=== PATIENT | female | born 1960 | race Caucasian/White ===

== ENCOUNTER 2016-07-02 13:04 | Emergency (ER) | payer MEDICARE, MEDICAID ==
[2016-07-02 14:16] LABS: Urine Bacteria Absent (Absent); Urine Bilirubin Negative (Negative); Urine Glucose Negative (Negative); Urine Nitrite Negative (Negative)
[2016-07-02 14:43] LABS: Hematocrit 46 % (35-47); Hemoglobin 15.2 g/dl (12.0-16.0); Mean Corpuscular HGB Conc 33 g/dl (31-36); Mean Corpuscular Hemoglobin 31 pg (27-31); Mean Corpuscular Volume 95 fL (80-97); Mean Platelet Volume 9 um3 (7.4-10.4); Red Blood Count 4.89 10^6/ul (4.0-5.4); Red Cell Distribution Width 14 % (10.5-15); White Blood Count 11.5 10^3/ul (3.5-10.8)
[2016-07-02 14:56] LABS: Albumin 3.8 g/dL (3.2-5.2); BUN/Creatinine Ratio 10.1 (8-20); C Reactive Protein 45.41 mg/L (< 5.00); Calcium 9.1 mg/dL (8.6-10.3); EGFR African American 113.2 (>60); Globulin 3.3 g/dL (2-4); Magnesium 1.9 mg/dL (1.9-2.7); Potassium 3.8 mmol/L (3.5-5.0); Total Bilirubin 0.3 mg/dL (0.2-1.0); Total Protein 7.1 g/dL (6.4-8.9)
[2016-07-02 15:30] LABS: TSH (Thyroid Stimulating Horm) 0.33 mcIU/mL (0.34-5.60)
[2016-07-02] MEDS ORDERED: Clarithromycin TAB* 500 MG PO ONE (15:42)
[2016-07-02] MEDS ORDERED: predniSONE TAB* 20 MG PO ONE (15:42)
[2016-07-02 16:10] VITALS: BP 122/98
--- NOTE | 2016-07-02 19:06 | RAD ---
HISTORY: Shortness of breath COMPARISONS: May 30, 2016 VIEWS:1: Single frontal portable view of the chest at 1:45 PM FINDINGS: LINES AND TUBES: None. CARDIOMEDIASTINAL SILHOUETTE: The cardiomediastinal silhouette is normal for portable technique. PLEURA: The costophrenic angles are sharp. No pleural abnormalities are noted. LUNG PARENCHYMA: There is hyperinflation. ABDOMEN: The upper abdomen is clear. There is no subphrenic gas. BONES AND SOFT TISSUES: No bone or soft tissue abnormalities are noted. IMPRESSION: HYPERINFLATION NO ACTIVE CARDIOPULMONARY DISEASE.
--- NOTE | 2016-07-02 22:51 | ED ---
Mary Keith Matthew, scribed for Luke Salomon MD on 07/02/16 at 1542 . Shortness of Breath - HPI Summary HPI Summary: A 55 y/o female presents to the ED by EMS with SOB since this morning. The patient used a nebulizer at home with minimal relief. Associated symptoms include 3 day productive cough - green and chills. The patient denies fever. The patient also has left arm pain only when coughing that is rated 9/10 in severity. The breathing treatment in the EMS helped to alleviate her symptoms. No Hx of diabetes. - History of Current Complaint Chief Complaint: EDShortnessOfBreath Time Seen by Provider: 07/02/16 15:32 Hx Obtained From: Patient Onset/Duration: Sudden Onset, Lasting Hours, Resolved Timing: Constant Current Severity: None Dyspnea At: Rest Associated Signs & Symptoms: Cough (Productive) - green, Chills - Allergy/Home Medications Allergies/Adverse Reactions: Allergies Allergy/AdvReac Type Severity Reaction Status Date / Time Sulfa Drugs Allergy Intermediate Hives Verified 01/19/16 12:00 Latex Allergy SEE NOTE Verified 01/24/16 10:24 BELOW bee Allergy Difficulty Uncoded 01/19/16 12:00 Breathing/Wheezing PMH/Surg Hx/FS Hx/Imm Hx Endocrine/Hematology History: Reports: Other Endocrine/Hematological Disorders - HIV Denies: Hx Anticoagulant Therapy, Hx Diabetes, Hx Systemic Lupus Erythematosus Cardiovascular History: Denies: Hx Congestive Heart Failure, Hx Hypertension Respiratory History: Reports: Hx Asthma, Hx Chronic Obstructive Pulmonary Disease (COPD) Denies: Hx Sleep Apnea History: Denies: Hx Dialysis, Hx Renal Disease Musculoskeletal History: Denies: Hx Arthritis, Hx Rheumatoid Arthritis, Hx Osteoporosis Sensory History: Reports: Hx Contacts or Glasses Denies: Hx Cataracts, Hx Glaucoma, Hx Hearing Aid Opthamlomology History: Reports: Hx Contacts or Glasses Denies: Hx Cataracts, Hx Glaucoma Neurological History: Denies: Hx Headaches, Hx Seizures, Hx Transient Ischemic Attacks (TIA) Psychiatric History: Denies: Hx Anxiety, Hx Depression - Cancer History Hx Chemotherapy: No - Surgical History Surgery Procedure, Year, and Place: TUBIAL LIGATION. UMBILICAL HERNIA REPAIR Hx Anesthesia Reactions: No Infectious Disease History: No Infectious Disease History: Reports: Hx Human Immunodeficiency Virus (HIV) Denies: Traveled Outside the US in Last 30 Days - Family History Family History: No FHx of breast CA. - Social History Alcohol Use: None Substance Use Type: Reports: None Hx Tobacco Use: Yes Smoking Status (MU): Current Every Day Smoker Amount Used/How Often: 4 PPD X 18 YEARS THEN DECREASED TO 1 PPD Have You Smoked in the Last Year: Yes Review of Systems Positive: Chills. Negative: Fever Eyes: Negative ENT: Negative Cardiovascular: Negative Positive: Shortness Of Breath, Cough Gastrointestinal: Negative Genitourinary: Negative Musculoskeletal: Negative Skin: Negative Neurological: Negative Psychological: Normal All Other Systems Reviewed And Are Negative: Yes Physical Exam Triage Information Reviewed: Yes Vital Signs On Initial Exam: Initial Vitals BP 118/78 07/02/16 13:21 Vital Signs Reviewed: Yes Appearance: Positive: Well-Appearing, No Pain Distress Skin: Positive: Warm, Skin Color Reflects Adequate Perfusion, Dry Head/Face: Positive: Normal Head/Face Inspection Eyes: Positive: Normal ENT: Positive: Normal ENT inspection Neck: Positive: Supple, Nontender Respiratory/Lung Sounds: Positive: Clear to Auscultation, Breath Sounds Present Cardiovascular: Positive: RRR Abdomen Description: Positive: Nontender, Soft Bowel Sounds: Positive: Present Musculoskeletal: Positive: Normal Neurological: Positive: Normal Psychiatric: Positive: Normal, Affect/Mood Appropriate - Douglas Coma Scale Coma Scale Total: 15 Diagnostics - Vital Signs Vital Signs Temp Pulse Resp BP Pulse Ox 07/02/16 14:00 92 18 96 07/02/16 13:50 99.1 F 95 24 119/66 96 07/02/16 13:30 96 21 119/66 95 07/02/16 13:22 99.1 F 97 26 118/78 96 07/02/16 13:21 118/78 - Laboratory Lab Results: Lab Results 07/02/16 07/02/16 07/02/16 Range/Units 14:00 14:33 14:33 WBC 11.5 H (3.5-10.8) 10^3/ul RBC 4.89 (4.0-5.4) 10^6/ul Hgb 15.2 (12.0-16.0) g/dl Hct 46 (35-47) % MCV 95 (80-97) fL MCH 31 (27-31) pg MCHC 33 (31-36) g/dl RDW 14 (10.5-15) % Plt Count 305 (150-450) 10^3/ul MPV 9 (7.4-10.4) um3 Neut % (Auto) 69.0 (38-83) % Lymph % (Auto) 20.8 L (25-47) % Gilliam % (Auto) 8.0 (1-9) % Eos % (Auto) 1.1 (0-6) % Baso % (Auto) 1.1 (0-2) % Absolute Neuts (auto) 8.0 H (1.5-7.7) 10^3/ul Absolute Lymphs (auto) 2.4 (1.0-4.8) 10^3/ul Absolute Monos (auto) 0.9 H (0-0.8) 10^3/ul Absolute Eos (auto) 0.1 (0-0.6) 10^3/ul Absolute Basos (auto) 0.1 (0-0.2) 10^3/ul Absolute Nucleated RBC 0.02 10^3/ul Nucleated RBC % 0.2 Sodium 135 (133-145) mmol/L Potassium 3.8 (3.5-5.0) mmol/L Chloride 101 (101-111) mmol/L Carbon Dioxide 28 (22-32) mmol/L Anion Gap 6 (2-11) mmol/L BUN 7 (6-24) mg/dL Creatinine 0.69 (0.51-0.95) mg/dL Est GFR ( Amer) 113.2 (>60) Est GFR (Non-Af Amer) 88.0 (>60) BUN/Creatinine Ratio 10.1 (8-20) Glucose 92 (70-100) mg/dL Lactic Acid (0.5-2.0) mmol/L Calcium 9.1 (8.6-10.3) mg/dL Magnesium 1.9 (1.9-2.7) mg/dL Total Bilirubin 0.30 (0.2-1.0) mg/dL AST 13 (13-39) U/L ALT 9 (7-52) U/L Alkaline Phosphatase 132 H (34-104) U/L Total Creatine Kinase 77 (10-223) U/L CK-MB (CK-2) 3.0 (0.6-6.3) ng/mL Troponin I 0.00 (<0.04) ng/mL C-Reactive Protein 45.41 H (< 5.00) mg/L B-Natriuretic Peptide ( - 100) pg/mL Total Protein 7.1 (6.4-8.9) g/dL Albumin 3.8 (3.2-5.2) g/dL Globulin 3.3 (2-4) g/dL Albumin/Globulin Ratio 1.2 (1-3) Lipase 13 (11.0-82.0) U/L TSH 0.33 L (0.34-5.60) mcIU/mL Urine Color Yellow Urine Appearance Clear Urine pH 7.0 (5-9) Ur Specific [place] 1.006 L (1.010-1.030) Urine Protein Negative (Negative) Urine Ketones Negative (Negative) Urine Blood 2+ H (Negative) Urine Nitrate Negative (Negative) Urine Bilirubin Negative (Negative) Urine Urobilinogen Negative (Negative) Ur Leukocyte Esterase Negative (Negative) Urine WBC (Auto) Absent (Absent) Urine RBC (Auto) Trace(0-2/hpf) (Absent) Ur Squamous Epith Cells Present H (Absent) Urine Bacteria Absent (Absent) Urine Glucose Negative (Negative) 07/02/16 07/02/16 Range/Units 14:33 14:33 WBC (3.5-10.8) 10^3/ul RBC (4.0-5.4) 10^6/ul Hgb (12.0-16.0) g/dl Hct (35-47) % MCV (80-97) fL MCH (27-31) pg MCHC (31-36) g/dl RDW (10.5-15) % Plt Count (150-450) 10^3/ul MPV (7.4-10.4) um3 Neut % (Auto) (38-83) % Lymph % (Auto) (25-47) % Gilliam % (Auto) (1-9) % Eos % (Auto) (0-6) % Baso % (Auto) (0-2) % Absolute Neuts (auto) (1.5-7.7) 10^3/ul Absolute Lymphs (auto) (1.0-4.8) 10^3/ul Absolute Monos (auto) (0-0.8) 10^3/ul Absolute Eos (auto) (0-0.6) 10^3/ul Absolute Basos (auto) (0-0.2) 10^3/ul Absolute Nucleated RBC 10^3/ul Nucleated RBC % Sodium (133-145) mmol/L Potassium (3.5-5.0) mmol/L Chloride (101-111) mmol/L Carbon Dioxide (22-32) mmol/L Anion Gap (2-11) mmol/L BUN (6-24) mg/dL Creatinine (0.51-0.95) mg/dL Est GFR ( Amer) (>60) Est GFR (Non-Af Amer) (>60) BUN/Creatinine Ratio (8-20) Glucose (70-100) mg/dL Lactic Acid 0.7 (0.5-2.0) mmol/L Calcium (8.6-10.3) mg/dL Magnesium (1.9-2.7) mg/dL Total Bilirubin (0.2-1.0) mg/dL AST (13-39) U/L ALT (7-52) U/L Alkaline Phosphatase (34-104) U/L Total Creatine Kinase (10-223) U/L CK-MB (CK-2) (0.6-6.3) ng/mL Troponin I (<0.04) ng/mL C-Reactive Protein (< 5.00) mg/L B-Natriuretic Peptide 41 ( - 100) pg/mL Total Protein (6.4-8.9) g/dL Albumin (3.2-5.2) g/dL Globulin (2-4) g/dL Albumin/Globulin Ratio (1-3) Lipase (11.0-82.0) U/L TSH (0.34-5.60) mcIU/mL Urine Color Urine Appearance Urine pH (5-9) Ur Specific [place] (1.010-1.030) Urine Protein (Negative) Urine Ketones (Negative) Urine Blood (Negative) Urine Nitrate (Negative) Urine Bilirubin (Negative) Urine Urobilinogen (Negative) Ur Leukocyte Esterase (Negative) Urine WBC (Auto) (Absent) Urine RBC (Auto) (Absent) Ur Squamous Epith Cells (Absent) Urine Bacteria (Absent) Urine Glucose (Negative) Result Diagrams: 07/02/16 14:33 07/02/16 14:33 Lab Statement: Any lab studies that have been ordered have been reviewed, and results considered in the medical decision making process. - Radiology CXR Xray Interpretation: No Acute Changes - IMPRESSION: HYPERINFLATION NO ACTIVE CARDIOPULMONARY DISEASE. Radiology Interpretation Completed By: Radiologist - EKG 13:52 Cardiac Rate: NL - 92 bpm EKG Rhythm: Sinus Rhythm Course/Dx - Course Assessment/Plan: A 55 y/o female presents to the ED by EMS with SOB since this morning. Associated symptoms include 3 day productive cough green, and chills. Labs were reviewed. CXR shows no active cardiopulmonary disease. EKG shows NSR at 92 bpm. The patient will be discharged home and follow-up with her PCP. - Diagnoses Provider Diagnoses: Bronchospasm with bronchitis, acute Discharge - Discharge Plan Condition: Stable Disposition: HOME Prescriptions: Clarithromycin TAB* [Biaxin TAB*] 500 mg PO BID #20 tab Methylprednisolone [Medrol Dosepak 4 MG*] 4 mg PO .SEE GARRETT INSTRUCTION #1 tab Patient Education Materials: Clarithromycin (By mouth), Methylprednisolone (By mouth), Acute Bronchitis (ED) Referrals: Philip Diamond MD [Primary Care Provider] - 2 Days Additional Instructions: Please follow-up with your primary care physician. The documentation as recorded by the Mary thibodeaux Matthew accurately reflects the service I personally performed and the decisions made by , Luke Salomon MD.
== END 2016-07-02 16:10 | disposition home or self-care (01) ==
LOC: ED 13:04
DX: J20.9 Acute bronchitis, unspecified (principal); F17.210 Nicotine dependence, cigarettes, uncomplicated; M79.602 Pain in left arm; Z88.2 Allergy status to sulfonamides; B20 Human immunodeficiency virus [HIV] disease
CPT/HCPCS: 36415; 71010; 80053; 81003; 81015; 82550; 82553; 83605; 83690; 83735; 83880; 84443; 84484; 85025; 86140; 93005; 99284; A9270-GY; J7512

== ENCOUNTER 2017-02-26 16:12 | Emergency (ER) | payer MEDICARE, MEDICAID ==
[2017-02-26] MEDS ORDERED: Cyclobenzaprine TAB* 10 MG PO ONE ×2 (18:40→20:30)
[2017-02-26] MEDS ORDERED: HYDROcodone/ACETAMIN 5-325 MG* 1 TAB PO ONE ×2 (19:27→20:30)
[2017-02-26] MEDS ORDERED: LORazepam TAB(*) 1 MG PO ONE (19:27)
[2017-02-26 21:06] VITALS: BP 119/71
--- NOTE | 2017-02-28 18:49 | ED ---
Neck Pain - HPI Summary HPI Summary: Patient presents to the ED with neck pain which radiates to the left shoulder. Pain is 10/10, constant. Patient is very tearful on exam. She states this has never happened to her before. She states she just awoke with this pain and has been unable to move the neck since that time. Denies injury or trauma to the area. Denies posterior cervical spine tenderness. Unable to perform physical exam on patient d/t pain. Denies insect bites, neuro symptoms, rashes, visual changes or joint pains. - History of Current Complaint Chief Complaint: EDNeckComplaint Stated Complaint: HEAD/NECK PAIN/CANT MOVE Time Seen by Provider: 02/26/17 17:57 Hx Obtained From: Patient Onset/Duration Of Injury/Symptoms: Hours Mechanism Of Injury: No Known Trauma Timing: Constant Onset/Duration: Sudden Onset Severity Initially: Moderate Severity Currently: Moderate Pain Intensity: 0 Pain Scale Used: 0-10 Numeric Location: Discrete At: - left side of neck muscles extending to the trap Character: Aching, Stiff Aggravating Factors: Movement, Other: Alleviating Factors: Heat Associated Signs & Symptoms: Positive: Negative - Risk Factors Meningitis Risk Factors: Negative - Allergies/Home Medications Allergies/Adverse Reactions: Allergies Allergy/AdvReac Type Severity Reaction Status Date / Time Sulfa Drugs Allergy Intermediate Hives Verified 02/26/17 16:26 Latex Allergy SEE NOTE Verified 02/26/17 16:26 BELOW bee Allergy Difficulty Uncoded 02/26/17 16:26 Breathing/Wheezing PMH/Surg Hx/FS Hx/Imm Hx Previously Healthy: Yes Endocrine/Hematology History: Reports: Other Endocrine/Hematological Disorders - HIV Denies: Hx Anticoagulant Therapy, Hx Diabetes, Hx Systemic Lupus Erythematosus Cardiovascular History: Denies: Hx Congestive Heart Failure, Hx Hypertension Respiratory History: Reports: Hx Asthma, Hx Chronic Obstructive Pulmonary Disease (COPD) Denies: Hx Sleep Apnea History: Denies: Hx Dialysis, Hx Renal Disease Musculoskeletal History: Denies: Hx Arthritis, Hx Rheumatoid Arthritis, Hx Osteoporosis Sensory History: Reports: Hx Contacts or Glasses Denies: Hx Cataracts, Hx Glaucoma, Hx Hearing Aid Opthamlomology History: Reports: Hx Contacts or Glasses Denies: Hx Cataracts, Hx Glaucoma Neurological History: Denies: Hx Headaches, Hx Seizures, Hx Transient Ischemic Attacks (TIA) Psychiatric History: Denies: Hx Anxiety, Hx Depression - Cancer History Hx Chemotherapy: No - Surgical History Surgery Procedure, Year, and Place: TUBIAL LIGATION. UMBILICAL HERNIA REPAIR Hx Anesthesia Reactions: No - Immunization History Date of Tetanus Vaccine: 2014 Date of Influenza Vaccine: 2016 Hx Pertussis Vaccination: No Immunizations Up to Date: Unable to Obtain/Confirm Infectious Disease History: No Infectious Disease History: Reports: Hx Human Immunodeficiency Virus (HIV) Denies: Traveled Outside the [place] in Last 30 Days - Family History Known Family History: Positive: Other - noncontributory Family History: No FHx of breast CA. - Social History Occupation: Unemployed Lives: With Family Alcohol Use: None Hx Substance Use: No Substance Use Type: Reports: None Hx Tobacco Use: Yes Smoking Status (MU): Current Every Day Smoker Amount Used/How Often: 4 PPD X 18 YEARS THEN DECREASED TO 1 PPD Have You Smoked in the Last Year: Yes Review of Systems Constitutional: Negative Eyes: Negative Cardiovascular: Negative Respiratory: Negative Genitourinary: Negative Positive: no symptoms reported, see HPI Positive: Arthralgia - left sided neck tenderness Skin: Negative Psychological: Normal All Other Systems Reviewed And Are Negative: Yes Physical Exam Triage Information Reviewed: Yes Vital Signs On Initial Exam: Initial Vitals Temp Pulse Resp BP Pulse Ox 97.7 F 95 16 139/78 94 02/26/17 16:24 02/26/17 16:24 02/26/17 16:24 02/26/17 16:24 02/26/17 16:24 Vital Signs Reviewed: Yes Appearance: Positive: Well-Appearing, Well-Nourished, Pain Distress Skin: Positive: Skin Color Reflects Adequate Perfusion Head/Face: Positive: Normal Head/Face Inspection, Cephalohematoma Eyes: Positive: Normal, RELL, Conjunctiva Clear Neck: Positive: Tenderness @ - left sided neck muscles radiating into the left scapula Respiratory/Lung Sounds: Positive: Clear to Auscultation, Breath Sounds Present Cardiovascular: Positive: RRR, Pulses are Symmetrical in both Upper and Lower Extremities Musculoskeletal: Positive: Strength/ROM Intact Neurological: Positive: Alert, Oriented to Person Place, Time, Speech Normal Psychiatric: Positive: Normal, Affect/Mood Appropriate Diagnostics - Vital Signs Vital Signs Temp Pulse Resp BP Pulse Ox 02/26/17 21:01 99.1 F 87 119/71 02/26/17 19:35 20 02/26/17 16:24 97.7 F 95 16 139/78 94 - Laboratory Lab Statement: Any lab studies that have been ordered have been reviewed, and results considered in the medical decision making process. Neck Course/Dx - Course Course Of Treatment: Patient is given flexeril without relief. She is then given ativan and 2 [place]. Upon re-evaluation, patient with improved relief. No tenderness to the posterior cervical spine. She is Ok with discharge with muscle relaxers and pain control. She is encouraged ibuprofen 600mg three times daily and moist heat. - Diagnoses Provider Diagnoses: Cervical radicular pain Discharge - Discharge Plan Condition: Stable Disposition: HOME Prescriptions: Cyclobenzaprine TAB* [Flexeril TAB*] 10 mg PO BID PRN #10 tab MDD 2 PRN Reason: Pain HYDROcodone/ACETAMIN 5-325 MG* [[place] 5-325 TAB*] 1 tab PO Q4H PRN #18 tab MDD 6 PRN Reason: Pain Patient Education Materials: Cervical Radiculopathy (ED), Acute Neck Pain (ED) Referrals: Philip Diamond MD [Primary Care Provider] - Additional Instructions: Take flexeril and hydrocodone as prescribed Moist heat to the area Try to gently move the neck as tolerated If symptoms worsen - return to the ED
== END 2017-02-26 21:06 | disposition home or self-care (01) ==
LOC: ED 16:12
DX: M54.12 Radiculopathy, cervical region (principal); B20 Human immunodeficiency virus [HIV] disease; J44.9 Chronic obstructive pulmonary disease, unspecified; Z88.2 Allergy status to sulfonamides; Z91.040 Latex allergy status; F17.210 Nicotine dependence, cigarettes, uncomplicated
CPT/HCPCS: 99282; A9270-GY

== ENCOUNTER 2017-05-13 19:31 | Inpatient (IN) | payer MEDICARE, MEDICAID ==
[2017-05-13] MEDS ORDERED: Acetaminophen TAB* 325 MG PO ONE (19:45)
[2017-05-13] MEDS ORDERED: NS 0.9% 1000 ML* 2,500 ML IV ONE (20:13)
[2017-05-13] MEDS ORDERED: cefTRIAXone(*) 1 GM in NS 0.9% 50 ML* 50 ML IVPB ONE (20:13)
[2017-05-13] MEDS ORDERED: Azithromycin IV(*) 500 MG in NS 0.9% 250 ML* 250 ML IVPB ONE (20:13)
[2017-05-13 20:14] LABS: ABS Basophils 0.1 10^3/ul (0-0.2); ABS Eosinophils 0 10^3/ul (0-0.6); ABS Lymphocytes 2.2 10^3/ul (1.0-4.8); ABS Monocytes 1.3 10^3/ul (0-0.8); ABS Neutrophils 23.2 10^3/ul (1.5-7.7); ABS Nucleated RBC 0.01 10^3/ul; Eosinophil % 0 % (0-6); Hematocrit 45 % (35-47); Hemoglobin 14.9 g/dl (12.0-16.0); Lymphocyte % 8.2 % (25-47); Mean Corpuscular HGB Conc 33 g/dl (31-36); Mean Corpuscular Hemoglobin 31 pg (27-31); Mean Corpuscular Volume 93 fL (80-97); Mean Platelet Volume 8 um3 (7.4-10.4); Nucleated Red Blood Cells % 0; Platelet Count 304 10^3/ul (150-450); Red Cell Distribution Width 14 % (10.5-15); White Blood Count 26.8 10^3/ul (3.5-10.8)
--- NOTE | 2017-05-13 20:22 | RAD ---
INDICATION: Cough x5 days with shortness of breath and fever COMPARISON: Chest x-ray dated May 30, 2016 TECHNIQUE: PA and lateral views of the chest were obtained. FINDINGS: The heart and mediastinum are normal in size and contour. On the AP view there is a vaguely defined density overlying the upper lateral right lung measuring 2.2 cm, a more inferior density measuring 3.6 cm as well as density along the medial right upper lung obscuring definition of the upper lateral right mediastinum. On the lateral view chest this density is localized to the right upper lobe. Visualized bones are normal for the patient's age. There is no radiographic evidence of free air beneath the diaphragm IMPRESSION: MULTIFOCAL DENSITIES IN THE RIGHT UPPER LOBE INCLUDING ILL-DEFINED DENSITY OBSCURING THE SUPERIOR ASPECT OF THE RIGHT HILUM AND RIGHT LATERAL MEDIASTINUM. ESPECIALLY CONSIDERING THE PATIENT'S REPORTED SMOKING HISTORY, FOLLOW-UP CHEST X-RAY AFTER AN APPROPRIATE COURSE OF THERAPY IS ADVISED.
[2017-05-13] MEDS: Acetaminophen TAB* 325 MG PO PRN (22:03)
[2017-05-13] MEDS: Heparin VIAL(*) 5000 UNITS/ML VIAL (FIVE THOUSAND) SUBCUT SCH (22:03)
[2017-05-13] MEDS: Zolpidem TAB* 5 MG PO PRN (22:03)
[2017-05-13] MEDS: EMTRICITAB PO SCH (22:05)
[2017-05-13] MEDS: EFAVIRENZ PO SCH (22:05)
[2017-05-13] MEDS: [UNRECOGNIZED DRUG - OTHER] PO SCH (22:05)
[2017-05-14] MEDS: NS 0.9% 1000 ML* 1,000 ML IV SCH ×2 (00:46→12:32)
[2017-05-14 01:22] LABS: Urine Appearance Clear; Urine Blood Negative (Negative); Urine Color Straw; Urine Ketones Negative (Negative); Urine Protein Negative (Negative); Urine Specific Gravity 1.003 (1.010-1.030); Urine Urobilinogen Negative (Negative)
[2017-05-14] MEDS ORDERED: NS 0.9% 1000 ML* 1,000 ML IV ONE ×2 (03:57→15:36)
[2017-05-14] MEDS: Acetaminophen TAB* 325 MG PO PRN ×2 (04:08→11:29)
--- NOTE | 2017-05-14 04:41 | HP ---
CC: Dr. Diamond.* HOSPITAL MEDICINE HISTORY AND PHYSICAL: DATE OF ADMISSION: 05/13/17 PRIMARY CARE PHYSICIAN: Dr. Diamond ATTENDING PHYSICIAN: John Bullard MD * (dictation provided by Jaymie Alexis NP) CHIEF COMPLAINT: Cough and shortness of breath. HISTORY OF PRESENT ILLNESS: Ms. Burnett is a 56-year-old female with a past medical history of HIV positivity, COPD who presents today to hospital with concerns of sudden onset of cough, shortness of breath and malaise. Ms. Burnett states she had a little bit more of a cough yesterday, but it did not seem very unusual based on her history of chronic obstructive pulmonary disease. She is a continuing smoker, smoking about 15 cigarettes a day. She however woke up this morning and felt much worse. She had malaise, myalgias, arthralgias, rigors and cough with shortness of breath. She also states it was most painful in her chest when she breaths in. Though she felt rigors she did not take her temperature. She denies any nausea, vomiting, diarrhea, abdominal pain. In the emergency room, Ms. Burnett had a chest x-ray which showed concern for a pneumonia. She had labs which notable for a leukocytosis of 26.8. She is hyponatremic with a sodium of 129. Her CRP is 67.39. Her flu swab is negative. Her vital signs shows she is febrile with the temperature of 100.6 and pulse rate of 102. She is currently on 2L nasal cannula. PAST MEDICAL HISTORY: 1. HIV positive. 2. COPD, the patient wears 2L nasal cannula at night. 3. Asthma. 4. Cervical dysplasia. MEDICATIONS: As an outpatient are, 1. Symbicort 160/4.5 inhaled daily. 2. Atripla (efavirenz/emtricitabine/tenofovir) 1 tab p.o. bedtime. 3. Albuterol inhaler q. 4 hours p.r.n. ALLERGIES: SULFA drugs and LATEX. FAMILY HISTORY: The patient reports the mother has diabetes and hypertension, father related to a heart attack in his 50s. SOCIAL HISTORY: The patient has continued to smoke about a 15 a day. She started smoking at age 12. She quit drinking about 3-1/2 years ago. No reported drugs use. She lives with her grandson. She states her sisters Coby and Ruth would be her health care proxies. REVIEW OF SYSTEMS: A 14-point review of systems was completed with Ms. Burnett and except all those not mentioned above were negative. PHYSICAL EXAMINATION GENERAL: Ms. Burnett is lying in the bed. She appears sick, but she is in no acute distress. VITAL SIGNS: Temperature 100.6, pulse rate 102, respiratory rate 18, O2 saturation 94% on 2L nasal cannula. Blood pressure 103/63. LUNGS: Lungs are surprisingly clear to auscultation. I am not able to appreciate any rhonchi or wheezing today. HEART: S1 and S2. No murmur, rub or gallop and regular. ABDOMEN: Her abdomen is soft, nontender. Bowel sounds positive x4. EXTREMITIES: No cyanosis or edema. NEURO: She is alert. She is oriented x3. She moves all extremities equally. There is no facial asymmetry or focal weakness. Extraocular movements are intact. SKIN: Intact. LABORATORY DATA/DIAGNOSTIC STUDIES: WBC 26.8, hemoglobin 14.9, hematocrit 45, platelet count 304. Sodium 129, potassium 3.8, chloride 96, serum bicarbonate 25. BUN 9, creatinine 0.79, glucose 126, CRP 67.39. Flu swab is negative. Chest x-ray is read as follows, "Multifocal densities in the right upper lobe including ill-defined density obscuring with severe aspects of the right hilum and right lateral mediastinum, especially considering the patient's reports of smoking history, followup chest x-ray if not appropriate course of therapy as advised." EKG shows a sinus rhythm with the heart rate of about 100. No evidence of ischemia. ASSESSMENT AND PLAN: Ms. Burnett is a 56-year-old female with a past medical history of HIV and chronic obstructive pulmonary disease, who is a continuing smoker and presents today after the sudden onset of malaise, myalgias , arthralgias, rigors, cough, and pain with deep inspiration in her chest. In the emergency room, she has been found to have a chest x-ray concerning for an infiltrate with labs and vitals consistent with sepsis. Our plans are for inpatient admission as I except her length of stay to be greater the 2 days for the followin. Sepsis secondary to pneumonia: This is certainly concerning with this patient who is immunocompromised and HIV positive. She states she does not know exact CD4 count, but states that it was greater than 1000 and "I haven't had any trouble with this." She is on 2L nasal cannula in the emergency room. Blood cultures have been drawn. Lactic acid is normal. She has been given 30 mL/kg fluid bolus in the emergency room. We will continue with IV fluids at 100 mL/hour overnight. We will recheck all her labs in the morning. For antibiotic coverage, we plan to use ceftriaxone and azithromycin. Sputum culture will be attempted to be obtained. Strep, legionella and urine antigens are being sent. 2. HIV positive: Again the patient states her CD4 count is greater than 1000. I do not have any available data here. The patient states she follows with a team in [place] who comes here to [place] on . 3. Chronic obstructive pulmonary disease exacerbation. The patient is not wheezing today. I am not planning to use prednisone at this point, but that certainly could be added if the patient does not respond appropriately to antibiotic therapy. 4. Code status is DNR/DNI and a form has been completed with the patient today. TIME SPENT: Approximately 60 minutes was spent in the admission of this patient , more than half the time spent with the patient at the bedside reviewing the events leading up to this hospitalization, performing physical examination and reviewing my plan of care. JAYMIE ALEXIS NP [id number]/[facility] #: [id number] LEVY
[2017-05-14] MEDS: Heparin VIAL(*) 5000 UNITS/ML VIAL (FIVE THOUSAND) SUBCUT SCH ×3 (05:40→21:43)
[2017-05-14 08:53] LABS: ABS Basophils 0.1 10^3/ul (0-0.2); ABS Eosinophils 0 10^3/ul (0-0.6); ABS Lymphocytes 2.1 10^3/ul (1.0-4.8); ABS Nucleated RBC 0.01 10^3/ul; Eosinophil % 0.1 % (0-6); Hematocrit 43 % (35-47); Lymphocyte % 7.2 % (25-47); Mean Corpuscular HGB Conc 32 g/dl (31-36); Mean Corpuscular Hemoglobin 31 pg (27-31); Mean Corpuscular Volume 95 fL (80-97); Mean Platelet Volume 9 um3 (7.4-10.4); Nucleated Red Blood Cells % 0; Platelet Count 255 10^3/ul (150-450); Red Blood Count 4.53 10^6/ul (4.0-5.4); Red Cell Distribution Width 14 % (10.5-15)
[2017-05-14 08:59] LABS: ABS Monocytes 1.2 10^3/ul (0-0.8); ABS Neutrophils 25.6 10^3/ul (1.5-7.7)
[2017-05-14] MEDS ORDERED: Influenza VAC *QUAD* 2017-18* 0.5 ML SYRINGE IM ONE (09:00)
[2017-05-14 09:09] LABS: EGFR Non-African American 79.6 (>60)
[2017-05-14] MEDS ORDERED: Nicotine Inhaler* 10 MG AMP INH PRN (11:06)
[2017-05-14] MEDS ORDERED: Mouth Piece, Nicotine* 1 EACH CARTRIDGE INH PRN (11:06)
--- NOTE | 2017-05-14 11:34 | PN ---
Subjective Date of Service: 05/14/17 Interval History: Patient seen and examined at bedside. Ms. Burnett is a 56 yo female with a PMH of HIV, COPD and tobacco use who presented on 05/13 with SOB, cough, and malaise. She reports feeling better this morning but still endorses persistent cough and generalized fatigue/ malaise. 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 She denies fever/chills but does reports some pain with inspiration. Denies any other complaint. She states she uses 2Lnc at nighttime and sometimes during the day if needed. Family History: Unchanged from Admission Social History: Unchanged from Admission Past Medical History: Unchanged from Admission Objective Active Medications: Acetaminophen (Tylenol Tab*) 650 mg PO Q6H PRN PRN Reason: PAIN Last Admin: 05/14/17 11:29 Dose: 650 mg Albuterol/Ipratropium (Duoneb (Albuterol 2.5 Mg/Ipratropium 0.5 Mg)) 1 neb INH Q4H PRN PRN Reason: SOB/WHEEZING Device (Nicotine Mouth Piece*) 1 each INH .USE WITH NICOTROL PRN PRN Reason: CRAVING Last Admin: 05/14/17 11:27 Dose: 1 each Efavirenz/Emtricitabine/Tenofovir (Atripla(Nf)) 1 tab PO BEDTIME [facility] Last Admin: 05/13/17 22:05 Dose: Not Given Heparin Sodium (Porcine) (Heparin Vial(*)) 5,000 units SUBCUT Q8HR [facility] Last Admin: 05/14/17 05:40 Dose: 5,000 units Ceftriaxone Sodium 1 gm/ (Sodium Chloride) 50 mls @ 200 mls/hr IVPB Q24H [facility] Azithromycin 250 mg/ Sodium (Chloride) 250 mls @ 250 mls/hr IVPB Q24H [facility] Sodium Chloride (Ns 0.9% 1000 Ml*) 1,000 mls @ 100 mls/hr IV PER RATE [facility] Last Admin: 05/14/17 00:46 Dose: 100 mls/hr Nicotine (Nicotine Inhaler*) 10 mg INH Q2H PRN PRN Reason: CRAVING Last Admin: 05/14/17 11:29 Dose: 10 mg Zolpidem Tartrate (Ambien Tab*) 5 mg PO BEDTIME PRN PRN Reason: INSOMNIA Last Admin: 05/13/17 22:03 Dose: 5 mg Vital Signs - 8 hr 05/14/17 05/14/17 05/14/17 03:40 05:36 07:14 Temperature 101.6 F 99.0 F 99.7 F Pulse Rate 99 93 89 Respiratory 18 19 15 Rate Blood Pressure 89/76 98/50 92/57 (mmHg) O2 Sat by Pulse 97 95 98 Oximetry 05/14/17 08:00 Temperature Pulse Rate Respiratory 16 Rate Blood Pressure (mmHg) O2 Sat by Pulse Oximetry Oxygen Devices in Use Now: Nasal Cannula Appearance: Female patient, appears older than stated age, tachypneic Eyes: No Scleral Icterus Ears/Nose/Mouth/Throat: Clear Oropharnyx, Mucous Membranes Moist Neck: NL Appearance and Movements; NL JVP Respiratory: Symmetrical Chest Expansion and Respiratory Effort, - - diminished but fair aeration throughout, no wheezing or rhonchi noted Cardiovascular: NL Sounds; No Murmurs; No JVD, RRR Abdominal: NL Sounds; No Tenderness; No Distention Extremities: No Edema, No Clubbing, Cyanosis Skin: No Rash or Ulcers Neurological: Alert and Oriented x 3, NL Muscle Strength and Tone Lines/Tubes/Other Access: Clean, Dry and Intact Peripheral IV Nutrition: Taking PO's Result Diagrams: 05/14/17 08:31 05/14/17 08:31 Microbiology and Other Data: Microbiology 05/14/17 00:55 Legionella Urinary Antigen - Final Urine Negative Legionella Streptococcus pneumoniae Ag Screen - Final Negative S. pneumo Antigen Assess/Plan/Problems-Billing Assessment: Ms. Burnett is a 56 yo female with a PMH of COPD, tobacco use, and HIV who presented to the ED on 05/13/17 with concern for sudden onset of malaise, SOB, cough, arthralgias, and myalgias and was found to have concern for leukocytosis , sepsis, and pneumonia. - Patient Problems (1) Pneumonia Code(s): J18.9 - PNEUMONIA, UNSPECIFIED ORGANISM Comment: Multifocal densities seen in RUL Plan to check CT chest to better evaluate Continue ceftriaxone, azithromycin Influenza, legionella, s. pneumoniae antigens negative (2) Sepsis Comment: Met on admission with SIRS criteria of tachycardia, leukocytosis, hypotension. Met on admission with SOFA criteria of low MAP, SBP<90. Source appears to be pneumonia Blood cultures pending. Continue antibiotic therapy. (3) Leukocytosis Code(s): D72.829 - ELEVATED WHITE BLOOD CELL COUNT, UNSPECIFIED Comment: Suspect secondary to pneumonia Continue to trend Patient afebrile, not on steroids (4) COPD (chronic obstructive pulmonary disease) Code(s): J44.9 - CHRONIC OBSTRUCTIVE PULMONARY DISEASE, UNSPECIFIED Comment: Continue nebulizers (5) HIV antibody positive Code(s): Z21 - ASYMPTOMATIC HUMAN IMMUNODEFICIENCY VIRUS INFECTION STATUS Comment: On outpatient Atripla (not available here) Continue outpatient regimen upon discharge (6) Tobacco abuse Code(s): Z72.0 - TOBACCO USE Comment: Patient has been advised to quit smoking PRN nicotine inhaler (7) DVT prophylaxis Comment: SQ heparin Status and Disposition: Inpatient admission. D/c to home when medically stable.
[2017-05-14] MEDS: Albuterol/Ipratropium NEB.SOL* Albuterol 2.5 MG/Ipratropium 0.5 MG 3 ML INH PRN ×2 (12:31→19:54)
--- NOTE | 2017-05-14 14:39 | RAD ---
INDICATION: Shortness of breath. Question RIGHT lung mass. COMPARISON: May 13, 2017 radiographs. March 21, 2012 CT chest. TECHNIQUE: Multidetector CT images were obtained from the lung apices to the upper abdomen. Evaluation of the viscera is limited without IV contrast. REPORT: Interval worsening of consolidation involving the RIGHT upper lobe with only limited sparing at the apex. Dense consolidation with air bronchograms. The RIGHT upper lobe segmental airways appear obstructed. Small RIGHT pleural effusion. Negative for pneumothorax. RIGHT paratracheal, precarinal, and subcarinal lymphadenopathy. RIGHT paratracheal node measures 2.8 cm short axis. Subcarinal node measures 2.5 cm short axis. No visualized hilar adenopathy although absence of IV contrast limits assessment. Negative for cardiomegaly or pericardial effusion. Normal diameter thoracic aorta with calcific plaque. Low density 3.2 x 3.0 cm LEFT adrenal mass is consistent with a benign lipid rich adenoma based on low density measurement. Negative for suspicious thoracic osseous lesions. IMPRESSION: 1. Worsening of airspace consolidation at the RIGHT upper lobe compared with the recent chest radiograph. The appearance is concerning for potential central mass with postobstructive pneumonitis/pneumonia. Consider bronchoscopy at the RIGHT upper lobe bronchi for tissue sampling for histopathologic assessment and and microbiology assessment. Additionally a contrast enhanced CT may be of benefit to further assess for a RIGHT hilar mass. 2. Mediastinal lymphadenopathy.
[2017-05-14] MEDS: EFAVIRENZ PO SCH (20:54)
[2017-05-14] MEDS: EMTRICITAB PO SCH (20:54)
[2017-05-14] MEDS: [UNRECOGNIZED DRUG - OTHER] PO SCH (20:54)
[2017-05-14] MEDS: Zolpidem TAB* 5 MG PO PRN (21:00)
[2017-05-14] MEDS: cefTRIAXone(*) 1 GM in NS 0.9% 50 ML* 50 ML IVPB SCH (21:00)
[2017-05-14] MEDS: Azithromycin IV(*) 250 MG in NS 0.9% 250 ML* 250 ML IVPB SCH (21:43)
[2017-05-15] MEDS: NS 0.9% 1000 ML* 1,000 ML IV SCH ×2 (01:53→13:49)
[2017-05-15] MEDS: Acetaminophen TAB* 325 MG PO PRN ×3 (02:02→19:30)
[2017-05-15] MEDS: Albuterol/Ipratropium NEB.SOL* Albuterol 2.5 MG/Ipratropium 0.5 MG 3 ML INH PRN ×3 (02:04→18:21)
[2017-05-15] MEDS: Heparin VIAL(*) 5000 UNITS/ML VIAL (FIVE THOUSAND) SUBCUT SCH ×3 (05:51→20:52)
[2017-05-15 06:57] LABS: ABS Basophils 0.1 10^3/ul (0-0.2); ABS Eosinophils 0 10^3/ul (0-0.6); ABS Monocytes 1.2 10^3/ul (0-0.8); ABS Neutrophils 17.6 10^3/ul (1.5-7.7); ABS Nucleated RBC 0 10^3/ul; Eosinophil % 0.2 % (0-6); Hematocrit 38 % (35-47); Hemoglobin 12.4 g/dl (12.0-16.0); Lymphocyte % 9.5 % (25-47); Mean Corpuscular HGB Conc 33 g/dl (31-36); Mean Corpuscular Hemoglobin 31 pg (27-31); Mean Corpuscular Volume 96 fL (80-97); Mean Platelet Volume 9 um3 (7.4-10.4); Nucleated Red Blood Cells % 0; Platelet Count 224 10^3/ul (150-450); Red Blood Count 3.97 10^6/ul (4.0-5.4); Red Cell Distribution Width 14 % (10.5-15); White Blood Count 20.9 10^3/ul (3.5-10.8)
[2017-05-15 07:49] LABS: EGFR Non-African American 90.7 (>60)
--- NOTE | 2017-05-15 12:13 | PN ---
Subjective Date of Service: 05/15/17 Interval History: Patient seen and examined at bedside. Reports improvement in cough and malaise. Denies fever/chill, CP. Breathing is improved. She is interested in using O2 around the clock but states she previously has not qualified. Eager to go home but willing to stay and meet with pulmonology. No other acute concerns. Family History: Unchanged from Admission Social History: Unchanged from Admission Past Medical History: Unchanged from Admission Objective Active Medications: Acetaminophen (Tylenol Tab*) 650 mg PO Q6H PRN PRN Reason: PAIN Last Admin: 05/15/17 02:02 Dose: 650 mg Albuterol/Ipratropium (Duoneb (Albuterol 2.5 Mg/Ipratropium 0.5 Mg)) 1 neb INH Q4H PRN PRN Reason: SOB/WHEEZING Last Admin: 05/15/17 09:02 Dose: 1 neb Device (Nicotine Mouth Piece*) 1 each INH .USE WITH NICOTROL PRN PRN Reason: CRAVING Last Admin: 05/14/17 11:27 Dose: 1 each Efavirenz/Emtricitabine/Tenofovir (Atripla(Nf)) 1 tab PO BEDTIME [facility] Last Admin: 05/14/17 20:54 Dose: Not Given Heparin Sodium (Porcine) (Heparin Vial(*)) 5,000 units SUBCUT Q8HR [facility] Last Admin: 05/15/17 05:51 Dose: 5,000 units Ceftriaxone Sodium 1 gm/ (Sodium Chloride) 50 mls @ 200 mls/hr IVPB Q24H [facility] Last Admin: 05/14/17 21:00 Dose: 200 mls/hr Azithromycin 250 mg/ Sodium (Chloride) 250 mls @ 250 mls/hr IVPB Q24H [facility] Last Admin: 05/14/17 21:43 Dose: 250 mls/hr Sodium Chloride (Ns 0.9% 1000 Ml*) 1,000 mls @ 100 mls/hr IV PER RATE [facility] Last Admin: 05/15/17 01:53 Dose: 100 mls/hr Nicotine (Nicotine Inhaler*) 10 mg INH Q2H PRN PRN Reason: CRAVING Last Admin: 05/14/17 11:29 Dose: 10 mg Zolpidem Tartrate (Ambien Tab*) 5 mg PO BEDTIME PRN PRN Reason: INSOMNIA Last Admin: 05/14/17 21:00 Dose: 5 mg Vital Signs - 8 hr 05/15/17 05/15/17 05/15/17 08:18 09:29 09:41 Temperature 99.3 F Pulse Rate 101 Respiratory 18 18 18 Rate Blood Pressure 99/81 (mmHg) O2 Sat by Pulse 94 Oximetry 05/15/17 09:45 Temperature Pulse Rate 84 Respiratory Rate Blood Pressure (mmHg) O2 Sat by Pulse Oximetry Oxygen Devices in Use Now: Nasal Cannula Appearance: Older female, appears older than stated age, lying in bed, NAD Eyes: No Scleral Icterus Ears/Nose/Mouth/Throat: Clear Oropharnyx, Mucous Membranes Moist Neck: NL Appearance and Movements; NL JVP Respiratory: Symmetrical Chest Expansion and Respiratory Effort, - - right sided egophony with rhonchi, mild exp wheezing Cardiovascular: NL Sounds; No Murmurs; No JVD, RRR Extremities: No Clubbing, Cyanosis Neurological: Alert and Oriented x 3, NL Muscle Strength and Tone Lines/Tubes/Other Access: Clean, Dry and Intact Peripheral IV Nutrition: Taking PO's Result Diagrams: 05/15/17 06:35 05/15/17 06:35 Microbiology and Other Data: Microbiology 05/14/17 00:55 Legionella Urinary Antigen - Final Urine Negative Legionella Streptococcus pneumoniae Ag Screen - Final Negative S. pneumo Antigen Assess/Plan/Problems-Billing Assessment: Ms. Burnett is a 56 yo female with a PMH of COPD, tobacco use, and HIV who presented to the ED on 05/13/17 with concern for sudden onset of malaise, SOB, cough, arthralgias, and myalgias and was found to have concern for leukocytosis , sepsis, and pneumonia. - Patient Problems (1) Pneumonia Code(s): J18.9 - PNEUMONIA, UNSPECIFIED ORGANISM Comment: Multifocal densities seen in RUL Concern for post obstructive pneumonia with presence of mass Appreciate pulmonology consult; patient will likely need bronchoscopy Continue ceftriaxone, azithromycin Influenza, legionella, s. pneumoniae antigens negative (2) Sepsis Comment: Met on admission with SIRS criteria of tachycardia, leukocytosis, hypotension. Met on admission with SOFA criteria of low MAP, SBP<90. Source appears to be pneumonia Blood cultures no growth x 24 hours Continue antibiotic therapy. (3) Leukocytosis Code(s): D72.829 - ELEVATED WHITE BLOOD CELL COUNT, UNSPECIFIED Comment: Improving Suspect secondary to pneumonia Continue to trend Patient afebrile, not on steroids (4) COPD (chronic obstructive pulmonary disease) Code(s): J44.9 - CHRONIC OBSTRUCTIVE PULMONARY DISEASE, UNSPECIFIED Comment: Continue nebulizers (5) HIV antibody positive Code(s): Z21 - ASYMPTOMATIC HUMAN IMMUNODEFICIENCY VIRUS INFECTION STATUS Comment: On outpatient Atripla (not available here) Continue outpatient regimen upon discharge ID consult (6) Tobacco abuse Code(s): Z72.0 - TOBACCO USE Comment: Patient has been advised to quit smoking PRN nicotine inhaler (7) DVT prophylaxis Comment: SQ heparin Status and Disposition: Inpatient admission. D/c to home when medically stable.
[2017-05-15] MEDS: guaiFENesin ER TAB 600 MG PO SCH ×2 (12:51→20:51)
[2017-05-15] MEDS ORDERED: Morphine INJ* 2 MG/ML 1 ML SYRINGE (TWO MG - NEW SYRINGE VERSION) IV ONE (13:48)
[2017-05-15] MEDS: cefTRIAXone(*) 1 GM in NS 0.9% 50 ML* 50 ML IVPB SCH (19:30)
[2017-05-15] MEDS: Zolpidem TAB* 5 MG PO PRN (19:31)
[2017-05-15] MEDS: Azithromycin IV(*) 250 MG in NS 0.9% 250 ML* 250 ML IVPB SCH (20:51)
[2017-05-15] MEDS: [UNRECOGNIZED DRUG - OTHER] PO SCH (20:52)
[2017-05-15] MEDS: EFAVIRENZ PO SCH (20:52)
[2017-05-15] MEDS: EMTRICITAB PO SCH (20:52)
--- NOTE | 2017-05-15 20:57 | CONS ---
PULMONARY CONSULTATION REPORT: DATE OF CONSULT: 05/15/17 CONSULTATION REQUESTED BY: Belle Johnson NP REASON FOR CONSULTATION: Evaluation of shortness of breath and abnormal CT. HISTORY OF PRESENT ILLNESS: The patient is a 56-year-old female, smoker with history of HIV, COPD on 2 L O2, asthma. The patient presented to the emergency room for evaluation of cough and shortness of breath. The patient has reported sudden onset of cough, shortness of breath and malaise prior to the presentation. Symptoms have worsened and did not seem to be related to underlying COPD. She also reports malaise, myalgias, arthralgias, rigors and cough. The patient also reports discomfort in the chest when she takes a deep breath. The patient reports not having fevers, felt chills, which she attributes likely related to her breathing. She denied nausea, vomiting, diarrhea or abdominal pain. She was noted to have elevated white count at 26.8 , was found to be hyponatremic with sodium of 129, elevated CRP at 67 with low grade temperature of 100.6 and pulse of 102. She also had chest x-ray in the emergency room, which was personally reviewed by me. The patient noted to have multifocal densities in the right upper lobe and ill-defined density in the right hilum. CT scan of the chest was also personally reviewed by me, the patient noted to have consolidation in the right upper lobe with possible endobronchial lesion in the right upper lobe area. The patient also with small right pleural effusion and no evidence of pneumothorax. The patient also with prominent right paratracheal precarinal and subcarinal lymph nodes. The patient also with a low density 3.2 x 3 cm left adrenal mass concerning for lipid-rich adenoma. PAST MEDICAL HISTORY: 1. HIV positive. 2. COPD, on 2 L nasal cannula. 3. Asthma. 4. Cervical dysplasia. MEDICATIONS: 1. Symbicort 160/4.5. 2. Atripla 1 tablet p.o. at bedtime. 3. Albuterol q.4 hours p.r.n. ALLERGIES: SULFA and LATEX. FAMILY HISTORY: Mother has diabetes and hypertension. Father of heart attack. SOCIAL HISTORY: Current smoker, continues to smoke 15 cigarettes per day. The patient has been smoking since age 12, history of alcohol abuse, quit drinking 3 - 1/2 years ago. No drug abuse. Lives at home with grandson. REVIEW OF SYSTEMS: All 14 systems reviewed and as per HPI. PHYSICAL EXAM: The patient in bed, in no apparent distress, eager to go home. Vital Signs: Temperature 99.9, respiratory rate 18 per minute, O2 sat 97% on 3 L, blood pressure 109/58. HEENT: Pupils equal, reactive to light. Mucous membranes moist. Lungs: Poor air entry bilaterally. No rhonchi or wheezing. Cardiovascular: S1, S2 present, regular. Abdomen: Soft, nontender, nondistended. Bowel sounds present. Extremities: No cyanosis. Normal range of motion. Skin: No rash or bruits. Neuro: No focal deficits. DIAGNOSTIC STUDIES/LAB DATA: WBC count 20.9, hemoglobin 12.4, hematocrit 38, platelet count 224,000. Sodium 137, potassium 4.0, chloride 107, bicarb 26, BUN 5, creatinine 0.67, CRP 67, lactic acid 0.9. Influenza A and B negative. CT scan and chest x-ray as described above in HPI. IMPRESSION AND RECOMMENDATIONS: 56-year-old female current smoker with right- sided pneumonia and possible lung mass along with mediastinal adenopathy concerning for malignancy. Suspect postobstructive pneumonia secondary to possible endobronchial lesion. The patient on broad spectrum antibiotics with ceftriaxone and Rocephin. Sepsis signs are improved. Will schedule the patient for bronchoscopy for endobronchial evaluation and biopsy. The patient does not want aggressive measures at this time. Procedure was discussed in detail with the patient, associated risks and benefits both are well explained. Risk of pneumothorax and bleeding was discussed. Further recommendations pending bronchoscopy. Smoking cessation education and counseling was performed during today's visit, the patient not willing to quit at this time. She is on Nicotrol inhaler. Hyponatremia secondary to pneumonia and possible malignancy. Sodium levels have normalized since admission. Elevated white count secondary to postobstructive pneumonia. Thank you for allowing me to participate in the care of your patient. Will follow up with you. [id number]/[facility] #: [id number] LEVY
--- NOTE | 2017-05-15 22:54 | CONS ---
CONSULTATION REPORT: DATE OF CONSULT: 05/15/17 REQUESTING PROVIDER: Belle Johnson NP CONSULTING SERVICE: Infectious Disease. REASON FOR CONSULT: Pneumonia. IMPRESSION: 1. Extensive right upper lobe infiltrate, which is quite dense. It does appear that apex making tuberculosis less likely and she is overall improving on ceftriaxone, azithromycin as well. It could be Pneumococcus, could be Legionella, both antigens were negative. Sputum culture is pending. The Gram- stain showed GPCs and Gram positive bacilli. Possible underlying parenchymal mass. 2. HIV. She reports her CD4 count is over 200 and viral load well controlled on local [employer] antiretroviral. 3. Chronic obstructive pulmonary disease, on supplemental oxygen at night. 4. Asthma. 5. Cervical dysplasia. RECOMMENDATIONS: Continue ceftriaxone, azithromycin. Given how dense the infiltrate is, we will plan on total of 10 days of treatment though. As long as she continues to improve, she could change to Levaquin 750 mg the day before discharge to finish that course. Bronchoscopy planned by Dr. Loza this week. She will need a follow up chest x-ray in a month if that is unrevealing. HISTORY OF PRESENT ILLNESS: This is a 56-year-old woman with HIV, admitted with right chest pain, fever and cough. It came on kind of suddenly, was rapidly progressive as far as her symptoms go. She does use supplemental oxygen at home. She came on the because of worsening symptoms. The chest x -ray showed multifocal density in right upper lobe and then CT chest showed progression of the infiltrate to involve most of the right upper lobe except for the apex. Radiology mentioned there could be an underlying mass and mediastinal lymphadenopathy. She was started on ceftriaxone and azithromycin on the . She was initially febrile at 38.5. Her blood cultures are negative. Urine Legionella and Pneumonococcal antigens are negative. Influenza PCR negative. Sputum culture is pending as noted above. Her white count was 26,000 on admission, it is down to 20,000 today. She has not required more oxygen here. She has not had a recent lung infection. PAST MEDICAL HISTORY: 1. HIV, well controlled and longstanding. 2. COPD, on supplemental oxygen at night. 3. Asthma. 4. Cervical dysplasia. MEDICATIONS: 1. Tylenol. 2. Albuterol. 3. Atripla. 4. Heparin subcutaneous injection. 5. Nicotine inhaler. 6. Ceftriaxone 1 g a day. 7. Azithromycin 250 mg daily. ALLERGIES: SULFA and LATEX. FAMILY HISTORY: No recurrent infections or tuberculosis. Mother had diabetes and hypertension. Father due to heart disease. SOCIAL HISTORY: She lives in [place] with her grandson and a roommate. REVIEW OF SYSTEMS: A 14-point review of systems was negative except as noted above. PHYSICAL EXAM: Vital Signs: Temperature is 37.3, heart rate 90, respiratory rate 10, blood pressure 100/50, O2 saturation 95% on room air. In general, she is awake, not in distress. Neurologic: She is oriented x3, follows all commands. HEENT: There is no conjunctival hemorrhage. Oropharynx: Without lesions. Neck: Supple without nuchal rigidity. Lymph Nodes: There is no inguinal, axillary, or epitrochlear lymphadenopathy. Heart: Regular rate and rhythm without murmurs, rubs, or gallops. Lungs: The right upper lung lucero, there are tubular breath sounds, there is egophony. There is no other wheeze or rale. Abdomen: Soft, nontender, and nondistended. There are bowel sounds present. Skin: There is no rash or splinter hemorrhages. Musculoskeletal: There is no spine tenderness to palpation or joint synovitis. DIAGNOSTIC STUDIES/LAB DATA: White blood cell count 20, hemoglobin 12, platelets 224. Creatinine is 0.6. Urinalysis was negative. Please see impressions and recommendations as outlined above, which I have discussed with Belle Johnson NP. Thank you for asking me to see Ms. Burnett in consultation. [id number]/[facility] #: [id number] MTDD
[2017-05-15] MEDS: traMADol TAB* 50 MG PO PRN (22:55)
[2017-05-16] MEDS: Albuterol/Ipratropium NEB.SOL* Albuterol 2.5 MG/Ipratropium 0.5 MG 3 ML INH PRN ×3 (01:37→22:17)
[2017-05-16] MEDS: NS 0.9% 1000 ML* 1,000 ML IV SCH ×2 (02:09→20:02)
[2017-05-16] MEDS: Acetaminophen TAB* 325 MG PO PRN ×2 (03:41→17:43)
[2017-05-16] MEDS: Heparin VIAL(*) 5000 UNITS/ML VIAL (FIVE THOUSAND) SUBCUT SCH ×3 (06:04→22:40)
[2017-05-16] MEDS: guaiFENesin ER TAB 600 MG PO SCH ×2 (08:36→22:45)
[2017-05-16 08:50] LABS: ABS Basophils 0.1 10^3/ul (0-0.2); ABS Eosinophils 0.1 10^3/ul (0-0.6); ABS Lymphocytes 1.9 10^3/ul (1.0-4.8); ABS Monocytes 1.1 10^3/ul (0-0.8); ABS Neutrophils 10.2 10^3/ul (1.5-7.7); ABS Nucleated RBC 0.01 10^3/ul; Eosinophil % 0.7 % (0-6); Hematocrit 39 % (35-47); Hemoglobin 12.7 g/dl (12.0-16.0); Mean Corpuscular HGB Conc 33 g/dl (31-36); Mean Corpuscular Hemoglobin 31 pg (27-31); Mean Corpuscular Volume 96 fL (80-97); Mean Platelet Volume 9 um3 (7.4-10.4); Nucleated Red Blood Cells % 0.1; Platelet Count 246 10^3/ul (150-450); Red Blood Count 4.06 10^6/ul (4.0-5.4); Red Cell Distribution Width 14 % (10.5-15); White Blood Count 13.3 10^3/ul (3.5-10.8)
[2017-05-16] MEDS: traMADol TAB* 50 MG PO PRN ×2 (09:01→19:51)
[2017-05-16] MEDS ORDERED: Buffered Lidocaine 0.9% SYRIN* 5 ML/SYR SYRINGE ONE (11:43)
--- NOTE | 2017-05-16 12:26 | PN ---
Subjective Date of Service: 05/16/17 Interval History: Patient seen and examined at bedside. Plan for bronchoscopy today. Patient still hopeful for discharge home but understands it will depend on findings and how she tolerates procedure. Reports improvement in cough and breathing. Denies fever/chills, chest/pleuritic pain. No other acute concerns expressed at this time. Family History: Unchanged from Admission Social History: Unchanged from Admission Past Medical History: Unchanged from Admission Objective Active Medications: Acetaminophen (Tylenol Tab*) 650 mg PO Q6H PRN PRN Reason: PAIN Last Admin: 05/16/17 03:41 Dose: 650 mg Albuterol/Ipratropium (Duoneb (Albuterol 2.5 Mg/Ipratropium 0.5 Mg)) 1 neb INH Q4H PRN PRN Reason: SOB/WHEEZING Last Admin: 05/16/17 08:45 Dose: 1 neb Azithromycin (Zithromax Tab*) 250 mg PO DAILY@2100 [facility] Device (Nicotine Mouth Piece*) 1 each INH .USE WITH NICOTROL PRN PRN Reason: CRAVING Last Admin: 05/14/17 11:27 Dose: 1 each Efavirenz/Emtricitabine/Tenofovir (Atripla(Nf)) 1 tab PO BEDTIME [facility] Last Admin: 05/15/17 20:52 Dose: Not Given Guaifenesin (Mucinex*) 1,200 mg PO BID [facility] Last Admin: 05/16/17 08:36 Dose: 1,200 mg Heparin Sodium (Porcine) (Heparin Vial(*)) 5,000 units SUBCUT Q8HR [facility] Last Admin: 05/16/17 06:04 Dose: 5,000 units Ceftriaxone Sodium 1 gm/ (Sodium Chloride) 50 mls @ 200 mls/hr IVPB Q24H [facility] Last Admin: 05/15/17 19:30 Dose: 200 mls/hr Sodium Chloride (Ns 0.9% 1000 Ml*) 1,000 mls @ 100 mls/hr IV PER RATE [facility] Last Admin: 05/16/17 02:09 Dose: 100 mls/hr Nicotine (Nicotine Inhaler*) 10 mg INH Q2H PRN PRN Reason: CRAVING Last Admin: 05/14/17 11:29 Dose: 10 mg Tramadol HCl (Ultram*) 50 mg PO Q6H PRN PRN Reason: PAIN - MODERATE TO SEVERE Last Admin: 05/16/17 09:01 Dose: 50 mg Zolpidem Tartrate (Ambien Tab*) 5 mg PO BEDTIME PRN PRN Reason: INSOMNIA Last Admin: 05/15/17 19:31 Dose: 5 mg Vital Signs - 8 hr 05/16/17 05/16/17 05/16/17 04:34 07:15 07:48 Temperature 100.4 F 99.3 F Pulse Rate 99 96 Respiratory 18 Rate Blood Pressure 93/54 (mmHg) O2 Sat by Pulse 96 94 Oximetry 05/16/17 05/16/17 05/16/17 08:00 08:47 09:01 Temperature Pulse Rate 100 Respiratory 22 18 22 Rate Blood Pressure (mmHg) O2 Sat by Pulse 93 Oximetry 05/16/17 11:28 Temperature Pulse Rate Respiratory 22 Rate Blood Pressure (mmHg) O2 Sat by Pulse Oximetry Oxygen Devices in Use Now: Nasal Cannula Appearance: Older female, lying in bed, NAD Eyes: No Scleral Icterus Ears/Nose/Mouth/Throat: Clear Oropharnyx, Mucous Membranes Moist Neck: NL Appearance and Movements; NL JVP Respiratory: Symmetrical Chest Expansion and Respiratory Effort, - - fair aeration throughout, right sided rhonchi, coarse breath sounds in RUL Cardiovascular: NL Sounds; No Murmurs; No JVD, RRR Abdominal: NL Sounds; No Tenderness; No Distention Neurological: Alert and Oriented x 3 Lines/Tubes/Other Access: Clean, Dry and Intact Peripheral IV Nutrition: Taking PO's Result Diagrams: 05/16/17 08:17 05/16/17 08:17 Microbiology and Other Data: Microbiology 05/14/17 00:55 Legionella Urinary Antigen - Final Urine Negative Legionella Streptococcus pneumoniae Ag Screen - Final Negative S. pneumo Antigen Assess/Plan/Problems-Billing Assessment: Ms. Burnett is a 56 yo female with a PMH of COPD, tobacco use, and HIV who presented to the ED on 05/13/17 with concern for sudden onset of malaise, SOB, cough, arthralgias, and myalgias and was found to have concern for leukocytosis , sepsis, and pneumonia. - Patient Problems (1) Pneumonia Code(s): J18.9 - PNEUMONIA, UNSPECIFIED ORGANISM Comment: Multifocal densities seen in RUL Concern for post obstructive pneumonia with presence of mass Appreciate pulmonology consult; bronchoscopy today Continue ceftriaxone, azithromycin Influenza, legionella, s. pneumoniae antigens negative (2) Sepsis Comment: Met on admission with SIRS criteria of tachycardia, leukocytosis, hypotension. Met on admission with SOFA criteria of low MAP, SBP<90. Source appears to be pneumonia Blood cultures no growth x 3 days Sputum culture with normal arpita Continue antibiotic therapy. (3) Leukocytosis Code(s): D72.829 - ELEVATED WHITE BLOOD CELL COUNT, UNSPECIFIED Comment: Improving Suspect secondary to pneumonia Continue to trend Patient afebrile, not on steroids (4) COPD (chronic obstructive pulmonary disease) Code(s): J44.9 - CHRONIC OBSTRUCTIVE PULMONARY DISEASE, UNSPECIFIED Comment: Continue nebulizers (5) HIV antibody positive Code(s): Z21 - ASYMPTOMATIC HUMAN IMMUNODEFICIENCY VIRUS INFECTION STATUS Comment: On outpatient Atripla (not available here) Continue outpatient regimen upon discharge ID consult (6) Tobacco abuse Code(s): Z72.0 - TOBACCO USE Comment: Patient has been advised to quit smoking PRN nicotine inhaler (7) DVT prophylaxis Comment: SQ heparin Status and Disposition: Inpatient admission. D/c to home when medically stable.
--- NOTE | 2017-05-16 12:39 | PN ---
Progress Note - Progress Note Date of Service: 05/16/17 - Pulm f/u note Note: Pt seen and examined at bedside. Pt reports improvement in breathing and cough eventhough continues to cough during evaluation. Active Medications Generic Name Dose Route Start Last Admin Trade Name Freq PRN Reason Stop Dose Admin Acetaminophen 650 mg 05/13/17 20:53 05/16/17 03:41 Tylenol Tab* PO 650 mg Q6H PRN Administration PAIN Albuterol/Ipratropium 1 neb 05/13/17 20:52 05/16/17 08:45 Duoneb (Albuterol 2.5 Mg/Ipratropium 0.5 Mg) INH 1 neb Q4H PRN Administration SOB/WHEEZING Azithromycin 250 mg 05/16/17 21:00 Zithromax Tab* PO DAILY@2100 [facility] Device 1 each 05/14/17 11:06 05/14/17 11:27 Nicotine Mouth Piece* INH 1 each .USE WITH NICOTROL PRN Administration CRAVING Efavirenz/Emtricitabine/Tenofovir 1 tab 05/13/17 21:00 05/15/17 20:52 Atripla(Nf) PO Not Given BEDTIME [facility] Guaifenesin 1,200 mg 05/15/17 13:00 05/16/17 08:36 Mucinex* PO 1,200 mg BID [facility] Administration Heparin Sodium (Porcine) 5,000 units 05/13/17 22:00 05/16/17 06:04 Heparin Vial(*) SUBCUT 5,000 units Q8HR [facility] Administration Ceftriaxone Sodium 1 gm/ 50 mls @ 200 mls/hr 05/14/17 20:30 05/15/17 19:30 Sodium Chloride IVPB 200 mls/hr Q24H [facility] Administration Sodium Chloride 1,000 mls @ 100 mls/hr 05/13/17 21:00 05/16/17 02:09 Ns 0.9% 1000 Ml* IV 100 mls/hr PER RATE [facility] Administration Nicotine 10 mg 05/14/17 11:06 05/14/17 11:29 Nicotine Inhaler* INH 10 mg Q2H PRN Administration CRAVING Tramadol HCl 50 mg 05/15/17 21:05 05/16/17 09:01 Ultram* PO 50 mg Q6H PRN Administration PAIN - MODERATE TO SEVERE Zolpidem Tartrate 5 mg 05/13/17 20:58 05/15/17 19:31 Ambien Tab* PO 5 mg BEDTIME PRN Administration INSOMNIA Vital Signs Temp Pulse Resp BP Pulse Ox 99.3 F 100 22 93/54 93 05/16/17 07:15 05/16/17 08:47 05/16/17 11:28 05/16/17 07:48 05/16/17 08:47 O/E: Pt in NAD HEENT: PERRLA, No JVD Lungs: Crackles in right apex, no wheeze, scaterred rhonchi on right side CVS: S1, S2+ Abd: Soft, BS+ Ext: Normal ROM Neuro: Alert, awake x3, no focal defecits Abd: Soft, BS+ Laboratory Results - last 24 hr 05/16/17 08:17 WBC 13.3 H RBC 4.06 Hgb 12.7 Hct 39 MCV 96 MCH 31 MCHC 33 RDW 14 Plt Count 246 MPV 9 Neut % (Auto) 76.6 Lymph % (Auto) 14.0 L Hutchinson % (Auto) 8.1 Eos % (Auto) 0.7 Baso % (Auto) 0.6 Absolute Neuts (auto) 10.2 H Absolute Lymphs (auto) 1.9 Absolute Monos (auto) 1.1 H Absolute Eos (auto) 0.1 Absolute Basos (auto) 0.1 Absolute Nucleated RBC 0.01 Nucleated RBC % 0.1 I/R; 56 y o f, current smoker with PMH of COPD, and HIV who presented to the ED on 05/13/17 with malaise, SOB, cough, and myalgias and was found to have pneumonia and right hilar mass. Given current smoking status, hilar mass, enlarged Rt paratracheal and subcarinal lymph nodes, concern for malignancy and subsequent post obstructive PNA Pt scheduled for bronchoscopy/EBUS today for evaluation of lung mass and mediastinal lymph nodes Procedure was discussed in detail Associated risks and benefits of procedure were discussed in detail Pt agreeable to procedure Pt on antibiotics, afebrile c/w bronchodilators Smoking cessation education reenforced Pt on O2 at 3L Further recommendations pending bronchoscopy results
[2017-05-16] MEDS ORDERED: Lidocaine 2% PF * 5 ML VIAL ONE (13:31)
[2017-05-16] MEDS ORDERED: Propofol* 10 MG/ML 20 ML BTL IV PUSH ONE (13:31)
[2017-05-16] MEDS ORDERED: Dexamethasone IV* 4 MG/ML 1 ML (4 MG) ONE (13:31)
[2017-05-16] MEDS ORDERED: Succinylcholine* 20 MG/ML 10 ML VIAL ONE (13:31)
[2017-05-16] MEDS ORDERED: fentaNYL* 50 MCG/ML 2 ML VIAL (100 MCG VIAL) ONE (13:31)
[2017-05-16] MEDS ORDERED: Naloxone* 0.4 MG/ML 1 ML VIAL IV PRN ×2 (14:00→15:07)
[2017-05-16] MEDS ORDERED: Levalbuterol 1.25MG/0.5ML NEB ONE (14:43)
[2017-05-16] MEDS ORDERED: Ondansetron INJ* 2 MG/ML VIAL ONE (15:06)
[2017-05-16] MEDS ORDERED: Ondansetron INJ* 2 MG/ML VIAL IV PRN (15:07)
[2017-05-16] MEDS ORDERED: Albuterol/Ipratropium NEB.SOL* Albuterol 2.5 MG/Ipratropium 0.5 MG 3 ML INH ONE (15:37)
--- NOTE | 2017-05-16 15:56 | PN ---
Progress Note - Progress Note Date of Service: 05/16/17 - Post procedure note Note: Pt had bronchoscopy/EBUS under [place]. Station-R4, station 7, Rt hilar mass were sampled, rapid onsite eval revealed atypical cells, awaiting final results Pt with worsening hypoxia post procedure due to poor reserve to begin with due to underlying COPD Vital Signs Temp Pulse Resp BP Pulse Ox 98.8 F 131 28 148/85 83 05/16/17 14:42 05/16/17 14:42 05/16/17 14:42 05/16/17 14:42 05/16/17 14:42 Pt with wheezing and rhonchi on auscultation b/l Pt needing increase in supplemental O2 received 1 unit albuterol and 1 unit Duoneb Will watch closely in telemetry hailee D/w Belle Johnson NP Pt is DNR, daughter at bedside
[2017-05-16] MEDS: cefTRIAXone(*) 1 GM in NS 0.9% 50 ML* 50 ML IVPB SCH (20:02)
[2017-05-16] MEDS: Azithromycin TAB* 250 MG PO SCH (22:45)
[2017-05-16] MEDS: Zolpidem TAB* 5 MG PO PRN (22:49)
[2017-05-16] MEDS: EMTRICITAB PO SCH (22:52)
[2017-05-16] MEDS: EFAVIRENZ PO SCH (22:52)
[2017-05-16] MEDS: [UNRECOGNIZED DRUG - OTHER] PO SCH (22:52)
[2017-05-17] MEDS: Acetaminophen TAB* 325 MG PO PRN (02:12)
--- NOTE | 2017-05-17 02:45 | PRO ---
BRONCHOSCOPY REPORT: DATE OF PROCEDURE: 05/16/17 PROCEDURE PERFORMED BY: Reina Loza MD ANESTHESIOLOGIST: Dr. Nugent. ANESTHESIA: General anesthesia. PROCEDURE PERFORMED: Bronchoscopy and endobronchial ultrasound-guided fine needle aspiration of R4 lymph node, station 7 lymph node, right hilar mass. DESCRIPTION OF PROCEDURE: Informed consent was obtained from the patient prior to the procedure after all the risks and benefits are thoroughly explained. The patient is current smoker with right hilar mass noted on CT chest along with enlarged mediastinal and hilar nodes. The patient also with postobstructive pneumonia. Bronchoscopy was scheduled for evaluation of the right hilar mass. Appropriate time-out was agreed on by attending staff prior to the procedure. The patient was placed supine on operating room table. Jose Hugger and Venodyne boots were applied. The patient on antibiotics, no beta- romeo needed. The patient was intubated with size 8.0 endotracheal tube. Flexible Olympus bronchoscope was then inserted through ET tube for airway inspection. Endotracheal tube confirmed to be 2 cm above the level of forrest. Left bronchial tree showed thick secretions, which were suctioned out. No endobronchial lesions were noted. The right bronchial tree examination revealed narrowing of right upper lobe bronchus, all 3 segments were occluded. Thick pus was found to be coming out from posterior segment of right upper lobe. Secretions were suctioned out. Bronchoscope could not be further advanced into the subsegments. No obvious endobronchial lesions were noted; however, extrinsic compression of the right upper lobe takeoff was noted. There were some mucosal irregularities and erythema of the mucosa that was noted. Bronchoscope was then advanced into right mainstem bronchus. Right middle lobe and right lower lobe bronchus airways were patent. R4 lymph node was sampled with 4 passes. Rapid on-site evaluation revealed atypical appearing cells and adequate lymphatic tissue. Station 7 lymph node was accessed with one pass. Right hilar mass was then accessed with four passes. Rapid on-site evaluation revealed atypical cells. Specimen was placed in CytoLyt. Specimen was also placed in RPMI, to rule out lymphoma. Minimal bleeding with estimated blood loss of about 15 to 20 mL was noted. EBUS bronchoscope was then withdrawn and flexible bronchoscope was inserted for airway exam and clearing of secretions and blood. The patient was extubated and seen in Recovery in optimal condition. [id number]/[facility] #: [id number] [facility]
[2017-05-17] MEDS: Heparin VIAL(*) 5000 UNITS/ML VIAL (FIVE THOUSAND) SUBCUT SCH ×3 (04:58→20:55)
[2017-05-17] MEDS ORDERED: NS 0.9% 500 ML* 500 ML IV ONE (08:20)
--- NOTE | 2017-05-17 08:41 | PN ---
Subjective Date of Service: 05/17/17 Interval History: Patient seen and examined at bedside. She is arousable; she states that she feels tired and is in agreement with staying in the hospital today. Reports pain with deep inspiration. Fever 102 overnight. Patient has new lesions around mouth and nose that appeared overnight. EKG: Sinus tachycardia Family History: Unchanged from Admission Social History: Unchanged from Admission Past Medical History: Unchanged from Admission Objective Active Medications: Acetaminophen (Tylenol Tab*) 650 mg PO Q6H PRN PRN Reason: PAIN Last Admin: 05/17/17 02:12 Dose: 650 mg Albuterol/Ipratropium (Duoneb (Albuterol 2.5 Mg/Ipratropium 0.5 Mg)) 1 neb INH [id number] AWAKE [facility] Azithromycin (Zithromax Tab*) 250 mg PO DAILY@2100 [facility] Last Admin: 05/16/17 22:45 Dose: 250 mg Device (Nicotine Mouth Piece*) 1 each INH .USE WITH NICOTROL PRN PRN Reason: CRAVING Last Admin: 05/14/17 11:27 Dose: 1 each Efavirenz/Emtricitabine/Tenofovir (Atripla(Nf)) 1 tab PO BEDTIME [facility] Last Admin: 05/16/17 22:52 Dose: 1 tab Guaifenesin (Mucinex*) 1,200 mg PO BID [facility] Last Admin: 05/16/17 22:45 Dose: 1,200 mg Heparin Sodium (Porcine) (Heparin Vial(*)) 5,000 units SUBCUT Q8HR [facility] Last Admin: 05/17/17 04:58 Dose: 5,000 units Ceftriaxone Sodium 1 gm/ (Sodium Chloride) 50 mls @ 200 mls/hr IVPB Q24H [facility] Last Admin: 05/16/17 20:02 Dose: 200 mls/hr Sodium Chloride (Ns 0.9% 1000 Ml*) 1,000 mls @ 100 mls/hr IV PER RATE [facility] Last Admin: 05/16/17 20:02 Dose: 100 mls/hr Sodium Chloride (Ns 0.9% 500 Ml*) 500 mls @ 1,000 mls/hr IV ONCE ONE Stop: 05/17/17 08:49 Mometasone Furoate/Formoterol Fumar (Dulera 200/5 Mdi*) 2 puff INH BID [facility] Nicotine (Nicotine Inhaler*) 10 mg INH Q2H PRN PRN Reason: CRAVING Last Admin: 05/14/17 11:29 Dose: 10 mg Tramadol HCl (Ultram*) 50 mg PO Q6H PRN PRN Reason: PAIN - MODERATE TO SEVERE Last Admin: 05/16/17 19:51 Dose: 50 mg Valacyclovir HCl (Valtrex 1 Gm(*)) 1 gm PO BID [facility] PRN Reason: Protocol Zolpidem Tartrate (Ambien Tab*) 5 mg PO BEDTIME PRN PRN Reason: INSOMNIA Last Admin: 05/16/17 22:49 Dose: 5 mg Vital Signs - 8 hr 05/17/17 05/17/17 05/17/17 02:04 03:25 07:12 Temperature 102.5 F 102.0 F 99.0 F Pulse Rate 116 121 121 Respiratory 22 22 17 Rate Blood Pressure 111/65 111/70 113/61 (mmHg) O2 Sat by Pulse 94 94 91 Oximetry 05/17/17 05/17/17 07:36 08:30 Temperature Pulse Rate 120 Respiratory 22 17 Rate Blood Pressure (mmHg) O2 Sat by Pulse 91 91 Oximetry Oxygen Devices in Use Now: Nasal Cannula Appearance: Female, appears older than stated age, lying in bed, NAD Eyes: No Scleral Icterus Ears/Nose/Mouth/Throat: Mucous Membranes Moist, - - erythema with ulceration to left nasolabial fold, around mouth and red patches noted inside mouth, ulceration noted to lip Neck: NL Appearance and Movements; NL JVP Respiratory: Symmetrical Chest Expansion and Respiratory Effort, - - rhonchi throughout and expiratory wheezing Cardiovascular: NL Sounds; No Murmurs; No JVD, RRR - tachycardic, No Edema Abdominal: NL Sounds; No Tenderness; No Distention Extremities: No Clubbing, Cyanosis Neurological: Alert and Oriented x 3, NL Muscle Strength and Tone Lines/Tubes/Other Access: Clean, Dry and Intact Peripheral IV Nutrition: Taking PO's Result Diagrams: 05/16/17 08:17 05/16/17 08:17 Microbiology and Other Data: Microbiology 05/14/17 00:55 Legionella Urinary Antigen - Final Urine Negative Legionella Streptococcus pneumoniae Ag Screen - Final Negative S. pneumo Antigen Assess/Plan/Problems-Billing Assessment: Ms. Burnett is a 56 yo female with a PMH of COPD, tobacco use, and HIV who presented to the ED on 05/13/17 with concern for sudden onset of malaise, SOB, cough, arthralgias, and myalgias and was found to have concern for leukocytosis , sepsis, and pneumonia. - Patient Problems (1) Acute and chronic respiratory failure with hypoxia Code(s): J96.21 - ACUTE AND CHRONIC RESPIRATORY FAILURE WITH HYPOXIA Comment: On 5Lnc s/p bronchoscopy Solumedrol dose this AM, start prednisone tomorrow Check CXR this AM (2) Tachycardia Code(s): R00.0 - TACHYCARDIA, UNSPECIFIED Comment: Sinus tachycardia Suspect secondary to SIRS/sepsis IVF bolus Awaiting labs (3) Mouth sores Code(s): K13.79 - OTHER LESIONS OF ORAL MUCOSA Comment: Appeared this morning Suspect HSV, swab ordered Start valacyclovir (4) Pneumonia Code(s): J18.9 - PNEUMONIA, UNSPECIFIED ORGANISM Comment: Multifocal densities seen in RUL Concern for post obstructive pneumonia with presence of mass S/p bronchoscopy Appreciate pulmonology consult Continue ceftriaxone, azithromycin Influenza, legionella, s. pneumoniae antigens negative (5) Sepsis Comment: Febrile overnight, now with tachycardia and increased O2 needs Met on admission with SIRS criteria of tachycardia, leukocytosis, hypotension. Met on admission with SOFA criteria of low MAP, SBP<90. Source appears to be pneumonia Blood cultures no growth x 3 days Sputum culture with normal arpita Continue antibiotic therapy. (6) Leukocytosis Code(s): D72.829 - ELEVATED WHITE BLOOD CELL COUNT, UNSPECIFIED Comment: Improving - labs pending this AM Suspect secondary to pneumonia Continue to trend (7) COPD (chronic obstructive pulmonary disease) Code(s): J44.9 - CHRONIC OBSTRUCTIVE PULMONARY DISEASE, UNSPECIFIED Comment: Continue nebulizers (8) HIV antibody positive Code(s): Z21 - ASYMPTOMATIC HUMAN IMMUNODEFICIENCY VIRUS INFECTION STATUS Comment: Will try to reach HIV clinic to determine last CD4 counts On outpatient Atripla (not available here) Continue outpatient regimen upon discharge ID consult (9) Tobacco abuse Code(s): Z72.0 - TOBACCO USE Comment: Patient has been advised to quit smoking PRN nicotine inhaler (10) DVT prophylaxis Comment: SQ heparin Status and Disposition: Inpatient admission. D/c to home when medically stable.
[2017-05-17] MEDS ORDERED: methylPREDNISolone 125 MG* 2 ML VIAL IV ONE (08:43)
[2017-05-17] MEDS: Mometasone/Formoter 200/5 MDI INH SCH ×2 (09:08→20:20)
[2017-05-17] MEDS: NS 0.9% 1000 ML* 1,000 ML IV SCH ×2 (09:10→16:06)
[2017-05-17] MEDS: ValACYclovir (*) 1 GM TAB PO SCH ×2 (09:13→20:49)
[2017-05-17] MEDS: guaiFENesin ER TAB 600 MG PO SCH ×2 (09:13→20:48)
--- NOTE | 2017-05-17 09:26 | RAD ---
HISTORY: Shortness of breath COMPARISONS: May 13, 2017 VIEWS: 1: frontal portable view of the chest at 8:55 AM FINDINGS: LINES AND TUBES: None. CARDIOMEDIASTINAL SILHOUETTE: The cardiomediastinal silhouette is normal for portable technique. PLEURA: There is a moderate right-sided pleural effusion. This may BE partially loculated. LUNG PARENCHYMA: There is confluent alveolar opacification of the right mid and upper lung durbin, progressed from the previous examination. ABDOMEN: The upper abdomen is clear. There is no subphrenic gas. BONES AND SOFT TISSUES: No bone or soft tissue abnormalities are noted. IMPRESSION: 1. THERE IS MODERATE RIGHT-SIDED PLEURAL EFFUSION THAT MAY BE PARTIALLY LOCULATED. 2. THERE IS CONSOLIDATION OF THE RIGHT UPPER AND MIDLUNG DURBIN. THIS HAS PROGRESSED FROM, AND OBSCURES, THE MULTIFOCAL DENSITIES NOTED ON PREVIOUS EXAMINATION. 3. RECOMMEND CONTINUED FOLLOW-UP UNTIL RESOLUTION. IF THE CLINICAL PRESENTATION IS NOT CONSISTENT WITH INFECTION, RECOMMEND CONSIDERATION OF FURTHER EVALUATION WITH CONTRAST-ENHANCED CT OF THE CHEST
[2017-05-17 09:37] LABS: ABS Basophils 0.1 10^3/ul (0-0.2); ABS Eosinophils 0 10^3/ul (0-0.6); ABS Monocytes 0.9 10^3/ul (0-0.8); ABS Nucleated RBC 0 10^3/ul; Eosinophil % 0.1 % (0-6); Hematocrit 38 % (35-47); Hemoglobin 12.7 g/dl (12.0-16.0); Lymphocyte % 8.8 % (25-47); Mean Corpuscular HGB Conc 33 g/dl (31-36); Mean Corpuscular Hemoglobin 32 pg (27-31); Mean Corpuscular Volume 96 fL (80-97); Mean Platelet Volume 9 um3 (7.4-10.4); Nucleated Red Blood Cells % 0; Platelet Count 270 10^3/ul (150-450); Red Blood Count 4.02 10^6/ul (4.0-5.4); Red Cell Distribution Width 14 % (10.5-15); White Blood Count 10.9 10^3/ul (3.5-10.8)
[2017-05-17 09:56] LABS: EGFR Non-African American 95.6 (>60)
[2017-05-17] MEDS ORDERED: Vancomycin(*) 1,500 MG in NS 0.9% 250 ML* 250 ML IVPB ONE (10:09)
[2017-05-17] MEDS ORDERED: Piperacillin/Tazobac ADVAN(*) 3.375 GM in NS 0.9% 100 ML* 100 ML IVPB ONE (10:09)
[2017-05-17] MEDS ORDERED: Zosyn per Pharmacy* NOTE FOLLOW UP SCH (11:00)
--- NOTE | 2017-05-17 11:10 | ED ---
Roxana Keith Gabriel, scribed for Fam Jim MD on 05/13/17 at 1946 . Shortness of Breath - HPI Summary HPI Summary: This patient is a 56 year old F BIBA to [facility] with a chief complaint of SOB since 05/08/17 that has gotten worse today. Patient reports green productive cough, fever (today), chills, myalgia, and left sided CP. Patient denies n/v/d. Patient has a history of COPD and is on NC O2 at home. - History of Current Complaint Chief Complaint: EDShortnessOfBreath Time Seen by Provider: 05/13/17 19:38 Hx Obtained From: Patient Onset/Duration: Lasting Days - 5, Still Present Timing: Constant Current Severity: Moderate Associated Signs & Symptoms: Negative - n/v/d, Cough (Productive), Chest Pain w/ Cough - Allergy/Home Medications Allergies/Adverse Reactions: Allergies Allergy/AdvReac Type Severity Reaction Status Date / Time Sulfa Drugs Allergy Intermediate Hives Verified 02/26/17 16:26 Bee Venom Allergy Difficulty Verified 05/16/17 09:49 Breathing/Wheezing Latex Allergy SEE NOTE Verified 02/26/17 16:26 BELOW bee Allergy Difficulty Uncoded 02/26/17 16:26 Breathing/Wheezing PMH/Surg Hx/FS Hx/Imm Hx Endocrine/Hematology History: Reports: Other Endocrine/Hematological Disorders - HIV Denies: Hx Anticoagulant Therapy, Hx Diabetes, Hx Systemic Lupus Erythematosus Cardiovascular History: Denies: Hx Congestive Heart Failure, Hx Hypertension Respiratory History: Reports: Hx Asthma, Hx Chronic Obstructive Pulmonary Disease (COPD) Denies: Hx Sleep Apnea History: Denies: Hx Dialysis, Hx Renal Disease Musculoskeletal History: Denies: Hx Arthritis, Hx Rheumatoid Arthritis, Hx Osteoporosis Sensory History: Reports: Hx Contacts or Glasses Denies: Hx Cataracts, Hx Glaucoma, Hx Hearing Aid Opthamlomology History: Reports: Hx Contacts or Glasses Denies: Hx Cataracts, Hx Glaucoma Neurological History: Denies: Hx Headaches, Hx Seizures, Hx Transient Ischemic Attacks (TIA) Psychiatric History: Denies: Hx Anxiety, Hx Depression - Cancer History Hx Chemotherapy: No - Surgical History Surgery Procedure, Year, and Place: TUBIAL LIGATION. UMBILICAL HERNIA REPAIR Hx Anesthesia Reactions: No - Immunization History Date of Tetanus Vaccine: 2014 Date of Influenza Vaccine: 2016 Infectious Disease History: No Infectious Disease History: Reports: Hx Human Immunodeficiency Virus (HIV) Denies: Traveled Outside the [place] in Last 30 Days - Family History Known Family History: Positive: Other - noncontributory Family History: No FHx of breast CA. - Social History Lives: With Family Alcohol Use: None Hx Substance Use: No Substance Use Type: Reports: None Hx Tobacco Use: Yes Smoking Status (MU): Current Every Day Smoker Amount Used/How Often: 4 PPD X 18 YEARS THEN DECREASED TO 1 PPD Have You Smoked in the Last Year: Yes Review of Systems Positive: Fever, Chills Negative: Erythema Negative: Sore Throat Positive: Chest Pain Positive: Shortness Of Breath, Cough - productive Negative: Abdominal Pain, Vomiting, Diarrhea, Nausea Negative: dysuria, hematuria Positive: Myalgia. Negative: Edema Negative: Rash Neurological: Negative - dizziness All Other Systems Reviewed And Are Negative: Yes Physical Exam - Summary Physical Exam Summary: Constitutional: Well-developed, Well-nourished, Alert. (-) Distressed Skin: Warm, Dry HENT: Normocephalic; Atraumatic Eyes: Conjunctiva normal Neck: Musculoskeletal ROM normal neck. (-) JVD, (-) Stridor, (-) Tracheal deviation Cardio: Rhythm regular, rate normal, Heart sounds normal; Intact distal pulses; The pedal pulses are 2+ and symmetric. Radial pulses are 2+ and symmetric. (-) Murmur Pulmonary/Chest wall: Rhonchi in right lower lung field Abd: Soft, (-) Tenderness, (-) Distension, (-) Guarding, (-) Rebound Musculoskeletal: (-) Edema Lymph: (-) Cervical adenopathy Neuro: Alert, Oriented x3 Psych: Mood and affect Normal Triage Information Reviewed: Yes Vital Signs On Initial Exam: Initial Vitals Temp Pulse Resp BP Pulse Ox 100.6 F 102 18 103/63 94 05/13/17 19:36 05/13/17 19:36 05/13/17 19:36 05/13/17 19:36 05/13/17 19:36 Vital Signs Reviewed: Yes - Douglas Coma Scale Coma Scale Total: 15 Diagnostics - Vital Signs Vital Signs Temp Pulse Resp BP Pulse Ox 05/13/17 19:36 100.6 F 102 18 103/63 94 - Laboratory Lab Results: Lab Results 05/13/17 05/13/17 05/13/17 Range/Units 20:00 20:00 20:00 WBC 26.8 H (3.5-10.8) 10^3/ul RBC 4.80 (4.0-5.4) 10^6/ul Hgb 14.9 (12.0-16.0) g/dl Hct 45 (35-47) % MCV 93 (80-97) fL MCH 31 (27-31) pg MCHC 33 (31-36) g/dl RDW 14 (10.5-15) % Plt Count 304 (150-450) 10^3/ul MPV 8 (7.4-10.4) um3 Neut % (Auto) 86.5 H (38-83) % Lymph % (Auto) 8.2 L (25-47) % Roberts % (Auto) 4.9 (1-9) % Eos % (Auto) 0 (0-6) % Baso % (Auto) 0.4 (0-2) % Absolute Neuts (auto) 23.2 H (1.5-7.7) 10^3/ul Absolute Lymphs (auto) 2.2 (1.0-4.8) 10^3/ul Absolute Monos (auto) 1.3 H (0-0.8) 10^3/ul Absolute Eos (auto) 0 (0-0.6) 10^3/ul Absolute Basos (auto) 0.1 (0-0.2) 10^3/ul Absolute Nucleated RBC 0.01 10^3/ul Nucleated RBC % 0 Sodium 129 L (133-145) mmol/L Potassium 3.8 (3.5-5.0) mmol/L Chloride 96 L (101-111) mmol/L Carbon Dioxide 25 (22-32) mmol/L Anion Gap 8 (2-11) mmol/L BUN 9 (6-24) mg/dL Creatinine 0.79 (0.51-0.95) mg/dL Est GFR ( Amer) 96.5 (>60) Est GFR (Non-Af Amer) 75.0 (>60) BUN/Creatinine Ratio 11.4 (8-20) Glucose 126 H (70-100) mg/dL Lactic Acid 0.9 (0.5-2.0) mmol/L Calcium 9.3 (8.6-10.3) mg/dL Total Bilirubin 0.70 (0.2-1.0) mg/dL AST 15 (13-39) U/L ALT 12 (7-52) U/L Alkaline Phosphatase 101 (34-104) U/L Troponin I 0.01 (<0.04) ng/mL C-Reactive Protein 67.39 H (< 5.00) mg/L Total Protein 6.9 (6.4-8.9) g/dL Albumin 3.9 (3.2-5.2) g/dL Globulin 3.0 (2-4) g/dL Albumin/Globulin Ratio 1.3 (1-3) Influenza A (Rapid) (Negative) Influenza B (Rapid) (Negative) 05/13/17 Range/Units 20:11 WBC (3.5-10.8) 10^3/ul RBC (4.0-5.4) 10^6/ul Hgb (12.0-16.0) g/dl Hct (35-47) % MCV (80-97) fL MCH (27-31) pg MCHC (31-36) g/dl RDW (10.5-15) % Plt Count (150-450) 10^3/ul MPV (7.4-10.4) um3 Neut % (Auto) (38-83) % Lymph % (Auto) (25-47) % Roberts % (Auto) (1-9) % Eos % (Auto) (0-6) % Baso % (Auto) (0-2) % Absolute Neuts (auto) (1.5-7.7) 10^3/ul Absolute Lymphs (auto) (1.0-4.8) 10^3/ul Absolute Monos (auto) (0-0.8) 10^3/ul Absolute Eos (auto) (0-0.6) 10^3/ul Absolute Basos (auto) (0-0.2) 10^3/ul Absolute Nucleated RBC 10^3/ul Nucleated RBC % Sodium (133-145) mmol/L Potassium (3.5-5.0) mmol/L Chloride (101-111) mmol/L Carbon Dioxide (22-32) mmol/L Anion Gap (2-11) mmol/L BUN (6-24) mg/dL Creatinine (0.51-0.95) mg/dL Est GFR ( Amer) (>60) Est GFR (Non-Af Amer) (>60) BUN/Creatinine Ratio (8-20) Glucose (70-100) mg/dL Lactic Acid (0.5-2.0) mmol/L Calcium (8.6-10.3) mg/dL Total Bilirubin (0.2-1.0) mg/dL AST (13-39) U/L ALT (7-52) U/L Alkaline Phosphatase (34-104) U/L Troponin I (<0.04) ng/mL C-Reactive Protein (< 5.00) mg/L Total Protein (6.4-8.9) g/dL Albumin (3.2-5.2) g/dL Globulin (2-4) g/dL Albumin/Globulin Ratio (1-3) Influenza A (Rapid) Negative (Negative) Influenza B (Rapid) Negative (Negative) Result Diagrams: 05/17/17 08:55 05/17/17 08:55 Lab Statement: Any lab studies that have been ordered have been reviewed, and results considered in the medical decision making process. - Radiology CXR Radiology Interpretation Completed By: Radiologist - MULTIFOCAL DENSITIES IN THE RIGHT UPPER LOBE INCLUDING ILL-DEFINED DENSITY OBSCURING THE SUPERIOR ASPECT OF THE RIGHT HILUM AND RIGHT LATERAL MEDIASTINUM. ESPECIALLY CONSIDERING THE PATIENT'S REPORTED SMOKING HISTORY, FOLLOW-UP CHEST X-RAY AFTER AN APPROPRIATE COURSE OF THERAPY IS ADVISED ED physician has reviewed this radiology report. - EKG 20:03 Cardiac Rate: Tachycardia EKG Rhythm: Sinus Tachycardia - at 107 BPM EKG Interpretation: No STEMI Course/Dx - Course Assessment/Plan: This patient is a 56 year old F BIBA to [facility] with a chief complaint of SOB since 05/08/17 that has gotten worse today. Patient reports green productive cough, fever (today), chills, myalgia, and left sided CP. An EKG reveals sinus tachycardia. No STEMI. CXR reveals, per radiologist, MULTIFOCAL DENSITIES IN THE RIGHT UPPER LOBE INCLUDING ILL-DEFINED DENSITY OBSCURING THE. SUPERIOR ASPECT OF THE RIGHT HILUM AND RIGHT LATERAL MEDIASTINUM. ESPECIALLY CONSIDERING. THE PATIENT'S REPORTED SMOKING HISTORY, FOLLOW-UP CHEST X-RAY AFTER AN APPROPRIATE COURSE. OF THERAPY IS ADVISED. Test results with no significant abnormalities. In the ED course the patient was given Azithromycin, IV fluids, and Duoneb treatment. We discussed patient care with Dr. Bullard and he has agreed to admit the patient. Patient will be admitted with follow up from Dr. Bullard. The patient is agreeable with this plan. - Diagnoses Provider Diagnoses: PNA (pneumonia), Sepsis - Physician Notifications Discussed Care of Patient With: John Bullard Time Discussed With Above Provider: 20:44 Instructed by Provider To: Admit As Inpatient Discharge - Discharge Plan Condition: Fair Disposition: ADMITTED TO [facility] The documentation as recorded by the Roxana thibodeaux Gabriel accurately reflects the service I personally performed and the decisions made by , Fam Jim MD.
[2017-05-17] MEDS: Albuterol/Ipratropium NEB.SOL* Albuterol 2.5 MG/Ipratropium 0.5 MG 3 ML INH SCH ×4 (11:28→23:24)
--- NOTE | 2017-05-17 12:04 | PN ---
Hospitalist Progress Note Date of Service: 05/17/17 Spoke with RAMIRO Norwood at [facility] ([phone]), where the patient is followed. She was last seen in the clinic on 01/25/17; at that time, her CD4 count was 969 and viral load undetectable. She reportedly missed her most recent appointment on 04/26/17. Clinic also notes that the patient was advised to f/u on pulmonary nodule seen on XR in April 2016 (patient previously acknowledged she was aware of a pulmonary nodule when originally told of mass); patient never followed up on CT scan. We also discussed antiretroviral therapy. MedRec is incorrect, as patient has not been on Atripla for a year. She should be on Odefsey, which has been corrected on med rec. Also note: HCP Lora Gamez can be reached at [phone]
[2017-05-17] MEDS ORDERED: Furosemide IV* 10 MG/ML 2 ML VIAL (20 MG) IV SLOW PU ONE (14:13)
--- NOTE | 2017-05-17 14:22 | PN ---
Progress Note - Progress Note Date of Service: 05/17/17 - Pulm f/u note Note: Pt seen and examined at bedside. Interim events noted. Pt was noted to have tachycardia and was noted to have O2 off. She was transferred to ICU for close monitoring and for high flow. Reported slight improvement in breathing, sats around 95% on 5L. Had blood stained sputum yesterday after procedure, no blood noted since this am. Active Medications Generic Name Dose Route Start Last Admin Trade Name Freq PRN Reason Stop Dose Admin Acetaminophen 650 mg 05/13/17 20:53 05/17/17 02:12 Tylenol Tab* PO 650 mg Q6H PRN Administration PAIN Albuterol/Ipratropium 1 neb 05/17/17 11:00 05/17/17 11:28 Duoneb (Albuterol 2.5 Mg/Ipratropium 0.5 Mg) INH 1 neb [id number] AWAKE NATALI Administration Azithromycin 250 mg 05/16/17 21:00 05/16/17 22:45 Zithromax Tab* PO 250 mg DAILY@2100 NATALI Administration Device 1 each 05/14/17 11:06 05/14/17 11:27 Nicotine Mouth Piece* INH 1 each .USE WITH NICOTROL PRN Administration CRAVING Efavirenz/Emtricitabine/Tenofovir 1 tab 05/13/17 21:00 05/16/17 22:52 Atripla(Nf) PO 1 tab BEDTIME NATALI Administration Guaifenesin 1,200 mg 05/15/17 13:00 05/17/17 09:13 Mucinex* PO 1,200 mg BID NATALI Administration Heparin Sodium (Porcine) 5,000 units 05/13/17 22:00 05/17/17 04:58 Heparin Vial(*) SUBCUT 5,000 units Q8HR NATALI Administration Ceftriaxone Sodium 1 gm/ 50 mls @ 200 mls/hr 05/14/17 20:30 05/16/17 20:02 Sodium Chloride IVPB 200 mls/hr Q24H NATALI Administration Sodium Chloride 1,000 mls @ 100 mls/hr 05/13/17 21:00 05/17/17 09:10 Ns 0.9% 1000 Ml* IV 100 mls/hr PER RATE NATALI Administration Piperacillin Sod/Tazobactam 100 mls @ 25 mls/hr 05/17/17 15:00 Sod 3.375 gm/ Sodium Chloride IVPB Q8H [facility] Methylprednisolone Sodium Succinate 40 mg 05/18/17 00:00 Solu-Medrol 40 Mg IV Q8H [facility] Mometasone Furoate/Formoterol Fumar 2 puff 05/17/17 09:00 05/17/17 09:08 Dulera 200/5 Mdi* INH 2 puff BID NATALI Administration Nicotine 10 mg 05/14/17 11:06 05/14/17 11:29 Nicotine Inhaler* INH 10 mg Q2H PRN Administration CRAVING Pharmacy Consult 1 note 05/17/17 11:00 Zosyn Per Pharmacy* FOLLOW UP .ZOSYN PER PHARMACY NATALI Tramadol HCl 50 mg 05/15/17 21:05 05/16/17 19:51 Ultram* PO 50 mg Q6H PRN Administration PAIN - MODERATE TO SEVERE Valacyclovir HCl 1 gm 05/17/17 09:00 05/17/17 09:13 Valtrex 1 Gm(*) PO 1 gm BID NATALI Administration Protocol Zolpidem Tartrate 5 mg 05/13/17 20:58 05/16/17 22:49 Ambien Tab* PO 5 mg BEDTIME PRN Administration INSOMNIA Vital Signs Temp Pulse Resp BP Pulse Ox 100.2 F 105 24 112/82 96 05/17/17 12:17 05/17/17 14:01 05/17/17 14:01 05/17/17 14:00 05/17/17 14:01 O/E: Pt in NAD HEENT: PERRLA, No JVD Lungs: Crackles in right apex, no wheeze, scaterred rhonchi on right side CVS: S1, S2+ Abd: Soft, BS+ Ext: Normal ROM Neuro: Alert, awake x3, no focal defecits Abd: Soft, BS+ Laboratory Results - last 24 hr 05/16/17 05/16/17 05/17/17 08:17 13:30 08:55 WBC 10.9 H RBC 4.02 Hgb 12.7 Hct 38 MCV 96 MCH 32 H MCHC 33 RDW 14 Plt Count 270 MPV 9 Neut % (Auto) 82.6 Lymph % (Auto) 8.8 L [place] % (Auto) 8.0 Eos % (Auto) 0.1 Baso % (Auto) 0.5 Absolute Neuts (auto) 9.0 H Absolute Lymphs (auto) 1.0 Absolute Monos (auto) 0.9 H Absolute Eos (auto) 0 Absolute Basos (auto) 0.1 Absolute Nucleated RBC 0 Nucleated RBC % 0 Patient Temperature ABG pH ABG pH (Temp Correct) ABG pCO2 ABG pCO2 (Temp Corrct ABG pO2 ABG pO2 (Temp Correct ABG HCO3 ABG O2 Saturation ABG Base Excess Respiration Rate O2 Delivery Device Ventilator Type Vent Mode FiO2 Inspiratory Time PEEP Pressure Support Pressure Control EPAP IPAP BiPAP Sodium 135 Potassium 4.2 Chloride 101 Carbon Dioxide 28 Anion Gap 6 BUN 4 L Creatinine 0.60 Est GFR ( Amer) 132.5 Est GFR (Non-Af Amer) 103.0 BUN/Creatinine Ratio 6.7 L Glucose 94 Calcium 8.4 L C-Reactive Protein 289.57 H Flow Intrp 2-8 Markers TNP Flow Intrp 16+ Markers TNP 05/17/17 05/17/17 08:55 11:20 WBC RBC Hgb Hct MCV MCH MCHC RDW Plt Count MPV Neut % (Auto) Lymph % (Auto) [place] % (Auto) Eos % (Auto) Baso % (Auto) Absolute Neuts (auto) Absolute Lymphs (auto) Absolute Monos (auto) Absolute Eos (auto) Absolute Basos (auto) Absolute Nucleated RBC Nucleated RBC % Patient Temperature Not Reportable ABG pH 7.30 L ABG pH (Temp Correct) Not Reportable ABG pCO2 61 H ABG pCO2 (Temp Corrct Not Reportable ABG pO2 83 ABG pO2 (Temp Correct Not Reportable ABG HCO3 26.5 ABG O2 Saturation 97.0 ABG Base Excess 2.1 H Respiration Rate Not Reportable O2 Delivery Device n/c Ventilator Type Not Reportable Vent Mode Not Reportable FiO2 5 Inspiratory Time Not Reportable PEEP Not Reportable Pressure Support Not Reportable Pressure Control Not Reportable EPAP Not Reportable IPAP Not Reportable BiPAP Not Reportable Sodium 132 L Potassium 4.4 Chloride 97 L Carbon Dioxide 27 Anion Gap 8 BUN 8 Creatinine 0.64 Est GFR ( Amer) 123.0 Est GFR (Non-Af Amer) 95.6 BUN/Creatinine Ratio 12.5 Glucose 125 H Calcium 8.5 L C-Reactive Protein 269.17 H Flow Intrp 2-8 Markers Flow Intrp 16+ Markers I/R; 56 y o f, current smoker with PMH of COPD, and HIV who presented to the ED on 05/13/17 with malaise, SOB, cough, and myalgias and was found to have pneumonia and right hilar mass. Given current smoking status, hilar mass, enlarged Rt paratracheal and subcarinal lymph nodes, concern for malignancy and subsequent post obstructive PNA Pt underwent bronchoscopy/EBUS yesterday for evaluation of lung mass and mediastinal lymph nodes, R4, Station 7 and Rt hilar mass were biopsied Pt has low reserve, has needed high FiO2 during and post procedure She had blood stained phleghm last night resulting from biopsy Has been needing higher FiO2 and has remained tachycardic Will titrate FiO2 to maintain O2 sat around 92% Was slightly altered this am, mental status normal at time of exam- likely sec to hypoxia and hypercapnia Pt noted to have occlusion of RUL bronchus likely from extrinsic compression with mass resulting in post obstructive PNA Noted to have increase in size of rt effusion this am on CXR Will order Lasix 20mg 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
[2017-05-17] MEDS: Piperacillin/Tazobac ADVAN(*) 3.375 GM in NS 0.9% 100 ML* 100 ML IVPB SCH ×2 (15:30→22:39)
[2017-05-17] MEDS: Lidocaine 2% VISCOUS* 15 ML UDC PO PRN (17:16)
[2017-05-17] MEDS: Docosanol 10%* CREAM 2 GM TUBE TOPICAL SCH ×2 (17:16→20:51)
[2017-05-17] MEDS: traMADol TAB* 50 MG PO PRN (18:30)
[2017-05-17] MEDS ORDERED: guaiFENesin/CODIEN 100MG-10MG* 5 ML UDC ONE (20:39)
[2017-05-17] MEDS: cefTRIAXone(*) 1 GM in NS 0.9% 50 ML* 50 ML IVPB SCH (20:46)
[2017-05-17] MEDS: Azithromycin TAB* 250 MG PO SCH (20:48)
[2017-05-17] MEDS: Zolpidem TAB* 5 MG PO PRN (20:48)
[2017-05-17] MEDS: EFAVIRENZ PO SCH (20:49)
[2017-05-17] MEDS: EMTRICITAB PO SCH (20:49)
[2017-05-17] MEDS: [UNRECOGNIZED DRUG - OTHER] PO SCH (20:49)
[2017-05-17] MEDS: methylPREDNISolone SOD 40 MG* 1 ML VIAL IV SCH (23:47)
[2017-05-18] MEDS: guaiFENesin/CODIEN 100MG-10MG* 5 ML UDC PO ONE ×2 (00:01→03:40)
[2017-05-18] MEDS: NS 0.9% 1000 ML* 1,000 ML IV SCH (02:11)
[2017-05-18] MEDS: Albuterol/Ipratropium NEB.SOL* Albuterol 2.5 MG/Ipratropium 0.5 MG 3 ML INH SCH ×6 (03:27→23:25)
[2017-05-18] MEDS: Heparin VIAL(*) 5000 UNITS/ML VIAL (FIVE THOUSAND) SUBCUT SCH ×3 (06:32→21:12)
[2017-05-18] MEDS: Docosanol 10%* CREAM 2 GM TUBE TOPICAL SCH ×5 (06:32→21:12)
[2017-05-18] MEDS: Piperacillin/Tazobac ADVAN(*) 3.375 GM in NS 0.9% 100 ML* 100 ML IVPB SCH ×3 (06:33→23:43)
[2017-05-18] MEDS: Mometasone/Formoter 200/5 MDI INH SCH ×2 (07:28→21:01)
[2017-05-18] MEDS: guaiFENesin ER TAB 600 MG PO SCH ×2 (08:01→21:12)
[2017-05-18] MEDS: methylPREDNISolone SOD 40 MG* 1 ML VIAL IV SCH ×2 (08:01→15:18)
[2017-05-18] MEDS: ValACYclovir (*) 1 GM TAB PO SCH ×2 (08:04→21:13)
--- NOTE | 2017-05-18 08:29 | PN ---
Subjective Date of Service: 05/18/17 Interval History: Patient seen and examined at bedside. Reports feeling much better and once again states hope to go home. Mouth sores also improved with topical analgesic. Denies fever/chills overnight. Still endorses pain in rib cage and abdomen with cough. Denies CP, increased SOB. Has not required escalation of O2 overnight Tele: SR 90s Family History: Unchanged from Admission Social History: Unchanged from Admission Past Medical History: Unchanged from Admission Objective Active Medications: Acetaminophen (Tylenol Tab*) 650 mg PO Q6H PRN PRN Reason: PAIN Last Admin: 05/17/17 02:12 Dose: 650 mg Albuterol/Ipratropium (Duoneb (Albuterol 2.5 Mg/Ipratropium 0.5 Mg)) 1 neb INH [id number] AWAKE [facility] Last Admin: 05/18/17 07:28 Dose: 1 neb Device (Nicotine Mouth Piece*) 1 each INH .USE WITH NICOTROL PRN PRN Reason: CRAVING Last Admin: 05/14/17 11:27 Dose: 1 each Docosanol (Abreva 10%*) 1 applic TOPICAL FIVE TIMES DAILY [facility] Last Admin: 05/18/17 06:32 Dose: 1 applic Efavirenz/Emtricitabine/Tenofovir (Atripla(Nf)) 1 tab PO BEDTIME [facility] Last Admin: 05/17/17 20:49 Dose: 1 tab Guaifenesin (Mucinex*) 1,200 mg PO BID [facility] Last Admin: 05/18/17 08:01 Dose: 1,200 mg Heparin Sodium (Porcine) (Heparin Vial(*)) 5,000 units SUBCUT Q8HR [facility] Last Admin: 05/18/17 06:32 Dose: 5,000 units Sodium Chloride (Ns 0.9% 1000 Ml*) 1,000 mls @ 100 mls/hr IV PER RATE [facility] Last Admin: 05/18/17 02:11 Dose: 100 mls/hr Piperacillin Sod/Tazobactam (Sod 3.375 gm/ Sodium Chloride) 100 mls @ 25 mls/ hr IVPB Q8H [facility] Last Admin: 05/18/17 06:33 Dose: 25 mls/hr Lidocaine (Xylocaine 2% Viscous*) 20 ml PO TID PRN PRN Reason: mouth sores Last Admin: 05/17/17 17:16 Dose: 20 ml Methylprednisolone Sodium Succinate (Solu-Medrol 40 Mg) 40 mg IV Q8H [facility] Last Admin: 05/18/17 08:01 Dose: 40 mg Mometasone Furoate/Formoterol Fumar (Dulera 200/5 Mdi*) 2 puff INH BID [facility] Last Admin: 05/18/17 07:28 Dose: 2 puff Nicotine (Nicotine Inhaler*) 10 mg INH Q2H PRN PRN Reason: CRAVING Last Admin: 05/14/17 11:29 Dose: 10 mg Pharmacy Consult (Zosyn Per Pharmacy*) 1 note FOLLOW UP .ZOSYN PER PHARMACY [facility] Tramadol HCl (Ultram*) 50 mg PO Q6H PRN PRN Reason: PAIN - MODERATE TO SEVERE Last Admin: 05/17/17 18:30 Dose: 50 mg Valacyclovir HCl (Valtrex 1 Gm(*)) 1 gm PO BID [facility] PRN Reason: Protocol Last Admin: 05/18/17 08:04 Dose: 1 gm Zolpidem Tartrate (Ambien Tab*) 5 mg PO BEDTIME PRN PRN Reason: INSOMNIA Last Admin: 05/17/17 20:48 Dose: 5 mg Vital Signs - 8 hr 05/18/17 05/18/17 05/18/17 01:00 01:01 02:00 Temperature Pulse Rate 88 87 93 Respiratory 16 16 16 Rate Blood Pressure 94/60 100/55 (mmHg) O2 Sat by Pulse 92 92 93 Oximetry 05/18/17 05/18/17 05/18/17 02:01 03:00 03:01 Temperature Pulse Rate 93 97 98 Respiratory 16 23 25 Rate Blood Pressure 90/80 (mmHg) O2 Sat by Pulse 92 90 89 Oximetry 05/18/17 05/18/17 05/18/17 03:41 04:00 04:01 Temperature 97.0 F Pulse Rate 95 94 Respiratory 22 19 Rate Blood Pressure 104/61 (mmHg) O2 Sat by Pulse 93 93 Oximetry 05/18/17 05/18/17 05/18/17 05:00 05:01 06:00 Temperature Pulse Rate 87 87 89 Respiratory 17 16 15 Rate Blood Pressure 90/60 95/62 (mmHg) O2 Sat by Pulse 95 95 96 Oximetry 05/18/17 05/18/17 05/18/17 06:01 07:00 07:01 Temperature Pulse Rate 89 89 90 Respiratory 16 17 18 Rate Blood Pressure 105/61 (mmHg) O2 Sat by Pulse 96 93 94 Oximetry 05/18/17 05/18/17 05/18/17 07:30 07:49 08:00 Temperature Pulse Rate 88 94 Respiratory 16 21 Rate Blood Pressure (mmHg) O2 Sat by Pulse 94 89 Oximetry 05/18/17 05/18/17 08:07 08:19 Temperature 97.9 F Pulse Rate 89 Respiratory 19 Rate Blood Pressure 102/59 (mmHg) O2 Sat by Pulse 92 Oximetry Oxygen Devices in Use Now: Nasal Cannula Appearance: Older female, lying in bed, NAD Eyes: No Scleral Icterus, PERRLA Ears/Nose/Mouth/Throat: Mucous Membranes Moist, - - Erythema with cold sores around mouth and below nostrils Neck: NL Appearance and Movements; NL JVP Respiratory: Symmetrical Chest Expansion and Respiratory Effort, - - coarse lung sounds, decreased right sided aeration with crackles in right lung, diminished lung sounds throughout Cardiovascular: NL Sounds; No Murmurs; No JVD, RRR Extremities: No Clubbing, Cyanosis Neurological: Alert and Oriented x 3, NL Muscle Strength and Tone Lines/Tubes/Other Access: Clean, Dry and Intact Peripheral IV Nutrition: Taking PO's Result Diagrams: 05/18/17 08:20 05/17/17 08:55 Additional Lab and Data: Lab Results 05/13/17 05/13/17 05/13/17 Range/Units 20:00 20:00 20:00 WBC 26.8 H (3.5-10.8) 10^3/ul RBC 4.80 (4.0-5.4) 10^6/ul Hgb 14.9 (12.0-16.0) g/dl Hct 45 (35-47) % MCV 93 (80-97) fL MCH 31 (27-31) pg MCHC 33 (31-36) g/dl RDW 14 (10.5-15) % Plt Count 304 (150-450) 10^3/ul MPV 8 (7.4-10.4) um3 Neut % (Auto) 86.5 H (38-83) % Lymph % (Auto) 8.2 L (25-47) % Sutton % (Auto) 4.9 (1-9) % Eos % (Auto) 0 (0-6) % Baso % (Auto) 0.4 (0-2) % Absolute Neuts (auto) 23.2 H (1.5-7.7) 10^3/ul Absolute Lymphs (auto) 2.2 (1.0-4.8) 10^3/ul Absolute Monos (auto) 1.3 H (0-0.8) 10^3/ul Absolute Eos (auto) 0 (0-0.6) 10^3/ul Absolute Basos (auto) 0.1 (0-0.2) 10^3/ul Absolute Nucleated RBC 0.01 10^3/ul Nucleated RBC % 0 Sodium 129 L (133-145) mmol/L Potassium 3.8 (3.5-5.0) mmol/L Chloride 96 L (101-111) mmol/L Carbon Dioxide 25 (22-32) mmol/L Anion Gap 8 (2-11) mmol/L BUN 9 (6-24) mg/dL Creatinine 0.79 (0.51-0.95) mg/dL Est GFR ( Amer) 96.5 (>60) Est GFR (Non-Af Amer) 75.0 (>60) BUN/Creatinine Ratio 11.4 (8-20) Glucose 126 H (70-100) mg/dL Lactic Acid 0.9 (0.5-2.0) mmol/L Calcium 9.3 (8.6-10.3) mg/dL Total Bilirubin 0.70 (0.2-1.0) mg/dL AST 15 (13-39) U/L ALT 12 (7-52) U/L Alkaline Phosphatase 101 (34-104) U/L Troponin I 0.01 (<0.04) ng/mL C-Reactive Protein 67.39 H (< 5.00) mg/L Total Protein 6.9 (6.4-8.9) g/dL Albumin 3.9 (3.2-5.2) g/dL Globulin 3.0 (2-4) g/dL Albumin/Globulin Ratio 1.3 (1-3) Influenza A (Rapid) (Negative) Influenza B (Rapid) (Negative) 05/13/17 Range/Units 20:11 WBC (3.5-10.8) 10^3/ul RBC (4.0-5.4) 10^6/ul Hgb (12.0-16.0) g/dl Hct (35-47) % MCV (80-97) fL MCH (27-31) pg MCHC (31-36) g/dl RDW (10.5-15) % Plt Count (150-450) 10^3/ul MPV (7.4-10.4) um3 Neut % (Auto) (38-83) % Lymph % (Auto) (25-47) % Sutton % (Auto) (1-9) % Eos % (Auto) (0-6) % Baso % (Auto) (0-2) % Absolute Neuts (auto) (1.5-7.7) 10^3/ul Absolute Lymphs (auto) (1.0-4.8) 10^3/ul Absolute Monos (auto) (0-0.8) 10^3/ul Absolute Eos (auto) (0-0.6) 10^3/ul Absolute Basos (auto) (0-0.2) 10^3/ul Absolute Nucleated RBC 10^3/ul Nucleated RBC % Sodium (133-145) mmol/L Potassium (3.5-5.0) mmol/L Chloride (101-111) mmol/L Carbon Dioxide (22-32) mmol/L Anion Gap (2-11) mmol/L BUN (6-24) mg/dL Creatinine (0.51-0.95) mg/dL Est GFR ( Amer) (>60) Est GFR (Non-Af Amer) (>60) BUN/Creatinine Ratio (8-20) Glucose (70-100) mg/dL Lactic Acid (0.5-2.0) mmol/L Calcium (8.6-10.3) mg/dL Total Bilirubin (0.2-1.0) mg/dL AST (13-39) U/L ALT (7-52) U/L Alkaline Phosphatase (34-104) U/L Troponin I (<0.04) ng/mL C-Reactive Protein (< 5.00) mg/L Total Protein (6.4-8.9) g/dL Albumin (3.2-5.2) g/dL Globulin (2-4) g/dL Albumin/Globulin Ratio (1-3) Influenza A (Rapid) Negative (Negative) Influenza B (Rapid) Negative (Negative) Microbiology and Other Data: Microbiology 05/14/17 00:55 Legionella Urinary Antigen - Final Urine Negative Legionella Streptococcus pneumoniae Ag Screen - Final Negative S. pneumo Antigen Assess/Plan/Problems-Billing Assessment: Ms. Burnett is a 56 yo female with a PMH of COPD, tobacco use, and HIV who presented to the ED on 05/13/17 with concern for sudden onset of malaise, SOB, cough, arthralgias, and myalgias and was found to have concern for leukocytosis , sepsis, and pneumonia. - Patient Problems (1) Acute and chronic respiratory failure with hypoxia Code(s): J96.21 - ACUTE AND CHRONIC RESPIRATORY FAILURE WITH HYPOXIA Comment: Improving Still on 5Lnc, wean down when able Continue IV solumedrol, switch to prednisone tomorrow Will follow up previous CXR with CT chest with contrast (2) Tachycardia Code(s): R00.0 - TACHYCARDIA, UNSPECIFIED Comment: Resolved Suspect secondary to SIRS/sepsis (3) Mouth sores Code(s): K13.79 - OTHER LESIONS OF ORAL MUCOSA Comment: Suspect HSV, swab ordered Continue valacyclovir, Abreva, prn topical lidocaine (4) Pneumonia Code(s): J18.9 - PNEUMONIA, UNSPECIFIED ORGANISM Comment: Multifocal densities seen in RUL Concern for post obstructive pneumonia with presence of mass S/p bronchoscopy Appreciate pulmonology consult Continue Zosyn Influenza, legionella, s. pneumoniae antigens negative (5) Sepsis Comment: Febrile /, now with tachycardia and increased O2 needs Met on admission with SIRS criteria of tachycardia, leukocytosis, hypotension. Met on admission with SOFA criteria of low MAP, SBP<90. Source appears to be pneumonia Blood cultures no growth x 3 days Sputum culture with normal arpita Continue antibiotic therapy. (6) Leukocytosis Code(s): D72.829 - ELEVATED WHITE BLOOD CELL COUNT, UNSPECIFIED Comment: Improving Suspect secondary to pneumonia Continue to trend (7) COPD (chronic obstructive pulmonary disease) Code(s): J44.9 - CHRONIC OBSTRUCTIVE PULMONARY DISEASE, UNSPECIFIED Comment: Continue nebulizers, steroids (8) HIV antibody positive Code(s): Z21 - ASYMPTOMATIC HUMAN IMMUNODEFICIENCY VIRUS INFECTION STATUS Comment: CD4 counts 969 with undetectable viral load in Jan 2017 On outpatient [place] Continue outpatient regimen upon discharge Appreciate ID consult; patient should follow with ID as outpatient (9) Tobacco abuse Code(s): Z72.0 - TOBACCO USE Comment: Patient has been advised to quit smoking PRN nicotine inhaler (10) DVT prophylaxis Comment: SQ heparin Status and Disposition: Inpatient admission. D/c to home when medically stable.
[2017-05-18 08:30] LABS: Hematocrit 27 % (35-47); Hemoglobin 9.2 g/dl (12.0-16.0); Mean Corpuscular HGB Conc 34 g/dl (31-36); Mean Corpuscular Hemoglobin 32 pg (27-31); Mean Corpuscular Volume 96 fL (80-97); Mean Platelet Volume 9 um3 (7.4-10.4); Platelet Count 256 10^3/ul (150-450); Red Blood Count 2.83 10^6/ul (4.0-5.4); Red Cell Distribution Width 14 % (10.5-15); White Blood Count 10.6 10^3/ul (3.5-10.8)
[2017-05-18 08:45] LABS: EGFR Non-African American 159.9 (>60)
[2017-05-18] MEDS ORDERED: Iohexol 300* (CONTRAST) 10 ML SDV IV ONE (08:48)
[2017-05-18] MEDS ORDERED: predniSONE TAB* 20 MG PO SCH (09:00)
[2017-05-18 09:05] LABS: ABS Basophils 0 10^3/ul (0-0.2); ABS Eosinophils 0 10^3/ul (0-0.6); ABS Lymphocytes 0.7 10^3/ul (1.0-4.8); ABS Monocytes 0.7 10^3/ul (0-0.8); ABS Neutrophils 9.1 10^3/ul (1.5-7.7); ABS Nucleated RBC 0 10^3/ul; Eosinophil % 0 % (0-6); Lymphocyte % 6.9 % (25-47); Nucleated Red Blood Cells % 0.1
[2017-05-18 09:45] LABS: ABS Basophils 0.1 10^3/ul (0-0.2); ABS Eosinophils 0 10^3/ul (0-0.6); ABS Lymphocytes 0.7 10^3/ul (1.0-4.8); ABS Monocytes 0.8 10^3/ul (0-0.8); ABS Neutrophils 10.5 10^3/ul (1.5-7.7); ABS Nucleated RBC 0 10^3/ul; Eosinophil % 0 % (0-6); Hematocrit 34 % (35-47); Hemoglobin 11.2 g/dl (12.0-16.0); Lymphocyte % 6.1 % (25-47); Mean Corpuscular HGB Conc 33 g/dl (31-36); Mean Corpuscular Hemoglobin 31 pg (27-31); Mean Corpuscular Volume 96 fL (80-97); Mean Platelet Volume 8 um3 (7.4-10.4); Nucleated Red Blood Cells % 0; Platelet Count 312 10^3/ul (150-450); Red Blood Count 3.58 10^6/ul (4.0-5.4); Red Cell Distribution Width 14 % (10.5-15); White Blood Count 12.1 10^3/ul (3.5-10.8)
[2017-05-18 09:57] LABS: EGFR Non-African American 89.2 (>60)
[2017-05-18] MEDS: Lidocaine 2% VISCOUS* 15 ML UDC PO PRN (11:32)
[2017-05-18] MEDS ORDERED: Ketorolac INJ* 30 MG/ML 1 ML VIAL IV PUSH ONE (11:56)
--- NOTE | 2017-05-18 12:01 | RAD ---
HISTORY: Hypoxic respiratory failure, mass COMPARISONS: CT dated May 14, 2014 TECHNIQUE: Multiple contiguous axial CT scans of the chest were obtained with intravenous contrast. Coronal and sagittal multiplanar reformations are also submitted for review. FINDINGS: NECK AND THYROID: The lower neck and thyroid are unremarkable. CHEST WALL: There is no lower cervical, axillary, or supraclavicular lymphadenopathy by size criteria. HEART AND PERICARDIUM: The heart is unremarkable. AORTA AND PULMONARY VASCULATURE: There is calcification of the thoracic aorta. The pulmonary vasculature is unremarkable. MEDIASTINUM: There is lobulated mass of the middle mediastinum extending from the right paratracheal space inferiorly to the subcarinal space. This measures approximately 5.5 x 4.6 x 10 cm in size. There is obstruction at the level of the right upper lobe bronchus. LUL: There is mild enhancement of the right hilum suggestive of right hilar lymphadenopathy contiguous with the mediastinal mass. AIRWAY AND ESOPHAGUS: As noted above, there is obstruction of the right upper lobe bronchus LUNG PARENCHYMA: There is dense consolidation of the right upper lobe with a questionable area of focal enhancement in the right upper lobe measuring 2.5 cm best seen on axial image 22 and coronal image 58. There is atelectasis of the right lower lobe. There is patchy ground less opacification of the right middle lobe and lingula. PLEURA: There is large right pleural effusion. There is a trace left pleural effusion. UPPER ABDOMEN: Again noted is a left adrenal mass, stable. BONES AND SOFT TISSUES: No bone or soft tissue abnormalities are noted. OTHER: None. IMPRESSION: 1. THERE IS LOBULATED MASS OF THE MEDIASTINUM EXTENDING TO THE RIGHT HILUM MOST CONSISTENT WITH BULKY MEDIASTINAL LYMPHADENOPATHY. THIS OBSTRUCTS THE BRONCHUS TO THE RIGHT UPPER LOBE. 2. THERE IS DENSE CONSOLIDATION OF THE RIGHT UPPER LOBE WITH A QUESTION VERY FAINT ENHANCEMENT WITHIN THE RIGHT UPPER LOBE PERIPHERY WHICH MAY REFLECT AN UNDERLYING MASS. 3. GIVEN THE PRESENCE OF SUSPECTED RIGHT UPPER LOBE MASS AND MEDIASTINAL AND HILAR LYMPHADENOPATHY, THE APPEARANCE IS MOST CONSISTENT WITH METASTATIC NEOPLASM, WITH POSTOBSTRUCTIVE PNEUMONIA. 4. THERE IS ATELECTASIS OF THE RIGHT LOWER LOBE. 5. THERE IS A LARGE RIGHT PLEURAL EFFUSION WITH A TRACE LEFT PLEURAL EFFUSION.
[2017-05-18] MEDS: oxyCODONE/Acetamin 5/325 MG* TAB PO PRN ×3 (12:24→23:14)
--- NOTE | 2017-05-18 13:50 | PN ---
Progress Note - Progress Note Date of Service: 05/18/17 - Pulm f/u note Note: Pt seen and examined at bedside. Pt reported slight improvement in breathing. Pt also reports cough that is productive of thick phleghm Active Medications Generic Name Dose Route Start Last Admin Trade Name Freq PRN Reason Stop Dose Admin Acetaminophen 650 mg 05/13/17 20:53 05/17/17 02:12 Tylenol Tab* PO 650 mg Q6H PRN Administration PAIN Albuterol/Ipratropium 1 neb 05/17/17 11:00 05/18/17 12:37 Duoneb (Albuterol 2.5 Mg/Ipratropium 0.5 Mg) INH 1 neb [id number] AWAKE NATALI Administration Device 1 each 05/14/17 11:06 05/14/17 11:27 Nicotine Mouth Piece* INH 1 each .USE WITH NICOTROL PRN Administration CRAVING Docosanol 1 applic 05/17/17 18:00 05/18/17 09:31 Abreva 10%* TOPICAL 1 applic FIVE TIMES DAILY [facility] Administration Efavirenz/Emtricitabine/Tenofovir 1 tab 05/13/17 21:00 05/17/17 20:49 Atripla(Nf) PO 1 tab BEDTIME [facility] Administration Guaifenesin 1,200 mg 05/15/17 13:00 05/18/17 08:01 Mucinex* PO 1,200 mg BID [facility]ALI Administration Heparin Sodium (Porcine) 5,000 units 05/13/17 22:00 05/18/17 06:32 Heparin Vial(*) SUBCUT 5,000 units Q8HR [facility] Administration Piperacillin Sod/Tazobactam 100 mls @ 25 mls/hr 05/17/17 15:00 05/18/17 06:33 Sod 3.375 gm/ Sodium Chloride IVPB 25 mls/hr Q8H [facility] Administration Lidocaine 20 ml 05/17/17 16:21 05/18/17 11:32 Xylocaine 2% Viscous* PO 20 ml TID PRN Administration mouth sores Methylprednisolone Sodium Succinate 40 mg 05/18/17 00:00 05/18/17 08:01 Solu-Medrol 40 Mg IV 40 mg Q8H [facility] Administration Mometasone Furoate/Formoterol Fumar 2 puff 05/17/17 09:00 01/05/18 07:28 Dulera 200/5 Mdi* INH 2 puff BID [facility]AL[facility] Administration Nicotine 10 mg 05/14/17 11:06 05/14/17 11:29 Nicotine Inhaler* INH 10 mg Q2H PRN Administration CRAVING Oxycodone/Acetaminophen 1 tab 05/18/17 11:56 05/18/17 12:24 Percocet 5/325 Tab* PO 1 tab Q4H PRN Administration PAIN Pharmacy Consult 1 note 05/17/17 11:00 Zosyn Per Pharmacy* FOLLOW UP .ZOSYN PER PHARMACY [facility] Tramadol HCl 50 mg 05/15/17 21:05 05/17/17 18:30 Ultram* PO 50 mg Q6H PRN Administration PAIN - MODERATE TO SEVERE Valacyclovir HCl 1 gm 05/17/17 09:00 05/18/17 08:04 Valtrex 1 Gm(*) PO 1 gm BID NATALI Administration Protocol Zolpidem Tartrate 5 mg 05/13/17 20:58 05/17/17 20:48 Ambien Tab* PO 5 mg BEDTIME PRN Administration INSOMNIA Vital Signs Temp Pulse Resp BP Pulse Ox 98.4 F 95 20 111/60 97 05/18/17 10:45 05/18/17 12:37 05/18/17 12:37 05/18/17 10:45 05/18/17 12:37 O/E: Pt in NAD HEENT: PERRLA, No JVD Lungs: Crackles in right apex, no wheeze, scaterred rhonchi on right side CVS: S1, S2+ Abd: Soft, BS+ Ext: Normal ROM Neuro: Alert, awake x3, no focal defecits Abd: Soft, BS+ Laboratory Results - last 24 hr 05/16/17 05/18/17 05/18/17 13:30 08:20 08:20 WBC 10.6 RBC 2.83 L Hgb 9.2 L Hct 27 L MCV 96 MCH 32 H MCHC 34 RDW 14 Plt Count 256 MPV 9 Neut % (Auto) 86.0 H Lymph % (Auto) 6.9 L [place] % (Auto) 7.0 Eos % (Auto) 0 Baso % (Auto) 0.1 Absolute Neuts (auto) 9.1 H Absolute Lymphs (auto) 0.7 L Absolute Monos (auto) 0.7 Absolute Eos (auto) 0 Absolute Basos (auto) 0 Absolute Nucleated RBC 0 Nucleated RBC % 0.1 Sodium 142 D Potassium TNP Chloride 112 H Carbon Dioxide 24 Anion Gap 6 BUN 8 Creatinine 0.41 L Est GFR ( Amer) 205.6 Est GFR (Non-Af Amer) 159.9 BUN/Creatinine Ratio 19.5 Glucose 122 H Calcium 5.3 L* Flow Intrp 9-15 Marker Flow Intrp 16+ Markers TNP 05/18/17 05/18/17 09:00 09:00 WBC 12.1 H RBC 3.58 L Hgb 11.2 L Hct 34 L MCV 96 MCH 31 MCHC 33 RDW 14 Plt Count 312 MPV 8 Neut % (Auto) 86.8 H Lymph % (Auto) 6.1 L [place] % (Auto) 6.7 Eos % (Auto) 0 Baso % (Auto) 0.4 Absolute Neuts (auto) 10.5 H Absolute Lymphs (auto) 0.7 L Absolute Monos (auto) 0.8 Absolute Eos (auto) 0 Absolute Basos (auto) 0.1 Absolute Nucleated RBC 0 Nucleated RBC % 0 Sodium 137 Potassium 4.0 Chloride 99 L Carbon Dioxide 35 H Anion Gap 3 BUN 10 Creatinine 0.68 Est GFR ( Amer) 114.7 Est GFR (Non-Af Amer) 89.2 BUN/Creatinine Ratio 14.7 Glucose 169 H Calcium 8.2 L Flow Intrp 9-15 Marker Flow Intrp 16+ Markers CT chest: Results and images were personally reviewed by me- hilar mass, dense adenopathy, RUL collapse due to extrinsic compression, moderate to large rt pleural effusion with Rt lower lobe compression atelectasis. I/R; 56 y o f, current smoker with PMH of COPD, and HIV who presented to the ED on 05/13/17 with malaise, SOB, cough, and myalgias and was found to have pneumonia and right hilar mass. Given current smoking status, hilar mass, enlarged Rt paratracheal and subcarinal lymph nodes, concern for malignancy and subsequent post obstructive PNA Pt underwent bronchoscopy/EBUS R4, Station 7 and Rt hilar mass were biopsied, results pending Lymphoma markers negative CT this morning showed moderate rt effusion with compression atelectasis, likely resulting from Rt lung atelectasis due to extrinsic compression from mass /lymphadenopathy Refer to separately dictated procedre report, 650 ml of dark straw fluid was removed, sent for cytology and biochemical eval Post procedure CXR pending, pt is hemodynamically stable Will titrate FiO2 to maintain O2 sat around 92% Pt on broad spectrum antibiotics c/w bronchodilators Case discussed with Belle Johnson, family and pt updated at bedside
--- NOTE | 2017-05-18 14:20 | RAD ---
HISTORY: Rule out pneumothorax, status post thoracentesis COMPARISONS: May 17, 2017, CT dated May 18, 2017 VIEWS: 1: frontal portable view of the chest at 1:52 PM FINDINGS: LINES AND TUBES: None. CARDIOMEDIASTINAL SILHOUETTE: The cardiomediastinal silhouette is normal for portable technique. PLEURA: There is no appreciable pneumothorax. LUNG PARENCHYMA: Again noted is dense consolidation of the right upper lobe. ABDOMEN: The upper abdomen is clear. There is no subphrenic gas. BONES AND SOFT TISSUES: No bone or soft tissue abnormalities are noted. IMPRESSION: DENSE CONSOLIDATION OF THE RIGHT UPPER LOBE. NO APPRECIABLE PNEUMOTHORAX.
--- NOTE | 2017-05-18 14:33 | RAD ---
Indication: Ultrasound skin marking for thoracentesis. Comparison: May 18, 2017 CT. Technique: Ultrasound of the RIGHT posterior lower thorax performed with the patient sitting. REPORT AND IMPRESSION: Skin over the dominant pocket of pleural fluid at the posterior RIGHT lung base marked by Dr. Loza under direct ultrasound visualization.
[2017-05-18] MEDS: [UNRECOGNIZED DRUG - OTHER] PO SCH (21:12)
[2017-05-18] MEDS: EFAVIRENZ PO SCH (21:12)
[2017-05-18] MEDS: EMTRICITAB PO SCH (21:12)
[2017-05-18] MEDS: Zolpidem TAB* 5 MG PO PRN (21:21)
[2017-05-19] MEDS: methylPREDNISolone SOD 40 MG* 1 ML VIAL IV SCH ×2 (00:26→10:06)
[2017-05-19] MEDS: Albuterol/Ipratropium NEB.SOL* Albuterol 2.5 MG/Ipratropium 0.5 MG 3 ML INH SCH ×5 (03:30→15:54)
[2017-05-19] MEDS: Heparin VIAL(*) 5000 UNITS/ML VIAL (FIVE THOUSAND) SUBCUT SCH (04:54)
[2017-05-19] MEDS: Docosanol 10%* CREAM 2 GM TUBE TOPICAL SCH ×2 (04:55→09:51)
[2017-05-19] MEDS: traMADol TAB* 50 MG PO PRN (06:17)
[2017-05-19] MEDS: Piperacillin/Tazobac ADVAN(*) 3.375 GM in NS 0.9% 100 ML* 100 ML IVPB SCH (06:17)
[2017-05-19] MEDS: Mometasone/Formoter 200/5 MDI INH SCH (08:36)
[2017-05-19] MEDS: guaiFENesin ER TAB 600 MG PO SCH (09:49)
[2017-05-19] MEDS: ValACYclovir (*) 1 GM TAB PO SCH (09:49)
[2017-05-19] MEDS: Lidocaine 2% VISCOUS* 15 ML UDC PO PRN (09:50)
[2017-05-19] MEDS ORDERED: Senna TAB PO ONE (10:13)
[2017-05-19] MEDS ORDERED: Senna TAB PO PRN (10:13)
[2017-05-19] MEDS ORDERED: Docusate CAP* 100 MG PO PRN (10:13)
[2017-05-19] MEDS ORDERED: Magnesium Hydroxide LIQ* 30 ML UDC PO ONE (10:14)
[2017-05-19] MEDS ORDERED: Senna TAB ONE (10:53)
[2017-05-19] MEDS ORDERED: Docusate CAP* 100 MG ONE (10:53)
[2017-05-19] MEDS ORDERED: Magnesium Hydroxide LIQ* 30 ML UDC ONE (10:54)
--- NOTE | 2017-05-19 11:12 | PRO ---
THORACENTESIS REPORT: DATE OF PROCEDURE: 05/18/17 PRE-PROCEDURAL DIAGNOSIS: [id number] size right pleural effusion. ANESTHESIA: Local anesthesia with 1% lidocaine. DESCRIPTION OF PROCEDURE: Informed consent was obtained from the patient prior to the procedure after all the risks and benefits were thoroughly explained. The patient recently was noted to have a right hilar mass with dense lymphadenopathy. The patient had bronchoscopy 2 days ago with lymph node aspiration. The patient had CT scan of the chest this morning, which showed [id number] right pleural effusion and atelectasis of the right lung. The patient currently needing O2 supplementation at 4 to 5 L. Informed consent was obtained from the patient prior to the procedure after all the risks and benefits including the risk for pneumothorax was thoroughly explained. Appropriate time-out was performed at bedside and was placed in the chart. A portable ultrasound was utilized at bedside to jyotsna the spot posteriorly on the right chest to facilitate thoracentesis. The patient was sitting up and leaning forward prior to the procedure. Strict aseptic precautions were followed. Skin was sterilized with chlorhexidine. CareFusion 8- Georgian thoracentesis catheter was utilized for the procedure. Once site was marked with ultrasound ensuring right location, lidocaine was injected subcutaneous intradermally down into the pleural space taking precautions. A stab incision was made by #10 scalpel blade to facilitate passage of the bigger catheter. An 8- Georgian CareFusion thoracentesis catheter was then inserted into the pleural space under manual suction taking precautions. Catheter was left in space and needle was removed. 650 mL of dark straw-colored fluid was aspirated under manual suction. The patient tolerated the procedure well. No air was aspirated. The catheter was removed when no more fluid was coming out. Bandage was applied on the area. Post- procedure chest x-ray was ordered and is pending at the time of dictation. Fluid sample was sent to the lab for biochemical and cytological examination. [id number]/[facility] #: [id number] [facility]ITALKristin
[2017-05-19 11:27] LABS: ABS Basophils 0.2 10^3/ul (0-0.2); ABS Eosinophils 0 10^3/ul (0-0.6); ABS Lymphocytes 1.3 10^3/ul (1.0-4.8); ABS Monocytes 0.6 10^3/ul (0-0.8); ABS Neutrophils 11.6 10^3/ul (1.5-7.7); ABS Nucleated RBC 0 10^3/ul; Eosinophil % 0 % (0-6); Hematocrit 36 % (35-47); Hemoglobin 11.6 g/dl (12.0-16.0); Lymphocyte % 9.4 % (25-47); Mean Corpuscular HGB Conc 32 g/dl (31-36); Mean Corpuscular Hemoglobin 31 pg (27-31); Mean Corpuscular Volume 96 fL (80-97); Mean Platelet Volume 8 um3 (7.4-10.4); Nucleated Red Blood Cells % 0.1; Platelet Count 372 10^3/ul (150-450); Red Blood Count 3.74 10^6/ul (4.0-5.4); Red Cell Distribution Width 14 % (10.5-15); White Blood Count 13.7 10^3/ul (3.5-10.8)
[2017-05-19 11:46] LABS: EGFR Non-African American 90.7 (>60)
[2017-05-19 12:12] VITALS: BP 129/73
--- NOTE | 2017-05-19 12:59 | PN ---
Progress Note - Progress Note Date of Service: 05/19/17 - Pulm f/u note Note: Pt seen and examined at bedside. Pt reports that she is feeling much better today and requesting to be d/shonda home. Cough is improved. Feels thoracentesis helped significantly with breathing Active Medications Generic Name Dose Route Start Last Admin Trade Name Freq PRN Reason Stop Dose Admin Acetaminophen 650 mg 05/13/17 20:53 05/17/17 02:12 Tylenol Tab* PO 650 mg Q6H PRN Administration PAIN Albuterol/Ipratropium 1 neb 05/17/17 11:00 05/19/17 12:25 Duoneb (Albuterol 2.5 Mg/Ipratropium 0.5 Mg) INH 1 neb [id number] AWAKE NATALI Administration Device 1 each 05/14/17 11:06 05/14/17 11:27 Nicotine Mouth Piece* INH 1 each .USE WITH NICOTROL PRN Administration CRAVING Docosanol 1 applic 05/17/17 18:00 05/19/17 09:51 Abreva 10%* TOPICAL 1 applic FIVE TIMES DAILY NATALI Administration Docusate Sodium 100 mg 05/19/17 10:13 05/19/17 10:55 Colace Cap* PO 100 mg BID PRN Administration CONSTIPATION Efavirenz/Emtricitabine/Tenofovir 1 tab 05/13/17 21:00 05/18/17 21:12 Atripla(Nf) PO 1 tab BEDTIME NATALI Administration Guaifenesin 1,200 mg 05/15/17 13:00 05/19/17 09:49 Mucinex* PO 1,200 mg BID NATALI Administration Heparin Sodium (Porcine) 5,000 units 05/13/17 22:00 05/19/17 04:54 Heparin Vial(*) SUBCUT 5,000 units Q8HR NATALI Administration Piperacillin Sod/Tazobactam 100 mls @ 25 mls/hr 05/17/17 15:00 05/19/17 06:17 Sod 3.375 gm/ Sodium Chloride IVPB 25 mls/hr Q8H NTAALI Administration Lidocaine 20 ml 05/17/17 16:21 05/19/17 09:50 Xylocaine 2% Viscous* PO 20 ml TID PRN Administration mouth sores Methylprednisolone Sodium Succinate 40 mg 05/18/17 00:00 05/19/17 10:06 Solu-Medrol 40 Mg IV 40 mg Q8H NATALI Administration Mometasone Furoate/Formoterol Fumar 2 puff 05/17/17 09:00 05/19/17 08:36 Dulera 200/5 Mdi* INH 2 puff BID NATALI Administration Nicotine 10 mg 05/14/17 11:06 05/14/17 11:29 Nicotine Inhaler* INH 10 mg Q2H PRN Administration CRAVING Oxycodone/Acetaminophen 1 tab 05/18/17 11:56 05/18/17 23:14 Percocet 5/325 Tab* PO 1 tab Q4H PRN Administration PAIN Pharmacy Consult 1 note 05/17/17 11:00 Zosyn Per Pharmacy* FOLLOW UP .ZOSYN PER PHARMACY NATALI Senna 1 tab 05/19/17 10:13 Senokot Tab* PO BEDTIME PRN consitpation Tramadol HCl 50 mg 05/15/17 21:05 05/19/17 06:17 Ultram* PO 50 mg Q6H PRN Administration PAIN - MODERATE TO SEVERE Valacyclovir HCl 1 gm 05/17/17 09:00 05/19/17 09:49 Valtrex 1 Gm(*) PO 1 gm BID NATALI Administration Protocol Zolpidem Tartrate 5 mg 05/13/17 20:58 05/18/17 21:21 Ambien Tab* PO 5 mg BEDTIME PRN Administration INSOMNIA Vital Signs Temp Pulse Resp BP Pulse Ox 98.2 F 95 16 129/73 95 05/19/17 11:54 05/19/17 12:27 05/19/17 12:27 05/19/17 11:54 05/19/17 12:27 O/E: Pt in NAD, eating breakfast HEENT: PERRLA, No JVD, mucus membrane moist Lungs: Diminished air entry in right apex, no wheeze, scaterred rhonchi on right side CVS: S1, S2+, regular Abd: Soft, BS+, NT Ext: Normal ROM Neuro: Alert, awake x3, no focal defecits Abd: Soft, BS+ Laboratory Results - last 24 hr 05/17/17 05/18/17 05/18/17 10:15 13:31 13:31 WBC RBC Hgb Hct MCV MCH MCHC RDW Plt Count MPV Neut % (Auto) Lymph % (Auto) [place] % (Auto) Eos % (Auto) Baso % (Auto) Absolute Neuts (auto) Absolute Lymphs (auto) Absolute Monos (auto) Absolute Eos (auto) Absolute Basos (auto) Absolute Nucleated RBC Nucleated RBC % Sodium Potassium Chloride Carbon Dioxide Anion Gap BUN Creatinine Est GFR ( Amer) Est GFR (Non-Af Amer) BUN/Creatinine Ratio Glucose Calcium Fluid Source Pleural fluid Pleural fluid Fluid Volume 8 Fluid Color Yellow Fluid Appearance Cloudy Fluid WBC 1303 Fluid RBC 1602 Fluid Tot Cell Count 100 Fluid Neutrophils 42 Fluid Lymphocytes 52 Fluid Monocytes 6 Fluid Glucose Fluid LDH 126 Fluid Comment HSV I DNA PCR Positive HSV II DNA PCR Negative Dermal HSV & VZV Source Mouth lesion Varicella-Zoster Source Mouth lesion VZV DNA (PCR) Negative 05/18/17 05/19/17 05/19/17 13:31 10:54 10:54 WBC 13.7 H RBC 3.74 L Hgb 11.6 L Hct 36 MCV 96 MCH 31 MCHC 32 RDW 14 Plt Count 372 MPV 8 Neut % (Auto) 85.0 H Lymph % (Auto) 9.4 L [place] % (Auto) 4.5 Eos % (Auto) 0 Baso % (Auto) 1.1 Absolute Neuts (auto) 11.6 H Absolute Lymphs (auto) 1.3 Absolute Monos (auto) 0.6 Absolute Eos (auto) 0 Absolute Basos (auto) 0.2 Absolute Nucleated RBC 0 Nucleated RBC % 0.1 Sodium 136 Potassium 3.7 Chloride 97 L Carbon Dioxide 32 Anion Gap 7 BUN 10 Creatinine 0.67 Est GFR ( Amer) 116.7 Est GFR (Non-Af Amer) 90.7 BUN/Creatinine Ratio 14.9 Glucose 209 H Calcium 8.3 L Fluid Source Pleural fluid Fluid Volume Fluid Color Fluid Appearance Fluid WBC Fluid RBC Fluid Tot Cell Count Fluid Neutrophils Fluid Lymphocytes Fluid Monocytes Fluid Glucose 198 Fluid LDH Fluid Comment HSV I DNA PCR HSV II DNA PCR Dermal HSV & VZV Source Varicella-Zoster Source VZV DNA (PCR) CT chest: Results and images were personally reviewed by me- hilar mass, dense adenopathy, RUL collapse due to extrinsic compression, moderate to large rt pleural effusion with Rt lower lobe compression atelectasis. TBNA of lymph nodes pending I/R; 56 y o f, current smoker with PMH of COPD, and HIV who presented to the ED on 05/13/17 with malaise, SOB, cough, and myalgias and was found to have pneumonia and right hilar mass. Given current smoking status, hilar mass, enlarged Rt paratracheal and subcarinal lymph nodes, concern for malignancy and subsequent post obstructive PNA Pt underwent bronchoscopy/EBUS R4, Station 7 and Rt hilar mass were biopsied, results still pending Lymphoma markers negative CT showed moderate rt effusion with compression atelectasis, likely resulting from Rt lung atelectasis due to extrinsic compression from mass/lymphadenopathy S/p thoracentesis 05/18/16, 650 ml of dark straw fluid was removed, sent for cytology and biochemical eval Will titrate FiO2 to maintain O2 sat around 92%, pt ambulated today without much dyspnea Pt on broad spectrum antibiotics, Cx negative to date, will be d/shonda on oral antibiotics to complete total of 14 days c/w bronchodilators d/c planning as per primary team Will f/u in pulm clinic next week
--- NOTE | 2017-05-20 01:24 | DS ---
CC: Dr. Diamond; Dr. Loza; Dr. Morin * DISCHARGE SUMMARY: DATE OF ADMISSION: 05/13/17 DATE OF DISCHARGE: 05/19/17 PRIMARY CARE PROVIDER: Dr. Diamond. DISCHARGE DIAGNOSES: 1. Acute hypoxemic respiratory failure due to right lung pneumonia, suspect postobstructive pneumonia. 2. Right-sided pleural effusion, status post thoracentesis likely transudate. 3. Acute outbreak of herpes labialis, herpes simplex virus 1 positive. SECONDARY DIAGNOSES: 1. Human immunodeficiency virus positive. 2. History of chronic obstructive pulmonary disease, on oxygen at 2 L at home. 3. Asthma. 4. History of cervical dysplasia. MEDICATIONS AT DISCHARGE: Include: 1. Augmentin 875 mg p.o. b.i.d. for a total of 8 days to complete 14 day treatment. 2. Albuterol inhaler on p.r.n. basis. 3. Symbicort 160/4.5 one puff inhalation daily. 4. Abreva topical one application on a p.r.n. basis to lips. 5. Odefsey 200/25/25 on tablet daily with meal. 6. Prednisone taper 40 mg for 3 days, then 20 mg for 3 days, then 10 mg for 3 days, then stop. FOLLOWUP: The patient is to follow up with Dr. Loza and Dr. Loza's office will call patient with a scheduled appointment. The patient was also asked to follow up with Dr. Diamond in approximately 4 to 7 days. DIAGNOSTIC STUDIES/LAB DATA: Laboratory data during the hospital stay included : On 05/19/17; white blood cell count of 13.7, hemoglobin of 11.6, hematocrit of 36, and platelets of 372. Sodium was 136, potassium 3.7, chloride 97, carbon dioxide 32, BUN 10, creatinine 0.97. Pleural fluid is obtained from thoracentesis of an effusion on 05/18/17 showed yellow cloudy fluid with 1303 white blood cells, 1600 red blood cells, 42 neutrophils, 52 lymphocytes, LDH 126, total protein of 2.0, glucose of 198. Cytology pending. Chest x-ray on 05/18/17, impression: "Dense consolidation in the right upper lobe, no appreciable pneumothorax". Chest CT obtained on the same day prior to the thoracentesis showed lobulated mass of the mediastinum extending to the right hilum most consistent with bulky mediastinal lymphadenopathy. There is obstructed bronchus to the right upper lobe. There is dense consolidation of the right upper lobe with a question of very faint enhancement within the right upper lobe peripherally, which may reflect an underlying mass. Given the presence of consistent right upper lobe mass and a mediastinal hilar lymphadenopathy, the appearance was consistent with metastatic neoplasm with postobstructive pneumonia. There is atelectasis of the right lower lobe. There is large right pleural effusion with a trace left pleural effusion. CONSULTATIONS DURING THE HOSPITAL STAY: Included Dr. Morin from Infectious Diseases and Dr. Loza from Pulmonology. PROCEDURES PERFORMED DURING THE HOSPITAL STAY: Included bronchoscopy on by Dr. Loza. Thoracentesis was obtained on 05/18/17. At this point, 150 mL of dark straw-colored fluid was aspirated. Microbiology studies showed negative legionella and Strep pneumo antigens. Positive sputum for yeast. Negative blood cultures. Negative influenza serologies. Mouth lesion positive for HSV-1. Pathology obtained from bronchoscopy on 05/16/17 is pending at the time of dictation. HOSPITALIZATION COURSE: Mary Burnett is a 56-year-old female who is HIV positive and smoked up to 4 packs a day of cigarettes, presented to the hospital with acute respiratory failure and right upper lobe pneumonia. The right upper lobe pneumonia appeared postobstructive with bulky adenopathy. The patient initially was placed on broad-spectrum antibiotics, but she decompensated and needed to be placed on Vapotherm in the ICU. When in the ICU , Dr. Loza performed bronchoscopy and samples were obtained. The bronchoscopy yielded postobstructive fairly purulent fluid. Throughout the hospital stay, she was also noted to have a right-sided pleural effusion and thoracentesis was performed by Dr. Loza. She gradually improved with current antibiotic treatment, which included Zosyn. On the day of discharge, she was back to 2 L of oxygen via nasal cannula. She stated that the thoracentesis markedly improved the way she felt. She is ready for discharge. Dr. Loza is worried about likely malignancy and she is awaiting the pathology report. Dr. Loza's office will call patient to schedule a followup appointment. The patient was also treated with steroids throughout her hospital stay for COPD exacerbation. The patient also was treated with Valtrex for herpes labialis infection during her hospital stay. PHYSICAL EXAM AT THE TIME OF DISCHARGE: Blood pressure 129/73, heart rate of 93 and regular, respiratory rate 18, oxygen saturation 94% on 2 L of oxygen nasal cannula, temperature 98.2. General: The patient is a very pleasant 56- year-old female, who is in no acute distress. Alert, awake, and oriented x3. HEENT: Head: Atraumatic, normocephalic. Eyes: Pupils are equal, reactive to light and accommodation. Oropharynx clear. Mucosa moist. Neck: Supple. No JVD, no bruit bilaterally. Cardiovascular: Regular rate and rhythm. No murmur. Respiratory: Coarse breath sounds in right upper lobe and crackles at bilateral bases. Abdomen: Soft, nontender. Bowel sounds present in all 4 quadrants. Extremities: There is no edema. Pulses +2 bilaterally. No clubbing or cyanosis. Please note that this is a short summary of the patient's hospital stay. Please refer to further medical records for details. TIME SPENT: Approximately 45 minutes were spent on the patient's discharge. [id number]/[facility] #: [id number] LEVY
== END 2017-05-19 14:45 | disposition home or self-care (01) | DRG 871 ==
LOC: ED 19:31 → MED 20:51 → ICU 05-17 10:41 → MED 05-18 10:39
PROVIDERS: ADMIT Internal Medicine; ATTEND Internal Medicine
PROC: 0BC48ZZ Extirpation of Matter from Right Upper Lobe Bronchus, Via Natural or Artificial Opening Endoscopic (ICD-10-PCS; 2017-05-16)
PROC: 0BDF8ZX Extraction of Right Lower Lung Lobe, Via Natural or Artificial Opening Endoscopic, Diagnostic (ICD-10-PCS; 2017-05-16)
PROC: 0BDD8ZX Extraction of Right Middle Lung Lobe, Via Natural or Artificial Opening Endoscopic, Diagnostic (ICD-10-PCS; 2017-05-16)
PROC: 0W9930Z Drainage of Right Pleural Cavity with Drainage Device, Percutaneous Approach (ICD-10-PCS; principal; 2017-05-18)
DX: A41.9 Sepsis, unspecified organism (principal); J96.21 Acute and chronic respiratory failure with hypoxia; J90 Pleural effusion, not elsewhere classified; T17.890A Other foreign object in other parts of respiratory tract causing asphyxiation, initial encounter; J18.9 Pneumonia, unspecified organism; Z99.81 Dependence on supplemental oxygen; J98.11 Atelectasis; J44.1 Chronic obstructive pulmonary disease with (acute) exacerbation; E87.1 Hypo-osmolality and hyponatremia; B00.1 Herpesviral vesicular dermatitis; F17.210 Nicotine dependence, cigarettes, uncomplicated; Q76.49 Other congenital malformations of spine, not associated with scoliosis; Z79.899 Other long term (current) drug therapy; Z91.040 Latex allergy status; Z88.2 Allergy status to sulfonamides; Z91.09 Other allergy status, other than to drugs and biological substances; Z83.3 Family history of diabetes mellitus; Z82.49 Family history of ischemic heart disease and other diseases of the circulatory system; Z66 Do not resuscitate; K13.79 Other lesions of oral mucosa; R44.1 Visual hallucinations; R00.0 Tachycardia, unspecified; R91.8 Other nonspecific abnormal finding of lung field; R59.0 Localized enlarged lymph nodes; X58.XXXA Exposure to other specified factors, initial encounter; Y92.9 Unspecified place or not applicable; Z21 Asymptomatic human immunodeficiency virus [HIV] infection status
CPT/HCPCS: 36415; 36600; 71020; 71045; 71250; 71260; 76604; 80048; 80053; 81003; 82803; 82945; 83605; 83615; 83986; 84157; 84484; 85025; 86140; 87040; 87070; 87205; 87502; 87529; 87798; 87899; 88112; 88172; 88173; 88184; 88185; 88188; 88189; 88305; 88341; 88342; 88360; 89051; 90686; 93005; 94640; 94760; 99284; 99406; A9270-GY; J0330; J0456; J0696; J1100; J1644; J1885; J1940; J2270; J2405; J2543; J2704; J2920; J2930; J3010; J3370; Q9967

== ENCOUNTER 2017-07-26 06:11 | Day surgery (SDC) | payer MEDICARE, MEDICAID ==
[~2017-07-26 06:11] MED LIST: Buffered Lidocaine 0.9% SYRIN* 5 ML/SYR SYRINGE INTRADERM ONE; Famotidine IV* 10 MG/ML 2 ML (20 mg) ONE; Famotidine TAB* 20 MG PO ONE; Metoclopramide IV* 5 MG/ML 2 ML VIAL IV SLOW PU ONE; Metoclopramide IV* 5 MG/ML 2 ML VIAL ONE; ceFAZolin 2 GM (*##) 2 GM/100 ML BAG USE CEFA2SOL IVPB ONE
[2017-07-26] MEDS ORDERED: Levalbuterol 0.63MG/3ML NEB* UNIT OF USE INH ONE (07:18)
[2017-07-26] MEDS ORDERED: Bupivacaine 0.25% SDV* 30 ML ONE (07:22)
[2017-07-26] MEDS ORDERED: fentaNYL* 50 MCG/ML 2 ML VIAL (100 MCG VIAL) ONE (07:30)
[2017-07-26] MEDS ORDERED: Lidocain 1% EPI 1:100,000 * 30 ML MDV ONE (08:09)
[2017-07-26] MEDS ORDERED: Propofol* 10 MG/ML 20 ML BTL IV PUSH ONE (08:33)
[2017-07-26] MEDS ORDERED: Succinylcholine* 20 MG/ML 10 ML VIAL ONE (08:33)
[2017-07-26] MEDS ORDERED: Ondansetron INJ* 2 MG/ML VIAL ONE (08:33)
[2017-07-26] MEDS ORDERED: Lidocaine 2% PF * 5 ML VIAL ONE ×2 (08:33→08:52)
[2017-07-26] MEDS ORDERED: Naloxone* 0.4 MG/ML 1 ML VIAL IV PRN (09:27)
[2017-07-26] MEDS ORDERED: oxyCODONE/Acetamin 5/325 MG* TAB PO PRN (09:28)
[2017-07-26 10:16] VITALS: BP 146/90
--- NOTE | 2017-07-27 12:40 | OP ---
CC: Dr. Mcgrath; Dr. Diamond; Dr. Loza; [facility] OPERATIVE REPORT: DATE OF OPERATION: 07/26/17 DATE OF : 58 SURGEON: Elias Mcgrath MD INSURANCE ACCOUNT REPRESENTATIVE: None. ANESTHESIOLOGIST: Dr. Lo. ANESTHESIA: General anesthetic, local infiltration. PRE-OP DIAGNOSIS: Mediastinal adenopathy. POST-OP DIAGNOSIS: Mediastinal adenopathy. OPERATIVE PROCEDURE: Mediastinoscopy with biopsies. DESCRIPTION OF PROCEDURE: The patient was supine on the operating table. After adequate general ane sthetic, compression stockings, Jose Hugger warmer and intravenous antibiotics, the patient was place d with a roll under the scapulae and the head inclined backward. The neck and chest region were prep ped with antiseptic and draped in a sterile fashion. Local infiltrative anesthesia was administered and approximately 3 to 4-cm incision was created 2 fingerbreadths above the sternal notch. Dissectio n was carried down through the strap muscles in the midline and down to the trachea. The pretracheal plane was developed and the mediastinoscope was inserted. The area was very fibrotic, it was very d ifficult to obtain much of a plane. Looking to the right, where there was a large [place] region, the fibrous capsule was picked away until some of the underlying tissue could be biopsied and multiple sm all pieces were taken and sent fresh to pathology, which confirmed that they had enough tissue for an alysis, so at that point, little pledgets of Surgicel were placed at the biopsy site. Scope was tara meliton and hemostasis was good. Strap muscles were closed in the midline with 3-0 Vicryl, which was als o used for the platysma. Skin was closed with 5-0 Vicryl followed by Steri-Strips. She tolerated th e procedure well, was awakened, extubated, and brought to Recovery in good condition. There were no complications. No drains. Pathologic specimen as above. Sponge and instrument counts correct. Ly mated blood loss is less than 30 mL. [id number]/[facility] #: [id number]
== END 2017-07-26 10:17 | disposition home or self-care (01) ==
LOC: OR 06:11
PROVIDERS: ATTEND Surgery
DX: C77.1 Secondary and unspecified malignant neoplasm of intrathoracic lymph nodes (principal); F17.210 Nicotine dependence, cigarettes, uncomplicated; J44.9 Chronic obstructive pulmonary disease, unspecified; M19.90 Unspecified osteoarthritis, unspecified site; Z68.30 Body mass index [BMI] 30.0-30.9, adult; Z99.81 Dependence on supplemental oxygen; N87.9 Dysplasia of cervix uteri, unspecified
CPT/HCPCS: 88184; 88188; 88305; 88331; 88341; 88342; J0330; J2405; J2704; J2765; J3010; J7614

== ENCOUNTER → 2017-08-10 10:30 | Day surgery (SDC) | payer MEDICARE, MEDICAID ==
[~2017-08-10 10:30] MED LIST changes: +Bupivacaine 0.5% SDV PF* 10-30ML VIAL ONE; -Famotidine IV* 10 MG/ML 2 ML (20 mg) ONE; -Famotidine TAB* 20 MG PO ONE; +Lidocaine 1% INJ* 10 MG/ML 30 ML SDV ONE; +Lidocaine 2% PF * 5 ML VIAL ONE; -Metoclopramide IV* 5 MG/ML 2 ML VIAL IV SLOW PU ONE; -Metoclopramide IV* 5 MG/ML 2 ML VIAL ONE; +Midazolam* 1 MG/ML 2 ML VIAL (2 MG) ONE; +Naloxone* 0.4 MG/ML 1 ML VIAL IV PRN; +Propofol* 10 MG/ML 20 ML BTL IV PUSH ONE; -ceFAZolin 2 GM (*##) 2 GM/100 ML BAG USE CEFA2SOL IVPB ONE; +fentaNYL* 50 MCG/ML 2 ML VIAL (100 MCG VIAL) ONE
--- NOTE | 2017-08-10 12:17 | RAD ---
HISTORY: Status post line placement COMPARISONS: May 18, 2017, chest CT dated June 22, 2017 VIEWS: 1: frontal portable view of the chest at 11:40 AM FINDINGS: LINES AND TUBES: A right-sided chest port is noted from a subclavian approach with the tip overlying the superior vena cava. CARDIOMEDIASTINAL SILHOUETTE: The cardiomediastinal silhouette is stable, with a stable right upper paramediastinal mass. PLEURA: There is no appreciable pneumothorax. There is been interval resolution of the loculated pleural effusion noted on the previous examination. LUNG PARENCHYMA: There is stable opacification of the right upper lung ABDOMEN: The upper abdomen is clear. There is no subphrenic gas. BONES AND SOFT TISSUES: No bone or soft tissue abnormalities are noted. IMPRESSION: STATUS POST RIGHT SIDED CHEST PORT PLACEMENT. NO APPRECIABLE PNEUMOTHORAX. OTHERWISE, NO SIGNIFICANT CHANGE FROM JUNE 22, 2017
[2017-08-10 12:24] VITALS: BP 107/71
--- NOTE | 2017-08-10 12:24 | RAD ---
INDICATION: chest port placement COMPARISONS: None relevant TECHNIQUE: Fluoroscopy was provided for a vascular access procedure. Total fluoroscopy time is: 33 FINDINGS: A single spot image demonstrates a right-sided chest port from a superior approach with the tip overlying the superior vena cava. IMPRESSION: FLUOROSCOPY WAS PROVIDED FOR A VASCULAR ACCESS PROCEDURE CPT II Codes: 6045F
--- NOTE | 2017-08-11 01:57 | OP ---
CC: [facility]; Dr. Brian Bueno; Dr. Philip Diamond OPERATIVE REPORT: DATE OF OPERATION: 08/10/17 DATE OF : 58 SURGEON: Aline Hightower MD ENTRY LEVEL SOFTWARE DEVELOPER: There was no assistance for this case. PRE-OP DIAGNOSIS: Lung cancer. POST-OP DIAGNOSIS: Lung cancer. OPERATIVE PROCEDURE: PowerPort placement. INDICATIONS: Ms. Burnett is a 56-year-old woman recently diagnosed with lung cancer, who needs to have chemotherapy, this was prompted with a plan for PowerPort placement. DESCRIPTION OF PROCEDURE: She was brought to the operating room, placed on the OR table in a supine position and given IV sedation. The chest was prepped and draped in the usual sterile fashion. Afte r infiltrating with local anesthetic under fluoroscopic visualization using a Seldinger technique, a wire was inserted into the right subclavian vein. This was accomplished after a couple of failed att empt in the right subclavian and the right IJ, but ultimately was successful in the right subclavian position. A port pocket was then created by infiltrating the skin of the anterior chest wall with lo madhuri anesthetic, making an incision and elevating the skin inferiorly with electrocautery to create a pocket. Once the pocket was of a size to accommodate the port, the catheter was tunneled from the po rt pocket sit to the wire exit site. The dilator and introducer were advanced over the wire under fl uoroscopic visualization and then the dilator and wire were removed. The catheter was advanced throu gh the introducer under fluoroscopic visualization, this was done with difficult to the angle of the introducer, but eventually the catheter was advanced to an appropriate depth. The introducer was pee led away and then the catheter position was confirmed with fluoroscopy. The catheter was trimmed to an appropriate length, attached to the port and then the port was inserted into the port pocket and s ecured to the chest wall with 2-0 Prolene stitches. The port pocket site was closed with 3-0 Vicryl in the subcutaneous layer and the skin was closed with 4-0 Surgipro in a subcuticular fashion. Steri -Strips and a dry sterile dressing were applied. All sponge and instrument counts were correct. The patient tolerated the procedure well and was transferred to Recovery in a stable condition. [id number]/[facility] #: [id number]
== END | disposition home or self-care (01) ==
LOC: OR 10:30
PROVIDERS: ATTEND Surgery
DX: C34.90 Malignant neoplasm of unspecified part of unspecified bronchus or lung (principal); F17.210 Nicotine dependence, cigarettes, uncomplicated; J44.9 Chronic obstructive pulmonary disease, unspecified; M19.90 Unspecified osteoarthritis, unspecified site; Z21 Asymptomatic human immunodeficiency virus [HIV] infection status
CPT/HCPCS: C1788; G8427; J1642; J2250; J2704; J3010

== ENCOUNTER 2017-08-23 13:40 | Inpatient (IN) | payer MEDICARE, MEDICAID ==
[2017-08-23] MEDS ORDERED: Docusate CAP* 100 MG PO PRN (13:53)
[2017-08-23] MEDS ORDERED: Prochlorperazine TAB* 10 MG PO PRN (13:53)
[2017-08-23] MEDS ORDERED: Senna TAB PO PRN (13:53)
--- OUTSIDE RECORDS SUMMARY | 2017-08-23 14:13 | XMS REPORT ---
:1960 External Reference #:[id number] Author Organization [facility] Address [address] [address] Phone [phone] Care Team Providers Name Role Phone Philip Diamond MD Primary Care Physician Unavailable Payers Type Date Identification Numbers Payment Provider Subscriber Medicare Primary Policy Number: [id number] Medicare Mary Damian PayID: [id number] [address] [place] [address] [facility] Policy Number: [id number] Medicaid Mary Damian PayID: [id number] [address] [place] [address] Problems Date Description Provider Status Onset: 01/11/2016 Carpal tunnel syndrome Paulo Rhoades MD Active Family History Date Family Member(s) Problem(s) Comments General Heart Disease General Diabetes General Cancer Social History Type Date Description Comments Lives With Alone ETOH Use Denies alcohol use Smoking Light tobacco smoker (10 or fewer cigarettes/day) Exercise Type/Frequency Exercises regularly Allergies, Adverse Reactions, Alerts Date Description Reaction Status Severity Comments 11/04/2013 Sulfa Antibiotics active 11/04/2013 Latex active Medications Medication Date Status Form Strength Qnty SIG Indications Ordering Provider Percocet 08/01/ Active Tablets 5-325mg 14tabs 1 tab by C38.3 Elias Loco 2018 mouth Schwed, every 4 M.D. hours as needed Nicotine 05/28/ Active Patches 21mg/24HR 30unit 1 patch F17.210 Reina 2018 24HR s over skin MD Denia every day Symbicort / Active Aerosol 160-4.5mcg 2 puff Unknown 0000 /Act twice a day Proair HFA / Active Aerosol 108(90Base 2 puffs Unknown 0000 ) mcg/Act by mouth every 4 hours as needed Spiriva // Active twice Unknown Respimat 0000 daily Magnesium / Active Tablets 400mg twice Unknown Oxide 0000 daily Odefsey / Active Tablets 200-25-25m 1 by Unknown 0000 g mouth every day Hydrocodone-Ac 01/10/ Hx Tablets 5-325mg 20tabs 1 tablet G56.02 Jessica etaminjohn 2015 - by mouth RAMIRO Clemons 06/11/ every 4-6 2018 hours as needed for pain. Keflex 01/10/ Hx Capsules 500mg 28caps 1 by [email or web address] Lopez 2015 - mouth RAMIRO Clemons 06/11/ four 2018 times a day for 7 days Naproxen 11/04/ Hx Tablets 500mg 60tabs 1 by Edi 2013 - mouth Gerry Hdez 09/21/ twice a 2015 day as needed Albuterol / Hx Unknown Sulfate - 2015 Proair HFA 00/ Hx Unknown - 2015 Zolpidem / Hx Unknown Tartrate - 2015 Atripla // Hx Unknown - 2015 Hydrocodone / Hx Unknown Bitartrate/Harley 0000 - taminophen 2015 Naproxen / Hx Unknown Sodium - 2015 Atripla / Hx Tablets 600-200-30 1 tab by Unknown 0000 - 0mg mouth 06/11/ every 2018 night at bedtime Prednisone // Hx Tablets 20mg once Unknown 0000 - daily 2017 Medications Administered in Office Medication Date Status Form Strength Qnty SIG Indications Ordering Provider Triamcinolone 11/29/ Administered Injection Zaneb (Kenalog) 2015 MD Jf Celestone 3 mg 10/27/ Administered Injection Zaneb and 3mg 2015 MD Jf Depomedrol 80MG Administered Injection Restorationist 2013 Anastasiya Villa Immunizations CPT Code Status Date Vaccine Lot # [id number] Given 06/12/2017 Influenza Virus Vaccine, Quadrivalent, Split, [id number] Preservative Free Vital Signs Date Vital Result Comment 08/20/2017 Heart Rate 80 /min Respiratory Rate 18 /min Body Temperature 98.7 F 08/01/2017 Heart Rate 72 /min BP Systolic 136 mmHg BP Diastolic 80 mmHg Respiratory Rate 20 /min Body Temperature 97.5 F 07/10/2017 Weight 176.00 lb Heart Rate 76 /min BP Systolic 120 mmHg BP Diastolic 70 mmHg Respiratory Rate 20 /min Body Temperature 98.4 F 07/09/2017 Height 63 inches 5'3" Weight 176.38 lb Heart Rate 89 /min BP Systolic Sitting 110 mmHg BP Diastolic Sitting 76 mmHg Respiratory Rate 16 /min O2 % BldC Oximetry 96 % BMI (Body Mass Index) 31.2 kg/m2 06/12/2017 Height 63 inches 5'3" Weight 174.50 lb Heart Rate 90 /min BP Systolic Sitting 106 mmHg BP Diastolic Sitting 60 mmHg Respiratory Rate 16 /min Body Temperature 97.7 F O2 % BldC Oximetry 96 % BMI (Body Mass Index) 30.9 kg/m2 05/28/2017 Height 63 inches 5'3" Weight 178.00 lb Heart Rate 76 /min BP Systolic Sitting 112 mmHg BP Diastolic Sitting 76 mmHg Respiratory Rate 14 /min O2 % BldC Oximetry 99 % BMI (Body Mass Index) 31.5 kg/m2 02/08/2016 Height 63 inches 5'3" Weight 160.00 lb Heart Rate 60 /min Respiratory Rate 16 /min Body Temperature 96.9 F Pain Level 2 BMI (Body Mass Index) 28.3 kg/m2 01/11/2016 Height 63 inches 5'3" Weight 175.00 lb Pain Level 8 BMI (Body Mass Index) 31.0 kg/m2 11/30/2015 Height 63 inches 5'3" Weight 175.00 lb Heart Rate 76 /min Respiratory Rate 18 /min Pain Level 9 BMI (Body Mass Index) 31.0 kg/m2 10/28/2015 Height 63 inches 5'3" Weight 175.00 lb Pain Level 8 BMI (Body Mass Index) 31.0 kg/m2 09/30/2015 Height 63 inches 5'3" Weight 175.00 lb Pain Level 9 BMI (Body Mass Index) 31.0 kg/m2 12/18/2013 Height 63 inches 5'3" Weight 168.00 lb Heart Rate 50 /min BP Systolic 115 mmHg BP Diastolic 80 mmHg BMI (Body Mass Index) 29.8 kg/m2 11/04/2013 Height 65 inches 5'5" Weight 165.00 lb Heart Rate 96 /min BP Systolic 130 mmHg BP Diastolic 86 mmHg BMI (Body Mass Index) 27.5 kg/m2 Results Test Date Test Result H/L Range Note Leukemia/Lymphoma 07/26/2017 Path Interpretation 2-8 Marker TNP Phenot Path Interpret > 16 Marker TNP Path Interpret 9-15 Marker (SEE NOTE) 1 Leukemia/Lymphoma Flow 07/26/2017 Path Interpretation 2-8 Marker TNP Path Interpret > 16 Marker TNP Path Interpret 9-15 Marker (SEE NOTE) 2 Laboratory test finding 07/26/2017 Surgical Pathology SEE RESULT BELOW 3 1 FINAL DIAGNOSIS: Specimen Source: Paratracheal mass Flow cytometry immunophenotypic analysis: No evidence of hematopoietic immunophenotypic abnormality. Interpretative data: Lymphocytes: 11% of WBCs B-cells: 17% of lymphocytes with no evidence of light chain restriction or immunophenotypic abnormality. T-cells/NK cells: No aberrant population detected. Markers tested: CD3, CD5, CD7, CD10, CD19, CD20, CD23, CD45, kappa surface light chains, lambda surface light chains, 7-AAD. Quality Assessment: Acceptable Viability: Acceptable Viable lymphocytes (7-AAD):NA Specimen received within validated guidelines. A Pal-Giemsa stained slide prepared from the flow cytometry specimen was examined for quality purposes. Electronically signed by: Carson Navarro MD 07/30/17 1549 Technical component performed by: [place] [address] Plating Equipment Tender: Wali James II, MD, PhD. 2 FINAL DIAGNOSIS: Specimen Source: Paratracheal mass Flow cytometry immunophenotypic analysis: No evidence of hematopoietic immunophenotypic abnormality. Interpretative data: Lymphocytes: 11% of WBCs B-cells: 17% of lymphocytes with no evidence of light chain restriction or immunophenotypic abnormality. T-cells/NK cells: No aberrant population detected. Markers tested: CD3, CD5, CD7, CD10, CD19, CD20, CD23, CD45, kappa surface light chains, lambda surface light chains, 7-AAD. Quality Assessment: Acceptable Viability: Acceptable Viable lymphocytes (7-AAD):NA Specimen received within validated guidelines. A Pal-Giemsa stained slide prepared from the flow cytometry specimen was examined for quality purposes. Electronically signed by: Carson Navarro MD 07/30/17 1549 Technical component performed by: [address] [address] Plating Equipment Tender: Wali James II, MD, PhD. 3 SEE RESULT BELOW Name: RICKIEMARY Mando : [address]: Elias Mcgrath MD Acct: [id number] Unit: [id number] AGE: 56 Location: [place] Re07/26/17 SEX: F [place] [facility] [place]: [id number] KIMBERLY: 07/26/1746 [facility] DR: Elias Mcgrath MD REQ: [id number] RECD: 07/26/17 STATUS: SOUT _ ORDERED: FS 1ST PER SPEC, LEVEL 4/2, Leukemia/Lympho, IMMUNO-FIRST, IMMUNO- ADDL/3 Flow cytometry has been performed at [place], [place]. The testing reveals: FINAL DIAGNOSIS: Specimen Source: Paratracheal mass Flow cytometry immunophenotypic analysis: No evidence of hematopoietic immunophenotypic abnormality. Interpretative data: Lymphocytes: 11% of WBCs B-cells: 17% of lymphocytes with no evidence of light chain restriction or immunophenotypic abnormality. T-cells/NK cells: No aberrant population detected. Markers tested: CD3, CD5, CD7, CD10, CD19, CD20, CD23, CD45, kappa surface light chains, lambda surface light chains, 7-AAD. Quality Assessment: Acceptable Viability: Acceptable Viable lymphocytes (7-AAD):NA Specimen received within validated guidelines. A Pal-Giemsa stained slide prepared from the flow cytometry specimen was examined for quality purposes. Electronically signed by: Carson Navarro MD 07/30/17 1549 Technical component performed by: [place] [id number] Plating Equipment Tender: Wali James II, MD, PhD. CONTINUED ON NEXT PAGE DEPARTMENT OF PATHOLOGY, [address] [place] [address] Carson Navarro M.D. Director [facility] # [id number] RUN DATE: 08/01/17 [facility] LAB LIVE PAGE 2 Patient: MARY DAMIAN [id number] (Continued) ADDENDUM (Continued) Addendum Signed (signature on file) Jessica Biswas MD 1121 FINAL DIAGNOSIS 1. 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 2. 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 Addendum: Immunohistochemical stains were performed with appropriate controls on part 2 CD56 strong positive Synaptophysin focally positive Chromogranin focal positive TTF-1 strong positive The morphologic features and immunohistochemical staining pattern support the above rendered diagnosis. Dr. Biswas has reviewed this case and concurs. PATHOLOGY SURGICAL CONSULT Frozen section (FS)/Touch Prep (TP)/Gross Consult (GC) FS1) Peritracheal, biopsy: a. Suspicious for small cell carcinoma. (DS) b. Defer to permanent. (DS). Dr Mcgrath notified at 0914 07/26/17. CONTINUED ON NEXT PAGE DEPARTMENT OF PATHOLOGY, [address] [place] [address] Carson Navarro M.D. Director [facility] # [id number] RUN DATE: 08/01/17 [facility] LAB LIVE PAGE 3 Patient: MARY DAMIAN [id number] (Continued) PRE-OPERATIVE DIAGNOSIS (Continued) PRE-OPERATIVE DIAGNOSIS Localized enlarged lymph nodes. GROSS DESCRIPTION 1. The specimen is received fresh labeled, Peritracheal Biopsy, and consists of a 1.0 x 0.7 x 0.2 cm aggregate of larry-pink irregular soft tissue fragments. A insurance sales representative section is submitted for frozen section microscopy. The frozen section residue and the remaining specimen are submitted in cassettes FS and A. A insurance sales representative section is submitted for flow cytometry. 2. The specimen is received fresh labeled, Additional Peritracheal Biopsy, and consists of a 1.0 x 0.8 by up to 0.3 cm aggregate of larry-pink irregular soft tissue fragments which is submitted entirely in one cassette. Signed (signature on file) Carson Navarro MD 1445 END OF REPORT DEPARTMENT OF PATHOLOGY, [address] [place] [address] Carson Navarro M.D. Director [facility] # [id number] Procedures Date CPT Code Description Status 08/10/2017 09732 Fluoroscopic Guidance For Cent Completed 08/10/2017 13694 Insertion Tunneled Cent Venous Cathr W Subcut Port 5 Completed Yrs Or Oldr 08/08/2017 21603 Mediastinoscopy W/Lymph Node Completed 07/26/2017 06514 Mediastinoscopy W/Lymph Node Completed 06/13/2017 72603 Diffusing Capacity Completed 06/13/2017 51742 Plethysmography Determination Lung Volumes & Per Completed Airway Resist 06/13/2017 06374 Pulmonary Stress Testing, Inc Measurement Heart Rate, Completed Oximetry 06/13/2017 18305 Pulmonary Function><Bronchodil Completed 05/18/2017 68006 Thoracentesis W/ Img Guidance Completed 05/17/2017 17972 EKG, Interpretation Only Completed 05/16/2017 32346 Endobronchial Ultrasound=>3 Completed 01/26/2016 56479 Carpal Tunnel Release Completed 01/26/2016 13233 Carpal Tunnel Release Completed 11/30/2015 76223 Inject Tendon Sheath Or Ligament Aponeurosis Eg Plantar Completed Fascia 10/28/2015 Injection, Carpal Tunnel Completed 11/04/2013 21038 Inject/Drain Joint/Bursa Major Completed Encounters Type Date Location Provider CPT E/M Dx Office Visit 07/10/2017 [facility], 67528 R59.0 10:45a Leonor Gilmore.Frances Office Visit 07/09/2017 [facility] [place] [address] J44.9 10:45a Services Of Plant Operator Control Room Operator R59.0 F17.210 Office Visit 06/12/2017 10:10a [facility] Kieran Tesfaye, 51187 Z21 Infectious Diseases M.Frances Z79.899 Z23 Office Visit 05/28/2017 10:30a [facility] [place] [address] J18.9 Services Of Plant Operator Control Room Operator J44.9 F17.210 R09.02 Office Visit 05/19/2017 10:16a [facility] [place] [address] J18.9 Services Of Plant Operator Control Room Operator J91.8 J98.11 J44.9 B20 F17.210 Office Visit 05/18/2017 10:15a [facility] [place] [address] J18.9 Services Of Plant Operator Control Room Operator J91.8 J98.11 F17.210 Office Visit 05/17/2017 10:02a [facility] [place] [address] J18.9 Services Of Plant Operator Control Room Operator F17.210 Office Visit 05/16/2017 8:12a [facility] [place] [address] F17.210 Services Of Plant Operator Control Room Operator J18.9 Office Visit 05/15/2017 2:01p [facility] [place] [address] J98.4 Services Of Plant Operator Control Room Operator F17.210 Office Visit 05/15/2017 3:12p [facility] Kieran Tesfaye, 00012 J18.9 Infectious Diseases Gerry J44.0 Z21 Office Visit 01/11/2016 10:00a [facility] [place] [address] G56.02 C.M.A. Office Visit 11/30/2015 10:15a [facility] [place] [address] G56.02 C.M.A. M77.12 Office Visit 10/28/2015 10:30a [facility] [place] [address] G56.02 C.M.A. G56.01 Office Visit 09/30/2015 10:30a [facility] [place] [address] G56.02 C.M.A. Office Visit 12/18/2013 10:45a [facility] Yuki Lopez, 28240 715.16 C.M.A. RPA-C Office Visit 11/04/2013 9:30a [facility] Brayan Munson 71892 715.16 C.M.A. Lilibeth Lopez.-C Office Visit 04/20/2013 11:09a [facility] Wilfrid Escoto, 73844 492.8 Assoc, Hospitalists M.D. 042 Office Visit 04/19/2013 11:09a [facility], Wilfrid Escoto, 58737 492.8 Hospitalists M.D. 042 Office Visit 03/21/2012 11:11a [facility], Arturo Love M.D. 53562 485 Hospitalists 492.8 042 786.52 Plan of Care Future Appointment(s):09/06/2017 10:45 am - Reina Loza MD at [facility]09/11/2017 10:10 am - Kieran Tesfaye M.D. at [facility] [place]48/09/2018 - Fco Frost, PAC38.3 Malignant neoplasm of mediastinum, part fgstrokfbxsF25.02 Encounter for removal of suturesFollow up:As needed
[2017-08-23] MEDS: Enoxaparin(*) 40 MG/0.4 ML SYR SUBCUT SCH (15:09)
[2017-08-23] MEDS: Cefepime 2 GM in Dextrose(*) 2 GM/50 ML BAG IV SCH ×2 (15:11→22:57)
[2017-08-23] MEDS: NS 0.9% 1000 ML* 1,000 ML IV SCH (15:11)
[2017-08-23] MEDS: Magic M W2 Ben/Maal/Nyst/Lido* 240 ML MOUTHWASH (alt formulation) SWISH SPIT SCH ×2 (18:38→21:05)
[2017-08-23] MEDS: Mometasone/Formoter 200/5 MDI INH SCH (20:12)
[2017-08-23 21:32] LABS: Urine Appearance Clear; Urine Blood Negative (Negative); Urine Color Straw; Urine Ketones Negative (Negative); Urine Protein Negative (Negative); Urine Specific Gravity 1.006 (1.010-1.030); Urine Urobilinogen Negative (Negative)
[2017-08-23] MEDS ORDERED: NS 0.9% 500 ML* 500 ML IV ONE (22:00)
[2017-08-24] MEDS: oxyCODONE ORAL.SOLN* 5 MG/5 ML UDC PO PRN ×4 (01:26→21:10)
[2017-08-24] MEDS: NS 0.9% 1000 ML* 1,000 ML IV SCH ×2 (01:27→22:41)
[2017-08-24] MEDS: Cefepime 2 GM in Dextrose(*) 2 GM/50 ML BAG IV SCH ×3 (06:25→22:39)
[2017-08-24 06:40] LABS: ABS Basophils 0 10^3/ul (0-0.2); ABS Eosinophils 0 10^3/ul (0-0.6); ABS Lymphocytes 1.4 10^3/ul (1.0-4.8); ABS Monocytes 0.2 10^3/ul (0-0.8); ABS Neutrophils 0.7 10^3/ul (1.5-7.7); ABS Nucleated RBC 0 10^3/ul; Hematocrit 37 % (35-47); Hemoglobin 12.2 g/dl (12.0-16.0); Lymphocyte % 59.4 % (25-47); Mean Corpuscular HGB Conc 33 g/dl (31-36); Mean Corpuscular Hemoglobin 31 pg (27-31); Mean Corpuscular Volume 94 fL (80-97); Mean Platelet Volume 8.1 um3 (7.4-10.4); Nucleated Red Blood Cells % 0.1; Platelet Count 53 10^3/ul (150-450); Red Blood Count 3.91 10^6/ul (4.0-5.4); Red Cell Distribution Width 13 % (10.5-15); White Blood Count 2.4 10^3/ul (3.5-10.8)
[2017-08-24 06:55] LABS: EGFR Non-African American 76.1 (>60)
[2017-08-24] MEDS: Magic M W2 Ben/Maal/Nyst/Lido* 240 ML MOUTHWASH (alt formulation) SWISH SPIT SCH ×4 (07:51→21:10)
[2017-08-24] MEDS: Magnesium Oxide TAB* 400 MG PO SCH (07:51)
[2017-08-24] MEDS: [UNRECOGNIZED DRUG - OTHER] PO SCH (07:53)
[2017-08-24] MEDS: Tiotropium CAP.INH* CAP.INH/18 MCG (USE ORDER SET !) INH SCH (08:14)
[2017-08-24] MEDS: Mometasone/Formoter 200/5 MDI INH SCH ×2 (08:15→19:29)
[2017-08-24] MEDS: Albuterol HFA INHALER* 8 gm MDI INH PRN ×2 (08:16→21:09)
[2017-08-24] MEDS ORDERED: Spiriva Inhaler DEVICE* 1 EACH DEVICE INH ONE (09:00)
[2017-08-24] MEDS: Acetaminophen ADULT LIQ* 650 MG/20.3 ML UDC PO PRN (10:09)
[2017-08-24] MEDS: Enoxaparin(*) 40 MG/0.4 ML SYR SUBCUT SCH (13:59)
[2017-08-24] MEDS: Temazepam CAP* 15 MG PO PRN (21:11)
[2017-08-25] MEDS: Cefepime 2 GM in Dextrose(*) 2 GM/50 ML BAG IV SCH ×3 (06:20→21:59)
[2017-08-25 06:42] LABS: ABS Basophils 0 10^3/ul (0-0.2); ABS Eosinophils 0.1 10^3/ul (0-0.6); ABS Lymphocytes 1.2 10^3/ul (1.0-4.8); ABS Monocytes 0.2 10^3/ul (0-0.8); ABS Neutrophils 0.4 10^3/ul (1.5-7.7); ABS Nucleated RBC 0 10^3/ul; Eosinophil % 3.3 % (0-6); Hematocrit 36 % (35-47); Hemoglobin 11.7 g/dl (12.0-16.0); Lymphocyte % 63.1 % (25-47); Mean Corpuscular HGB Conc 33 g/dl (31-36); Mean Corpuscular Hemoglobin 31 pg (27-31); Mean Corpuscular Volume 94 fL (80-97); Mean Platelet Volume 8.4 um3 (7.4-10.4); Nucleated Red Blood Cells % 0.3; Platelet Count 50 10^3/ul (150-450); Red Blood Count 3.77 10^6/ul (4.0-5.4); Red Cell Distribution Width 13 % (10.5-15); White Blood Count 1.8 10^3/ul (3.5-10.8)
[2017-08-25 06:51] LABS: EGFR Non-African American 89.2 (>60)
[2017-08-25] MEDS: Tiotropium CAP.INH* CAP.INH/18 MCG (USE ORDER SET !) INH SCH (07:14)
[2017-08-25] MEDS: Mometasone/Formoter 200/5 MDI INH SCH ×2 (07:15→19:13)
[2017-08-25] MEDS: [UNRECOGNIZED DRUG - OTHER] PO SCH (08:04)
[2017-08-25] MEDS: Magic M W2 Ben/Maal/Nyst/Lido* 240 ML MOUTHWASH (alt formulation) SWISH SPIT SCH ×4 (08:17→21:57)
[2017-08-25] MEDS: Magnesium Oxide TAB* 400 MG PO SCH (08:17)
[2017-08-25] MEDS ORDERED: Docusate CAP* 100 MG PO STA (09:36)
[2017-08-25] MEDS ORDERED: Senna TAB ONE (09:55)
[2017-08-25] MEDS ORDERED: Docusate CAP* 100 MG ONE (09:55)
[2017-08-25] MEDS: Senna TAB PO SCH ×2 (09:56→21:55)
[2017-08-25] MEDS: Docusate CAP* 100 MG PO SCH ×2 (10:34→21:55)
[2017-08-25] MEDS: Magnesium Hydroxide LIQ* 30 ML UDC PO SCH ×2 (14:17→21:56)
[2017-08-25] MEDS: Docosanol 10%* CREAM 2 GM TUBE TOPICAL SCH ×2 (18:16→21:58)
[2017-08-25] MEDS: Albuterol HFA INHALER* 8 gm MDI INH PRN (19:13)
[2017-08-25] MEDS: Temazepam CAP* 15 MG PO PRN (19:37)
[2017-08-25] MEDS: oxyCODONE ORAL.SOLN* 5 MG/5 ML UDC PO PRN (19:37)
[2017-08-25] MEDS: Ondansetron TAB* 4 MG PO PRN (19:50)
[2017-08-25] MEDS: NS 0.9% 1000 ML* 1,000 ML IV SCH (19:51)
[2017-08-25] MEDS ORDERED: Morphine INJ* 2 MG/ML 1 ML CARPUJECT ONE (19:56)
[2017-08-25] MEDS ORDERED: Morphine INJ* 2 MG/ML 1 ML CARPUJECT IV ONE (20:00)
[2017-08-26] MEDS: Morphine INJ* 2 MG/ML 1 ML CARPUJECT IV PRN ×4 (04:38→20:56)
[2017-08-26] MEDS: Docosanol 10%* CREAM 2 GM TUBE TOPICAL SCH ×5 (06:01→20:46)
[2017-08-26] MEDS: Cefepime 2 GM in Dextrose(*) 2 GM/50 ML BAG IV SCH ×3 (06:07→23:06)
[2017-08-26 06:54] LABS: EGFR Non-African American 99.2 (>60)
[2017-08-26] MEDS: Tiotropium CAP.INH* CAP.INH/18 MCG (USE ORDER SET !) INH SCH (07:08)
[2017-08-26] MEDS: Mometasone/Formoter 200/5 MDI INH SCH ×2 (07:08→19:38)
[2017-08-26 08:15] LABS: Hematocrit 36 % (35-47); Hemoglobin 12.1 g/dl (12.0-16.0); Mean Corpuscular HGB Conc 33 g/dl (31-36); Mean Corpuscular Hemoglobin 32 pg (27-31); Mean Corpuscular Volume 94 fL (80-97); Mean Platelet Volume 8.9 um3 (7.4-10.4); Platelet Count 73 10^3/ul (150-450); Red Blood Count 3.83 10^6/ul (4.0-5.4); Red Cell Distribution Width 13 % (10.5-15); White Blood Count 1.7 10^3/ul (3.5-10.8)
[2017-08-26 08:17] LABS: ABS Basophils 0 10^3/ul (0-0.2); ABS Eosinophils 0.1 10^3/ul (0-0.6); ABS Lymphocytes 1.2 10^3/ul (1.0-4.8); ABS Monocytes 0.3 10^3/ul (0-0.8); ABS Neutrophils 0.2 10^3/ul (1.5-7.7); ABS Nucleated RBC 0 10^3/ul; Eosinophil % 4.2 % (0-6); Nucleated Red Blood Cells % 0.1
[2017-08-26] MEDS: Magnesium Oxide TAB* 400 MG PO SCH (09:21)
[2017-08-26] MEDS: Senna TAB PO SCH ×2 (09:22→20:45)
[2017-08-26] MEDS: Ondansetron TAB* 4 MG PO PRN ×2 (09:22→16:52)
[2017-08-26] MEDS: Magnesium Hydroxide LIQ* 30 ML UDC PO SCH (09:22)
[2017-08-26] MEDS: Docusate CAP* 100 MG PO SCH ×2 (09:22→20:45)
[2017-08-26] MEDS: Magic M W2 Ben/Maal/Nyst/Lido* 240 ML MOUTHWASH (alt formulation) SWISH SPIT SCH ×4 (09:23→20:46)
[2017-08-26] MEDS: [UNRECOGNIZED DRUG - OTHER] PO SCH (09:23)
[2017-08-26] MEDS: Enoxaparin(*) 40 MG/0.4 ML SYR SUBCUT SCH (10:44)
[2017-08-26] MEDS: NS 0.9% 1000 ML* 1,000 ML IV SCH (15:15)
[2017-08-26] MEDS: oxyCODONE ORAL.SOLN* 5 MG/5 ML UDC PO PRN (16:52)
[2017-08-26] MEDS: Albuterol HFA INHALER* 8 gm MDI INH PRN (19:38)
[2017-08-26] MEDS: Temazepam CAP* 15 MG PO PRN (20:56)
[2017-08-27] MEDS: oxyCODONE ORAL.SOLN* 5 MG/5 ML UDC PO PRN (03:49)
[2017-08-27 05:54] LABS: Hematocrit 38 % (35-47); Hemoglobin 12.5 g/dl (12.0-16.0); Mean Corpuscular HGB Conc 33 g/dl (31-36); Mean Corpuscular Hemoglobin 31 pg (27-31); Mean Corpuscular Volume 94 fL (80-97); Mean Platelet Volume 8.7 um3 (7.4-10.4); Platelet Count 118 10^3/ul (150-450); Red Blood Count 4.05 10^6/ul (4.0-5.4); Red Cell Distribution Width 13 % (10.5-15); White Blood Count 1.7 10^3/ul (3.5-10.8)
[2017-08-27 05:58] LABS: ABS Basophils 0 10^3/ul (0-0.2); ABS Eosinophils 0.1 10^3/ul (0-0.6); ABS Lymphocytes 1.1 10^3/ul (1.0-4.8); ABS Monocytes 0.3 10^3/ul (0-0.8); ABS Neutrophils 0.1 10^3/ul (1.5-7.7)
[2017-08-27 06:05] LABS: EGFR Non-African American 92.3 (>60)
[2017-08-27 06:20] LABS: ABS Nucleated RBC 0 10^3/ul; Lymphocyte % 66.7 % (25-47); Nucleated Red Blood Cells % 0.1
[2017-08-27] MEDS: Docosanol 10%* CREAM 2 GM TUBE TOPICAL SCH ×5 (07:17→21:22)
[2017-08-27] MEDS: Cefepime 2 GM in Dextrose(*) 2 GM/50 ML BAG IV SCH ×3 (07:36→23:03)
[2017-08-27] MEDS: Mometasone/Formoter 200/5 MDI INH SCH ×2 (08:08→19:37)
[2017-08-27] MEDS: Tiotropium CAP.INH* CAP.INH/18 MCG (USE ORDER SET !) INH SCH (08:08)
[2017-08-27] MEDS: Senna TAB PO SCH ×2 (09:16→21:18)
[2017-08-27] MEDS: Magic M W2 Ben/Maal/Nyst/Lido* 240 ML MOUTHWASH (alt formulation) SWISH SPIT SCH ×4 (09:16→21:18)
[2017-08-27] MEDS: Magnesium Oxide TAB* 400 MG PO SCH (09:17)
[2017-08-27] MEDS: Docusate CAP* 100 MG PO SCH ×2 (09:17→21:17)
[2017-08-27] MEDS: [UNRECOGNIZED DRUG - OTHER] PO SCH (09:20)
--- NOTE | 2017-08-27 09:59 | PN ---
Progress Note - Progress Note Date of Service: 08/27/17 SOAP: Subjective: [Patient reports symptoms are improving. Minimal cough, no dyspnea. She is frustrated with her hospitalization and is very anxious to get home. She states she is bored. She does not want to risk worsening or new infection, however.] Objective: [ Acetaminophen (Tylenol Adult Liq*) 650 mg PO Q4H PRN PRN Reason: infection or pain Last Admin: 08/24/17 10:09 Dose: 650 mg Albuterol (Ventolin Hfa Inhaler*) 2 puff INH Q6H PRN PRN Reason: SHORTNESS OF BREATH Last Admin: 08/26/17 19:38 Dose: 2 puff Docosanol (Abreva 10%*) 1 applic TOPICAL FIVE TIMES DAILY [facility] Last Admin: 08/27/17 09:20 Dose: 1 applic Docusate Sodium (Colace Cap*) 100 mg PO BID [facility] Last Admin: 08/27/17 09:17 Dose: 100 mg Emtricitabine/Tenofovir (Truvada*) 1 tab PO DAILY [facility] PRN Reason: Protocol Enoxaparin Sodium (Lovenox(*)) 40 mg SUBCUT Q24H [facility] Last Admin: 08/26/17 10:44 Dose: 40 mg Heparin Sodium (Porcine) (Heparin Flush Port (Ivad)) 5 ml FLUSH DAILY [facility] PRN Reason: Protocol Last Admin: 08/27/17 09:10 Dose: Not Given Cefepime HCl (Maxipime 2 Gm In Dextrose Duplex (*)) 2 gm in 50 mls @ 100 mls/ hr IV Q8H [facility] Last Admin: 08/27/17 07:36 Dose: 100 mls/hr Sodium Chloride (Ns 0.9% 1000 Ml*) 1,000 mls @ 50 mls/hr IV .PER RATE [facility] Last Admin: 08/26/17 15:15 Dose: 50 mls/hr Lorazepam (Ativan Tab(*)) 1 mg PO Q4H PRN PRN Reason: ANXIETY Magnesium Oxide (Magox 400 Tab*) 400 mg PO DAILY [facility] Last Admin: 08/27/17 09:17 Dose: 400 mg Mometasone Furoate/Formoterol Fumar (Dulera 200/5 Mdi*) 2 puff INH BID [facility] PRN Reason: Protocol Last Admin: 08/27/17 08:08 Dose: 2 puff Morphine Sulfate (Morphine Inj (Syringe)*) 2 mg IV Q4H PRN PRN Reason: PAIN Last Admin: 08/26/17 20:56 Dose: 2 mg Multi-Ingredient Mouthwash/Gargle (Magic M W2 Benjamin/Maal/Nyst/Lido*) 5 ml SWISH SPIT QID [facility] Last Admin: 08/27/17 09:16 Dose: 5 ml Non-Formulary Medication (Emtricitab/Rilpiviri/Tenof Ala [Odefsey Tablet]) 1 tab PO DAILY [facility] Last Admin: 08/27/17 09:20 Dose: Not Given Ondansetron HCl (Zofran Tab*) 4 mg PO Q4H PRN PRN Reason: NAUSEA Last Admin: 08/26/17 16:52 Dose: 4 mg Oxycodone HCl (Oxycodone Oral.Soln*) 5 mg PO Q4H PRN PRN Reason: PAIN Last Admin: 08/27/17 03:49 Dose: 5 mg Polyethylene Glycol/Electrolytes (Miralax*) 17 gm PO DAILY PRN PRN Reason: CONSTIPATION Prochlorperazine (Compazine Tab*) 10 mg PO Q6H PRN PRN Reason: NAUSEA Raltegravir (Isentress*) 400 mg PO BID [facility] PRN Reason: Protocol Senna (Senokot Tab*) 1 tab PO BID [facility] Last Admin: 08/27/17 09:16 Dose: 1 tab Temazepam (Restoril Cap*) 15 mg PO BEDTIME PRN PRN Reason: INSOMNIA Last Admin: 08/26/17 20:56 Dose: 15 mg Tiotropium Kistler (Spiriva Cap.Inh*) 1 cap INH DAILY [facility] Last Admin: 08/27/17 08:08 Dose: 1 cap Trazodone HCl (Desyrel Tab*) 50 mg PO BEDTIME [facility] Laboratory Results - last 24 hr 08/27/17 08/27/17 05:30 05:30 WBC 1.7 L RBC 4.05 Hgb 12.5 Hct 38 MCV 94 MCH 31 MCHC 33 RDW 13 Plt Count 118 L MPV 8.7 Neut % (Auto) 6.5 L Lymph % (Auto) 66.7 H [place] % (Auto) 20.1 H Eos % (Auto) 6.0 Baso % (Auto) 0.7 Absolute Neuts (auto) 0.1 L Absolute Lymphs (auto) 1.1 Absolute Monos (auto) 0.3 Absolute Eos (auto) 0.1 Absolute Basos (auto) 0 Absolute Nucleated RBC 0 Nucleated RBC % 0.1 Sodium 135 L Potassium 4.3 Chloride 98 L Carbon Dioxide 33 H Anion Gap 4 BUN 10 Creatinine 0.66 Est GFR ( Amer) 118.7 Est GFR (Non-Af Amer) 92.3 BUN/Creatinine Ratio 15.2 Glucose 91 Calcium 8.9 Total Bilirubin 0.20 AST 12 L ALT 14 Alkaline Phosphatase 84 Total Protein 6.3 L Albumin 3.4 Globulin 2.9 Albumin/Globulin Ratio 1.2 Vital Signs: Temp Pulse Resp BP Pulse Ox 99.1 F 80 18 125/59 98 08/27/17 07:14 08/27/17 07:14 08/27/17 07:40 08/27/17 07:14 08/27/17 07:14 Exam: Gen: 56 yo female in NAD HEENT: MMM CV: RRR, no m/r/g Lungs: reduced breath sounds, no w/c/r Abd: soft, non TTP Ext: no edema Skin: No rash] Assessment: [56 yo female with small cell lung cancer status post C1 carboplatin/etoposide admitted with febrile neutropenia] Plan: [1. Febrile neutropenia with associated PNA - cont Cefepime - symptomatic improvement - ANC still 100, but monocytes starting to climb, expect recovery of neutrophils in 1-2 days - Augmentin x7-10d at discharge 2. SCLC - s/p C1 carboplatin/etoposide 3. COPD - mild exacerbation 4. HIV - appreciate ID consult - will send refill for antiretroviral 5. DVT prophylaxis - SQ lovenox 6. DNR status Dispo: Patient agreeable to stay for an additional night, dc when ANC 1000]
--- NOTE | 2017-08-27 10:10 | CONS ---
CONSULTATION REPORT: DATE OF CONSULT: 08/27/17 REQUESTING PHYSICIAN: Dr. Bueno. CONSULTING SERVICE: Infectious Disease. REASON FOR CONSULTATION: Pneumonia. IMPRESSION: 1. Right upper lobe pneumonia in the setting of chemotherapy associated neutropenia. She had a lowe r aspect of right upper lobe infiltrate, which is likely new in the setting of a right upper lobe mal ignancy, question postobstructive versus routine community-acquired bacteria that would include Strep , Haemophilus and viral etiologies. 2. Recent diagnosis of small cell lung cancer from a mediastinoscopy, lymph node biopsy, treated wit h chemotherapy, now with neutropenia. She has not been febrile here. 3. Human immunodeficiency virus, has been well controlled as an outpatient, on Odefsey. RECOMMENDATIONS: 1. Once she is ready for discharge, we will plan on another 10 days of Augmentin 500 mg by mouth twi ce a day. 2. If she is going to be here much longer, we will plan on Truvada and raltegravir while she is here until she can get home and resume Odefsey. HISTORY OF PRESENT ILLNESS: This is a 56-year-old woman with longstanding well- controlled HIV, rece nt diagnosis of small cell cancer, admitted with fever and chest pain. She was in the hospital in [facility] with a right upper lobe infiltrate, resolved with antibiotics. There was underlying mediastina l mass and lymphadenopathy. She had workup that progressed to mediastinoscopy to finally get the francisco gnosis of small cell cancer. She has been on chemotherapy via right chest port, which went in July. At the time of her admission, she had had fevers, chills, malaise, some right chest pain, productiv e cough without hemoptysis. Since she has been here, she has been afebrile. Her chills and sweats h ave resolved. Her appetite is improved. Her chest pain has gone. Her cough has nearly gone. She has had ongoing issues with neutropenia. Her white count was 1.7 on admission, it is 1.7 today. Her AN C is 100 today, it was 800 when she got here. She is anxious to go home. PAST MEDICAL HISTORY: 1. HIV, on Odefsey. 2. Obesity. 3. Tobacco abuse. 4. Small cell lung cancer. 5. Right chest port. 6. Pneumonia in May 2017. MEDICATIONS: 1. Tylenol. 2. Albuterol. 3. Docusate. 4. Enoxaparin. 5. Heparin flush port. 6. Magic mouthwash. 7. Cefepime 2 g IV every 8 hours. 8. Oxycodone. 9. Senna. 10. Temazepam at bedtime. 11. Spiriva. ALLERGIES: SULFA caused hives, LATEX causes hives. FAMILY HISTORY: Maternal grandfather had lung cancer in his 60s. Maternal grandmother had stomach c ancer in her 70s. SOCIAL HISTORY: Drinks alcohol. REVIEW OF SYSTEMS: A 14-point review of systems was negative except as noted above. PHYSICAL EXAM: Vital Signs: Temperature is 37, heart rate 80, respiratory rate 16, blood pressure 1 25/59, oxygen saturation 98% on room air. In general, she is awake, not in distress. Neurologic: S he is awake and oriented x3. Follows all commands. HEENT: There is no conjunctival hemorrhage. Or opharynx is without lesions. Neck is supple without mass. Lymph Nodes: There is no inguinal, axill millie, or epitrochlear lymphadenopathy. Heart is regular rate and rhythm without murmurs, rubs, or gal lops. Lungs are clear to auscultation bilaterally. Abdomen: Soft, nontender, nondistended. There a re bowel sounds present. Skin: There is no rash or splinter hemorrhages. Musculoskeletal: There is no spine tenderness to palpation or joint synovitis. LABORATORY DATA: White blood cell count 1.7, hemoglobin 12, platelets 118, ANC 100. Creatinine 0.6. Urinalysis, no blood, no leukocytes. Blood cultures from the 12th are negative, from the 8th they are negative. The Legionella and pneumo coccal antigens in the urine are negative. Please see impressions and recommendations as outlined above. Thanks for asking me to see Ms. Burnett in consultation. [id number]/[facility] #: [id number]
[2017-08-27] MEDS: Tenofovir/Emtricitabine(*) TAB PO SCH (12:28)
[2017-08-27] MEDS: LORazepam TAB(*) 1 MG PO PRN ×2 (12:29→21:18)
[2017-08-27] MEDS: Enoxaparin(*) 40 MG/0.4 ML SYR SUBCUT SCH (12:29)
[2017-08-27] MEDS: Ondansetron TAB* 4 MG PO PRN (13:01)
--- NOTE | 2017-08-27 15:07 | RAD ---
HISTORY: CT planning for radiation therapy mapping COMPARISONS: PET CT dated August 08, 2016 TECHNIQUE: Limited axial CT images were obtained of the chest for the purposes of radiation treatment planning. FINDINGS: There is been interval decrease in the size of the mediastinal lymphadenopathy. There is consolidation of the right upper lobe, which may reflect residual of the previously identified right upper lobe mass. There is atherosclerosis of the aorta. IMPRESSION: LIMITED CT FOR THE PURPOSES OF RADIATION TREATMENT PLANNING
[2017-08-27] MEDS: NS 0.9% 1000 ML* 1,000 ML IV SCH (15:26)
[2017-08-27] MEDS: Raltegravir* 400 MG TAB PO SCH (21:17)
[2017-08-27] MEDS: traZODone TAB* 50 MG TAB PO SCH (21:18)
[2017-08-27] MEDS: Temazepam CAP* 15 MG PO PRN (21:18)
[2017-08-28] MEDS: Cefepime 2 GM in Dextrose(*) 2 GM/50 ML BAG IV SCH ×3 (06:01→22:52)
[2017-08-28] MEDS: Docosanol 10%* CREAM 2 GM TUBE TOPICAL SCH ×5 (06:01→20:04)
[2017-08-28 06:39] LABS: Hematocrit 38 % (35-47); Hemoglobin 12.8 g/dl (12.0-16.0); Mean Corpuscular HGB Conc 34 g/dl (31-36); Mean Corpuscular Hemoglobin 32 pg (27-31); Mean Corpuscular Volume 94 fL (80-97); Mean Platelet Volume 8.8 um3 (7.4-10.4); Platelet Count 181 10^3/ul (150-450); Red Blood Count 4.04 10^6/ul (4.0-5.4); Red Cell Distribution Width 13 % (10.5-15); White Blood Count 2.2 10^3/ul (3.5-10.8)
[2017-08-28 06:55] LABS: EGFR Non-African American 90.7 (>60)
[2017-08-28 07:13] LABS: ABS Basophils 0 10^3/ul (0-0.2); ABS Eosinophils 0.1 10^3/ul (0-0.6); ABS Lymphocytes 1.4 10^3/ul (1.0-4.8); ABS Monocytes 0.5 10^3/ul (0-0.8); ABS Neutrophils 0.2 10^3/ul (1.5-7.7); ABS Nucleated RBC 0 10^3/ul; Nucleated Red Blood Cells % 0.5
[2017-08-28 07:19] LABS: Monocytes % 19 % (0-7)
[2017-08-28] MEDS: Polyethylene Glycol 3350* 17 GM PACKET PO PRN (07:33)
[2017-08-28] MEDS: Senna TAB PO SCH ×2 (07:34→20:04)
[2017-08-28] MEDS: Raltegravir* 400 MG TAB PO SCH ×2 (07:34→20:04)
[2017-08-28] MEDS: Tenofovir/Emtricitabine(*) TAB PO SCH (07:34)
[2017-08-28] MEDS: Docusate CAP* 100 MG PO SCH ×2 (07:34→20:04)
[2017-08-28] MEDS: Magnesium Oxide TAB* 400 MG PO SCH (07:34)
[2017-08-28] MEDS: Magic M W2 Ben/Maal/Nyst/Lido* 240 ML MOUTHWASH (alt formulation) SWISH SPIT SCH ×4 (07:37→20:09)
[2017-08-28] MEDS: [UNRECOGNIZED DRUG - OTHER] PO SCH (07:39)
[2017-08-28] MEDS: Mometasone/Formoter 200/5 MDI INH SCH ×2 (07:55→20:50)
[2017-08-28] MEDS: Tiotropium CAP.INH* CAP.INH/18 MCG (USE ORDER SET !) INH SCH (07:55)
[2017-08-28] MEDS ORDERED: FILGRASTIM-SNDZ* 480 MCG/0.8 ML SYRINGE SUBCUT ONE (11:39)
[2017-08-28] MEDS: Enoxaparin(*) 40 MG/0.4 ML SYR SUBCUT SCH (12:37)
[2017-08-28] MEDS: oxyCODONE ORAL.SOLN* 5 MG/5 ML UDC PO PRN ×3 (13:30→22:47)
[2017-08-28] MEDS: NS 0.9% 1000 ML* 1,000 ML IV SCH (13:32)
[2017-08-28] MEDS: Acetaminophen ADULT LIQ* 650 MG/20.3 ML UDC PO PRN (15:53)
[2017-08-28] MEDS: LORazepam TAB(*) 1 MG PO PRN (15:54)
[2017-08-28] MEDS ORDERED: Alteplase (CATHFLO)* 2 MG VIAL IV ONE (16:00)
[2017-08-28] MEDS: Morphine INJ* 2 MG/ML 1 ML CARPUJECT IV PRN (20:01)
[2017-08-28] MEDS: traZODone TAB* 50 MG TAB PO SCH (20:04)
[2017-08-28] MEDS: Temazepam CAP* 15 MG PO PRN (21:26)
[2017-08-28] MEDS ORDERED: Morphine VIAL* 4 MG/ML VIAL (1 ml vial) IV STA (23:29)
[2017-08-28] MEDS ORDERED: Morphine VIAL* 4 MG/ML VIAL (1 ml vial) IV PRN (23:45)
[2017-08-29] MEDS: Acetaminophen ADULT LIQ* 650 MG/20.3 ML UDC PO PRN (01:12)
[2017-08-29] MEDS: LORazepam TAB(*) 1 MG PO PRN (01:14)
[2017-08-29] MEDS: Docosanol 10%* CREAM 2 GM TUBE TOPICAL SCH ×2 (05:46→10:20)
[2017-08-29] MEDS: oxyCODONE ORAL.SOLN* 5 MG/5 ML UDC PO PRN ×2 (06:15→10:45)
[2017-08-29] MEDS: NS 0.9% 1000 ML* 1,000 ML IV SCH (06:15)
[2017-08-29 06:17] LABS: Hematocrit 36 % (35-47); Hemoglobin 11.8 g/dl (12.0-16.0); Mean Corpuscular HGB Conc 33 g/dl (31-36); Mean Corpuscular Hemoglobin 31 pg (27-31); Mean Corpuscular Volume 94 fL (80-97); Mean Platelet Volume 8.7 um3 (7.4-10.4); Platelet Count 232 10^3/ul (150-450); Red Blood Count 3.76 10^6/ul (4.0-5.4); Red Cell Distribution Width 13 % (10.5-15); White Blood Count 5.8 10^3/ul (3.5-10.8)
[2017-08-29 06:18] LABS: ABS Basophils 0 10^3/ul (0-0.2); ABS Eosinophils 0.1 10^3/ul (0-0.6); ABS Neutrophils 2.6 10^3/ul (1.5-7.7); ABS Nucleated RBC 0.1 10^3/ul; Eosinophil % 2.4 % (0-6); Lymphocyte % 34.3 % (25-47); Nucleated Red Blood Cells % 1.4
[2017-08-29] MEDS: Cefepime 2 GM in Dextrose(*) 2 GM/50 ML BAG IV SCH (06:19)
[2017-08-29] MEDS: [UNRECOGNIZED DRUG - OTHER] PO SCH (07:24)
[2017-08-29] MEDS: Tiotropium CAP.INH* CAP.INH/18 MCG (USE ORDER SET !) INH SCH (07:32)
[2017-08-29] MEDS: Mometasone/Formoter 200/5 MDI INH SCH (07:32)
[2017-08-29] MEDS: Senna TAB PO SCH (07:36)
[2017-08-29] MEDS: Magnesium Oxide TAB* 400 MG PO SCH (07:36)
[2017-08-29] MEDS: Magic M W2 Ben/Maal/Nyst/Lido* 240 ML MOUTHWASH (alt formulation) SWISH SPIT SCH (07:36)
[2017-08-29] MEDS: Tenofovir/Emtricitabine(*) TAB PO SCH (07:36)
[2017-08-29] MEDS: Docusate CAP* 100 MG PO SCH (07:36)
[2017-08-29] MEDS: Raltegravir* 400 MG TAB PO SCH (07:36)
[2017-08-29] MEDS: Polyethylene Glycol 3350* 17 GM PACKET PO PRN (07:44)
--- NOTE | 2017-08-29 09:56 | DS ---
- Discharge Summary Admission Date: 08/23/2017 Discharge Dte: 08/29/2017 Discharge Diagnosis: 1. Neutropenic Fever: no source, resolved however with underlying dx. will plan PO abx. as per ID 2. SCLC: on therapy with plan to start concurrent RT 09/03 with C2, plan 20% dose reduction 3. HIV: cont. current therapy Discharge Medications: Medication Instructions Recorded Confirmed Type Albuterol HFA INHALER* [Ventolin 2 puff INH Q6H PRN 08/23/17 08/23/17 History HFA Inhaler*] Budesonide/Formote 160/4.5(NF) 2 puff INH BID 08/23/17 08/23/17 History [Symbicort 160/4.5 (NF)] Docusate CAP* [Colace Cap*] 100 mg PO BID PRN 08/23/17 08/23/17 History Magnesium Oxide TAB* [MagOx 400 400 mg PO DAILY 08/23/17 08/23/17 History TAB*] Nicotine PATCH 21 MG/24 HR* 21 mg TRANSDERM DAILY 08/23/17 08/23/17 History Ondansetron TAB* [Zofran 4 MG Tab*] 4 mg PO Q4H PRN 08/23/17 08/23/17 History Polyethylene Glycol 3350* 17 gm PO DAILY PRN 08/23/17 08/23/17 History [Miralax*] Prochlorperazine TAB* [Compazine 10 mg PO Q6H PRN 08/23/17 08/23/17 History Tab*] Tiotropium CAP.INH* [Spiriva 1 cap.inh INH DAILY 08/23/17 08/23/17 History CAP.INH*] Amoxicillin/Clavulanate SUSP* 875 mg PO BID #20 dose 08/29/17 Rx [Augmentin SUSP*] Docosanol 10%* [Abreva 10%*] 1 applic TOPICAL FIVE TIMES DAILY 08/29/17 Rx tube Emtricitab/Rilpiviri/Tenof Ala 1 tab PO DAILY #30 tablet 08/29/17 Rx [Odefsey Tablet] LORazepam TAB(*) [Ativan 1 MG TAB 1 mg PO Q4H PRN #30 tab MDD 6 tabs 08/29/17 Rx (*)] Magic M W2 Benjamin/Maal/Nyst/Lido* 5 ml SWISH SPIT QID #240 ml 08/29/17 Rx Senna TAB* [Senokot TAB*] 1 tab PO BID tab 08/29/17 Rx oxyCODONE ORAL.SOLN* [Oxycodone 5 mg PO Q4H PRN #300 ml MDD 30 mL 08/29/17 Rx ORAL.SOLN 5 mg/5 ml *] Hospital Course: Please see admission note for full H&P, however briefly, Mrs. Draper is well known to our service due to her recent diagnosis of locally advanced SCLC now s/p C1 Carbo/Etoposide. She presented to the office on 08/23/17 following consultation with radiation oncology with cc: severe fatigue. She was febrile on arrival with an ANC of 800. Clinically she appeared to have a pneumonia. She was admitted for broad spectrum abx. and observation, however over the next 24 hours she did not improve and was made full admit the following day. All cultures were negative. Unfortunately she had prolonged neutropenia ultimately requiring a dose of 480 mcg Filgrastin subq yesterday with marked improvement in counts today. She is very ready to go home and states excellent understanding of the plan of care. She has an underlying diagnosis of HIV ( currently undetectable) and therefore Infectious Disease was consulted for collaborative care. Recommendation for Augmentin x10 days following discharge and resumption of home Odefsey was made. She will be discharged home today with plan for f/u with ID in approximately 2 weeks. She will resume chemotherapy on Sunday, 09/03 at which time she will also receive combined RT and therefore we will dose reduce her by 20%. She will not need to be seen prior to tx. and will f/u after C2. She received extensive education regarding neutropenic precautions and is aware of how and when to call the office. >40 min spent with >50% face to face counseling
[2017-08-29] MEDS ORDERED: Ibuprofen ADULT LIQ* 600 MG/30 ML UDC PO ONE (10:02)
[2017-08-29 10:33] VITALS: BP 103/54
[2017-08-29] MEDS: Enoxaparin(*) 40 MG/0.4 ML SYR SUBCUT SCH (10:48)
== END 2017-08-29 12:00 | disposition home or self-care (01) | DRG 808 ==
LOC: OBSVTOIN 14:07 → MED 14:07
PROVIDERS: ADMIT Internal Medicine Hematology & Oncology; ATTEND Internal Medicine Hematology & Oncology
DX: D70.9 Neutropenia, unspecified (principal); J18.9 Pneumonia, unspecified organism; C34.90 Malignant neoplasm of unspecified part of unspecified bronchus or lung; J44.1 Chronic obstructive pulmonary disease with (acute) exacerbation; B37.0 Candidal stomatitis; R50.81 Fever presenting with conditions classified elsewhere; Z21 Asymptomatic human immunodeficiency virus [HIV] infection status; I95.9 Hypotension, unspecified; F17.210 Nicotine dependence, cigarettes, uncomplicated; Z66 Do not resuscitate; Z88.2 Allergy status to sulfonamides; Z91.040 Latex allergy status; Z79.899 Other long term (current) drug therapy; Z80.1 Family history of malignant neoplasm of trachea, bronchus and lung; Z80.0 Family history of malignant neoplasm of digestive organs; K59.00 Constipation, unspecified
CPT/HCPCS: 36415; 36591; 36593; 71046; 77014; 80053; 81003; 83605; 83735; 84145; 85025; 85060; 86140; 87040; 87899; 94640; 94760; 96365; 96366; 99215; 99220; 99232; 99239; 99406; A9270-GY; G0463; J0692; J1642; J1650; J2270; J2997; J3475; J3480; Q5101

== ENCOUNTER 2018-03-02 10:18 | Inpatient (IN) | payer MEDICARE, MEDICAID ==
[2018-03-02] MEDS ORDERED: NS 0.9% 1000 ML* 1,000 ML IV ONE (10:51)
--- NOTE | 2018-03-02 10:59 | ED ---
Complex/Multi-Sys Presentation - HPI Summary HPI Summary: Pt is a 57 y/o F presents to ED c/o generalized fatigue for 3 days. Notes productive cough, SOB, CP, fever and headache. Rates her pain 9/10 in severity. Denies nausea or chills. PMHx of lung cancer, but she is in remission now and is not on any new medications. Last time she had chemotherapy was 4-5 months ago , but she did have radiation yesterday. Uses 2 L oxygen at home. - History Of Current Complaint Chief Complaint: EDShortnessOfBreath Time Seen by Provider: 03/02/18 10:49 Hx Obtained From: Patient Onset/Duration: Lasting Days, Still Present Severity Currently: Severe - 10 Aggravating Factor(s): Nothing Alleviating Factor(s): Nothing Associated Signs And Symptoms: Positive: Headache, SOB, Cough, Chest Pain, Fever. Negative: Nausea - Allergies/Home Medications Allergies/Adverse Reactions: Allergies Allergy/AdvReac Type Severity Reaction Status Date / Time bee venom protein (honey bee) Allergy Severe Difficulty Verified 02/21/18 10:17 Breathing Sulfa (Sulfonamide Allergy Intermediate Hives Verified 02/21/18 10:17 Antibiotics) latex Allergy Mild Hives Verified 02/21/18 10:17 Home Medications: Home Medications Guaifenesin/Pseudoephedrne HCl [Mucinex D ER Tablet] 1 tab PO BID PRN 03/02/18 [ History Confirmed 03/02/18] Umeclidin/Vilant 62.5 MDI(NF) [ANORO 62.5/25 Ellipta DEVICE (NF)] 1 puff INH BID 03/02/18 [History Confirmed 03/02/18] PMH/Surg Hx/FS Hx/Imm Hx Endocrine/Hematology History: Reports: Other Endocrine/Hematological Disorders - HIV Denies: Hx Anticoagulant Therapy, Hx Diabetes, Hx Systemic Lupus Erythematosus Cardiovascular History: Denies: Hx Congestive Heart Failure, Hx Hypertension, Hx Pacemaker/ICD Respiratory History: Reports: Hx Asthma, Hx Chronic Obstructive Pulmonary Disease (COPD), Hx Lung Cancer - normal Denies: Hx Sleep Apnea History: Denies: Hx Dialysis, Hx Renal Disease Musculoskeletal History: Reports: Hx Arthritis Denies: Hx Rheumatoid Arthritis, Hx Osteoporosis Sensory History: Reports: Hx Contacts or Glasses - reading Denies: Hx Cataracts, Hx Glaucoma, Hx Hearing Aid Opthamlomology History: Reports: Hx Contacts or Glasses - reading Denies: Hx Cataracts, Hx Glaucoma Neurological History: Denies: Hx Headaches, Hx Seizures, Hx Transient Ischemic Attacks (TIA) Psychiatric History: Denies: Hx Anxiety, Hx Depression, Hx Panic Disorder - Cancer History Cancer Type, Location and Year: LUNG CANCER Hx Chemotherapy: Yes - Surgical History Surgery Procedure, Year, and Place: TUBAL LIGATION. UMBILICAL HERNIA REPAIR. mediastinoscopy 07/26/17 [facility]. [facility] [place]. bilat cataract with IOL. LOWER BACK SURGERY - [place]. RIGHT WRIST SURGERY (WITH PIN) Hx Anesthesia Reactions: No - Immunization History Date of Tetanus Vaccine: 2014 Date of Influenza Vaccine: 2015 Infectious Disease History: No Infectious Disease History: Reports: Hx Human Immunodeficiency Virus (HIV), Hx of Known/Suspected MRSA - 6 years ago Denies: Traveled Outside the [place] in Last 30 Days - Family History Known Family History: Positive: Diabetes, Other - denies FHx of breast CA, but does have other cancers in the family Family History: No FHx of breast CA. - Social History Alcohol Use: None Hx Substance Use: No Substance Use Type: Reports: None Hx Tobacco Use: Yes Smoking Status (MU): Current Every Day Smoker Type: Cigarettes Amount Used/How Often: 4 PPD X 44 YEARS THEN DECREASED TO 1 PPD Have You Smoked in the Last Year: Yes Review of Systems Positive: Fever, Fatigue. Negative: Chills Positive: Chest Pain Positive: Shortness Of Breath, Cough Negative: Nausea Positive: Headache All Other Systems Reviewed And Are Negative: Yes Physical Exam - Summary Physical Exam Summary: Appearance: Well appearing, mild distress Skin: warm, dry, reflects adequate perfusion Head/face: normal Eyes: EOMI, RELL ENT: mucous membranes moist Neck: supple, non-tender Respiratory: coarse right base, diffuse wheezes, tachypneic, breath sounds present Cardiovascular: port on right chest,RRR, pulses symmetrical Abdomen: non-tender, soft Bowel Sounds: present Musculoskeletal: normal, strength/ROM intact Neuro: normal, sensory motor intact, A&Ox3 Triage Information Reviewed: Yes Vital Signs On Initial Exam: Initial Vitals Temp Pulse Resp BP Pulse Ox 100.2 F 102 20 103/62 92 03/02/18 10:34 03/02/18 10:34 03/02/18 10:34 10/20/18 10:34 03/02/18 10:34 Vital Signs Reviewed: Yes Diagnostics - Vital Signs Vital Signs Temp Pulse Resp BP Pulse Ox 03/02/18 10:34 100.2 F 102 20 103/62 92 - Laboratory Result Diagrams: 03/02/18 11:46 03/02/18 11:46 Lab Statement: Any lab studies that have been ordered have been reviewed, and results considered in the medical decision making process. - Radiology CXR Radiology Interpretation Completed By: Radiologist - IMPRESSION: No active cardiopulmonary disease. ED Physician reviewed this report. - EKG 11:13 Cardiac Rate: NL - 93 bpm EKG Rhythm: Sinus Rhythm EKG Interpretation: Normal axis, normal interval, normal ST Complex Multi-Symp Course/Dx Course Of Treatment: Patient with HIV, cancer history with chemotherapy several months ago. Discussed with oncology who state that they have no ongoing plans for chemotherapy or radiation. No acute infiltrate but high fever. IV cefepime given on arrival. Breathing treatments, steroids given for COPD. Patient continues to smoke. Admit for further. Hospitalist to evaluate in at the bedside. - Diagnoses Differential Diagnoses/HQI/PQRI: Metabolic Abnormality, Sepsis, Other - Pneumonia Provider Diagnoses: COPD exacerbation, URI (upper respiratory infection), History of lung cancer - Physician Notifications Discussed Care Of Patient With: Wali Calix Time Discussed With Above Provider: 11:15 Instructed by Provider To: Other - The pt is no longer an oncology pt so she can be admitted to hospitalist. Spoke with hospitalist Dr. Escoto who agreed to admit pt. Discharge - Sign-Out/Discharge Documenting (check all that apply): Patient Departure - Admit - Discharge Plan Condition: Fair Disposition: ADMITTED TO [facility] - Billing Disposition and Condition Condition: FAIR Disposition: Admitted to [facility] - Attestation Statements Document Initiated by Scribe: Yes Documenting Scribe: Rani Melchor Provider For Whom Dulce Maria is Documenting (Include Credential): Dr. Gil Davila MD Scribe Attestation: Rani Keith scribed for Dr. Gil Davila MD on 03/02/18 at 1736. Scribe Documentation Reviewed: Yes Provider Attestation: The documentation as recorded by the Rani thibodeaux accurately reflects the service I personally performed and the decisions made by me, Dr. Gil Davila MD
[2018-03-02] MEDS ORDERED: Acetaminophen TAB* 325 MG PO ONE (11:13)
[2018-03-02] MEDS ORDERED: Albuterol/Ipratropium NEB.SOL* Albuterol 2.5 MG/Ipratropium 0.5 MG 3 ML INH ONE (11:13)
[2018-03-02] MEDS ORDERED: methylPREDNISolone 125 MG* 2 ML VIAL IV ONE (11:14)
--- NOTE | 2018-03-02 11:55 | RAD ---
HISTORY: SOB COMPARISONS: November 01, 2017 VIEWS: 1: frontal AP view of the chest at 11:12 AM FINDINGS: LINES AND TUBES: A right-sided chest port is noted with the tip overlying the superior vena cava. CARDIOMEDIASTINAL SILHOUETTE: The cardiomediastinal silhouette is normal for portable technique. PLEURA: The costophrenic angles are sharp. No pleural abnormalities are noted. LUNG PARENCHYMA: There is hyperinflation. There is persistent linear pleural parenchymal scarring of the right upper lung. There has been interval resolution of airspace disease of the right upper lung. ABDOMEN: The upper abdomen is clear. There is no subphrenic gas. BONES AND SOFT TISSUES: No bone or soft tissue abnormalities are noted. IMPRESSION: LINES AND TUBES ABOVE. NO ACTIVE CARDIOPULMONARY DISEASE.
[2018-03-02] MEDS ORDERED: Cefepime 2 GM in Dextrose(*) 2 GM/50 ML BAG IV SCH (12:00)
[2018-03-02 12:03] LABS: ABS Basophils 0 10^3/ul (0-0.2); ABS Eosinophils 0 10^3/ul (0-0.6); ABS Monocytes 1.1 10^3/ul (0-0.8); ABS Neutrophils 6.1 10^3/ul (1.5-7.7); ABS Nucleated RBC 0 10^3/ul; Eosinophil % 0.6 % (0-6); Hematocrit 39 % (35-47); Hemoglobin 12.9 g/dl (12.0-16.0); Lymphocyte % 11.9 % (25-47); Mean Corpuscular HGB Conc 33 g/dl (31-36); Mean Corpuscular Hemoglobin 32 pg (27-31); Mean Corpuscular Volume 97 fL (80-97); Mean Platelet Volume 8.3 um3 (7.4-10.4); Nucleated Red Blood Cells % 0.2; Platelet Count 230 10^3/ul (150-450); Red Blood Count 3.99 10^6/ul (4.00-5.40); Red Cell Distribution Width 15 % (10.5-15); White Blood Count 8.2 10^3/ul (3.5-10.8)
[2018-03-02 12:13] LABS: INR 0.97 (0.77-1.02)
[2018-03-02 12:15] LABS: EGFR Non-African American 69.6 (>60)
[2018-03-02] MEDS ORDERED: Cefepime 2 GM in Dextrose(*) 2 GM/50 ML BAG IV ONE (13:17)
[2018-03-02 13:29] LABS: Urine Appearance Cloudy; Urine Blood Negative (Negative); Urine Color Yellow; Urine Ketones Negative (Negative); Urine Protein Negative (Negative); Urine Specific Gravity 1.016 (1.010-1.030); Urine Urobilinogen Negative (Negative)
[2018-03-02] MEDS ORDERED: Azithromycin IV(*) 500 MG in NS 0.9% 250 ML* 250 ML IVPB ONE (13:37)
[2018-03-02] MEDS ORDERED: Albuterol/Ipratropium NEB.SOL* Albuterol 2.5 MG/Ipratropium 0.5 MG 3 ML INH PRN (13:38)
[2018-03-02] MEDS ORDERED: cefTRIAXone VIAL(*) 1,000 MG VIAL IVPB SCH (15:00)
[2018-03-02] MEDS ORDERED: cefTRIAXone* 1 GM in NS 0.9% 50 ML BAG IVPB SCH (15:00)
[2018-03-02] MEDS ORDERED: Lidocaine 2.5%/Prilocain 2.5%* 5 GM TUBE TOPICAL ONE (15:15)
[2018-03-02] MEDS: Heparin VIAL(*) 5000 UNITS/ML VIAL (FIVE THOUSAND) SUBCUT SCH ×2 (15:45→20:25)
--- NOTE | 2018-03-02 19:21 | HP ---
CC: Dr. Bueno; Dr. Loza * HOSPITAL MEDICINE HISTORY AND PHYSICAL: DATE OF ADMISSION: 03/02/18 ATTENDING PHYSICIAN: Dinesh Escoto MD *(dictation provided by Cheryl Alexis NP ) CHIEF COMPLAINT: Shortness of breath, cough, and fever. HISTORY OF PRESENT ILLNESS: Ms. Burnett is a 57-year-old female with past medical history of HIV currently on treatment with Dr. Morin; severe COPD, on 2 L nasal cannula; small cell lung cancer with last chemotherapy 2 weeks ago with report of "completing treatment" who presents today to the hospital with concern for shortness of breath, cough, and fever. Ms. Burnett states that she began to feel unwell 3 days ago, she describes being tired, having headache. She had a fever to 102. She reports worsening cough, worsening shortness of breath, and worsening wheezing. She denies chest pain. She denies nausea, vomiting, diarrhea, abdominal pain. In the emergency room, Ms. Burnett had labs, which showed no leukocytosis and white blood cell count of 8.2. She had temperature of 100.2 on arrival, heart rate is running almost 100, she is on 2 L nasal cannula, blood pressure is 103/65. CRP is 93.62. She had a chest x-ray, which showed no active cardiopulmonary disease. The patient was given Solu-Medrol and antibiotics were ordered. PAST MEDICAL HISTORY: 1. HIV, follows with Dr. Morin. 2. Severe COPD, on 2 L nasal cannula at home, follows with Dr. Loza. 3. Small cell lung cancer, follows with Dr. Bueno, last chemotherapy 2 weeks ago. ALLERGIES: To BEE VENOM, SULFA and LATEX. FAMILY HISTORY: The patient reports mother has diabetes and hypertension. Father related to heart attack in his 50s. SOCIAL HISTORY: The patient is a long-term smoker. She denies alcohol or drug use. She states her sisters will be her healthcare proxy. REVIEW OF SYSTEMS: A 14-point review of systems was completed with Ms. Burnett and all those not mentioned above were negative. PHYSICAL EXAMINATION GENERAL: Ms. Burnett is sitting in the bed. She appears unwell, but she is in no acute distress. VITAL SIGNS: Temperature 99.3, pulse rate 98, O2 saturation 93% on 2 L, respiratory rate 20, blood pressure 103/65. LUNGS: Coarse rhonchi throughout with some wheezing noted at times. No accessory muscle use. HEART: S1, S2. No murmur, rub, or gallop, and regular. ABDOMEN: Soft, nontender with bowel sounds positive x4. NEURO: She is alert, she is oriented x3. She moves all extremities equally. There is no facial asymmetry. There is no focal weakness. Extraocular movements are intact. EXTREMITIES: No cyanosis or edema. SKIN: Intact. LABORATORY DATA/DIAGNOSTIC STUDIES: Sodium 133, potassium 4.1, chloride 99, serum bicarbonate 26, BUN 11, creatinine 0.84, glucose 101. Lactic acid 0.9. CRP 93.62. Troponin 0.00. WBC 8.2, hemoglobin 12.9, hematocrit 39, platelet count 230. Flu swab is negative. Urine shows no evidence of infection. Chest x-ray shows no evidence of active cardiopulmonary disease. EKG shows sinus rhythm, heart rate in 90s and no evidence of ischemia. ASSESSMENT: Ms. Burnett is a 57-year-old female with past medical history of human immunodeficiency virus, managed by Dr. Morin; severe chronic obstructive pulmonary disease, on 2 L nasal cannula with chronic hypoxic respiratory failure; and small cell lung cancer, under treatment with Dr. Bueno with completion of chemotherapy 2 weeks ago, who presents today to the hospital with acute onset of fever, shortness of breath, cough, malaise and headache. In the emergency room, she is found to meet sepsis criteria with tachycardia and tachypnea that are mild. Our plans are for inpatient admission with expected length of stay to be greater than 2 days for the followin. Sepsis: At this point, it appears that she is having a straight chronic obstructive pulmonary disease exacerbation. The chest x-ray is negative. She has no leukocytosis and mild fever. I suspect that this may be driven mostly by a viral infection. Given her human immunodeficiency virus history, her recent chemotherapy, we will treat for now with azithromycin and ceftriaxone. These antibiotics can be deescalated in the next 24 to 48 hours if patient remains stable. 2. For chronic obstructive pulmonary disease, she will have duo nebulizers and Solu-Medrol 60 mg IV q.8 hours. She does have a component of acute on chronic hypoxic respiratory failure. At the time of my examination, she was on 2 L nasal cannula with O2 saturation of 89%. This has now been turned up to 3 L nasal cannula at the moment. Her lactic acid is normal. Blood cultures have been sent. 3. Human immunodeficiency virus. Continue home medications. Her last CD3 count was 350, CD4 count 164. Continue her medications per Dr. Morin. 4. Small cell lung cancer. The patient states she had chemotherapy 2 weeks ago. Her blood counts are normal. Plan to follow up with Dr. Bueno outpatient. 5. Code status: Full code. 6. DVT prophylaxis: With heparin subcu. 7. Disposition: To medical floor. TIME SPENT: Approximately 60 minutes were spent on the admission of this patient, and more than half of the time was spent with her at the bedside reviewing the events leading up to this hospitalization, performing the physical examination and reviewing the plan of care. CHERYL ALEXIS NP [id number]/[facility] #: [id number] LEVY
[2018-03-02] MEDS ORDERED: Mouth Piece, Nicotine* 1 EACH CARTRIDGE INH PRN (19:55)
[2018-03-02] MEDS ORDERED: Nicotine Inhaler* 10 MG AMP INH PRN (19:55)
[2018-03-02] MEDS ORDERED: Nicotine GUM* 2 MG PO PRN (19:55)
[2018-03-02] MEDS: methylPREDNISolone SOD 40 MG* 1 ML VIAL IV SCH (20:25)
[2018-03-02] MEDS: Melatonin 3 MG TAB PO PRN (20:26)
[2018-03-02] MEDS: Albuterol HFA INHALER* 8 gm MDI INH PRN (20:44)
[2018-03-03] MEDS: methylPREDNISolone SOD 40 MG* 1 ML VIAL IV SCH ×3 (05:15→20:39)
[2018-03-03] MEDS: Heparin VIAL(*) 5000 UNITS/ML VIAL (FIVE THOUSAND) SUBCUT SCH ×3 (05:15→20:40)
[2018-03-03 05:43] LABS: EGFR Non-African American 75.9 (>60)
[2018-03-03] MEDS: Albuterol HFA INHALER* 8 gm MDI INH PRN ×2 (06:12→06:20)
[2018-03-03] MEDS: Magnesium Oxide TAB* 400 MG PO SCH ×2 (08:06→08:13)
[2018-03-03] MEDS: EMTRICITABINE PO SCH (08:12)
[2018-03-03] MEDS: [UNRECOGNIZED DRUG - OTHER] PO SCH (08:12)
[2018-03-03] MEDS: RILPIVIRINE PO SCH (08:12)
[2018-03-03] MEDS ORDERED: Acetylcysteine CAP (RENAL)* 600 MG PO STA (09:07)
[2018-03-03] MEDS ORDERED: Iohexol 350* (CONTRAST) 500 ML MDV IV ONE (09:22)
--- NOTE | 2018-03-03 12:50 | RAD ---
HISTORY: Fever and SOB COMPARISONS: February 21, 2018 TECHNIQUE: Multiple contiguous axial CT scans of the chest were obtained after the administration of nonionic intravenous contrast, timed to the pulmonary arterial phase of contrast enhancement.. Coronal and sagittal multiplanar reformations are also submitted for review. FINDINGS: NECK AND THYROID: The lower neck and thyroid are unremarkable. CHEST WALL: There is no lower cervical, axillary, or supraclavicular lymphadenopathy by size criteria. A right-sided chest port is noted. HEART AND PERICARDIUM: The heart is unremarkable. AORTA AND PULMONARY VASCULATURE: There is no pulmonary arterial filling defect to suggest pulmonary embolism. There is no linear filling defect within the aorta to suggest aortic dissection. There is atherosclerosis of the thoracic aorta MEDIASTINUM: There is stable soft tissue thickening along the mediastinum. LUL: There is no hilar lymphadenopathy by size criteria. AIRWAY AND ESOPHAGUS: The airway is unremarkable, without endobronchial filling defect. The esophagus is grossly normal. LUNG PARENCHYMA: There is persistent nodularity of the right upper lobe along the tracheoesophageal recess. There is persistent treatment related change to the right upper lobe. PLEURA: No pleural abnormalities are noted. UPPER ABDOMEN: There is stable adrenal nodularity. BONES AND SOFT TISSUES: No bone or soft tissue abnormalities are noted. OTHER: None. IMPRESSION: NO PULMONARY ARTERIAL FILLING DEFECT TO SUGGEST PULMONARY EMBOLISM. NO SIGNIFICANT CHANGE FROM FEBRUARY 21, 2018
[2018-03-03] MEDS ORDERED: Albuterol HFA INHALER* 8 gm MDI INH PRN (13:14)
--- NOTE | 2018-03-03 13:25 | PN ---
Subjective Date of Service: 03/03/18 Interval History: Pt seen and examined. Meds and labs reviewed. CC: Rhinorrhea and nasal congestion ROS: Denied WRIGHT/dizziness, F/C, N/V, CP, SOB, increased cough, sputum production , abd pain, diarrhea, constipation, dysuria, myalgias, arthralgias, throat pain , and new skin lesions. The rest of the 14 point ROS are unremarkable. PHYSICAL EXAM: GEN APPEARANCE: Awake, not in acute distress HEENT: NC/AT, PERRLA, moist oral mucosa, (-) throat erythema NECK: Soft, supple, (-) cervical LAD, (-)JVD HEART: S1S2 WNL, RRR, No MRG CHEST: CTA, BL, GAE, No R/R, (+)Wheezing throughout all lung lucero ABD: Soft, ND/NT, NABS 4x Q EXT: No C/C/E SKIN: Warm to touch PSYCH: No active psychosis, hallucinations, depression, SI/HI Objective Active Medications: Albuterol (Ventolin Hfa Inhaler*) 2 puff INH Q2H PRN PRN Reason: SOB/WHEEZING Albuterol/Ipratropium (Duoneb (Albuterol 2.5 Mg/Ipratropium 0.5 Mg)) 1 neb INH [id number] AWAKE [facility] Device (Nicotine Mouth Piece*) 1 each INH .USE WITH NICOTROL PRN PRN Reason: CRAVING Heparin Sodium (Porcine) (Heparin Vial(*)) 5,000 units SUBCUT Q8HR [facility] Last Admin: 03/03/18 05:15 Dose: 5,000 units Magnesium Oxide (Magox 400 Tab*) 400 mg PO DAILY [facility] Last Admin: 03/03/18 08:13 Dose: Not Given Melatonin (Melatonin) 3 mg PO BEDTIME PRN; Protocol PRN Reason: INSOMNIA Last Admin: 03/02/18 20:26 Dose: 3 mg Methylprednisolone Sodium Succinate (Solu-Medrol 40 Mg) 60 mg IV Q8H [facility] Last Admin: 03/03/18 11:30 Dose: 60 mg Nicotine (Nicotine Inhaler*) 10 mg INH Q2H PRN PRN Reason: CRAVING Nicotine Polacrilex (Nicotine Gum*) 2 mg PO Q2H PRN PRN Reason: CRAVING Emticitabine/Rilpivirine/Tenofovir 200/25/25mg Tab 1 dose PO DAILY [facility] Last Admin: 03/03/18 08:12 Dose: 1 dose Oxymetazoline HCl (Afrin 0.05% Nasal [place]*) 2 spray BOTH NARES BID [facility] Stop: 03/06/18 20:59 Fluticasone/Salmeterol (Advair Diskus 500-50*) 1 puff INH BID [facility] Vital Signs - 8 hr 03/03/18 03/03/18 03/03/18 06:22 07:21 08:00 Temperature 97.3 F Pulse Rate 88 97 Respiratory 18 18 20 Rate Blood Pressure 94/70 (mmHg) O2 Sat by Pulse 99 96 97 Oximetry 03/03/18 03/03/18 11:30 11:36 Temperature 98.0 F Pulse Rate 92 92 Respiratory 16 20 Rate Blood Pressure 105/62 (mmHg) O2 Sat by Pulse 97 97 Oximetry Oxygen Devices in Use Now: Nasal Cannula Result Diagrams: 03/02/18 11:46 03/03/18 05:05 Microbiology and Other Data: Microbiology 03/02/18 11:46 Aerobic Blood Culture - Preliminary Blood Venous No Growth Day 1 Anaerobic Blood Culture - Preliminary No Growth Day 1 03/02/18 11:46 Aerobic Blood Culture - Preliminary Blood Venous No Growth Day 1 Anaerobic Blood Culture - Preliminary No Growth Day 1 03/02/18 13:26 Influenza Types A,B Antigen - Final Nasal Specimen received for Influenza A/B Molecular testing Assess/Plan/Problems-Billing Assessment: - Patient Problems (1) SIRS (systemic inflammatory response syndrome) Current Visit: Yes Status: Acute Code(s): R65.10 - SIRS OF NON-INFECTIOUS ORIGIN W/O ACUTE ORGAN DYSFUNCTION SNOMED Code(s): 760867296 Comment: -No evidence of sepsis, given no focus of infection -SIRS has now resolved -Agree that given symptoms and lack of focus that likely precipitating cause is a viral URTI -D/C Rocephin and Azithromycin and will place on limited Oxymetazoline -CTA of Chest Rd/O PE (2) COPD exacerbation Current Visit: Yes Status: Acute Code(s): J44.1 - CHRONIC OBSTRUCTIVE PULMONARY DISEASE W (ACUTE) EXACERBATION SNOMED Code(s): 104811155 Comment: -Will adjust nebulizations as ordered -Continue Solumedrol -Will place on Advair 500/50 mcg 1 puff, INH BID (3) HIV antibody positive Current Visit: No Status: Acute Code(s): Z21 - ASYMPTOMATIC HUMAN IMMUNODEFICIENCY VIRUS INFECTION STATUS SNOMED Code(s): 190545952 Comment: -Continue HAART (4) SCLC (small cell lung carcinoma) Current Visit: Yes Status: Acute Code(s): C34.90 - MALIGNANT NEOPLASM OF UNSP PART OF UNSP BRONCHUS OR LUNG SNOMED Code(s): 865264801 Comment: -Mentioned finished all cycles of planned chemotherapy 2 weeks ago -Will defer with Heme/Onc on F/U for further surveillance (5) DVT prophylaxis Current Visit: No Status: Acute Code(s): QHJ1597 - SNOMED Code(s): 882032617 Comment: -Continue Heparin SQq8h Status and Disposition: -For ambulatory sats in AM -Possible D/C in 1-2 days
[2018-03-03] MEDS ORDERED: Albuterol/Ipratropium NEB.SOL* Albuterol 2.5 MG/Ipratropium 0.5 MG 3 ML INH SCH ×2 (13:30→15:00)
[2018-03-03] MEDS ORDERED: Azithromycin IV(*) 250 MG in NS 0.9% 250 ML* 250 ML IVPB SCH (14:00)
[2018-03-03] MEDS: Mometasone/Formoter 200/5 MDI INH SCH (19:16)
[2018-03-03] MEDS: Albuterol/Ipratropium NEB.SOL* Albuterol 2.5 MG/Ipratropium 0.5 MG 3 ML INH SCH (19:18)
[2018-03-03] MEDS: Melatonin 3 MG TAB PO PRN (20:40)
[2018-03-03] MEDS: Oxymetazoline 0.05% NASAL SPR* 15 ML BTL BOTH NARES SCH (20:43)
[2018-03-04] MEDS: methylPREDNISolone SOD 40 MG* 1 ML VIAL IV SCH ×2 (04:21→12:47)
[2018-03-04] MEDS: Heparin VIAL(*) 5000 UNITS/ML VIAL (FIVE THOUSAND) SUBCUT SCH ×2 (05:44→14:46)
[2018-03-04 06:29] LABS: ABS Basophils 0.1 10^3/ul (0-0.2); ABS Eosinophils 0 10^3/ul (0-0.6); ABS Lymphocytes 0.7 10^3/ul (1.0-4.8); ABS Monocytes 0.8 10^3/ul (0-0.8); ABS Neutrophils 15.5 10^3/ul (1.5-7.7); ABS Nucleated RBC 0 10^3/ul; Eosinophil % 0 % (0-6); Hematocrit 37 % (35-47); Hemoglobin 12.3 g/dl (12.0-16.0); Lymphocyte % 4.1 % (25-47); Mean Corpuscular HGB Conc 33 g/dl (31-36); Mean Corpuscular Hemoglobin 32 pg (27-31); Mean Corpuscular Volume 98 fL (80-97); Mean Platelet Volume 8.2 um3 (7.4-10.4); Nucleated Red Blood Cells % 0; Platelet Count 273 10^3/ul (150-450); Red Blood Count 3.81 10^6/ul (4.00-5.40); Red Cell Distribution Width 15 % (10.5-15)
[2018-03-04 06:48] LABS: EGFR Non-African American 85.9 (>60)
[2018-03-04] MEDS: Albuterol/Ipratropium NEB.SOL* Albuterol 2.5 MG/Ipratropium 0.5 MG 3 ML INH SCH ×2 (07:02→07:39)
[2018-03-04] MEDS: Mometasone/Formoter 200/5 MDI INH SCH (07:39)
[2018-03-04] MEDS: EMTRICITABINE PO SCH (08:20)
[2018-03-04] MEDS: [UNRECOGNIZED DRUG - OTHER] PO SCH (08:20)
[2018-03-04] MEDS: RILPIVIRINE PO SCH (08:20)
[2018-03-04] MEDS: Oxymetazoline 0.05% NASAL SPR* 15 ML BTL BOTH NARES SCH (08:21)
[2018-03-04] MEDS: Magnesium Oxide TAB* 400 MG PO SCH (08:22)
[2018-03-04 12:11] VITALS: BP 119/67
[2018-03-04] MEDS ORDERED: Albuterol/Ipratropium NEB.SOL* Albuterol 2.5 MG/Ipratropium 0.5 MG 3 ML INH SCH (13:00)
[2018-03-04] MEDS ORDERED: traZODone TAB* 50 MG TAB PO SCH (21:00)
--- NOTE | 2018-03-05 06:29 | DS ---
CC: Dr. Davila; Sapna Vickers NP; Dr. Cierra Bertrand; Dr. Amy Atwood. * DISCHARGE SUMMARY: DATE OF ADMISSION: DATE OF DISCHARGE: 03/04/18. DISCHARGE DIAGNOSES: Are as follows: 1. Systemic inflammatory response syndrome likely secondary to chronic obstructive pulmonary disease exacerbation. 2. Chronic obstructive pulmonary disease exacerbation likely secondary to upper respiratory tract infection. 3. History of human immunodeficiency virus positivity, on HAART therapy. 4. History of small cell lung cancer. DISCHARGE MEDICATIONS: 1. Albuterol HFA inhaler two puffs inhalation q.6 p.r.n. 2. Emtricitabine/rilpivirine/tenofovir one tab p.o. q. daily which is Odefsey tablet one tab p.o. q. daily. 3. Magnesium oxide 400 mg p.o. q. daily. 4. Melatonin 3 mg p.o. q.h.s. p.r.n. 5. Dulera two puffs inhalation b.i.d. 6. Nicotine gum 2 mg p.o. q.2 p.r.n. 7. Nicotine inhaler 10 mg inhalation q.2 hours p.r.n. 8. Oxymetazoline 2 sprays to both nares b.i.d. for two more days. 9. Trazodone 25 mg p.o. q.h.s. for insomnia 10. Guaifenesin-pseudoephedrine one tab p.o. b.i.d. p.r.n. 11. Melatonin 3 mg p.o. q.h.s. 12. Prednisone slow taper as prescribed. HISTORY OF PRESENT ILLNESS/HOSPITAL COURSE: The patient is a 57-year-old lady with a history of HIV on HAART therapy and being followed by Dr. Morin, history of severe COPD on 2L nasal cannula as well as small cell lung carcinoma who has just finished her cycles of chemotherapy 2 weeks prior to this admission who was admitted secondary to shortness of breath, cough and fever, which was subsequently found to be due to COPD exacerbation. During her stay, she had been ruled out for PE and pneumonia and hence her antibiotics were subsequently discontinued especially when she mentions that she felt little nervous with Rocephin and felt as if she had reacted to it and also absence of increased sputum production, although mentions that she has a lot of rhinorrhea and nasal congestion. This was then subsequently addressed by placing her on Afrin and her steroid needs were increased as well as her nebulization titrated during her hospital stay and was placed on Dulera and she has done well with these medication changes and feels well today. She had been advised to follow up/or call her PCP within three days post discharge. She had been advised to follow up with her lung doctor within 3 to 4 weeks post discharge. She was advised to stop smoking and to continue her nicotine replacement therapy as needed. She had been advised that if her symptoms resume or develop new ones or feel unwell for any reason to call her PCP and if her PCP cannot entertain her due to scheduling issues alone to call [facility]. If her issues are nonemergent, she was advised to call my office regarding any questions, concerns, or further clarifications regarding her discharge plans and her prescriptions and to take her medications as prescribed. REVIEW OF SYSTEMS: The patient denied any current headaches, dizziness, fevers , chills, nausea, vomiting, chest pain, shortness of breath, increased cough and sputum production, abdominal pain, diarrhea, constipation, pain, and/or increased frequency on urination, myalgias, arthralgias, throat pain, or new skin lesions. The rest of the 14-point review of systems is otherwise unremarkable. PHYSICAL EXAMINATION: Reveals the most recent vital signs of record with blood pressure of 119/67, 98.2 degrees Fahrenheit, 91 beats per minute heart rate, 18 per minute respiratory rate, saturating at 96% room air. General Appearance: The patient is awake, alert, and oriented x3, not in acute distress. HEENT: Normocephalic, atraumatic. PERRLA. Extraocular muscles intact. Negative for icterus. Moist oral mucosa. Negative throat erythema. Neck is soft, supple with no cervical lymphadenopathy. No JVD. Heart: S1, S2 within normal limits. Regular rate and rhythm. No murmurs, rubs, or gallops. Chest: Mild and certainly improved wheezing in her mid to lower lung lucero with good air entry. No rales or rhonchi appreciated. Abdomen is soft, nondistended, nontender. Normoactive bowel sounds x4 quadrants. Extremities: No cyanosis, clubbing or edema. Psychiatric: No active psychosis, depression, suicidal or homicidal ideation. Skin is warm to touch. TIME SPENT: The total time spent evaluating the patient, reviewing pertinent data, and appropriate documentation is 60 minutes. [id number]/[facility] #: [id number] MTDD
[2018-03-05] MEDS ORDERED: [UNRECOGNIZED DRUG - OTHER] PO SCH (09:00)
[2018-03-05] MEDS ORDERED: RILPIVIRINE PO SCH (09:00)
[2018-03-05] MEDS ORDERED: EMTRICITABINE PO SCH (09:00)
== END 2018-03-04 15:38 | disposition home or self-care (01) | DRG 190 ==
LOC: ED 10:18 → MED 13:10
PROVIDERS: ADMIT Internal Medicine; ATTEND Student in an Organized Health Care Education/Training Program
DX: J44.1 Chronic obstructive pulmonary disease with (acute) exacerbation (principal); J96.21 Acute and chronic respiratory failure with hypoxia; R65.10 Systemic inflammatory response syndrome (SIRS) of non-infectious origin without acute organ dysfunction; C34.90 Malignant neoplasm of unspecified part of unspecified bronchus or lung; Z99.81 Dependence on supplemental oxygen; J06.9 Acute upper respiratory infection, unspecified; F17.210 Nicotine dependence, cigarettes, uncomplicated; Z88.2 Allergy status to sulfonamides; Z91.030 Bee allergy status; Z91.040 Latex allergy status; Z83.3 Family history of diabetes mellitus; Z82.49 Family history of ischemic heart disease and other diseases of the circulatory system; Z21 Asymptomatic human immunodeficiency virus [HIV] infection status
CPT/HCPCS: 0521F; 1125F; 36415; 71045; 71275; 80048; 80053; 81003; 83605; 83735; 83880; 84100; 84484; 85025; 85610; 85730; 86140; 86850; 86900; 86901; 87040; 90686; 93005; 94640; 99213; 99214; 99284; 99406; A9270-GY; G0463; G8427; J0456; J0692; J0696; J1642; J1644; J2920; J2930; Q9967

== ENCOUNTER 2018-07-18 14:33 | Inpatient (IN) | payer MEDICARE, MEDICAID ==
--- NOTE | 2018-07-18 15:21 | ED ---
Complex/Multi-Sys Presentation - HPI Summary HPI Summary: A 57 y/o F presents to ED with intermittent chest tightness onset yesterday. Associated sx: dysphagia for the past few days, chest congestion, fatigue, SOB and cough worse than her baseline. She has home O2. Pt denies any fever, chills , erythema of eyes, sore throat, abdominal pain, N/V, dysuria, hematuria, myalgia, edema, rash, or dizziness. She states her counts are OK. She sees Dr. Morin, infectious disease and Family Medicine. PMHx: AIDS - History Of Current Complaint Chief Complaint: EDShortnessOfBreath Time Seen by Provider: 07/18/18 14:59 Hx Obtained From: Patient Onset/Duration: Lasting Days - yesterday, Still Present Timing: Intermittent, Lasting: Severity Currently: Moderate Severity Initially: Moderate Associated Signs And Symptoms: Positive: SOB, Cough, Chest Pain, Immunocompromised, Other - pos: dysphagia, chest congestion, fatigue. Negative : Dizziness, Edema, Nausea, Vomiting, Abdominal Pain, Dysuria, Fever - Allergies/Home Medications Allergies/Adverse Reactions: Allergies Allergy/AdvReac Type Severity Reaction Status Date / Time bee venom protein (honey bee) Allergy Severe Difficulty Verified 02/21/18 10:17 Breathing Sulfa (Sulfonamide Allergy Intermediate Hives Verified 02/21/18 10:17 Antibiotics) latex Allergy Mild Hives Verified 02/21/18 10:17 Home Medications: Home Medications Albuterol inh POWDER (NF) [Proair Respiclick] 2 puff INH Q6HR PRN 07/18/18 [ History Confirmed 07/18/18] Emtricitabine/Rilpivirine/Teno [Odefsey 200-25-25 mg] 1 tab PO DAILY 07/18/18 [ History Confirmed 07/18/18] Umeclidin/Vilant 62.5 MDI(NF) [ANORO 62.5/25 Ellipta DEVICE (NF)] 1 puff INH BID 07/18/18 [History Confirmed 07/18/18] Varenicline 0.5 mg Tab(Nf) [Chantix 0.5 MG TAB(NF)] 0.5 mg PO BID 07/18/18 [ History Confirmed 07/18/18] traZODone TAB* [Desyrel TAB*] 50 mg PO BEDTIME 07/18/18 [History Confirmed 07/18] PMH/Surg Hx/FS Hx/Imm Hx Previously Healthy: No Endocrine/Hematology History: Reports: Other Endocrine/Hematological Disorders - HIV Denies: Hx Anticoagulant Therapy, Hx Diabetes, Hx Systemic Lupus Erythematosus Cardiovascular History: Denies: Hx Congestive Heart Failure, Hx Hypertension, Hx Pacemaker/ICD Respiratory History: Reports: Hx Asthma, Hx Chronic Obstructive Pulmonary Disease (COPD), Hx Lung Cancer - normal Denies: Hx Sleep Apnea History: Denies: Hx Dialysis, Hx Renal Disease Musculoskeletal History: Reports: Hx Arthritis Denies: Hx Rheumatoid Arthritis, Hx Osteoporosis Sensory History: Reports: Hx Contacts or Glasses - reading Denies: Hx Cataracts, Hx Glaucoma, Hx Hearing Aid Opthamlomology History: Reports: Hx Contacts or Glasses - reading Denies: Hx Cataracts, Hx Glaucoma Neurological History: Denies: Hx Headaches, Hx Seizures, Hx Transient Ischemic Attacks (TIA) Psychiatric History: Denies: Hx Anxiety, Hx Depression, Hx Panic Disorder - Cancer History Cancer Type, Location and Year: LUNG CANCER Hx Chemotherapy: Yes - Surgical History Surgery Procedure, Year, and Place: TUBAL LIGATION. UMBILICAL HERNIA REPAIR. mediastinoscopy 07/26/17 [facility]. EBUS [facility]. bilat cataract with IOL. LOWER BACK SURGERY - [place]. RIGHT WRIST SURGERY (WITH PIN) Hx Anesthesia Reactions: No - Immunization History Date of Tetanus Vaccine: 2014 Date of Influenza Vaccine: 2015 Infectious Disease History: Yes Infectious Disease History: Reports: Hx Human Immunodeficiency Virus (HIV), Hx of Known/Suspected MRSA - 6 years ago Denies: Traveled Outside the [place] in Last 30 Days - Family History Known Family History: Positive: Diabetes, Other - denies FHx of breast CA, but does have other cancers in the family Family History: No FHx of breast CA. - Social History Occupation: Disabled Lives: Alone Alcohol Use: None Hx Substance Use: No Substance Use Type: Reports: None Hx Tobacco Use: Yes Smoking Status (MU): Current Every Day Smoker Type: Cigarettes Amount Used/How Often: 4 PPD X 44 YEARS THEN DECREASED TO 1 PPD Have You Smoked in the Last Year: Yes Review of Systems Positive: Fatigue. Negative: Fever, Chills Negative: Erythema Positive: Other - pos: dysphagia. Negative: Sore Throat Positive: Chest Pain Positive: Shortness Of Breath, Cough, Other - pos: chest congestion Negative: Abdominal Pain, Vomiting, Nausea Negative: dysuria, hematuria Negative: Myalgia, Edema Negative: Rash Neurological: Other - neg: dizziness All Other Systems Reviewed And Are Negative: Yes Physical Exam - Summary Physical Exam Summary: Constitutional: Well-developed, Well-nourished, Alert. (-) Distressed Skin: Warm, Dry HENT: Normocephalic; Atraumatic Eyes: Conjunctiva normal Neck: Musculoskeletal ROM normal neck. (-) JVD, (-) Stridor, (-) Tracheal deviation Cardio: Rhythm regular, rate normal, Heart sounds normal; Intact distal pulses; The pedal pulses are 2+ and symmetric. Radial pulses are 2+ and symmetric. (-) Murmur Pulmonary/Chest wall: Effort normal. (-) Respiratory distress, (-) Rales. Wet cough. Rhonchi is L lower lung field. Abd: Soft, (-) epigastric tenderness, (-) Distension, (-) Guarding, (-) Rebound Musculoskeletal: (-) Edema Lymph: (-) Cervical adenopathy Neuro: Alert, Oriented x3 Psych: Mood and affect Normal Triage Information Reviewed: Yes Vital Signs On Initial Exam: Initial Vitals Temp Pulse Resp BP Pulse Ox 98 F 85 18 100/73 98 07/18/18 14:40 07/18/18 14:40 07/18/18 14:40 07/18/18 14:40 07/18/18 14:40 Vital Signs Reviewed: Yes Diagnostics - Vital Signs Vital Signs Temp Pulse Resp BP Pulse Ox 07/18/18 14:40 98 F 85 18 100/73 98 - Laboratory Result Diagrams: 07/18/18 15:22 07/18/18 15:22 Lab Statement: Any lab studies that have been ordered have been reviewed, and results considered in the medical decision making process. - Radiology CXR Radiology Interpretation Completed By: Radiologist Summary of Radiographic Findings: IMPRESSION: LIKELY SCARRING IN THE RIGHT UPPER LOBE. LEFT LUNG APPEARS CLEAR. ED provider has reviewed this report. - CT Chest/thorax CTA CT Interpretation Completed By: Radiologist Summary of CT Findings: IMPRESSION: 1. No pulmonary emboli. 2. Emphysema with intervally progressed right upper lobe primary lung. carcinoma. 3. Stable left adrenal adenoma. ED provider has reviewed this report. - EKG 1514 Cardiac Rate: NL - 79 bpm EKG Rhythm: Sinus Rhythm Summary of EKG Findings: no STEMI Re-Evaluation - Re-Evaluation 1 Re-Evaluation Time: 20:32 Change: Improved Comment: Chest tightness significantly improved after nebulizer. Discussing plans to admit pt. Complex Multi-Symp Course/Dx Course Of Treatment: A 57 y/o F presents to ED with intermittent chest tightness onset yesterday. Associated sx: dysphagia for the past few days, chest congestion, fatigue, SOB and cough worse than her baseline. She has home O2. Pt denies any fever, chills, erythema of eyes, sore throat, abdominal pain, N/V, dysuria, hematuria, myalgia, edema, rash, or dizziness. She states her counts are OK. She sees Dr. Morin, infectious disease and Family Medicine. PMHx: AIDS. EKG shows NSR and no STEMI. CXR shows "LIKELY SCARRING IN THE RIGHT UPPER LOBE. LEFT LUNG APPEARS CLEAR." Chest/Thorax CTA shows "1. No pulmonary emboli. 2. Emphysema with intervally progressed right upper lobe primary lung carcinoma. 3. Stable left adrenal adenoma.". Rapid flu A and B are negative. Consulted with Dr. Bertrand, hospitalist, who will admit patient. - Physician Notifications Discussed Care Of Patient With: Cierra Bertrand - hospitalist Time Discussed With Above Provider: 20:20 Instructed by Provider To: Admit As Inpatient Discharge - Sign-Out/Discharge Documenting (check all that apply): Patient Departure - ADMIT Patient Received Moderate/Deep Sedation with Procedure: No - Discharge Plan Disposition: ADMITTED TO [facility] Referrals: Philip Diamond MD [Primary Care Provider] - - Attestation Statements Document Initiated by Scribe: Yes Documenting Scribe: Janell Rollins Provider For Whom Scribe is Documenting (Include Credential): Dr. Fam Jim MD Scribe Attestation: Sagar, Janell Rollins, scribed for Dr. Fam Jim MD on 07/18/18 at 2033.
[2018-07-18] MEDS ORDERED: Albuterol/Ipratropium NEB.SOL* Albuterol 2.5 MG/Ipratropium 0.5 MG 3 ML INH ONE (15:36)
[2018-07-18] MEDS ORDERED: Albuterol/Ipratropium NEB.SOL* Albuterol 2.5 MG/Ipratropium 0.5 MG 3 ML ONE (15:38)
[2018-07-18 15:39] LABS: ABS Basophils 0 10^3/ul (0-0.2); ABS Eosinophils 0.1 10^3/ul (0-0.6); ABS Lymphocytes 0.9 10^3/ul (1.0-4.8); ABS Monocytes 0.6 10^3/ul (0-0.8); ABS Neutrophils 5.1 10^3/ul (1.5-7.7); ABS Nucleated RBC 0 10^3/ul; Eosinophil % 0.8 %; Hematocrit 38 % (35-47); Hemoglobin 12.7 g/dl (12.0-16.0); Lymphocyte % 13.3 %; Mean Corpuscular HGB Conc 33 g/dl (31-36); Mean Corpuscular Hemoglobin 33 pg (27-31); Mean Corpuscular Volume 99 fL (80-97); Mean Platelet Volume 8.1 fL (7.4-10.4); Nucleated Red Blood Cells % 0; Platelet Count 262 10^3/ul (150-450); Red Blood Count 3.83 10^6/ul (4.00-5.40); Red Cell Distribution Width 14 % (10.5-15); White Blood Count 6.6 10^3/ul (3.5-10.8)
[2018-07-18 16:03] LABS: Albumin 3.8 g/dL (3.2-5.2); Albumin/Globulin Ratio 1.5 (1-3); EGFR African American 93.2 (>60); Globulin 2.6 g/dL (2-4); Total Bilirubin 0.3 mg/dL (0.2-1.0); Total Protein 6.4 g/dL (6.4-8.9)
[2018-07-18 16:10] LABS: Influenza A Molecular NEGATIVE (Negative); Influenza B Molecular NEGATIVE (Negative)
[2018-07-18] MEDS ORDERED: Iohexol 350* (CONTRAST) 500 ML MDV IV ONE (16:16)
[2018-07-18] MEDS ORDERED: Aspirin 81 mg CHEW TAB* 81 MG TAB.CHEW PO ONE (20:28)
[2018-07-18] MEDS ORDERED: Nitroglycerin TAB 0.4 MG* 0.4 MG TAB SL ONE (20:28)
[2018-07-18] MEDS ORDERED: methylPREDNISolone 125 MG* 2 ML VIAL IV ONE (20:33)
[2018-07-18] MEDS ORDERED: Acetaminophen TAB* 325 MG PO PRN (20:56)
[2018-07-18] MEDS ORDERED: Nicotine Inhaler* 10 MG AMP INH PRN (20:56)
[2018-07-18] MEDS ORDERED: Ondansetron INJ* 2 MG/ML VIAL IV PRN (20:56)
[2018-07-18] MEDS ORDERED: Albuterol 2.5 MG/3 ML NEB.SOL* (0.083%) INH PRN (20:56)
[2018-07-18] MEDS ORDERED: Benzonatate CAP* 100 MG PO PRN (20:56)
[2018-07-18] MEDS ORDERED: oxyCODONE/Acetamin 5/325 MG* TAB PO PRN (20:59)
[2018-07-18] MEDS ORDERED: VARENICLINE 0.5 MG TAB(NF) PO SCH (21:00)
[2018-07-18] MEDS ORDERED: NS 0.9% 250 ML* 250 ML ONE (21:42)
[2018-07-18] MEDS: Enoxaparin(*) 40 MG/0.4 ML SYR SUBCUT SCH (21:45)
[2018-07-18] MEDS: guaiFENesin ER TAB 600 MG PO SCH (21:46)
[2018-07-18] MEDS: DOXYcycline IV* 100 MG in NS 0.9% 250 ML* 250 ML IVPB SCH (22:04)
--- NOTE | 2018-07-18 22:51 | HP ---
CC: Dr. Philip Diamond; Dr. Brian Bueno; Dr. Kieran Morin; Dr. Cierra Bertrand * ADMISSION HISTORY AND PHYSICAL: DATE OF ADMISSION: 07/18/18 PRIMARY CARE PROVIDER: Dr. Philip Diamond. OUTPATIENT ONCOLOGIST: Dr. Brian Bueno. OUTPATIENT INFECTIOUS DISEASE SPECIALIST: Dr. Kieran Morin. MY ATTENDING WHILE IN THE HOSPITAL: Dr. Cierra Bertrand* (dictated by GRISEL Shaw). CHIEF COMPLAINT: Shortness of breath, chest tightness. HISTORY OF PRESENT ILLNESS: Ms. Burnett is a 57-year-old female with a past medical history significant for small-cell lung cancer, having completed treatment, as well as HIV; on HAART and COPD; on 2 to 3 L of nasal cannula at all times who presents to the emergency department with several days of chest tightness and feeling of inability of not being able to swallow. Patient states that she does not have regurgitation of food, has not had any nausea and vomiting. Patient states that the chest tightness is worse with deep breathing and coughing and got better after a breathing treatment in the emergency department. Patient has no overt pain, no diaphoresis, no nausea or vomiting associated with this. Patient is more short of breath than normal. Patient has been wheezing at home and has increased dyspnea on exertion. Patient has no orthopnea, no swelling in her legs, no history of CHF. Patient's sister was recently discharged from the hospital with a respiratory infection. Patient has occasional dyspnea on standing. Patient has no palpitations or other symptoms. Patient denies abdominal pain, diarrhea, dysuria, or frequency. Patient in the emergency department had a negative troponin, normal temperature , oxygen saturation in the high 90s on 2 L nasal cannula. A chest, thorax CTA negative for pulmonary embolism. Interval progressed right upper lobe primary lung carcinoma and a nonischemic EKG. Patient was given a nebulizer, aspirin, and we were asked to evaluate the patient for concern for chest tightness and shortness of breath with possible COPD exacerbation. PAST MEDICAL HISTORY: Small-cell lung cancer, HIV, COPD with hypoxic respiratory failure; on 2 L nasal cannula at all times. PAST SURGICAL HISTORY: Tubal ligation, port placement and removal, mediastinoscopy. MEDICATIONS: 1. Anoro 62.5/25 one inhalation p.o. daily. 2. Mucinex 1200 mg p.o. b.i.d. 3. Percocet 5/325 one tab p.o. q.4 hours as needed. 4. Magnesium oxide 400 mg p.o. daily. 5. Odefsey 200/25/25 one tab p.o. daily. 6. Chantix 500 mcg p.o. b.i.d. ALLERGIES: Bee venom, SULFA, LATEX. FAMILY HISTORY: Patient's mother at 83 of complications of diabetes and hypertension. Patient's father of an [place] in his 50s. Patient has a sister with COPD and another sister whom she does not know the past medical history for. SOCIAL HISTORY: Patient smokes approximately 2 cigarettes a day; patient has been quitting for a long time and has smoked most of her life. Patient denies alcohol or drug abuse. 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 Patient is and has 4 children. Patient's surrogate decision maker will be her sister, Michelle Gamez. REVIEW OF SYSTEMS: A 14-point review of systems was reviewed and is negative, except as above in the HPI. PHYSICAL EXAMINATION GENERAL: Patient is a 57-year-old female who appears much older than stated age , sitting comfortably in the bed, in no acute distress. VITAL SIGNS: Temperature 98.0, pulse 74, respiratory rate 20, oxygen saturation 95% on 2 L, blood pressure 116/72. HEENT: Normocephalic, atraumatic. Sclerae anicteric. No conjunctival injection. Nasal mucosa moist. Oral mucosa moist. No pharyngeal erythema, discharge, or exudate. NECK: Supple, nontender. No lymphadenopathy. No carotid bruits auscultated. No JVD. RESPIRATORY: Clear to auscultation bilaterally. No wheezes or rhonchi. Severely diminished throughout. CARDIAC: Regular rate and rhythm. No clicks, murmurs, gallops, or rubs. Pulses are 2+ in the bilateral dorsalis pedis, posterior tibialis and radial areas. ABDOMEN: Soft, nontender, nondistended. Bowel sounds present in all 4 quadrants. No hepatosplenomegaly. No abdominal bruits auscultated. No hepatojugular reflux. GENITOURINARY: No suprapubic or CVA tenderness. SKIN: Clean, dry, intact. No rash. NEUROLOGIC: Cranial nerves II through XII intact. No focal deficits. Alert and oriented x3. PSYCHIATRIC: Pleasant and cooperative. DIAGNOSTIC STUDIES/LAB DATA: Laboratory Data: White blood cell count 6.6, hemoglobin 12.7, platelet count 262. Sodium 134, potassium 4.0, chloride 99, carbon dioxide 29, anion gap 6, BUN 10, creatinine 0.77, lactic acid 0.7, calcium 9.0. Bilirubin 0.3, AST 12, ALT 7, alkaline phosphatase 73. Troponin I of 0.00. Protein 6.4, albumin 3.8, globulin 2.6. Influenza A and B negative. EKG shows normal sinus rhythm. No ST-segment changes. Normal axis. No hypertrophy or enlargement. No blocks. Compared to previous exam, there is no change. Chest x-ray read as likely scarring in the right upper lobe. Left lung appears clear. Chest/thorax CTA read as no pulmonary emboli, emphysema with interval progressed right upper lobe primary lung carcinoma, stable left adrenal adenoma. ASSESSMENT AND PLAN: Impression: Ms. Burnett is a 57-year-old female with past medical history significant for small-lung cancer; having finished treatment, HIV; on HAART, and chronic obstructive pulmonary disease; on 2 L oxygen chronically who presents to the emergency department with increased shortness of breath, chest tightness, and productive cough for several days. Patient improved with respiratory treatments in the emergency department, but will be admitted to the hospital for moderate chronic obstructive pulmonary disease exacerbation. 1. Chronic obstructive pulmonary disease exacerbation. Patient will be started on prednisone. Patient will have scheduled DuoNeb inhalers q.4 hours. Patient will have Anoro Ellipta at home. Patient will have Mucinex and aggressive pulmonary toileting. Patient's CD4 count does not necessitate any additional coverage for opportunistic infection. 2. Human immunodeficiency virus. Patient's latest CD4 count was above 250. Continue patient's HAART. 3. Small-cell lung cancer. Patient has slight progression of her lung carcinoma on her CT scan. Patient should follow up and discuss this finding with her outpatient oncologist for consideration of continuation of treatment. 4. Chest tightness. Patient has chest tightness which is pleuritic, worse with coughing, appears noncardiac in nature. Patient has a nonischemic EKG. We will trend patient's troponins, repeat an EKG in the morning, risk stratify with hemoglobin A1c and lipid profile; however, the patient will not be scheduled for a stress test at this time. 4. DVT prophylaxis. Patient will have Lovenox. Patient is a high risk. 5. FEN. Patient does not require fluids. Patient will have a heart-healthy diet without caffeine. DISPOSITION: Patient will remain on observation. TIME SPENT: Approximately 60 minutes were spent on the admission of this patient, 30 of which was spent [id number] with the patient obtaining history and physical and discussing the treatment plan. This plan was discussed with my attending, Dr. Cierra Bertrand, and she is in agreement. GRISEL SHAW [id number]/[facility] #: [id number] LEVY
[2018-07-18] MEDS: Umeclidin/Vilant 62.5 MDI 62.5/25 mcg 14 INH ELLIPTA DEVICE INH SCH (23:15)
[2018-07-18] MEDS: traZODone TAB* 50 MG TAB PO SCH (23:18)
[2018-07-18] MEDS: Albuterol/Ipratropium NEB.SOL* Albuterol 2.5 MG/Ipratropium 0.5 MG 3 ML INH SCH (23:40)
[2018-07-19] MEDS: Albuterol/Ipratropium NEB.SOL* Albuterol 2.5 MG/Ipratropium 0.5 MG 3 ML INH SCH ×4 (06:46→19:16)
[2018-07-19 07:04] LABS: ABS Basophils 0 10^3/ul (0-0.2); ABS Eosinophils 0 10^3/ul (0-0.6); ABS Lymphocytes 0.5 10^3/ul (1.0-4.8); ABS Monocytes 0.1 10^3/ul (0-0.8); ABS Neutrophils 5.8 10^3/ul (1.5-7.7); ABS Nucleated RBC 0 10^3/ul; Eosinophil % 0 %; Hematocrit 40 % (35-47); Hemoglobin 13.2 g/dl (12.0-16.0); Lymphocyte % 7.8 %; Mean Corpuscular HGB Conc 33 g/dl (31-36); Mean Corpuscular Hemoglobin 33 pg (27-31); Mean Corpuscular Volume 99 fL (80-97); Mean Platelet Volume 7.9 fL (7.4-10.4); Nucleated Red Blood Cells % 0; Platelet Count 267 10^3/ul (150-450); Red Cell Distribution Width 13 % (10.5-15); White Blood Count 6.5 10^3/ul (3.5-10.8)
[2018-07-19] MEDS: Umeclidin/Vilant 62.5 MDI 62.5/25 mcg 14 INH ELLIPTA DEVICE INH SCH ×2 (07:06→19:26)
[2018-07-19 08:13] LABS: Calcium 9.2 mg/dL (8.6-10.3); Magnesium 1.8 mg/dL (1.9-2.7); Potassium 4.2 mmol/L (3.5-5.0)
[2018-07-19 08:19] LABS: BUN/Creatinine Ratio 17.1 (8-20); EGFR African American 86.6 (>60); EGFR Non-African American 71.6 (>60); HDL Cholesterol 43.3 mg/dL
[2018-07-19] MEDS ORDERED: Magnesium Sulfate 1 GM IV* 1 GM/100 ML BAG IV ONE (08:34)
[2018-07-19] MEDS ORDERED: Magnesium Oxide TAB* 400 MG PO SCH (09:00)
[2018-07-19] MEDS: CMCS:Varenicline (NF) 1 MG TAB PO SCH ×2 (09:50→22:00)
[2018-07-19] MEDS: predniSONE TAB* 20 MG PO SCH (09:50)
[2018-07-19] MEDS: guaiFENesin ER TAB 600 MG PO SCH ×2 (09:51→22:00)
[2018-07-19] MEDS: PTO:Emtricitabine/Rilpivirine/Teno (Odefsey) 200/25/25 TABLET PO SCH (09:51)
[2018-07-19] MEDS: DOXYcycline IV* 100 MG in NS 0.9% 250 ML* 250 ML IVPB SCH ×2 (11:02→22:01)
--- NOTE | 2018-07-19 19:44 | PN ---
Subjective Date of Service: 07/19/18 Interval History: continues to c/o wheezing, and mils shortness of breath. denies chest pain. denies abd pain n/v/d. denies fever or chills Family History: Unchanged from Admission Social History: Unchanged from Admission Past Medical History: Unchanged from Admission Objective Active Medications: Acetaminophen (Tylenol Tab*) 650 mg PO Q6H PRN PRN Reason: FEVER/PAIN Albuterol (Ventolin 2.5 Mg/3 Ml Neb.Mini*) 2.5 mg INH Q2H PRN PRN Reason: SOB/WHEEZING Albuterol/Ipratropium (Duoneb (Albuterol 2.5 Mg/Ipratropium 0.5 Mg)) 1 neb INH [id number] AWAKE [facility] Last Admin: 07/19/18 19:16 Dose: 1 neb Benzonatate (Tessalon Cap*) 100 mg PO BID PRN PRN Reason: COUGH Last Admin: 07/18/18 21:46 Dose: 100 mg Emtricitabine/Rilpivirine/Tenofovir (Odefsey Tablet) 1 each PO DAILY [facility] Last Admin: 07/19/18 09:51 Dose: 1 each Enoxaparin Sodium (Lovenox(*)) 40 mg SUBCUT Q24H [facility] Last Admin: 07/18/18 21:45 Dose: 40 mg Guaifenesin (Mucinex*) 1,200 mg PO BID [facility] Last Admin: 07/19/18 09:51 Dose: 1,200 mg Doxycycline Hyclate 100 mg/ (Sodium Chloride) 250 mls @ 250 mls/hr IVPB Q12H [facility] Last Admin: 07/19/18 11:02 Dose: 250 mls/hr Magnesium Oxide (Magox 400 Tab*) 400 mg PO DAILY [facility] Last Admin: 07/19/18 09:51 Dose: 400 mg Nicotine (Nicotine Inhaler*) 10 mg INH Q2H PRN PRN Reason: CRAVING Ondansetron HCl (Zofran Inj*) 4 mg IV Q6H PRN PRN Reason: NAUSEA Oxycodone/Acetaminophen (Percocet 5/325 Tab*) 1 tab PO Q4H PRN PRN Reason: PAIN Prednisone (Deltasone Tab*) 60 mg PO DAILY [facility] Last Admin: 07/19/18 09:50 Dose: 60 mg Trazodone HCl (Desyrel Tab*) 50 mg PO BEDTIME [facility] Last Admin: 07/18/18 23:18 Dose: 50 mg Umeclidinium/Vilanterol (Anoro 62.5/25 Ellipta Device (Nf)) 1 inh INH BID [facility] Last Admin: 07/19/18 19:26 Dose: Not Given Varenicline (Chantix (Nf)) 0.5 mg PO BID [facility] Last Admin: 07/19/18 09:50 Dose: 0.5 mg Vital Signs - 8 hr 07/19/18 07/19/18 07/19/18 12:54 12:56 15:23 Temperature 97.6 F Pulse Rate 96 94 107 Respiratory 14 98 26 Rate Blood Pressure 107/56 (mmHg) O2 Sat by Pulse 94 14 92 Oximetry 07/19/18 19:17 Temperature Pulse Rate 105 Respiratory 16 Rate Blood Pressure (mmHg) O2 Sat by Pulse 99 Oximetry Oxygen Devices in Use Now: Nasal Cannula Appearance: alert , sitting in the bed, no acute distress Eyes: No Scleral Icterus Ears/Nose/Mouth/Throat: Clear Oropharnyx, Mucous Membranes Moist Neck: NL Appearance and Movements; NL JVP Respiratory: Symmetrical Chest Expansion and Respiratory Effort, - - exp wheezing bilat Cardiovascular: NL Sounds; No Murmurs; No JVD Abdominal: NL Sounds; No Tenderness; No Distention Extremities: No Edema, No Clubbing, Cyanosis Skin: No Rash or Ulcers Neurological: Alert and Oriented x 3 Nutrition: Taking PO's Result Diagrams: 07/19/18 06:57 07/19/18 06:57 Microbiology and Other Data: Microbiology 07/18/18 15:50 Influenza Types A,B Antigen - Final Nasal Specimen received for Influenza A/B Molecular testing Assess/Plan/Problems-Billing Assessment: Ms. Burnett is a 57 y.o female with with pmhx of lung cancer, copd, and HIV who presented to the ER with shortness of breath - Patient Problems (1) COPD exacerbation Status: Acute Code(s): J44.1 - CHRONIC OBSTRUCTIVE PULMONARY DISEASE W (ACUTE ) EXACERBATION SNOMED Code(s): 168898347 Comment: Acute on chronic respiratory failure - requiring continuous o2 at 2 - 3 liters -Will continue nebulizations as ordered -Continue prednisone and doxycycline -Will continue anoro (2) HIV antibody positive Status: Acute Code(s): Z21 - ASYMPTOMATIC HUMAN IMMUNODEFICIENCY VIRUS INFECTION STATUS SNOMED Code(s): 353702852 Comment: -Continue HAART (3) SCLC (small cell lung carcinoma) Status: Acute Code(s): C34.90 - MALIGNANT NEOPLASM OF UNSP PART OF UNSP BRONCHUS OR LUNG SNOMED Code(s): 004462407 Comment: CTA of the chest show progression of RUL lung cancer, and noted tohave new nodules - will have Dr. Bueno see patient tomorrow - as she has completed treatment for Lung CA (4) DVT prophylaxis Status: Acute Code(s): JHE2674 - SNOMED Code(s): 155924083 Comment: -Continue lovenox
[2018-07-19] MEDS: Enoxaparin(*) 40 MG/0.4 ML SYR SUBCUT SCH (22:00)
[2018-07-19] MEDS: traZODone TAB* 50 MG TAB PO SCH (22:01)
[2018-07-20] MEDS: Albuterol/Ipratropium NEB.SOL* Albuterol 2.5 MG/Ipratropium 0.5 MG 3 ML INH SCH ×3 (01:33→13:24)
[2018-07-20] MEDS: Umeclidin/Vilant 62.5 MDI 62.5/25 mcg 14 INH ELLIPTA DEVICE INH SCH (07:48)
[2018-07-20] MEDS: CMCS:Varenicline (NF) 1 MG TAB PO SCH (08:44)
[2018-07-20] MEDS: PTO:Emtricitabine/Rilpivirine/Teno (Odefsey) 200/25/25 TABLET PO SCH (08:44)
[2018-07-20] MEDS: guaiFENesin ER TAB 600 MG PO SCH (08:45)
[2018-07-20] MEDS: predniSONE TAB* 20 MG PO SCH (08:45)
[2018-07-20] MEDS ORDERED: DOXYcycline CAP(*) 100 MG PO SCH (09:00)
[2018-07-20] MEDS ORDERED: Magnesium Oxide TAB* 400 MG PO SCH (12:00)
[2018-07-20 12:13] VITALS: BP 104/64
--- NOTE | 2018-07-21 05:07 | DS ---
CC: Dr. Brian Bueno; Dr. Diamond * DISCHARGE SUMMARY: DATE OF ADMISSION: 07/18/18 DATE OF DISCHARGE: 07/20/18 PROVIDER: Jessica Farfan NP ATTENDING PHYSICIAN: Dr. Emilie Zelaya * (dictated by Jessica Farfan NP) PRIMARY CARE PROVIDER: Dr. Philip Diamond. PRIMARY DIAGNOSES: 1. Chronic obstructive pulmonary disease exacerbation. 2. Recurrent small cell carcinoma. SECONDARY DIAGNOSES: 1. Human immunodeficiency virus. 2. Chronic obstructive pulmonary disease with hypoxic respiratory failure, on chronic O2. STUDIES COMPLETED WHILE IN THE HOSPITAL: The patient had a chest x-ray on 07/18. Radiologist's impression: Likely scar in the right upper lobe, left lung appears clear. She had a CTA of the chest. No pulmonary embolism, emphysema with interval progression in the right upper lobe, primary lung carcinoma, emphysema with interval progressed right upper lobe primary lung carcinoma, stable left adrenal adenoma, previously seen mass in apical posterior segment right upper lobe measures 2.6 x 1.9, previously was 0.9 x 0.5. Additional new lobulated mass peripheral from the primary mass along the pleural surface which measures 2.3 cm. Several new pulmonary nodules are now seen in the anterior segment of the right upper lobe including anterior nodule measuring 0.9 cm and a more inferior nodule measuring 0.4. Several nodules, peribronchial vascular thickening, apical posterior segment of the right upper lobe which is also new when compared to prior study. Linear nodule extends into the superior segment of the right lower lobe as seen previously measuring 2.9 which was previously 2.3 cm. She had an electrocardiogram which showed sinus rhythm at a rate of 98. DISCHARGE MEDICATIONS: New home medications: 1. Tessalon Perles 100 mg p.o. b.i.d. as needed for cough. 2. Doxycycline 100 mg p.o. b.i.d. x6 more days. 3. Guaifenesin 1200 mg p.o. b.i.d. 4. Prednisone 50 mg p.o. daily x3 days, then 40 mg p.o. daily x3 days, then 30 mg p.o. daily x3 days, then 20 mg p.o. daily x3 days, then 10 mg p.o. daily x3 days. Continued home medications: 1. Anoro 1 puff b.i.d. 2. Chantix 0.5 mg p.o. b.i.d. 3. ProAir 2 puffs q.6 hours as needed for shortness of breath. 4. Trazodone 50 mg p.o. at bedtime. 5. Odefsey 1 tablet p.o. daily. 6. Acetaminophen 650 mg p.o. q.6 hours as needed for pain. HISTORY OF PRESENT ILLNESS/HOSPITAL COURSE: Ms. Burnett is a 57-year-old female with a past medical history significant for small cell lung cancer, has completed treatment, as well as HIV, on HAART and COPD, on chronic 2 to 3 L of nasal cannula at all times, who presented to the emergency room with several days of chest tightness and feeling of inability to be able to swallow. She is not having any nausea or vomiting. The patient reports the chest tightness is worse with deep breath, cough and got better after the breathing treatments in the emergency room. She has no overt pain, no diaphoresis, no nausea or vomiting associated with this. The patient does report she is more short of breath than normal. The patient has been wheezing at home and has increased dyspnea on exertion. She has no orthopnea, no swelling in her legs, no history of CHF. The patient's sister was recently discharged from the hospital with respiratory infection. The patient reports occasional dyspnea with standing. The patient was seen and treated in the emergency room. She had a CTA of the chest, it was negative for pulmonary embolism, but showed interval progression of right upper lobe primary lung carcinoma. Due to her shortness of breath, we were asked to see and evaluate her for admission. While in the hospital, she was monitored on telemetry. She received nebulizer treatments. We placed her on prednisone and IV doxycycline antibiotics. She does report that her shortness of breath has improved throughout her hospitalization and she feels close to baseline at this time. At this time, she is stable for discharge to home. REVIEW OF SYSTEMS: The patient does report mild shortness of breath which has improved. Denies any chest pain. Denies any abdominal pain, nausea, vomiting, or diarrhea. Denies any fever or chills. Denies any headache or dizziness. PHYSICAL EXAMINATION: General: Ms. Burnett is sitting in her bed. She is alert and oriented x3. She is in no acute distress. Vital signs: As follows, blood pressure 104/64, temperature was 98.2, heart rate 92, respirations are 20 , O2 saturation 98% on 2 L nasal cannula. HEENT: Head is atraumatic, normocephalic. Eyes: EOMs are intact. Sclerae anicteric and not pale. Oral mucosa appeared to be moist. Neck is supple. Lungs are diminished throughout bilaterally with a few scattered expiratory wheezes. Abdomen is soft. Cardiac : S1 and S2, regular rate and rhythm. No murmurs, rubs, or gallops. Abdomen is soft and nontender. Bowel sounds are present x4. Extremities: She is able to move all 4 extremities with 5/5 strength. Neurologic: She is awake, alert, oriented x3. Speech is clear. Thought process is intact. There are no gross focal deficits. Skin is intact. DISCHARGE PLAN: Ms. Burnett will be discharged back home. Activity: As tolerated. She should continue on a regular diet. 1. COPD exacerbation. The patient will be placed on doxycycline 100 mg p.o. b.i.d. for 6 more days. She should continue on prednisone taper at prednisone 50 mg p.o. for 3 days and then decrease by 10 mg every 3 days until medication is completed. She should continue her oxygen at 2 L nasal cannula as needed at home. She should continue her nebulizer inhalers as previously prescribed. She should follow with her primary care doctor in 4 to 7 days. 2. Small cell lung carcinoma. CT of the chest does show progression of her lung carcinoma on the right upper lobe. She was seen in consultation by Dr. Bueno during this hospitalization who will follow up with her as an outpatient. He has recommended the patient restart chemotherapy. 3. HIV. The patient should continue on her HAART therapy as previously prescribed. FOLLOWUP: She should follow up with her primary care provider in 4 to 7 days. She should follow up with Dr. Bueno, call the office on Sunday for an appointment. The patient was instructed to return to the emergency room for any chest pain, shortness of breath, worsening in her symptoms or any other concerns. CONDITION ON DISCHARGE: Stable. DISPOSITION: Home. TIME SPENT: Time spent on this discharge is 60 minutes, greater than half the time was spent at the bedside discussing discharge plans and instructions. I have discussed this with my attending, Dr. Emilie Zelaya; she is in agreement with my plan. JESSICA FARFAN, SALES LEDGER ADMINISTRATOR [id number]/[facility] #: [id number] [facility] JOSEPH'S MEDICAL CENTERKristin
--- NOTE | 2018-07-21 15:20 | CONS ---
CC: Dr. Kieran Morin; Dr. Philip Diamond; Dr. Kendell Salas; Dr. Brian Bueno * MEDICAL ONCOLOGY CONSULTATION NOTE: DATE OF CONSULT: 07/20/18 REASON FOR CONSULT: Recurrence of small cell lung cancer. HISTORY OF PRESENT ILLNESS: Ms. Burnett is a 57-year-old female with underlying COPD from previous smoking history and also history of HIV well controlled for many years on HAART. She is admitted this time with shortness of breath and chest tightness, what seems to be the exacerbation of her COPD. She developed a dry cough and tightness in her chest, bringing up light green sputum without any fevers. She had no associated nausea or vomiting. Appetite was good. She had recently seen Dr. Loza. She has recently been decreasing her cigarette usage down to 3 cigarettes a day with the use of Chantix. In April 2017, she had presented to the emergency room with a cough, fever, and rigors. CT scan revealed a lobulated mass at the mediastinum extending into the right hilum consistent with bulky mediastinal adenopathy obstructing the right upper lobe bronchus. Additionally, there was dense consolidation in the right upper lobe and a very large right pleural effusion. Bronchoscopy was performed, but was negative on EBUS. Cytology was also negative on the thoracentesis. The patient was seen in consultation by Dr. Elias Mcgrath of Surgery and underwent a mediastinoscopy on 07/26/17. At that time, chest x-ray had revealed that the dense consolidation in the right upper lobe and the pleural effusion had improved, but the bulky lymphadenopathy in the mediastinum , in the hilum had progressed. 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 Synaptophysin and chromogranin positive. The patient was treated with the course of cisplatinum and etoposide. During cycle 2 and 3, she received concurrent radiation therapy. Chemotherapy was finished in November 2017. She subsequently received prophylactic cranial irradiation in February 2018. Chemotherapy was complicated by 1 episode of febrile neutropenia during cycle 1, but otherwise was quite well tolerated. Until this current admission, she has actually been feeling quite well and there has been no suggestion of recurrence until now. Most recent imaging prior to this admission was CT scan of the chest, abdomen, and pelvis on . This had revealed stable nodularity in the right upper lobe, stable left adrenal nodule, no significant change since December. There was no significant adenopathy noted. The patient initially had had a limited-stage small cell lung cancer. Unfortunately, on the CTA obtained on the day of admission, , there now was present an enlargement of the mass in the right upper lobe now measuring 2.6 x 1.9 cm, previously 0.9 x 0.5. A new lobulated mass is seen along the pleural surface measuring 2.3 cm and several small new pulmonary nodules are seen measuring under 1 cm each. The adrenal mass has not changed and is partially calcified. Since admission, the patient has improved significantly and is likely to be discharged to home on the day of this consultation. PAST MEDICAL HISTORY: HIV for many years with negative viral loads and adequate CD4 counts, remaining on Odefsavannah and recently having switched from the group in [place] to Dr. Morin. HIV was originally diagnosed about 20 years ago. No hypertension, diabetes, PA, or CVA. PAST SURGICAL HISTORY: Status post tubal ligation. Status post [id number] placement and removal. Status post mediastinoscopy. MEDICATIONS ON ADMISSION: 1. Anoro 62.5/25 one inhalation daily. 2. Mucinex 1200 mg b.i.d. 3. Percocet 5/325 one q.4 hours p.r.n. pain. 4. Magnesium oxide 400 mg daily. 5. Odefsey 200/25/25 one pill daily. 6. Chantix 1 pill b.i.d. ALLERGIES: SULFA and LATEX. FAMILY HISTORY: Maternal grandfather with lung cancer in his 60s. Maternal grandmother with stomach cancer in her 70s. Maternal uncle with cancer of unknown type. Knows nothing on the father's side of the family. Sister with COPD. Mother at 83 with complications of diabetes and hypertension. Father of an PA in his 50s. SOCIAL HISTORY: Smoking 2 to 3 cigarettes per day, markedly decreased from previously, has been a smoker for many years at 2 packs to 4 packs per day for a total of 44 years. REVIEW OF SYSTEMS: No significant neurologic symptoms. No significant fever, sweats, or chills. No significant arthritic or bony complaints. Review of systems otherwise negative except as discussed above and as outlined in the accompanying history and physical by GRISEL Sanchez, of the hospitalist service. PHYSICAL EXAM: A 57-year-old female in no acute distress. Vital Signs: Stable , afebrile. HEENT: PERRL, EOMI. No erythema or exudates. No thrush. No palpable cervical, supraclavicular, or axillary adenopathy. Lungs: Clear. Decreased breath sounds, especially at the bases. No wheezes, rhonchi, or rales. Heart: Regular rate and rhythm without murmurs, rubs, or gallops. Abdomen: Soft, nontender without masses or organomegaly. Extremities: No clubbing, cyanosis, or edema. Back: No CVA or spinal tenderness. DIAGNOSTIC STUDIES/LAB DATA: Laboratory studies: White count 6600 with a hemoglobin of 12.7, platelet count 262,000. LFTs are normal. Flu swab was negative. IMPRESSION: 1. A 57-year-old female with limited stage small cell lung cancer, which was diagnosed 1 year ago, having completed chemotherapy in November 2017. She now unfortunately shows signs of recurrence of her small cell lung cancer, which is not terribly surprising. Given the change from February to now, it would be reasonable when she recovers from recurrent chronic obstructive pulmonary disease exacerbation for her to resume chemotherapy. Given the fact that she has now been off chemotherapy for 8 months, use of a duckwater and etoposide would be reasonable. She would likely much better tolerate carboplatinum and etoposide than cisplatinum and this is the plan. She will have 2 to 3 cycles of chemotherapy, then followup scans to make sure there is a response. 2. Chronic obstructive pulmonary disease exacerbation. Medications have been switched. She is much improved, will be discharged to home later today by the hospitalist service. 3. Human immunodeficiency virus, well controlled on Odefsey and no signs of any opportunistic infections. [id number]/[facility] #: [id number] [facility]
== END 2018-07-20 15:25 | disposition home or self-care (01) | DRG 190 ==
LOC: ED 14:33 → MED 20:56 → OBSVTOIN 07-19 15:09
PROVIDERS: ADMIT Pediatrics; ATTEND Internal Medicine
DX: J43.9 Emphysema, unspecified (principal); J96.21 Acute and chronic respiratory failure with hypoxia; B20 Human immunodeficiency virus [HIV] disease; C34.11 Malignant neoplasm of upper lobe, right bronchus or lung; M19.90 Unspecified osteoarthritis, unspecified site; F17.210 Nicotine dependence, cigarettes, uncomplicated; R59.0 Localized enlarged lymph nodes; D35.02 Benign neoplasm of left adrenal gland; Z98.51 Tubal ligation status; Z83.3 Family history of diabetes mellitus; Z82.49 Family history of ischemic heart disease and other diseases of the circulatory system; Z82.5 Family history of asthma and other chronic lower respiratory diseases; Z88.2 Allergy status to sulfonamides; Z91.030 Bee allergy status; Z91.040 Latex allergy status; Z86.14 Personal history of Methicillin resistant Staphylococcus aureus infection
CPT/HCPCS: 36415; 71045; 71275; 80048; 80053; 80061; 83036; 83605; 83735; 84484; 85025; 93005; 94640; 96374; 96375; 99283; A9270-GY; G0378; J1650; J2930; J3475; J7512; Q9967

== ENCOUNTER → 2018-08-20 13:25 | Day surgery (SDC) | payer MEDICARE, MEDICAID ==
[~2018-08-20 13:25] MED LIST changes: -Buffered Lidocaine 0.9% SYRIN* 5 ML/SYR SYRINGE INTRADERM ONE; +Buffered Lidocaine 1% SYRIN* 1 ML/SYRINGE INTRADERM ONE; -Bupivacaine 0.5% SDV PF* 10-30ML VIAL ONE; +Famotidine IV* 10 MG/ML 2 ML (20 mg) IV ONE; +Famotidine IV* 10 MG/ML 2 ML (20 mg) ONE; +Ketorolac INJ* 30 MG/ML 1 ML VIAL ONE; +Lactated Ringers 1000 ML Bag* 1,000 ML IV SCH; -Lidocaine 2% PF * 5 ML VIAL ONE; -Midazolam* 1 MG/ML 2 ML VIAL (2 MG) ONE; +Midazolam* 1 MG/ML 5 ML VIAL (5 MG) ONE; -Naloxone* 0.4 MG/ML 1 ML VIAL IV PRN; +Ondansetron INJ* 2 MG/ML VIAL ONE; -Propofol* 10 MG/ML 20 ML BTL IV PUSH ONE; +Propofol* 10 MG/ML 20 ML BTL ONE; +ceFAZolin 2 GM in NS PREMIX(*) 2 GM/100 ML BAG IVPB ONE
[2018-08-20 17:05] VITALS: BP 106/78
--- NOTE | 2018-08-20 23:54 | OP ---
CC: Dr. Bueno; Dr. Diamond * DATE OF OPERATION: 08/20/18 - [facility] DATE OF : 58 SURGEON: Elias Mcgrath MD CERAMIC DESIGN ENGINEER: None. ANESTHESIOLOGIST: Dr. Chu. ANESTHESIA: LMAC anesthesia. PRE-OP DIAGNOSIS: Carcinoma of the lung. POST-OP DIAGNOSIS: Carcinoma of the lung. OPERATIVE PROCEDURE: Placement of left subclavian 8-Kinyarwanda PowerPort. DESCRIPTION OF PROCEDURE: The patient was supine on the operating table. After adequate intravenous sedation, compression stockings, Jose Hugger warmer and intravenous antibiotics, the left chest and neck region were prepped with antiseptic and draped in a sterile fashion. Local infiltrative anesthesia was administered. Subclavian venipuncture carried out and inferior pocket was created to about a 3-cm incision and then the port was measured and cut at 26 cm , attached to the port, which was sutured in the pocket with 2-0 Prolene. The pocket was closed with 3-0 and 5-0 Vicryl, followed by Steri-Strips. The port was accessed. There was good blood return. It was flushed with saline solution and heparinized solution and then covered with a Tegaderm dressing. She tolerated this well and was brought to recovery in good condition. No complications. No drains. No pathologic specimens. Sponge and instrument counts correct. Estimated blood loss less than 10 mL. [id number]/[facility] #: [id number] MTDD
== END | disposition home or self-care (01) ==
LOC: OR 13:25
PROVIDERS: ATTEND Surgery
DX: C34.90 Malignant neoplasm of unspecified part of unspecified bronchus or lung (principal); Z72.0 Tobacco use; M19.90 Unspecified osteoarthritis, unspecified site
CPT/HCPCS: 71045; C1788; J0690; J1642; J1885; J2250; J2405; J2704; J3010

== ENCOUNTER 2018-09-13 15:24 | Emergency (ER) | payer MEDICARE, MEDICAID ==
--- NOTE | 2018-09-13 16:31 | ED ---
Influenza-Like Illness - HPI Summary HPI Summary: A 57 y/o female brought in by [facility] ambulance presents to [facility] with a chief complaint of flu like symptoms for the past three days. She reports dry cough, SOB, fever, body aches, swelling in her ankle and runny nose. She denies chills , erythema of eyes, sore throat, CP, abdominal pain, N/V, dysuria, hematuria, myalgia, rash, or dizziness. She has a Hx of lung cancer and her last chemotherapy was two weeks ago. She is Dr. Bueno's patient. She denies a Hx of blood clots. - History of Current Complaint Chief Complaint: EDFluSymptoms Time Seen by Provider: 09/13/18 16:21 Hx Obtained From: Patient Onset/Duration: Sudden Onset, Lasting Days, Still Present Severity: Severe Associated Signs & Symptoms: Fever, Cough - Allergy/Home Medications Allergies/Adverse Reactions: Allergies Allergy/AdvReac Type Severity Reaction Status Date / Time bee venom protein (honey bee) Allergy Severe Difficulty Verified 09/10/18 15:26 Breathing Sulfa (Sulfonamide Allergy Intermediate Hives Verified 09/10/18 15:26 Antibiotics) latex Allergy Mild Hives Verified 09/10/18 15:26 PMH/Surg Hx/FS Hx/Imm Hx Endocrine/Hematology History: Reports: Other Endocrine/Hematological Disorders - HIV Denies: Hx Anticoagulant Therapy, Hx Diabetes, Hx Systemic Lupus Erythematosus, Hx Anemia, Hx Unexplained Bleeding Cardiovascular History: Denies: Hx Aneurysm, Hx Angina, Hx Angioplasty, Hx Auto Implanted Cardiovert Defib, Hx Cardiac Arrest, Hx Cardiomegaly, Hx Congenital Heart Disease, Hx Congestive Heart Failure, Hx Coronary Artery Disease, Hx Deep Vein Thrombosis, Hx Embolism, Hx Hypercholesterolemia, Hx Hypotension, Hx Hypertension, Hx Pacemaker/ICD, Hx Peripheral Vascular Disease, Hx Rheumatic Fever, Hx Syncope, Hx Valvular Heart Disease, Other Cardiovascular Problems/Disorders Respiratory History: Reports: Hx Asthma - INHALERS, USED DAILY, Hx Chronic Bronchitis, Hx Chronic Obstructive Pulmonary Disease (COPD), Hx Lung Cancer - normal, Hx Pneumonia, Other Respiratory Problems/Disorders - COPD Denies: Hx Bronchopulmonary Dysplasia, Hx Cystic Fibrosis, Hx Pleural Effusion, Hx Pulmonary Edema, Hx Pulmonary Embolism, Hx Seasonal Allergies, Hx Sleep Apnea GI History: Denies: Hx Cirrhosis, Hx Crohn's Disease, Hx Diverticulosis, Hx Gall Bladder Disease, Hx Gastroesophageal Reflux Disease, Hx Gastrointestinal Bleed, Hx Hiatal Hernia, Hx Irritable Bowel, Hx Jaundice, Hx Obstructive Bowel, Hx Ileostomy, Hx Pyloric Stenosis, Hx Ulcer, Other GI Disorders History: Denies: Hx Acute Renal Failure, Hx Benign Prostatic Hyperplasia, Hx Chronic Renal Failure, Hx Dialysis, Hx Kidney Infection, Hx Kidney Stones, Hx Renal Disease, Other Problems/Disorders Musculoskeletal History: Reports: Hx Arthritis - KNEES, HANDS Denies: Hx Rheumatoid Arthritis, Hx Back Problems, Hx Bursitis, Hx Congenital Bone Abnormalities, Hx Fibromyalgia, Hx Gout, Hx Orthopedic Injury, Hx Osteoporosis, Hx Scoliosis, Hx Tendonitis, Other Musculoskeletal History Sensory History: Reports: Hx Cataracts - surgery in the past, Hx Contacts or Glasses - jacket pocket, WEARS TO READ Denies: Hx Eye Injury, Hx Eye Prosthesis, Hx Glaucoma, Hx Legally Blind, Hx Macular Degeneration, Hx Vision Problem, Hx Deafness, Hx Hearing Aid, Hx Hearing Problem, Other Sensory Impairments Opthamlomology History: Reports: Hx Cataracts - surgery in the past, Hx Contacts or Glasses - jacket pocket, WEARS TO READ Denies: Hx Eye Injury, Hx Eye Prosthesis, Hx Glaucoma, Hx Legally Blind, Hx Macular Degeneration, Hx Vision Problem, Other Sensory Impairments Neurological History: Reports: Hx Headaches - once in a while Denies: Hx Dementia, Hx Developmental Delay, Hx Migraine, Hx Nerve Disease, Hx Seizures, Hx Spinal Cord Injury, Hx Transient Ischemic Attacks (TIA), Other Neuro Impairments/Disorders Psychiatric History: Denies: Hx Anxiety, Hx Depression, Hx Panic Disorder - Cancer History Cancer Type, Location and Year: LUNG CANCER Hx Chemotherapy: Yes - Surgical History Surgery Procedure, Year, and Place: 1989 BILATERAL TUBAL LIGATION. UMBILICAL HERNIA REPAIR. mediastinoscopy 07/26/17 [facility]. [facility] [place] bil[place] with IOL. LOWER BACK SURGERY - [facility]. RIGHT WRIST SURGERY (WITH PIN) Hx Anesthesia Reactions: No - Immunization History Date of Tetanus Vaccine: 2014 Date of Influenza Vaccine: 2015 Infectious Disease History: No Infectious Disease History: Reports: Hx Human Immunodeficiency Virus (HIV), Hx of Known/Suspected MRSA - 6 years ago Denies: Hx Clostridium Difficile, Hx Hepatitis, Hx Shingles, Hx Tuberculosis , History Other Infectious Disease, Traveled Outside the [place] in Last 30 Days - Family History Known Family History: Positive: Diabetes, Other - denies FHx of breast CA, but does have other cancers in the family Family History: No FHx of breast CA. 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 Negative: Chills Negative: Erythema Positive: Nasal Discharge. Negative: Sore Throat Negative: Chest Pain Positive: Shortness Of Breath, Cough Negative: Abdominal Pain, Vomiting, Nausea Negative: dysuria, hematuria Positive: Edema, Other - positive: body aches. Negative: Myalgia Negative: Rash Neurological: Negative - dizziness All Other Systems Reviewed And Are Negative: Yes Physical Exam - Summary Physical Exam Summary: Constitutional: Well-developed, Well-nourished, Alert. (-) Distressed Skin: Warm, Dry HENT: Normocephalic; Atraumatic Eyes: Conjunctiva normal Neck: Musculoskeletal ROM normal neck. (-) JVD, (-) Stridor, (-) Tracheal deviation Cardio: Rhythm regular, rate normal, Heart sounds normal; Intact distal pulses; The pedal pulses are 2+ and symmetric. Radial pulses are 2+ and symmetric. (-) Murmur Pulmonary/Chest wall: Effort normal. (-) Respiratory distress, (-) Wheezes, (-) Rales Abd: Soft, (-) tenderness, (-) Distension, (-) Guarding, (-) Rebound Musculoskeletal: (-) Edema Lymph: (-) Cervical adenopathy Neuro: Alert, Oriented x3 Psych: Mood and affect Normal Triage Information Reviewed: Yes Vital Signs On Initial Exam: Initial Vitals Temp Pulse Resp BP Pulse Ox 99.1 F 102 20 97/60 89 09/13/18 15:29 09/13/18 15:29 09/13/18 15:29 09/13/18 15:29 09/13/18 15:29 Vital Signs Reviewed: Yes Diagnostics - Vital Signs Vital Signs Temp Pulse Resp BP Pulse Ox 09/13/18 15:47 97 09/13/18 15:29 99.1 F 102 20 97/60 89 - Laboratory Result Diagrams: 09/13/18 16:19 09/13/18 16:19 Lab Statement: Any lab studies that have been ordered have been reviewed, and results considered in the medical decision making process. - Radiology CXR Radiology Interpretation Completed By: Radiologist Summary of Radiographic Findings: No etiology for sepsis evident. Stigmata of probable chronic obstructive pulmonary disease. ED physician has reviewed this imaging report. - EKG 17:10 Cardiac Rate: Tachycardia - 103 bpm EKG Rhythm: Sinus Tachycardia Summary of EKG Findings: Sinus tachycardia at 103 bpm, no STEMI. Re-Evaluation - Re-Evaluation First Eval Re-Evaluation Time: 17:27 Change: Unchanged Comment: Discussed admission, she said she would like to recover at home. She will be covered with atypical coverage to treat with any coinfection. She has access to O2 at home. Will discuss her case with oncology. Flu Symptom Course/Dx - Course Course Of Treatment: A 57 y/o female brought in by [facility] ambulance presents to [facility] with a chief complaint of flu like symptoms for the past three days. She reports dry cough, SOB, fever, body aches, swelling in her ankle and runny nose. She denies chills, erythema of eyes, sore throat, CP, abdominal pain, N/V , dysuria, hematuria, myalgia, rash, or dizziness. She has a Hx of lung cancer and her last chemotherapy was two weeks ago. CXR impression: No etiology for sepsis evident. Stigmata of probable chronic obstructive pulmonary disease. Bloodwork and chemistries obtained. The patient tested positive for influenza A. EKG showed Sinus tachycardia at 103 bpm, no STEMI. In the ED course the patient was given Duoneb INH, Zithromax PO, Sodium Chloride IV, Toradol IV, Solu -Medrol IV and Tamiflu PO. Discussed admission, she said she would like to recover at home. She will be covered with atypical coverage to treat with any coinfection. She has access to O2 at home. Will discuss her case with oncology. The patient will be discharged home with prescriptions for Zithromax, Deltasone and Tamiflu and follow up at 13:00 Sunday the with Wali Calix The patient is agreeable with this plan. - Diagnoses Provider Diagnoses: Influenza Discharge - Sign-Out/Discharge Documenting (check all that apply): Patient Departure - DC Patient Received Moderate/Deep Sedation with Procedure: No - Discharge Plan Condition: Stable Disposition: HOME Prescriptions: Azithromycin TAB* [Zithromax TAB (Z-GARRETT) 250 mg #6 tabs] 2 tab PO .TODAY, THEN 1 DAILY #1 garrett Oseltamivir CAP* [Tamiflu CAP*] 75 mg PO BID #20 cap predniSONE TAB* [Deltasone TAB*] 50 mg PO DAILY #4 tab Patient Education Materials: Influenza (DC) Referrals: Philip Diamond MD [Primary Care Provider] - (2-3 days) Additional Instructions: Follow up at 1:00pm Sunday09/17/18 with Wali Calix. RETURN TO THE EMERGENCY DEPARTMENT FOR CHANGING OR WORSENING SYMPTOMS - Attestation Statements Document Initiated by Scribe: Yes Documenting Scribe: Malick Batista Provider For Whom Scribe is Documenting (Include Credential): Fam Jim MD Scribe Attestation: Malick Keith, scribed for Fam Jim MD on 09/13/18 at 1739.
[2018-09-13] MEDS ORDERED: methylPREDNISolone 125 MG* 2 ML VIAL IV ONE (16:32)
[2018-09-13] MEDS ORDERED: Ketorolac INJ* 30 MG/ML 1 ML VIAL IV PUSH ONE (16:33)
[2018-09-13 16:34] LABS: Hematocrit 29 % (35-47); Hemoglobin 9.8 g/dL (12.0-16.0); Mean Corpuscular HGB Conc 34 g/dL (31-36); Mean Corpuscular Hemoglobin 33 pg (27-31); Mean Corpuscular Volume 97 fL (80-97); Mean Platelet Volume 7.8 fL (7.4-10.4); Platelet Count 123 10^3/uL (150-450); Red Blood Count 2.97 10^6 /uL (3.70-4.87); Red Cell Distribution Width 16 % (10.5-15); White Blood Count 3.3 10^3/uL (3.5-10.8)
[2018-09-13 16:38] LABS: Influenza A Molecular POSITIVE (Negative)
[2018-09-13] MEDS ORDERED: Albuterol/Ipratropium NEB.SOL* Albuterol 2.5 MG/Ipratropium 0.5 MG 3 ML INH ONE (16:39)
[2018-09-13 16:45] LABS: Activated Partial Thrombo Time 36.7 seconds (26.0-36.3); INR 1.12 (0.82-1.09)
[2018-09-13 16:51] LABS: Albumin 3.7 g/dL (3.2-5.2); Albumin/Globulin Ratio 1.5 (1-3); BUN/Creatinine Ratio 13.1 (8-20); Calcium 8.7 mg/dL (8.6-10.3); EGFR African American 84.3 (>60); EGFR Non-African American 69.6 (>60); Globulin 2.5 g/dL (2-4); Potassium 3.8 mmol/L (3.5-5.0); Total Bilirubin 0.3 mg/dL (0.2-1.0); Total Protein 6.2 g/dL (6.4-8.9)
[2018-09-13 16:53] LABS: Troponin I 0.01 ng/mL (<0.04)
[2018-09-13 17:11] LABS: ABS Neutrophils 2.2 10^3/ul (1.5-7.7)
[2018-09-13 17:13] LABS: Microcytosis 1+; Polychromasia 1+
[2018-09-13] MEDS ORDERED: Oseltamivir CAP* 75 MG CAP PO ONE (17:26)
[2018-09-13] MEDS ORDERED: NS 0.9% 1000 ML** 1,000 ML IV ONE (17:26)
[2018-09-13] MEDS ORDERED: Azithromycin TAB* 250 MG PO ONE (17:30)
[2018-09-13 17:36] LABS: Urine Appearance Cloudy; Urine Bilirubin Negative (Negative); Urine Blood Negative (Negative); Urine Color Yellow; Urine Glucose Negative (Negative); Urine Ketones 1+ (Negative); Urine Nitrite Negative (Negative); Urine Protein Negative (Negative); Urine Specific Gravity 1.024 (1.010-1.030); Urine Urobilinogen Negative (Negative)
[2018-09-13 18:59] VITALS: BP 103/59
== END 2018-09-13 18:59 | disposition home or self-care (01) ==
LOC: ED 15:24
DX: J11.1 Influenza due to unidentified influenza virus with other respiratory manifestations (principal); B20 Human immunodeficiency virus [HIV] disease; J44.9 Chronic obstructive pulmonary disease, unspecified; F17.210 Nicotine dependence, cigarettes, uncomplicated; Z79.51 Long term (current) use of inhaled steroids; Z88.2 Allergy status to sulfonamides; Z91.040 Latex allergy status; Z85.118 Personal history of other malignant neoplasm of bronchus and lung
CPT/HCPCS: 36415; 71045; 80053; 81003; 83605; 84484; 85025; 85060; 85610; 85730; 87040; 93005; 96361; 96374; 96375; 99284; A9270-GY; J1642; J1885; J2930

== ENCOUNTER → 2018-10-28 14:47 | Emergency (ER) | payer MEDICARE, MEDICAID ==
--- OUTSIDE RECORDS SUMMARY | 2018-10-28 15:02 | XMS REPORT | Continuity of Care Document ---
:1960 External Reference #:[id number] Author Name Jennifer Liang Care Team Providers Name Role Phone Philip Diamond MD Primary Care Physician Unavailable Payers Date Identification Numbers Payment Provider Subscriber Policy Number: [id number] Medicare Mary Damian PayID: [id number] [address] [place] [address] Policy Number: [id number] Medicaid Mary Damian PayID: [id number] [address] [place] [address] Problems Active Problems Provider Date Carpal tunnel syndrome Paulo Rhoades MD Onset: 01/11/2016 Family History Date Family Member(s) Observation Comments General Heart Disease General Diabetes General Cancer Social History Type Date Description Comments Sex Unknown Lives With Alone ETOH Use Denies alcohol use Tobacco Use Start: Unknown Light tobacco smoker (10 or fewer cigarettes/day) Recreational Drug Use Denies Drug Use Smoking Status Reviewed: 09/30/18 Light tobacco smoker (10 or fewer cigarettes/day) Exercise Type/Frequency Exercises regularly Allergies, Adverse Reactions, Alerts Active Allergies Reaction Severity Comments Date Sulfa Antibiotics 11/04/2013 Latex 11/04/2013 Medications Active Medications SIG Qnty Indications Ordering Provider Date Hypersal use as directed 720ml J44.9 Reina Denia, 09/30/2018 3.5% for secretions MD Nebulizer twice daily after nebulizer Anoro Ellipta 1 inhalation daily 1units Pauline Guo, 01/08/2018 DNP, RN, [employer] 62.5-25mcg/Inh Aerosol Mucinex 1200mg tablets 60tabs Pauline Guo, 09/11/2017 600mg twice daily as FELIBERTO PAREKH, SUPERVIS[employer]-SHADIA Tablets ER 12HR needed Percocet 1 tab by mouth 14tabs C38.3 Elias BurkettNatty Yolandadrew, 08/01/2017 5-325mg every 4 hours as M.D. Tablets needed Proair HFA 2 puffs by mouth 8.500gm Pauline Guo, every 4 hours as FELIBERTO PAREKH, SUPERVIS[employer] 108(90Base) mcg/Act needed Aerosol Magnesium Oxide twice daily Unknown 400mg Tablets History Medications Nicotine 1 patch over 30units F17.210 Reina Loza, 05/28/2017 - 21mg/24HR skin every day Unknown Patches 24HR Hydrocodone-Acetami 1 tablet by 20tabs G56.02 Jessica 01/11/2016 - nophen mouth every 4-6 RAMIRO Clemons 06/11/2017 5-325mg hours as needed Tablets for pain. Keflex 1 by mouth four 28caps G56.02 [place] 01/11/2016 - 500mg times a day for RAMIRO Clemons 06/11/2017 Capsules 7 days Naproxen 1 by mouth 60tabs Edi Hdez M.D. 11/04/2013 - 500mg twice a day as 09/22/2015 Tablets needed Odefsey 1 by mouth 30tabs Kieran Daniels - 200-25-25mg every day Gerry Tesfaye Unknown Tablets Prednisone once daily Unknown - 20mg 07/08/2017 Tablets Spiriva Respimat twice daily Unknown - 09/30/2018 Symbicort 2 puff twice a Unknown - day 09/30/2018 160-4.5mcg/Act Aerosol Atripla 1 tab by mouth Unknown - every night at 06/11/2017 [phone] bedtime Tablets Naproxen Sodium Unknown - 09/22/2015 Hydrocodone Unknown - Bitartrate/Acetamin 09/22/2015 ophen Atripla Unknown - 09/22/2015 Zolpidem Tartrate Unknown - 09/22/2015 Proair HFA Unknown - 09/22/2015 Albuterol Sulfate Unknown - 09/22/2015 Medications Administered in Office Medication SIG Qnty Indications Ordering Provider Date Triamcinolone (Kenalog) Paulo Rhoades MD 11/30/2015 Injection Celestone 3 mg and 3mg Paulo Rhoades MD 10/28/2015 Injection Depomedrol 80MG Brayan Lopez, 11/04/2013 Injection RPA-C Immunizations CPT Code Status Date Vaccine Lot # [id number] Given 06/12/2017 Influenza Virus Vaccine, Quadrivalent, Split, [id number] Preservative Free Vital Signs Date Vital Result Comment 09/30/2018 9:04am Height 63 inches 5'3" Weight 160.00 lb Heart Rate 92 /min BP Systolic Sitting 100 mmHg Lue regular cuff BP Diastolic Sitting 60 mmHg Lue regular cuff Respiratory Rate 12 /min O2 % BldC Oximetry 97 % BMI (Body Mass Index) 28.3 kg/m2 08/02/2018 10:43am Height 63 inches 5'3" Weight 168.00 lb Heart Rate 74 /min BP Systolic 118 mmHg BP Diastolic 74 mmHg Respiratory Rate 20 /min Body Temperature 97.8 F BMI (Body Mass Index) 29.8 kg/m2 04/18/2018 1:57pm Height 63 inches 5'3" Weight 160.25 lb Heart Rate 88 /min BP Systolic Sitting 120 mmHg BP Diastolic Sitting 60 mmHg Respiratory Rate 14 /min Body Temperature 97.1 F BMI (Body Mass Index) 28.4 kg/m2 03/08/2018 11:07am Weight 160.00 lb Heart Rate 90 /min BP Systolic Sitting 132 mmHg BP Diastolic Sitting 90 mmHg Respiratory Rate 18 /min Body Temperature 98.5 F 12/29/2017 8:29am Height 63 inches 5'3" Weight 157.00 lb Heart Rate 90 /min BP Systolic Sitting 130 mmHg BP Diastolic Sitting 80 mmHg Respiratory Rate 14 /min O2 % BldC Oximetry 96 % on Ra BMI (Body Mass Index) 27.8 kg/m2 12/13/2017 2:11pm Height 63 inches 5'3" Weight 158.50 lb Heart Rate 98 /min BP Systolic Sitting 142 mmHg BP Diastolic Sitting 72 mmHg Respiratory Rate 16 /min Body Temperature 98.6 F O2 % BldC Oximetry 96 % BMI (Body Mass Index) 28.1 kg/m2 09/11/2017 10:26am Height 63 inches 5'3" Weight 161.00 lb Heart Rate 61 /min BP Systolic Sitting 118 mmHg BP Diastolic Sitting 72 mmHg Respiratory Rate 14 /min Body Temperature 98.2 F O2 % BldC Oximetry 92 % BMI (Body Mass Index) 28.5 kg/m2 09/06/2017 10:04am Height 63 inches 5'3" Weight 166.00 lb Heart Rate 84 /min BP Systolic Sitting 120 mmHg BP Diastolic Sitting 88 mmHg Respiratory Rate 14 /min O2 % BldC Oximetry 96 % BMI (Body Mass Index) 29.4 kg/m2 08/20/2017 10:15am Heart Rate 80 /min Respiratory Rate 18 /min Body Temperature 98.7 F 08/01/2017 9:21am Heart Rate 72 /min BP Systolic 136 mmHg BP Diastolic 80 mmHg Respiratory Rate 20 /min Body Temperature 97.5 F 07/10/2017 10:55am Weight 176.00 lb Heart Rate 76 /min BP Systolic 120 mmHg BP Diastolic 70 mmHg Respiratory Rate 20 /min Body Temperature 98.4 F 07/09/2017 11:15am Height 63 inches 5'3" Weight 176.38 lb Heart Rate 89 /min BP Systolic Sitting 110 mmHg BP Diastolic Sitting 76 mmHg Respiratory Rate 16 /min O2 % BldC Oximetry 96 % BMI (Body Mass Index) 31.2 kg/m2 06/12/2017 10:11am Height 63 inches 5'3" Weight 174.50 lb Heart Rate 90 /min BP Systolic Sitting 106 mmHg BP Diastolic Sitting 60 mmHg Respiratory Rate 16 /min Body Temperature 97.7 F O2 % BldC Oximetry 96 % BMI (Body Mass Index) 30.9 kg/m2 05/28/2017 10:21am Height 63 inches 5'3" Weight 178.00 lb Heart Rate 76 /min BP Systolic Sitting 112 mmHg BP Diastolic Sitting 76 mmHg Respiratory Rate 14 /min O2 % BldC Oximetry 99 % BMI (Body Mass Index) 31.5 kg/m2 02/08/2016 10:34am Height 63 inches 5'3" Weight 160.00 lb Heart Rate 60 /min Respiratory Rate 16 /min Body Temperature 96.9 F Pain Level 2 BMI (Body Mass Index) 28.3 kg/m2 01/11/2016 9:54am Height 63 inches 5'3" Weight 175.00 lb Pain Level 8 BMI (Body Mass Index) 31.0 kg/m2 11/30/2015 10:16am Height 63 inches 5'3" Weight 175.00 lb Heart Rate 76 /min Respiratory Rate 18 /min Pain Level 9 BMI (Body Mass Index) 31.0 kg/m2 10/28/2015 10:17am Height 63 inches 5'3" Weight 175.00 lb Pain Level 8 BMI (Body Mass Index) 31.0 kg/m2 09/30/2015 10:24am Height 63 inches 5'3" Weight 175.00 lb Pain Level 9 BMI (Body Mass Index) 31.0 kg/m2 12/18/2013 10:06am Height 63 inches 5'3" Weight 168.00 lb Heart Rate 50 /min BP Systolic 115 mmHg BP Diastolic 80 mmHg BMI (Body Mass Index) 29.8 kg/m2 11/04/2013 10:02am Height 65 inches 5'5" Weight 165.00 lb Heart Rate 96 /min BP Systolic 130 mmHg BP Diastolic 86 mmHg BMI (Body Mass Index) 27.5 kg/m2 Results Test Date Facility Test Result H/L Range Note CBC Auto Diff 03/25/2018 [facility] White Blood 6.2 10^3/uL N 3.5-10.[address] [place] [address] [phone] Red Blood Count 3.83 10^6/uL Low 4.00-5.40 Hemoglobin 12.5 g/dL N 12.0-16.0 Hematocrit 37 % N 35-47 Mean Corpuscular Volume 98 fL High 80-97 Mean Corpuscular Hemoglobin 33 pg High 27-31 Mean Corpuscular HGB Conc 33 g/dL N 31-36 Red Cell Distribution Width 15 % N 10.5-15 Platelet Count 239 10^3/uL N 150-450 Mean Platelet Volume 8.0 fL N 7.4-10.4 Abs Neutrophils 4.3 10^3/uL N 1.5-7.7 Abs Lymphocytes 1.0 10^3/uL N 1.0-4.8 Abs Monocytes 0.8 10^3/uL N 0-0.8 Abs Eosinophils 0.1 10^3/uL N 0-0.6 Abs Basophils 0 10^3/uL N 0-0.2 Abs Nucleated RBC 0 10^3/uL Granulocyte % 68.7 % N 38-83 Lymphocyte % 16.6 % Low 25-47 Monocyte % 12.4 % High 0-7 Eosinophil % 2.2 % N 0-6 Basophil % 0.1 % N 0-2 Nucleated Red Blood Cells % 0 Comp Metabolic Panel 03/25/2018 [facility] Sodium 138 mmol/L N 135-[address] [place] [address] [phone] Potassium 4.3 mmol/L N 3.5-5.0 Chloride 102 mmol/L N 101-111 Co2 Carbon Dioxide 30 mmol/L N 22-32 Anion Gap 6 mmol/L N 2-11 Glucose 94 mg/dL N 70-100 Blood Urea Nitrogen 9 mg/dL N 6-24 Creatinine 0.85 mg/dL N 0.51-0.95 BUN/Creatinine Ratio 10.6 N 8-20 Calcium 8.9 mg/dL N 8.6-10.3 Total Protein 5.9 g/dL Low 6.4-8.9 Albumin 3.7 g/dL N 3.2-5.2 Globulin 2.2 g/dL N 2-4 Albumin/Globulin Ratio 1.7 N 1-3 Total Bilirubin 0.30 mg/dL N 0.2-1.0 Alkaline Phosphatase 79 U/L N 34-104 Alt 10 U/L N 7-52 Ast 13 U/L N 13-39 Egfr Non- 68.7 >60 Egfr 83.1 >60 1 HIV-1 Rna 03/25/2018 [facility] HIV-1 Rna Undetected Undetected 2 QNT By [address] (PCR) copies/[place] [address] [phone] CD4/CD8 03/25/2018 [facility] Absolute 0.78 thou/mcL Abnormal 0.82-2.84 T-Cell [address] CD45 [place] [address] [phone] CD3 81 % 58-86 % CD4 34 % 32-64 % CD8 48 % Abnormal 11-40 CD3 628 cells/L 550-2202 CD4 266 cells/L Abnormal 365-1437 CD8 372 cells/L 117-846 H/S Ratio 0.7 Abnormal >=0.9 CD4 Reviewed By See Comment 3 CD4/CD8 11/29/2017 [facility] Absolute 0.48 Abnormal 0.82- 2.84 T-Cell [address] CD45 Count thou/[place] [address] [phone] % CD3 73 % 58-86 % CD4 34 % 32-64 % CD8 41 % Abnormal 11-40 CD3 350 cells/L Abnormal 550-2202 CD4 164 cells/L Abnormal 365-1437 CD8 195 cells/L 117-846 H/S Ratio 0.8 Abnormal >=0.9 CD4 Reviewed By See Comment 4 HIV-1 Rna QNT 11/29/2017 [facility] HIV-1 Rna (PCR) Undetected Undetected 5 By PCR Sli [address] copies/mL [place], [place] [id number] [phone] Order 09/06/2017 [employer] In-House 6 Minute Walk <pending> Laboratory 07/26/2017 [facility] Surgical SEE RESULT 6 test finding [address] [place] [address] [phone] Leukemia/Lymp 07/26/2017 [facility] Path TNP alma Flow [address] [place] [address] 2-8 Marker [phone] Path Interpret > 16 Marker TNP Path Interpret 9-15 Marker (SEE NOTE) 7 Leukemia/Lymphoma 07/26/2017 [facility] Path Interpretation TNP Phenot [address] 2-8 [place] [address] [phone] Path Interpret > 16 Marker TNP Path Interpret 9-15 Marker (SEE NOTE) 8 1 Because ethnic data is not always readily available, this report includes an eGFR for both -Americans and non- Americans. The National Kidney Disease Education Program (NKDEP) does not endorse the use of the MDRD equation for patients that are not between the ages of 18 and 70, are , have extremes of body size, muscle mass, or nutritional status, or are non- or non-. According to the National Kidney Foundation, irrespective of diagnosis, the stage of the disease is based on the level of kidney function: Stage Description GFR(mL/min/1.73 m(2)) 1 Kidney damage with normal or decreased GFR 90 2 Kidney damage with mild decrease in GFR 60-89 3 Moderate decrease in GFR 30-59 4 Severe decrease in GFR 15-29 5 Kidney failure <15 (or dialysis) 2 Result in log copies/mL is Undetected. ADDITIONAL INFORMATION The quantification range of this assay is 20 to 10,000,000 copies/mL (1.30 log to 7.00 log copies/mL). Testing was performed using the daniel HIV-1 test ([employer] with the daniel [employer] System. This test has been modified from the miner placer's instructions. Its performance characteristics were determined by [facility] in a manner consistent with CLIA requirements. This test has not been cleared or approved by the U.S. Food and Drug Administration. Test Performed by: [facility] [place] [address] 3 RESULT: Reviewed by: Refugio Yan M.D. ADDITIONAL INFORMATION Reference values implemented September 03, 2012. This test was developed using an analyte specific reagent. Its performance characteristics were determined by [facility] in a manner consistent with CLIA requirements. This test has not been cleared or approved by the U.S. Food and Drug Administration. Test Performed by: [facility] - [address] [address] 4 RESULT: Reviewed by: Clovis Montoya M.D. ADDITIONAL INFORMATION Reference values implemented September 03, 2012. This test was developed using an analyte specific reagent. Its performance characteristics were determined by [facility] in a manner consistent with CLIA requirements. This test has not been cleared or approved by the U.S. Food and Drug Administration. Test Performed by: [facility] - [address] [address] 5 Result in log copies/mL is Undetected. ADDITIONAL INFORMATION The quantification range of this assay is 20 to 10,000,000 copies/mL (1.30 log to 7.00 log copies/mL). Testing was performed using the daniel HIV-1 test ([employer] with the daniel 6800 System. This test has been modified from the miner placer's instructions. Its performance characteristics were determined by [facility] in a manner consistent with CLIA requirements. This test has not been cleared or approved by the U.S. Food and Drug Administration. Test Performed by: [facility] - [facility] [address] [place] [address] 6 SEE RESULT BELOW Name: MARY DAMIAN : [address]: Elias Mcgrath MD Acct: [id number] Unit: [id number] AGE: 56 Location: OR Re07/26/17 SEX: F Status: [place] [facility] [place] SPEC: [id number] KIMBERLY: 07/26/[address]: Elias Mcgrath MD REQ: [id number] RECD: 07/26/17 STATUS: SOUT _ ORDERED: FS 1ST PER SPEC, LEVEL 4/2, Leukemia/Lympho, IMMUNO-FIRST, IMMUNO- ADDL/3 Flow cytometry has been performed at [place], [place]. The testing reveals: FINAL DIAGNOSIS: Specimen [...] MD 07/30/17 1549 Technical component performed by: [place] [address] Behavior Interventionist: Wali James II, MD, PhD. CONTINUED ON NEXT PAGE DEPARTMENT OF PATHOLOGY, [address] [place] [address] Carson Navarro M.D. Director [facility] # [id number] RUN DATE: 08/01/17 [facility] LAB LIVE PAGE 2 Patient: RCIKIELYDIAMARY M [id number] (Continued) ADDENDUM (Continued) Addendum Signed (signature on [...] CONTINUED ON NEXT PAGE DEPARTMENT OF PATHOLOGY, [address] [place] [address] Carson Navarro M.D. Director [facility] # [id number] RUN DATE: 08/01/17 [facility] LAB LIVE PAGE 3 Patient: MARY DAMIAN [id number] (Continued) PRE-OPERATIVE DIAGNOSIS (Continued) PRE-OPERATIVE DIAGNOSIS Localized enlarged lymph nodes. GROSS DESCRIPTION 1. The specimen is received fresh labeled, Peritracheal Biopsy, and consists of a 1.0 x 0.7 x 0.2 cm aggregate of larry-pink irregular soft tissue fragments. A loss control representative section is submitted for frozen section microscopy. The frozen section residue and the remaining specimen are submitted in cassettes FS and A. A loss control representative section is submitted for flow cytometry. 2. The specimen is received fresh labeled, Additional Peritracheal Biopsy, and consists of a 1.0 x 0.8 by up to 0.3 cm aggregate of larry-pink irregular soft tissue fragments which is submitted entirely in one cassette. Signed (signature on file) Carson Navarro MD 1445 END OF REPORT DEPARTMENT OF PATHOLOGY, [address] [place] [address] Carson Navarro M.D. Director [facility] # [id number] 7 FINAL DIAGNOSIS: Specimen Source: Paratracheal mass Flow [...] MD 07/30/17 1549 Technical component performed by: [place] [address] Behavior Interventionist: Wali James II, MD, PhD. 8 FINAL DIAGNOSIS: Specimen Source: Paratracheal mass Flow [...] MD 07/30/17 1549 Technical component performed by: [place] [address] Behavior Interventionist: Wali James II, MD, PhD. Procedures Date Code Description Status 08/20/2018 76557 Fluoroscopic Guidance For Cent Completed 08/20/2018 58259 Insertion Tunneled Cent Venous Cathr W Subcut Port 5 Yrs Completed Or Oldr 07/19/2018 85110 EKG, Interpretation Only Completed 03/08/2018 85266 Removal Tunneled Central Venous Access Dev W/Sub Port/Pump Completed 11/26/2017 28729 Diffusing Capacity Completed 11/26/2017 90425 Plethysmography Determination Lung Volumes & Per Airway Completed Resist 11/26/2017 33018 Pulmonary Function><Bronchodil Completed 09/06/2017 29322 Pulmonary Stress Test Simple Completed 09/06/2017 79610 Pulmonary Stress Testing[employer] Measurement Heart Rate, Completed Oximetry 08/10/2017 60442 Fluoroscopic Guidance For Cent Completed 08/10/2017 80839 Insertion Tunneled Cent Venous Cathr W Subcut Port 5 Yrs Completed Or Oldr 08/08/2017 55032 Mediastinoscopy W/Lymph Node Completed 07/26/2017 98689 Mediastinoscopy W/Lymph Node Completed 06/13/2017 54952 Diffusing Capacity Completed 06/13/2017 55300 Plethysmography Determination Lung Volumes & Per Airway Completed Resist 06/13/2017 43174 [facility] [employer] Measurement Heart Rate, Completed Oximetry 06/13/2017 81340 Pulmonary Function><Bronchodil Completed 05/18/2017 05606 Thoracentesis W/ Img Guidance Completed 05/17/2017 56973 EKG, Interpretation Only Completed 05/16/2017 56965 Endobronchial Ultrasound=>3 Completed 01/26/2016 84609 Carpal Tunnel Release Completed 01/26/2016 44069 Carpal Tunnel Release Completed 11/30/2015 78644 Inject Tendon Sheath Or Ligament Aponeurosis Eg Plantar Completed Fascia 10/28/2015 Injection, Carpal Tunnel Completed 11/04/2013 Inject/Drain Joint/Bursa Major W/O US Completed Encounters Type Date Location Provider Dx Diagnosis Office Visit 08/[facility] Elias Loco C34.90 Malignant neoplasm 10:45a Of Leonor Mcgraht M.D. of unsp part of unsp bronchus or lung [facility] obstructive 12:00p Associveth NP pulmonary disease w Hospitalists (acute) exacerbation C34.90 Malignant neoplasm of unsp part of unsp bronchus or lung [facility] Chronic 11:58a Assoc,iveth Farfan NP obstructive Hospitalists pulmonary disease w (acute) exacerbation Z21 Asymptomatic human immunodeficiency virus infection status C34.90 Malignant neoplasm of unsp part of unsp bronchus or lung Office Visit 07/18/2018 11:55a [facility] Wali J44.1 Chronic Assoc,GRISEL Edwards obstructive Hospitalists pulmonary disease w (acute) exacerbation Z21 Asymptomatic human immunodeficiency virus infection status C34.90 Malignant neoplasm of unsp part of unsp bronchus or lung R07.9 Chest pain, unspecified Office Visit 04/18/2018 [facility] Kieran Daniels Z21 Asymptomatic human 2:00p For Dolly Tesfaye M.D. 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 David Helton J44.1 Chronic 9:38a Assoc,iveth Donnelly MD obstructive Hospitalists pulmonary disease w (acute) exacerbation C34.90 Malignant neoplasm of unsp part of unsp bronchus or lung Office Visit 03/03/2018 [facility] David Helton J44.1 Chronic 9:37a Assoc,iveth Donnelly MD obstructive Hospitalists pulmonary disease w (acute) exacerbation C34.90 Malignant neoplasm of unsp part of unsp bronchus or lung Office Visit 03/02/2018 9:37a [facility] Jaymie Alexis J96.21 Acute and chronic Assoc,iveth NNattyPNatty respiratory Hospitalists failure with hypoxia J44.1 Chronic obstructive pulmonary disease w (acute) exacerbation C34.90 Malignant neoplasm of unsp part of unsp bronchus or lung Office Visit 12/29/2017 9:00a Pulmonology And Reina J44.9 Chronic Sleep Services Of [facility] Denia obstructive [employer] pulmonary disease, unspecified C34.90 Malignant neoplasm of unsp part of unsp bronchus or lung F17.210 Nicotine dependence, cigarettes, uncomplicated Office Visit 12/13/2017 [facility] Kieran Daniels Z21 Asymptomatic human 2:00p For Dolly Tesfaye M.D. immunodeficiency virus Diseases infection status Z79.899 Other intermediate (current) drug therapy D72.810 Lymphocytopenia Office 11/02/2017 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 enlarged lymph nodes Office Visit 07/09/2017 10:45a Pulmonology And Reina J44.9 Chronic [facility] [place] obstructive [employer] pulmonary disease, unspecified R59.0 Localized enlarged lymph nodes F17.210 Nicotine dependence, cigarettes, uncomplicated Office Visit 06/12/2017 [facility] Kieran Daniels Z21 Asymptomatic human 10:10a For Dolly Tesfaye M.D. immunodeficiency virus Diseases infection status Z79.899 Other intermediate (current) drug therapy Z23 Encounter for immunization Office Visit 05/28/2017 10:30a Pulmonology And Reina J18.9 Pneumonia, Sleep Services Of MD Denia unspecified [employer] organism J44.9 Chronic obstructive pulmonary disease, unspecified F17.210 Nicotine dependence, cigarettes, uncomplicated R09.02 Hypoxemia Office Visit 05/19/2017 10:16a [facility]ology And Reina J18.9 Pneumonia, [facility] MD [place] unspecified [employer] organism J91.8 Pleural effusion in other conditions classified elsewhere J98.11 Atelectasis J44.9 Chronic obstructive pulmonary disease, unspecified B20 Human immunodeficiency virus [HIV] disease F17.210 Nicotine dependence, cigarettes, uncomplicated Office Visit 05/18/2017 10:15a Pulmonology And Reina J18.9 Pneumonia, [facility] MD [place] unspecified [employer] organism J91.8 Pleural effusion in other conditions classified elsewhere J98.11 Atelectasis F17.210 Nicotine dependence, cigarettes, uncomplicated Office Visit 05/17/2017 10:02a Pulmonology And Reina J18.9 Pneumonia, [facility] MD [place] unspecified [employer] organism F17.210 Nicotine dependence, cigarettes, uncomplicated Office Visit 05/16/2017 [facility] F17.210 Nicotine 8:12a [facility] [place] dependence, [employer] cigarettes, uncomplicated J18.9 Pneumonia, unspecified organism Office Visit 05/15/2017 3:12p [facility] For Kieran Daniels J18.9 Pneumonia, Infectious Gerry Tesfaye unspecified Diseases organism J44.0 Chronic obstructive pulmon disease w acute lower resp infct Z21 Asymptomatic human immunodeficiency virus infection status Office Visit 05/15/2017 2:01p Pulmonology And Reina J98.4 Other disorders [facility] [place] of lung [employer] F17.210 Nicotine dependence, cigarettes, uncomplicated Office Visit 01/11/2016 10:00a Orthopedic Paulo Rhoades G56.02 Carpal tunnel Services Of MD syndrome, left C.M.A. upper limb Office Visit 11/30/2015 10:15a Orthopedic Paulo Rhoades G56.02 Carpal tunnel Services Of MD syndrome, left C.M.A. upper limb M77.12 Lateral epicondylitis, left elbow Office Visit 10/28/2015 10:30a Orthopedic Paulo Rhoades G56.02 Carpal tunnel Services Of MD syndrome, left C.M.A. upper limb G56.01 Carpal tunnel syndrome, right upper limb Office Visit 09/30/2015 Orthopedic Paulo Rhoades G56.02 Carpal tunnel 10:30a Services Of MD syndrome, left C.M.A. upper limb Office Visit 12/18/2013 Orthopedic Yuki 715.16 Osteoarthrosis 10:45a Services Of RADHAMES Lopez Localized Prim C.M.A. Lower Leg Office Visit 11/04/2013 Orthopedic Brayan Munson 715.16 Osteoarthrosis 9:30a Services Of Jessica Localized Prim C.M.A. RPA-C Lower Leg Office Visit 04/20/2013 [facility] 492.8 Emphysema Other 11:09a Assoc,iveth Escoto M.D. Hospitalists 042 HIV Disease Office Visit 04/19/2013 11:09[facility]8 [facility] Other Assoc,iveth Escoto M.D. Hospitalists 042 HIV Disease Office Visit 03/21/2012 [facility] Arturo Johnsko, 485 Bronchopneumonia 11:11a iveth Cancino M.D. Organism Unspec Hospitalists 492.8 Emphysema Other 042 HIV Disease 786.52 Painful Respiration Plan of Treatment Future Appointment(s):04/02/2019 9:15 am - Reina Loza MD at [facility]10/22/2018 9:30 am - Kieran Tesfaye M.D. at [facility]67/20/2019 - Reina Loza MDJ44.9 Chronic obstructive pulmonary disease, unspecifiedNew Medication:Hypersal 3.5 % - use as directed for secretions twice daily after nebulizerFollow up:6 months , PFTs webpuE96.90 Malignant neoplasm of unspecified part of unspecified bronch
[2018-10-28 16:19] VITALS: BP 104/65
== END | disposition left against medical advice (07) ==
LOC: ED 14:47
DX: R05 Cough (principal); R07.9 Chest pain, unspecified; Z53.21 Procedure and treatment not carried out due to patient leaving prior to being seen by health care provider
CPT/HCPCS: 71046; 99282

== ENCOUNTER 2018-10-30 18:12 | Inpatient (IN) | payer MEDICARE, MEDICAID ==
[2018-10-30] MEDS ORDERED: Albuterol 2.5 MG/3 ML NEB.SOL* (0.083%) INH PRN (18:17)
[2018-10-30] MEDS ORDERED: traMADol TAB* 50 MG PO PRN (19:25)
[2018-10-30] MEDS ORDERED: Prochlorperazine TAB* 10 MG PO PRN (19:28)
[2018-10-30] MEDS ORDERED: Ondansetron TAB* 4 MG PO PRN (19:29)
[2018-10-30] MEDS ORDERED: Acetaminophen TAB* 325 MG PO PRN (19:30)
[2018-10-30] MEDS: guaiFENesin ER TAB 600 MG PO SCH (20:24)
[2018-10-30] MEDS: Cefepime 2 GM in Dextrose(*) 2 GM/50 ML BAG IV SCH (20:24)
[2018-10-30] MEDS: Benzonatate CAP* 100 MG PO PRN (20:45)
[2018-10-30] MEDS ORDERED: Melatonin 3 MG TAB PO PRN (20:55)
[2018-10-31] MEDS ORDERED: Ibuprofen TAB* 600 MG ONE (02:07)
[2018-10-31] MEDS ORDERED: Ibuprofen TAB* 600 MG PO ONE (02:30)
[2018-10-31] MEDS ORDERED: NS 0.9% 500 ML* 500 ML IV ONE (02:30)
[2018-10-31 03:37] LABS: Mean Platelet Volume 9.8 fL (7.4-10.4); Platelet Count 6 10^3/uL (150-450)
[2018-10-31] MEDS: NFT: Umeclidin/Vilant 62.5 MDI 62.5/25 mcg 14 INH ELLIPTA DEVICE INH SCH (07:08)
[2018-10-31 07:51] LABS: ABS Neutrophils 0.7 10^3/ul (1.5-7.7); Hematocrit 22 % (35-47); Hemoglobin 7.6 g/dL (12.0-16.0); Mean Corpuscular HGB Conc 34 g/dL (31-36); Mean Corpuscular Hemoglobin 34 pg (27-31); Mean Corpuscular Volume 101 fL (80-97); Mean Platelet Volume 9.2 fL (7.4-10.4); Platelet Count 6 10^3/uL (150-450); Red Blood Count 2.21 10^6 /uL (3.70-4.87); Red Cell Distribution Width 20 % (10-15)
[2018-10-31 07:59] LABS: BUN/Creatinine Ratio 15.7 (8-20); Calcium 8.7 mg/dL (8.6-10.3); EGFR Non-African American 85.9 (>60); Potassium 3.6 mmol/L (3.5-5.0); Total Bilirubin 0.9 mg/dL (0.2-1.0)
[2018-10-31 08:36] LABS: ABS Lymphocytes 0.2 10^3/ul (1.0-4.8); ABS Monocytes 0.1 10^3/ul (0-0.8); Eosinophil % 0.7 %; Lymphocyte % 21.4 %; Nucleated Red Blood Cells % 2.9
[2018-10-31] MEDS ORDERED: Nicotine PATCH 14 MG/24 HR* PATCH TRANSDERM SCH (09:00)
[2018-10-31] MEDS: RILPIVIRINE PO SCH (09:07)
[2018-10-31] MEDS: [UNRECOGNIZED DRUG - OTHER] PO SCH (09:07)
[2018-10-31] MEDS: EMTRICITABINE PO SCH (09:07)
[2018-10-31] MEDS: TENOFOVIR ALAFENAMIDE PO SCH (09:07)
[2018-10-31] MEDS: guaiFENesin ER TAB 600 MG PO SCH ×2 (09:41→20:39)
[2018-10-31] MEDS: Magnesium Oxide TAB* 400 MG PO SCH (09:41)
[2018-10-31] MEDS: Nicotine PATCH 14 MG/24 HR* PATCH TRANSDERM SCH (09:44)
--- NOTE | 2018-10-31 09:45 | PN ---
Progress Note - Progress Note Date of Service: 10/31/18 SOAP: Subjective: [Patient reports feeling much better this am. No longer SOB at rest. Able to get to the bathroom this am with little dyspnea. Cough is a little productive. No CP. No GI complaints. One fever overnight 100.9.] Objective: [ Laboratory Results - last 24 hr 10/30/18 10/31/18 10/31/18 16:13 02:15 02:50 WBC RBC Hgb Hct MCV MCH MCHC RDW Plt Count 6 L* MPV 9.8 Neut % (Auto) Lymph % (Auto) [place] % (Auto) Eos % (Auto) Baso % (Auto) Absolute Neuts (auto) Absolute Lymphs (auto) Absolute Monos (auto) Absolute Eos (auto) Absolute Basos (auto) Absolute Nucleated RBC Nucleated RBC % Sodium Potassium Chloride Carbon Dioxide Anion Gap BUN Creatinine Est GFR ( Amer) Est GFR (Non-Af Amer) BUN/Creatinine Ratio Glucose Calcium Magnesium Total Bilirubin AST ALT Alkaline Phosphatase Total Protein Albumin Globulin Albumin/Globulin Ratio Blood Type A Positive Antibody Screen Negative Crossmatch See Detail Transfusion React Rpt Donor Unit # [id number] 10/31/18 10/31/18 06:53 06:53 WBC 1.0 L RBC 2.21 L Hgb 7.6 L Hct 22 L MCV 101 H MCH 34 H MCHC 34 RDW 20 H Plt Count 6 L* MPV 9.2 Neut % (Auto) 64.9 Lymph % (Auto) 21.4 [place] % (Auto) 12.6 Eos % (Auto) 0.7 Baso % (Auto) 0.4 Absolute Neuts (auto) 0.7 L Absolute Lymphs (auto) 0.2 L Absolute Monos (auto) 0.1 Absolute Eos (auto) 0.0 Absolute Basos (auto) 0.0 Absolute Nucleated RBC 0.0 Nucleated RBC % 2.9 Sodium 136 Potassium 3.6 Chloride 101 Carbon Dioxide 30 Anion Gap 5 BUN 11 Creatinine 0.70 Est GFR ( Amer) 104.0 Est GFR (Non-Af Amer) 85.9 BUN/Creatinine Ratio 15.7 Glucose 105 H Calcium 8.7 Magnesium 2.0 Total Bilirubin 0.90 AST 38 ALT 21 Alkaline Phosphatase 76 Total Protein 6.0 L Albumin 3.0 L Globulin 3.0 Albumin/Globulin Ratio 1.0 Blood Type Antibody Screen Crossmatch Transfusion React Rpt Donor Unit # Acetaminophen (Tylenol Tab*) 650 mg PO Q6H PRN PRN Reason: FEVER Albuterol (Ventolin 2.5 Mg/3 Ml Neb.Mini*) 2.5 mg INH Q4H PRN PRN Reason: SOB/WHEEZING Benzonatate (Tessalon Cap*) 100 mg PO BID PRN PRN Reason: COUGH Last Admin: 10/30/18 20:45 Dose: 100 mg Emtricitabine/Rilpivirine/Tenofovir (Odefsey Tablet) 1 each PO DAILY [facility] Last Admin: 10/31/18 09:07 Dose: Not Given Guaifenesin (Mucinex*) 1,200 mg PO BID [facility] Last Admin: 10/31/18 09:41 Dose: 1,200 mg Cefepime HCl (Maxipime 2 Gm In Dextrose Duplex (*)) 2 gm in 50 mls @ 100 mls/ hr IV Q24H [facility] Last Admin: 10/30/18 20:24 Dose: 100 mls/hr Azithromycin (Zithromax 500 Mg/250 Ml) 500 mg in 250 mls @ 250 mls/hr IVPB Q24H [facility] Lorazepam (Ativan Tab(*)) 1 mg PO BEDTIME [facility] Magnesium Oxide (Magox 400 Tab*) 400 mg PO DAILY [facility] Last Admin: 10/31/18 09:41 Dose: 400 mg Melatonin (Melatonin) 3 mg PO BEDTIME PRN PRN Reason: SLEEP Nicotine (Nicotine Patch 14 Mg/24 Hr*) 1 patch TRANSDERM DAILY [facility] Ondansetron HCl (Zofran Tab*) 4 mg PO Q8H PRN PRN Reason: NAUSEA Pharmacy Profile Note (Nicotine Patch Removal Note*) 1 note PATCH OFF 2100 [facility] Prednisone (Deltasone Tab*) 40 mg PO DAILY [facility] Prochlorperazine (Compazine Tab*) 10 mg PO Q6HR PRN PRN Reason: NAUSEA Tramadol HCl (Ultram*) 50 mg PO Q6H PRN PRN Reason: PAIN Umeclidinium/Vilanterol (Anoro 62.5/25 Ellipta Device (Nf)) 1 inh INH DAILY [facility] Last Admin: 10/31/18 07:08 Dose: Not Given Vital Signs: Temp Pulse Resp BP Pulse Ox 98.2 F 85 24 96/54 99 10/31/18 06:25 06/20/19 06:25 10/31/18 06:25 10/31/18 06:25 10/31/18 06:25 Exam: Gen: chronically ill appearing 57 yo female in NAD CV: RRR, no m/r/g Resp: diffuse rhonchi, occasional wheeze in anterior R lung field] Abd: soft, nonTTP Ext: no edema Skin: no rashes Assessment: [57 yo female with recurrent small cell lung cancer now C4D16 of carboplatin/ etoposide admitted with a RUL PNA.] Plan: [1. Neutropenic fever secondary to PNA with COPD exacerbation - repeat CXR shows dense RUL consolidation - cont Cefepime, but add azithromycin for atypical coverage - obtain blood cultures for repeat fevers - start prednisone - cont usual home inhaled medications and prn albuterol nebulizer - obtain sputum culture 2. Recurrent small cell lung CA - C4D16 carbo/etoposide with good initial response - pancytopenic - transfusing 2U PRBCs and 1U plts, no signs of bleeding - neutropenic precautions 3. HIV positive - cont antiretrovirals 4. DVT prophylaxis - no chemical prophylaxis given profound thrombocytopenia Dispo: required continued inpatient care, anticipate dc when ANC >1000]
[2018-10-31] MEDS ORDERED: Azithromycin 500 mg/250 ml NS 500 MG/250 ML BAG IVPB SCH (10:00)
[2018-10-31] MEDS: Azithromycin 500 mg/250 ml NS 500 MG/250 ML BAG IVPB SCH (12:04)
[2018-10-31] MEDS: predniSONE TAB* 20 MG PO SCH (12:04)
[2018-10-31] MEDS ORDERED: Cyclobenzaprine TAB* 10 MG PO ONE (16:57)
[2018-10-31 19:41] LABS: Mean Platelet Volume 9.3 fL (7.4-10.4); Platelet Count 7 10^3/uL (150-450)
[2018-10-31] MEDS: Benzonatate CAP* 100 MG PO PRN (20:39)
[2018-10-31] MEDS: LORazepam TAB(*) 1 MG PO SCH (20:39)
[2018-10-31] MEDS: Cefepime 2 GM in Dextrose(*) 2 GM/50 ML BAG IV SCH (20:40)
[2018-10-31] MEDS: Nicotine Patch Removal NOTE PATCH OFF SCH (20:40)
[2018-11-01] MEDS: NFT: Umeclidin/Vilant 62.5 MDI 62.5/25 mcg 14 INH ELLIPTA DEVICE INH SCH (07:07)
[2018-11-01] MEDS: Nicotine PATCH 14 MG/24 HR* PATCH TRANSDERM SCH (09:02)
[2018-11-01] MEDS: predniSONE TAB* 20 MG PO SCH (09:02)
[2018-11-01] MEDS: Magnesium Oxide TAB* 400 MG PO SCH (09:03)
[2018-11-01] MEDS: EMTRICITABINE PO SCH (09:03)
[2018-11-01] MEDS: guaiFENesin ER TAB 600 MG PO SCH ×2 (09:03→21:50)
[2018-11-01] MEDS: TENOFOVIR ALAFENAMIDE PO SCH (09:03)
[2018-11-01] MEDS: [UNRECOGNIZED DRUG - OTHER] PO SCH (09:03)
[2018-11-01] MEDS: RILPIVIRINE PO SCH (09:03)
[2018-11-01 11:12] LABS: Hematocrit 25 % (35-47); Hemoglobin 8.7 g/dL (12.0-16.0); Mean Corpuscular HGB Conc 34 g/dL (31-36); Mean Corpuscular Hemoglobin 33 pg (27-31); Mean Corpuscular Volume 96 fL (80-97); Platelet Count 6 10^3/uL (150-450); Red Blood Count 2.63 10^6 /uL (3.70-4.87); Red Cell Distribution Width 22 % (10-15); White Blood Count 2.1 10^3/uL (3.5-10.8)
[2018-11-01 11:24] LABS: Albumin 2.9 g/dL (3.2-5.2); Albumin/Globulin Ratio 1.1 (1-3); BUN/Creatinine Ratio 15.8 (8-20); Calcium 8.6 mg/dL (8.6-10.3); EGFR African American 131.8 (>60); EGFR Non-African American 108.9 (>60); Globulin 2.7 g/dL (2-4); Potassium 3.7 mmol/L (3.5-5.0); Total Bilirubin 0.4 mg/dL (0.2-1.0); Total Protein 5.6 g/dL (6.4-8.9)
[2018-11-01 11:52] LABS: ABS Lymphocytes 0.4 10^3/ul (1.0-4.8); ABS Monocytes 0.3 10^3/ul (0-0.8); ABS Neutrophils 1.3 10^3/ul (1.5-7.7); Eosinophil % 0.2 %; Lymphocyte % 20.4 %; Nucleated Red Blood Cells % 1.9
[2018-11-01] MEDS ORDERED: Dexamethasone IV* 4 MG/ML 5 ML VIAL (20 MG) ONE (12:09)
[2018-11-01] MEDS: Azithromycin 500 mg/250 ml NS 500 MG/250 ML BAG IVPB SCH (12:41)
[2018-11-01] MEDS: Dexamethasone IV* 40 MG in NS 0.9% 50 ML* 50 ML IVPB SCH (12:48)
[2018-11-01] MEDS ORDERED: LORazepam TAB(*) 0.5 MG PO PRN (18:01)
[2018-11-01] MEDS: Cefepime 2 GM in Dextrose(*) 2 GM/50 ML BAG IV SCH (21:50)
[2018-11-01] MEDS: LORazepam TAB(*) 1 MG PO SCH (21:50)
[2018-11-01] MEDS: Nicotine Patch Removal NOTE PATCH OFF SCH (23:24)
[2018-11-02 05:01] LABS: ABS Lymphocytes 0.4 10^3/ul (1.0-4.8); ABS Monocytes 0.3 10^3/ul (0-0.8); ABS Neutrophils 1.6 10^3/ul (1.5-7.7); Hematocrit 28 % (35-47); Hemoglobin 9.5 g/dL (12.0-16.0); Lymphocyte % 17.1 %; Mean Corpuscular HGB Conc 34 g/dL (31-36); Mean Corpuscular Hemoglobin 33 pg (27-31); Mean Corpuscular Volume 95 fL (80-97); Mean Platelet Volume 9.5 fL (7.4-10.4); Nucleated Red Blood Cells % 1.5; Platelet Count 9 10^3/uL (150-450); Red Cell Distribution Width 22 % (10-15); White Blood Count 2.4 10^3/uL (3.5-10.8)
[2018-11-02 05:09] LABS: BUN/Creatinine Ratio 17.2 (8-20); Calcium 8.8 mg/dL (8.6-10.3); EGFR African American 129.2 (>60); EGFR Non-African American 106.8 (>60); Potassium 3.6 mmol/L (3.5-5.0)
[2018-11-02] MEDS: NFT: Umeclidin/Vilant 62.5 MDI 62.5/25 mcg 14 INH ELLIPTA DEVICE INH SCH (07:02)
[2018-11-02] MEDS: guaiFENesin ER TAB 600 MG PO SCH ×2 (08:39→21:05)
[2018-11-02] MEDS: Nicotine PATCH 14 MG/24 HR* PATCH TRANSDERM SCH (08:39)
[2018-11-02] MEDS: predniSONE TAB* 20 MG PO SCH (08:39)
[2018-11-02] MEDS: Magnesium Oxide TAB* 400 MG PO SCH (08:40)
[2018-11-02] MEDS: TENOFOVIR ALAFENAMIDE PO SCH (08:46)
[2018-11-02] MEDS: [UNRECOGNIZED DRUG - OTHER] PO SCH (08:46)
[2018-11-02] MEDS: EMTRICITABINE PO SCH (08:46)
[2018-11-02] MEDS: RILPIVIRINE PO SCH (08:46)
[2018-11-02] MEDS: Dexamethasone IV* 40 MG in NS 0.9% 50 ML* 50 ML IVPB SCH (09:30)
[2018-11-02] MEDS: Azithromycin 500 mg/250 ml NS 500 MG/250 ML BAG IVPB SCH (12:07)
[2018-11-02] MEDS: Cefepime 2 GM in Dextrose(*) 2 GM/50 ML BAG IV SCH (20:16)
[2018-11-02] MEDS: LORazepam TAB(*) 1 MG PO SCH (21:05)
[2018-11-02] MEDS: Nicotine Patch Removal NOTE PATCH OFF SCH (21:12)
[2018-11-03 05:32] LABS: Hematocrit 29 % (35-47); Hemoglobin 9.6 g/dL (12.0-16.0); Mean Corpuscular HGB Conc 34 g/dL (31-36); Mean Corpuscular Hemoglobin 32 pg (27-31); Mean Corpuscular Volume 96 fL (80-97); Mean Platelet Volume 9.8 fL (7.4-10.4); Platelet Count 11 10^3/uL (150-450); Red Blood Count 2.98 10^6 /uL (3.70-4.87); Red Cell Distribution Width 21 % (10-15); White Blood Count 3.7 10^3/uL (3.5-10.8)
[2018-11-03] MEDS: NFT: Umeclidin/Vilant 62.5 MDI 62.5/25 mcg 14 INH ELLIPTA DEVICE INH SCH (07:03)
[2018-11-03 07:21] LABS: ABS Lymphocytes 0.8 10^3/ul (1.0-4.8); ABS Monocytes 0.5 10^3/ul (0-0.8); ABS Neutrophils 2.4 10^3/ul (1.5-7.7); ABS Nucleated RBC 0.1 10^3/ul; Lymphocyte % 21.3 %; Nucleated Red Blood Cells % 3.2
[2018-11-03] MEDS: Dexamethasone IV* 40 MG in NS 0.9% 50 ML* 50 ML IVPB SCH (08:02)
[2018-11-03] MEDS: guaiFENesin ER TAB 600 MG PO SCH (08:03)
[2018-11-03] MEDS: predniSONE TAB* 20 MG PO SCH (08:03)
[2018-11-03] MEDS: Magnesium Oxide TAB* 400 MG PO SCH (08:03)
[2018-11-03 08:11] VITALS: BP 118/75
[2018-11-03] MEDS: RILPIVIRINE PO SCH (08:11)
[2018-11-03] MEDS: [UNRECOGNIZED DRUG - OTHER] PO SCH (08:11)
[2018-11-03] MEDS: Nicotine PATCH 14 MG/24 HR* PATCH TRANSDERM SCH (08:11)
[2018-11-03] MEDS: EMTRICITABINE PO SCH (08:11)
[2018-11-03] MEDS: TENOFOVIR ALAFENAMIDE PO SCH (08:11)
== END 2018-11-03 10:40 | disposition home or self-care (01) | DRG 194 ==
LOC: MED 18:50
PROVIDERS: ADMIT Internal Medicine Hematology & Oncology; ATTEND Internal Medicine Hematology & Oncology
PROC: 30233R1 Transfusion of Nonautologous Platelets into Peripheral Vein, Percutaneous Approach (ICD-10-PCS; principal; 2018-10-30)
PROC: 30233N1 Transfusion of Nonautologous Red Blood Cells into Peripheral Vein, Percutaneous Approach (ICD-10-PCS; 2018-10-30)
DX: J18.9 Pneumonia, unspecified organism (principal); D61.818 Other pancytopenia; C34.90 Malignant neoplasm of unspecified part of unspecified bronchus or lung; J44.1 Chronic obstructive pulmonary disease with (acute) exacerbation; Z21 Asymptomatic human immunodeficiency virus [HIV] infection status; E86.0 Dehydration; F17.210 Nicotine dependence, cigarettes, uncomplicated; R50.81 Fever presenting with conditions classified elsewhere; Z66 Do not resuscitate; T80.89XA Other complications following infusion, transfusion and therapeutic injection, initial encounter; X58.XXXA Exposure to other specified factors, initial encounter; Y92.230 Patient room in hospital as the place of occurrence of the external cause; R50.9 Fever, unspecified; Z88.2 Allergy status to sulfonamides; Z91.040 Latex allergy status; Z79.899 Other long term (current) drug therapy; Z80.1 Family history of malignant neoplasm of trachea, bronchus and lung; Z80.0 Family history of malignant neoplasm of digestive organs
CPT/HCPCS: 36415; 71046; 80048; 80053; 83735; 85025; 85049; 86078; 86850; 86900; 86901; 86922; 87070; 87205; 94640; 99233; 99406; A9270-GY; J0456; J0692; J1100; J1642; J7512; P9035; P9040

== ENCOUNTER → 2019-03-21 10:00 | Day surgery (SDC) | payer MEDICARE, MEDICAID ==
--- NOTE | 2019-03-21 12:59 | BRIEFOPN ---
Brief Operative/Procedure Note - Operation Details Pre-Op Diagnosis: Moderate rt effusion Post-Op Diagnosis: Moderate rt effusion Procedures: Thoracentesis on right Surgeon(s)/Proceduralists: yamil Loza Anesthesia: Local with 1% lidocaine 5 cc Estimated Blood Loss: None Findings: Moderate rt effusion with associated atelectasis, light yellow fluid Specimen(s)/Culture(s) Description: Fluid for cytology, micro, biochem, hematology Complications: None
--- NOTE | 2019-03-21 13:57 | PRO ---
THORACENTESIS REPORT: DATE OF PROCEDURE: 03/21/19 PROCEDURE PERFORMED: Ultrasound-guided thoracentesis on the right side. PRE-PROCEDURAL DIAGNOSIS: Moderate right pleural effusion. ANESTHESIA: Local anesthesia with 1% lidocaine 5 cc. DESCRIPTION OF PROCEDURE: Informed consent was obtained from the patient prior to the procedure after all the risks and benefits of the procedure were thoroughly explained. The patient recently had a CT scan, which showed moderate right effusion which associated lung atelectasis. 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 The patient was scheduled for the procedure for symptomatic benefit. Appropriate time- out was performed and agreed on by attending staff prior to the procedure. The patient was sitting up and leaning forward during the procedure. Portable ultrasound was utilized at bedside to localize moderate amounts of right effusion. After ultrasound localization, the area was sterilized and then subsequently anesthetized with 1% lidocaine. CareFusion 8- English thoracentesis catheter was utilized for the procedure. Strict aseptic precautions and barrier techniques were utilized. Area was disinfected with chlorhexidine. Sterile drape was placed. Lidocaine was inserted intradermally subcutaneously down into the pleural space taking precautions. A #11 scalpel blade was utilized to make stab incision. A CareFusion 8-English thoracentesis catheter was subsequently inserted under manual suction taking precautions. Catheter was left in place and needle was removed. 850 mL of light yellow fluid was removed under manual suction. The patient had discomfort towards the end of the procedure and the catheter was subsequently removed. Sterile Band-Aid was applied into the area. The patient's oxygen saturation improved from 92% prior to the procedure to 96% after the procedure. The patient was discharged with appropriate instructions. Fluid was sent into the lab for cytological and biochemical examination. [id number] #: [id number] MTDD
[2019-03-21 15:06] LABS: Body Fluid Source Pleural Fluid
[2019-03-21 15:55] LABS: Body Fluid Mono 58 %; Body Fluid Other Cells 6
[2019-03-25 16:06] LABS: Lactate Dehydrogenase, BF 176 U/L
[2019-03-25 16:07] LABS: Fluid Type, Protein, Total PLEURAL
== END | disposition home or self-care (01) ==
LOC: OR 10:00
PROVIDERS: ATTEND Internal Medicine
DX: J90 Pleural effusion, not elsewhere classified (principal); C34.11 Malignant neoplasm of upper lobe, right bronchus or lung; Z21 Asymptomatic human immunodeficiency virus [HIV] infection status; R13.10 Dysphagia, unspecified
CPT/HCPCS: 32554; 36415; 76604; 83615; 83986; 84157; 87070; 87205; 88112; 89051

== ENCOUNTER 2019-06-06 14:57 | Observation (INO) | payer MEDICARE, MEDICAID ==
[2019-06-06] MEDS ORDERED: NS 0.9% 1000 ML** 1,000 ML IV ONE (15:17)
--- NOTE | 2019-06-06 15:23 | ED ---
Psychiatric Complaint - HPI Summary HPI Summary: 58 year [facility] F [facility] complains of altered speech this morning 06/06/2019 since trying a new chemo drug for lung CA yesterday. Pt's sister thought she had AMS this morning but she has since returned to baseline. Pt reports WRIGHT that started this morning similar to when she had a sinus infection, lightheadedness, numbness in cheeks, and a tremor in her hands. Patient denies n/v and abd pain. PMHx of lung CA that has spread to the kidney and uses O2 at home at night. FMHx of strokes. The patient rates the pain 8/10 in severity. Symptoms aggravated by nothing. Symptoms alleviated by nothing. - History Of Current Complaint Chief Complaint: EDWeakness Time Seen by Provider: 06/06/19 15:07 Hx Obtained From: Patient Onset/Duration: Lasting Hours - This morning 06/06/2019, Still Present Timing: Constant Severity Currently: Moderate Aggravating Factor(s): Nothing Alleviating Factor(s): Nothing Associated Signs And Symptoms: Positive: Negative - no n/v or abd pain - Allergies/Home Medications Allergies/Adverse Reactions: Allergies Allergy/AdvReac Type Severity Reaction Status Date / Time bee venom protein (honey bee) Allergy Severe Difficulty Verified 09/10/18 15:26 Breathing Sulfa (Sulfonamide Allergy Intermediate Hives Verified 09/10/18 15:26 Antibiotics) latex Allergy Mild Hives Verified 09/10/18 15:26 Home Medications: Home Medications Fluticasone NASAL SPRAY 50MCG* [Flonase NASAL SPRAY 50MCG*] 2 spray BOTH NARES DAILY 06/06/19 [History Confirmed 06/06/19] Loratadine [Allergy Relief] 10 mg PO DAILY 06/06/19 [History Confirmed 06/06/19] Omeprazole (Nf) [Prilosec (NF)] 40 mg PO DAILY 06/06/19 [History Confirmed 06/06] traZODone TAB* [Desyrel TAB*] 25 - 50 mg PO BEDTIME PRN 06/06/19 [History Confirmed 06/06/19] PMH/Surg Hx/FS Hx/Imm Hx Endocrine/Hematology History: Reports: Other Endocrine/Hematological Disorders - HIV Denies: Hx Anticoagulant Therapy, Hx Diabetes, Hx Systemic Lupus Erythematosus, Hx Anemia, Hx Unexplained Bleeding Cardiovascular History: Denies: Hx Aneurysm, Hx Angina, Hx Angioplasty, Hx Auto Implanted Cardiovert Defib, Hx Cardiac Arrest, Hx Cardiomegaly, Hx Congenital Heart Disease, Hx Congestive Heart Failure, Hx Coronary Artery Disease, Hx Deep Vein Thrombosis, Hx Embolism, Hx Hypercholesterolemia, Hx Hypotension, Hx Hypertension, Hx Pacemaker/ICD, Hx Peripheral Vascular Disease, Hx Rheumatic Fever, Hx Syncope, Hx Valvular Heart Disease, Other Cardiovascular Problems/Disorders Respiratory History: Reports: Hx Asthma - INHALERS, USED DAILY, Hx Chronic Bronchitis, Hx Chronic Obstructive Pulmonary Disease (COPD), Hx Lung Cancer - normal, Hx Pneumonia, Other Respiratory Problems/Disorders - COPD Denies: Hx Bronchopulmonary Dysplasia, Hx Cystic Fibrosis, Hx Pleural Effusion, Hx Pulmonary Edema, Hx Pulmonary Embolism, Hx Seasonal Allergies, Hx Sleep Apnea GI History: Denies: Hx Cirrhosis, Hx Crohn's Disease, Hx Diverticulosis, Hx Gall Bladder Disease, Hx Gastroesophageal Reflux Disease, Hx Gastrointestinal Bleed, Hx Hiatal Hernia, Hx Irritable Bowel, Hx Jaundice, Hx Obstructive Bowel, Hx Ileostomy, Hx Pyloric Stenosis, Hx Ulcer, Other GI Disorders History: Denies: Hx Acute Renal Failure, Hx Benign Prostatic Hyperplasia, Hx Chronic Renal Failure, Hx Dialysis, Hx Kidney Infection, Hx Kidney Stones, Hx Renal Disease, Other Problems/Disorders Musculoskeletal History: Reports: Hx Arthritis - KNEES, HANDS Denies: Hx Rheumatoid Arthritis, Hx Back Problems, Hx Bursitis, Hx Congenital Bone Abnormalities, Hx Fibromyalgia, Hx Gout, Hx Orthopedic Injury, Hx Osteoporosis, Hx Scoliosis, Hx Tendonitis, Other Musculoskeletal History Sensory History: Reports: Hx Cataracts - surgery in the past, Hx Contacts or Glasses Denies: Hx Eye Injury, Hx Eye Prosthesis, Hx Glaucoma, Hx Legally Blind, Hx Macular Degeneration, Hx Vision Problem, Hx Deafness, Hx Hearing Aid, Hx Hearing Problem, Other Sensory Impairments Opthamlomology History: Reports: Hx Cataracts - surgery in the past, Hx Contacts or Glasses Denies: Hx Eye Injury, Hx Eye Prosthesis, Hx Glaucoma, Hx Legally Blind, Hx Macular Degeneration, Hx Vision Problem, Other Sensory Impairments Neurological History: Reports: Hx Headaches - once in a while Denies: Hx Dementia, Hx Developmental Delay, Hx Migraine, Hx Nerve Disease, Hx Seizures, Hx Spinal Cord Injury, Hx Transient Ischemic Attacks (TIA), Other Neuro Impairments/Disorders Psychiatric History: Denies: Hx Anxiety, Hx Depression, Hx Panic Disorder - Cancer History Cancer Type, Location and Year: LUNG CANCER Hx Chemotherapy: Yes - Surgical History Surgery Procedure, Year, and Place: 1989 BILATERAL TUBAL LIGATION. UMBILICAL HERNIA REPAIR. mediastinoscopy 07/26/17 [facility]. EBUS [facility]. bilat cataract with IOL. LOWER BACK SURGERY - [place]. RIGHT WRIST SURGERY (WITH PIN) Hx Anesthesia Reactions: No - Immunization History Date of Tetanus Vaccine: 2014 Date of Influenza Vaccine: 2015 Infectious Disease History: No Infectious Disease History: Reports: Hx Human Immunodeficiency Virus (HIV), Hx of Known/Suspected MRSA - 6 years ago Denies: Hx Clostridium Difficile, Hx Hepatitis, Hx Shingles, Hx Tuberculosis , History Other Infectious Disease, Traveled Outside the [place] in Last 30 Days - Family History Known Family History: Positive: Diabetes, Other - denies FHx of breast CA, but does have other cancers in the family Family History: No FHx of breast CA. - Social History Alcohol Use: None Hx Substance Use: No Substance Use Type: Reports: None Hx Tobacco Use: Yes Smoking Status (MU): Light Every Day Tobacco Smoker Type: Cigarettes Amount Used/How Often: 4 PPD X 44 YEARS THEN DECREASED TO 1 PPD, NOW 1 CIG/DAY Have You Smoked in the Last Year: Yes Review of Systems Negative: Abdominal Pain, Vomiting, Nausea Positive: Other - numbness in cheeks Neurological: Other - Lightheadedness and tremor in hands, disturbed speech that has since been resolved Positive: Headache All Other Systems Reviewed And Are Negative: Yes Physical Exam - Summary Physical Exam Summary: Constitutional: Appears weak/fatigued. Skin: pale HENT: Normocephalic; Atraumatic Eyes: Conjunctiva normal Neck: Musculoskeletal ROM normal neck. (-) JVD, (-) Stridor, (-) Tracheal deviation Cardio: Rhythm regular, rate normal, Heart sounds normal; Intact distal pulses; The pedal pulses are 2+ and symmetric. Radial pulses are 2+ and symmetric. (-) Murmur Pulmonary/Chest wall: Effort normal. (-) Respiratory distress, (-) Wheezes, (-) Rales Abd: Soft, (-) tenderness, (-) Distension, (-) Guarding, (-) Rebound Musculoskeletal: (-) Edema Lymph: (-) Cervical adenopathy Neuro: no focal deficit Psych: Mood and affect Normal Triage Information Reviewed: Yes Vital Signs On Initial Exam: Initial Vitals Temp Pulse Resp BP Pulse Ox 97.6 F 95 18 101/70 96 06/06/19 15:01 06/06/19 15:01 06/06/19 15:01 06/06/19 15:01 06/06/19 15:01 Vital Signs Reviewed: Yes - Douglas Coma Scale Best Eye Response: 4 - Spontaneous Best Motor Response: 6 - Obeys Commands Best Verbal Response: 5 - Oriented Coma Scale Total: 15 Procedures - Sedation Patient Received Moderate/Deep Sedation with Procedure: No Diagnostics - Vital Signs Vital Signs Temp Pulse Resp BP Pulse Ox 06/06/19 15:01 97.6 F 95 18 101/70 96 - Laboratory Result Diagrams: 06/06/19 15:16 06/06/19 15:16 Lab Statement: Any lab studies that have been ordered have been reviewed, and results considered in the medical decision making process. - CT CT Brain CT Interpretation Completed By: Radiologist Summary of CT Findings: IMPRESSION: THERE ARE MULTIPLE HIGH ATTENUATION FOCI WITHIN THE CEREBRAL HEMISPHERES BILATERALLY IN. LEFT CEREBELLUM, NEW COMPARED TO THE MRI OF OCTOBER 24, 2018, WITH ASSOCIATED VASOGENIC. EDEMA. THE APPEARANCE IS MOST CONSISTENT WITH MULTIPLE HEMORRHAGIC METASTASES GIVEN THE. CLINICAL HISTORY. THERE IS NO SHIFT. Dr. Pedro has reviewed this report. Course/Dx - Course Course Of Treatment: 58 year old F presenting to [facility] complains of disturbed speech this morning 06/06/2019 since trying a new chemo drug for lung CA yesterday. Physical exam findings: Gen:appears weak/fatigued. Skin:pale. Neuro : no focal deficit. Bloodwork results with no significant abnormalities except for L WBC, L RBC, L Hgb, L Hct, H RDW, L Absolute Lymphs (auto), L Chloride, L Magnesium, L Total Protein. CT Brain shows THERE ARE MULTIPLE HIGH ATTENUATION FOCI WITHIN THE CEREBRAL HEMISPHERES BILATERALLY IN LEFT CEREBELLUM, NEW COMPARED TO THE MRI OF OCTOBER 24, 2018, WITH ASSOCIATED VASOGENIC EDEMA. THE APPEARANCE IS MOST CONSISTENT WITH MULTIPLE HEMORRHAGIC METASTASES GIVEN THE. CLINICAL HISTORY. THERE IS NO SHIFT, per radiologist. GCS 15. In the ED course , the patient was given Ns. We discussed patient care with at 1703 who accepted the patient for admission. The patient is agreeable with this plan. - Differential Dx/Clinical Impression Provider Diagnosis: Metastatic lung cancer (metastasis from lung to other site), Brain metastasis - Physician Notifications Discussed Care Of Patient With: Brian Bueno Time Discussed With Above Provider: 17:03 Instructed by Provider To: Admit As Inpatient Discharge ED - Sign-Out/Discharge Documenting (check all that apply): Patient Departure - admit - Discharge Plan Condition: Fair Disposition: ADMITTED TO [facility] - Billing Disposition and Condition Condition: FAIR Disposition: Admitted to [facility] - Attestation Statements Document Initiated by Scribe: Yes Documenting Scribe: Levar Hernandez Provider For Whom Scribe is Documenting (Include Credential): Fco Pedro DO Scribe Attestation: ILevar and Haider Hernanedz, scribed for Fco Pedro DO on at 0725. Scribe Documentation Reviewed: Yes Provider Attestation: The documentation as recorded by the scribe, Levar Hernandez accurately reflects the service I personally performed and the decisions made by , Fco Pedro DO Status of Scribe Document: Viewed
[2019-06-06 16:17] LABS: ABS Lymphocytes 0.5 10^3/ul (1.0-4.8); ABS Monocytes 0.4 10^3/ul (0-0.8); ABS Neutrophils 2.3 10^3/ul (1.5-7.7); Eosinophil % 0.6 %; Hematocrit 30 % (35-47); Hemoglobin 9.9 g/dL (12.0-16.0); Lymphocyte % 16.8 %; Mean Corpuscular HGB Conc 33 g/dL (31-36); Mean Corpuscular Hemoglobin 31 pg (27-31); Mean Corpuscular Volume 93 fL (80-97); Nucleated Red Blood Cells % 0.4; Platelet Count 192 10^3/uL (150-450); Red Cell Distribution Width 22 % (10-15); White Blood Count 3.3 10^3/uL (3.5-10.8)
[2019-06-06 16:27] LABS: Albumin 3.5 g/dL (3.2-5.2); Albumin/Globulin Ratio 1.6 (1-3); BUN/Creatinine Ratio 14.8 (8-20); Calcium 8.6 mg/dL (8.6-10.3); EGFR African American 121.5 (>60); EGFR Non-African American 100.4 (>60); Globulin 2.2 g/dL (2-4); Magnesium 1.5 mg/dL (1.9-2.7); Total Bilirubin 0.6 mg/dL (0.2-1.0); Total Protein 5.7 g/dL (6.4-8.9)
[2019-06-06] MEDS ORDERED: traZODone TAB* 50 MG TAB PO PRN (16:56)
[2019-06-06] MEDS ORDERED: Albuterol HFA INHALER* 8 gm MDI INH PRN (16:56)
[2019-06-06] MEDS ORDERED: oxyCODONE TAB* 5 MG TAB PO PRN (17:00)
[2019-06-06] MEDS ORDERED: NS 0.9% 1000 ML** 1,000 ML IV SCH (17:15)
[2019-06-06] MEDS ORDERED: Dexamethasone IV* 10 MG in NS 0.9% 50 ML* 50 ML IVPB SCH (18:00)
[2019-06-06] MEDS: Fluticasone NASAL SPRAY 50MCG* 16 gm SPRAY BTL BOTH NARES SCH (19:44)
[2019-06-06] MEDS: Pantoprazole TAB * 40 MG TAB PO SCH (19:44)
[2019-06-06] MEDS: Magnesium Oxide TAB* 400 MG PO SCH ×2 (19:54→23:26)
[2019-06-06] MEDS: Dexamethasone IV* 4 MG/ML 1 ML (4 MG) IV SLOW PU SCH (19:55)
[2019-06-06] MEDS ORDERED: Lidocaine 2.5%/Prilocain 2.5%* 5 GM TUBE TOPICAL ONE (20:54)
--- NOTE | 2019-06-06 21:10 | HP ---
CC: Dr. Reina Loza; Dr. Kendell Salas; Dr. Philip Diamond; Dr. Brian Bueno * ADMISSION HISTORY AND PHYSICAL: DATE OF ADMISSION: 06/06/19 REASON FOR ADMISSION: New onset of brain metastasis in the setting of progressive small-cell lung cancer. HISTORY OF PRESENT ILLNESS: Mary Burnett is a 58-year-old female who has been a longstanding patient of our office since early 2017, at which point she was diagnosed with small-cell lung cancer with details as below. She was recently seen in the office several days ago and at that time reported no significant change in symptoms or any significant neurologic complaints. She had showed progression on her systemic imaging on the CT scan of the chest, abdomen, and pelvis done on 06/02/19 and decision was made to switch to another line of chemotherapy. She was doing well until today when she developed numbness on the left side of her face, arm, and leg, and also noted some slurring of her speech. Associated with this, she had headaches. She reports her balance has been somewhat off but has not fallen and this is not worse, though has been for sometime, and she had no visual complaints. She continues to have good appetite and no change in weight. No major systemic pains. She is chronically on 2 L of oxygen at night and as needed during the day. An ambulance was called and brought her to the emergency room where CT scan of the brain was performed and revealed multiple areas of high-attenuation foci in the cerebral hemispheres bilaterally and also in the left cerebellum. These were new compared to an MRI of the brain performed 18 months ago. There was associated vasogenic edema. This is most consistent with multiple small hemorrhagic metastases. There was no evidence for any midline or tentorial shift. The patient reports since arrival to the emergency room even before starting her steroids, her symptoms significantly somewhat improved. The patient was originally hospitalized in April 2017 with fever, cough, and postobstructive pneumonia with large pleural effusion on the right and trace on the left. She was treated with a course of antibiotics. She had a negative bronchoscopy and EBUS despite the CT scan showed a lobulated mass extending into mediastinum and bulky mediastinal lymph nodes. She subsequently had a pleural effusion drained and cytology was negative. The effusion resolved on its own, but on CT scan on 06/22/17, there was progression of the adenopathy. Repeat mediastinoscopy on 07/26/17 showed diagnosis of small-cell lung cancer and was started on chemotherapy for a limited stage of small cell on 08/13/17. She received a concurrent radiation therapy with cycle 2 and completed a total of 4 cycles of chemotherapy. She did have several episodes of febrile neutropenia and required hospitalizations and dose reductions for this. She subsequently was treated with prophylactic cranial irradiation therapy in February of 2018 and tolerated this well. She developed evidence for recurrent small-cell lung cancer in July of 2018 and due to timeframe for initial therapy of approximately 1 year, she was resumed on etoposide and carboplatin chemotherapy. She received a total of 4 cycles and then developed pancytopenia with platelet count of 110, question of ITP. There was no response to single donor platelet pack and then she improved significantly after high dose steroids. She then completed 5th and 6th cycles of this chemotherapy with a dose reduction in the etoposide. She subsequently developed progression of disease and was started on nivolumab every 4 weeks. She received 2 cycles in the January and February of 2019, but then had dramatic progression. She received radiation therapy to markedly enlarge and painful left supraclavicular lymph nodes and then was switched to Taxol chemotherapy, received a total of 12 weeks of this therapy. On recent CT scan of 06/02/19, there was again progression of disease, now showing progressive right axillary adenopathy of approximately 2 to 3 cm. The new left upper lobe lung nodule measuring 1.5 cm, increased intense in the T5 vertebral body, suspicion for metastatic disease, progression of liver metastasis, which have been small and still remain somewhat small, but now more numerous, approximately 6 to my count. There has been interval improvement in the supraclavicular and cervical adenopathy after radiation therapy. There was a large right pleural effusion, although this has dramatically improved from the previous CT scan. PAST MEDICAL HISTORY: Otherwise significant for longstanding HIV, has been positive since about 1999, viral load has been undetectable on multiple occasions, on [facility]. This has been a treatment for the entire 20 years. She was followed by the [facility] in [place] until recently and then since February 2017, she has been followed here in [facility] by Dr. Morin. History of COPD. History of tubal ligation. Status post longtime smoker. MEDICATIONS: 1. Magnesium 6 pills per day. 2. Omeprazole 40 mg daily. 3. Loratadine 10 mg daily. 4. Trazodone 50 mg at at bedtime. 5. Odefsey 200/25/25 daily. 6. Oxycodone 5 mg q.4 hours p.r.n. pain. 7. ProAir. 8. Does have p.r.n. Zofran and Compazine available. 9. PRN bowel medications available. ALLERGIES: To SULFA and LATEX. FAMILY HISTORY: Mother at 83 of complications of hypertension and diabetes. Father of an CA in his 50s. Sister with COPD and another sister , who , but she was unsure as to the cause. SOCIAL HISTORY: Her healthcare proxy is her sister. She smoked for the past 35 years and is still a current smoker. No significant alcohol or drug use. CODE STATUS: DNR/DNI and has a healthcare proxy in place as well as a MOLST form. REVIEW OF SYSTEMS: Appetite good. Weight stable. No significant aches or pains. Remains reasonably active. Neurologic symptoms as discussed above. Ongoing shortness of breath, oxygen at night and occasionally during the day. No significant change in bowel or bladder habits. No significant arthritic or bony complaints. Emotionally doing well. PHYSICAL EXAMINATION GENERAL: A 58-year-old female, in no acute distress. VITAL SIGNS: Blood pressure 113/96, pulse 101, afebrile, O2 saturation 96% on 2 L. HEENT: PERRL, EOMI. No erythema or exudates. NECK: No palpable cervical or supraclavicular adenopathy, 2 to 3 cm right axillary and no left axillary adenopathy. LUNGS: Decreased breath sounds in the right base, but otherwise clear. HEART: Regular rate and rhythm, slightly tachycardic without murmurs, rubs or gallops. ABDOMEN: Soft, nontender without masses or organomegaly. EXTREMITIES: No edema. BACK: No CVA or spinal tenderness. NEUROLOGIC: The patient is alert and oriented x3. Motor is 5/5 throughout. Cranial nerves II through XII are intact. Speech is intact. Romberg is positive when she tries to stand. DIAGNOSTIC STUDIES/LAB DATA: CBC with a white count of 3300, H and H of 30/9.9 , which is similar to her baseline. Platelet count 192,000. Chemistry Studies : Sodium 135, potassium 4.0, chloride 99, bicarb 29, BUN 9, creatinine 0.6, glucose 87, magnesium 1.5. IMPRESSION AND PLAN: A 58-year-old female with initially limited stage and eventually distant metastatic disease from small-cell lung cancer. She has previously had a prophylactic cranial irradiation therapy approximately 15 months ago, but has never been noted to have a brain metastasis. The last time that she had any imaging of the brain before today was an MRI of the brain in October of 2018 without any metastatic disease. She now has shown multiple small brain lesions, which are slightly hemorrhagic with some modest amounts of a vasogenic edema. Symptoms are fairly mild and already improved even before starting Decadron. She will be started on IV Decadron at [address] Salas has been consulted. He is willing to offer her radiation therapy if she wishes in spite of previous radiation therapy 15 months ago. This will likely start on 06/09/19. 1. Extensive stage small cell, status post multiple previous lines of chemotherapy including cisplatin and etoposide followed by carboplatin and etoposide, followed by nivolumab, followed by Taxol and has plans for Gemzar. She understands that the likelihood of response is not great, but feels that her performance status is good and still wishes to try ongoing therapy. She also recognizes that if does not respond to Gemzar, there is a little else to offer her and at that point we probably would stop therapy. Initial plan was to start the Gemzar next week, but given the brain metastasis, it is likely that we will do radiation therapy first and then Gemzar to follow. She has a healthcare proxy in place, which is her sister. She also has had a DNR in place for over a year and then indicates a desire to have this continued. Healthcare proxy is Mary Gamez and the second is her niece, Twila Delgado. 2. Chronic obstructive pulmonary disease. She will be maintained on her usual inhalers. 3. Hypomagnesemia. To be maintained on oral medications as before. 4. Human immunodeficiency virus. To be maintained on Odefsey. 5. DVT prophylaxis: She will not be given any medications for this given the fact that some of her brain metastases appear to be slightly hemorrhagic. If the patient's neurologic status significantly improves or does not worsen overnight, we would likely be opted to send her home on steroids and do the radiation therapy as an outpatient. If she has any progressive neurologic difficulties, then maintaining in the hospital to start radiation therapy would be more reasonable. [id number]/[facility] #: [id number] [facility] FACILITYKristin
[2019-06-07] MEDS: Magnesium Oxide TAB* 400 MG PO SCH (08:23)
[2019-06-07] MEDS: Pantoprazole TAB * 40 MG TAB PO SCH (08:23)
[2019-06-07] MEDS: Dexamethasone IV* 4 MG/ML 1 ML (4 MG) IV SLOW PU SCH (08:23)
[2019-06-07] MEDS: Fluticasone NASAL SPRAY 50MCG* 16 gm SPRAY BTL BOTH NARES SCH (08:24)
[2019-06-07] MEDS ORDERED: Emtricitabine/Rilpivirine/Teno (Odefsey) 200/25/25 TABLET PO SCH (09:00)
[2019-06-07] MEDS ORDERED: Cetirizine* 10 MG TAB PO SCH (09:00)
[2019-06-07 09:53] VITALS: BP 98/62
--- NOTE | 2019-06-07 09:55 | DS ---
- Discharge Summary BRIEF OBV DISCHARGE SUMMARY ADMIT DATE:06/06/2019 DISCHARGE DATE: 06/07/2019 DISCHARGE DIAGNOSIS: 1. new brain mets 2. metastatic small cell lung cancer DISCHARGE MEDICATIONS: Home Medications Medication Instructions Recorded Confirmed Type Albuterol inh POWDER (NF) [Proair 2 puff INH Q6HR PRN 07/18/18 06/06/19 History Respiclick] Magnesium Oxide TAB* [MagOx 400 800 mg PO BID 09/10/18 06/06/19 History TAB*] Emtricitabine/Rilpivirine/Teno 1 tab PO DAILY 10/30/18 06/06/19 History [Odefsey Tablet] Fluticasone NASAL SPRAY 50MCG* 2 spray BOTH NARES DAILY 06/06/19 06/06/19 History [Flonase NASAL SPRAY 50MCG*] Loratadine [Allergy Relief] 10 mg PO DAILY 06/06/19 06/06/19 History Omeprazole (Nf) [Prilosec (NF)] 40 mg PO DAILY 06/06/19 06/06/19 History traZODone TAB* [Desyrel TAB*] 25 - 50 mg PO BEDTIME PRN 06/06/19 06/06/19 History Dexamethasone TAB* [Decadron TAB*] 8 mg PO BID #120 tab 06/07/19 Rx DISCHARGE FOLLOW UP: Dr. Salas's office to call Sunday am to get in for emergent RT HOSPITAL COURSE: see full admission note from yesterday for details. Briefly, 58 yo F with metastatic small cell lung cancer admitted with left facial, arm and leg tingling and headaches and found to have new hemorrhagic brain mets. She was started on IV dexamethasone and clinically is markedly improved this am. She will be discharged on oral dexamethasone with plan for emergent RT on Sunday with Dr. Salas. She will hold off on starting systemic therapy for her recently progressed disease pending this.
[2019-06-07] MEDS ORDERED: Dexamethasone TAB* 4 MG PO SCH (10:00)
== END 2019-06-07 11:00 | disposition home or self-care (01) ==
LOC: ED 14:57 → MED 16:00
PROVIDERS: ADMIT Internal Medicine Hematology & Oncology; ATTEND Internal Medicine Hematology & Oncology
DX: C71.9 Malignant neoplasm of brain, unspecified (principal); C34.90 Malignant neoplasm of unspecified part of unspecified bronchus or lung; R51 Headache; R20.0 Anesthesia of skin; F17.210 Nicotine dependence, cigarettes, uncomplicated; Z79.899 Other long term (current) drug therapy; Z92.21 Personal history of antineoplastic chemotherapy
CPT/HCPCS: 36415; 70450; 80053; 83735; 85025; 87641; 96374; 96376; 99283; A9270-GY; G0378; J1100; J8540

== ENCOUNTER 2019-06-14 10:46 | Inpatient (IN) | payer MEDICARE, MEDICAID ==
--- OUTSIDE RECORDS SUMMARY | 2019-06-14 11:06 | XMS REPORT | Continuity of Care Document ---
:1960 External Reference #:[id number] Author Name Reina Loza MD (transmitted by agent of provider Jennifer Liang) Address [address], [address] [place] [address] Care Team Providers Name Role Phone Philip Diamond MD - Family Medicine Care Team Information Tie Knitter Helper [phone] Problems Active Problems Provider Date Carpal tunnel syndrome Paulo Rhoades MD Onset: 01/11/2016 Social History Type Date Description Comments Sex Unknown ETOH Use Denies alcohol use Tobacco Use Start: Unknown Light tobacco smoker (10 or fewer cigarettes/day) Recreational Drug Use Denies Drug Use Smoking Status Reviewed: 06/10/19 Light tobacco smoker (10 or fewer cigarettes/day) Exercise Type/Frequency Exercises regularly Allergies, Adverse Reactions, Alerts Active Allergies Reaction Severity Comments Date Sulfa Antibiotics 11/04/2013 Latex 11/04/2013 Medications Active Medications SIG Qnty Indications Ordering Date Provider Anoro Ellipta 1 inhalation daily 2units J44.Trini Loza, 06/10/2019 62.5-25mcg/Inh Aerosol Acetylcysteine 5cc through 180ml Geo.Trini Loza, 10/08/2018 20% nebulizer 2 times MD Solution a day C34.90 Hypersal use as directed for 720ml Cristina Loza MD 09/30/2018 3.5% secretions twice Nebulizer daily after nebulizer Mucinex 1200mg tablets twice 60tabs Pauline Guo, 09/11/2017 600mg Tablets daily as needed DNP, RN, GLOBAL TRANSPORTATION MANAGER-BC ER 12HR Percocet 1 tab by mouth every 14tabs C38.3 Elias Mcgrath, 08/01/2017 5-325mg 4 hours as needed M.DNatty Tablets Proair HFA 2 puffs by mouth 8.500gm Pauline Guo, every 4 hours as IZABELLA, RN, GLOBAL TRANSPORTATION MANAGER-BC 108(90Base) mcg/Act needed Aerosol Magnesium Oxide twice daily Unknown 400mg Tablets Odefsey Take One Tablet By 30tabs Kieran D. 200-25-25mg Mouth Once Daily Gerry Tesfaye Tablets Medications Administered in Office Medication SIG Qnty Indications Ordering Provider Date Triamcinolone (Kenalog) Paulo Rhoades MD 11/30/2015 Injection Celestone 3 mg and 3mg Paulo Rhoades MD 10/28/2015 Injection Depomedrol 80MG Brayan Lopez, 11/04/2013 Injection RPA-C Immunizations CPT Code Status Date Vaccine Lot # [id number] Given 06/12/2017 Influenza Virus Vaccine, Quadrivalent, Split, [id number] Preservative Free Vital Signs Date Vital Result Comment 06/10/2019 9:13am Height 63 inches 5'3" Weight 134.00 lb Heart Rate 95 /min BP Systolic Sitting 118 mmHg BP Diastolic Sitting 70 mmHg O2 % BldC Oximetry 96 % BMI (Body Mass Index) 23.7 kg/m2 12/03/2018 9:26am Height 63 inches 5'3" Weight 156.25 lb Heart Rate 84 /min BP Systolic Sitting 102 mmHg BP Diastolic Sitting 62 mmHg Respiratory Rate 14 /min Body Temperature 96.7 F BMI (Body Mass Index) 27.7 kg/m2 Results Test Acquired Date Facility Test Result H/L Range Note Body Fluid C&S 03/21/2019 [facility] Body Fluid SEE RESULT [address] [place] [address] Stain [phone] Cytology 03/21/2019 [facility] Cytology SEE RESULT 2 Non-Laser/Electro Optics Technician [address] [address] [phone] PDFReport SEE IMAGE Body Fluid Cell 03/21/2019 [facility] Body Fluid Pleural Fluid Count [address] [place] [address] [phone] Body Fluid Appearance Clear Body Fluid Color Yellow Body Fluid Volume 9 mL Body Fluid WBC 169 /mcL Normal 3 Body Fluid RBC 333 /mcL Body Fluid Neutrophils 4 % Body Fluid Lymph 38 % Body Fluid [place] 58 % Body Fluid Other Cells 6 Body Fluid Total Cells Counted 100 Fluid Reviewed By MD (SEE NOTE) 4 Body Fluid Total 03/21/2019 [facility] Total Protein, BF 3.7 g/ dL [address] [place], [place] [id number] [phone] Fluid Source PLEURAL 6 Lactate 03/21/2019 [facility] Lactate 176 U/L 7 Dehydrogenase,BF [address] Dehydrogenase, [place] [address] [phone] Fluid Source PLEURAL 8 Laboratory test 03/21/2019 [facility] Miscellaneous Test 7.9 [address] [place] [address] [phone] 1 SEE RESULT BELOW Name: MARY DAMIAN : [address]: Reina Loza MD Acct: [id number] Unit: [id number] AGE: 58 Location: OR Re03/21/19 SEX: F Status: REG SDC SPEC: [id number] KIMBERLY: 03/21/19-[address] [facility] [address]: Reina Loza MD REQ: [id number] RECD: 03/21/19-150 STATUS:SEA WEBB DR: Philip Diamond MD _ SOURCE: PLEURAL FL SPDESC: ORDERED: BF Cult/GS Procedure Result Reported Site Body Fluid Gram Stain Final 03/21/19- 185 ML 1+ Neutrophils 3+ Nucleated Cells No Organisms Seen Preparation By Cytospin Smear Body Fluid Culture Final 03/25/19- 906 ML No Growth Day 4 * ML - Main Lab . END OF REPORT DEPARTMENT OF PATHOLOGY, [address] [place] [address] Carson Navarro M.D. Director [facility] # [id number] 2 SEE RESULT BELOW Name: MARY DAMIAN : [address]: Reina Loza MD Acct: [id number] Unit: [id number] AGE: 58 Location: OR Re03/21/19 SEX: F Status: TRUMAN SRC SPEC: [id number] KIMBERLY: 03/21/19-[address] [facility] [address]: Reina Loza MD REQ: [id number] RECD: 03/21/19 STATUS: SAMIR WEBB DR: Brian Bueno MD _ ORDERED: NG THIN LAYER FINAL DIAGNOSIS Pleural effusion, thoracentesis: --Negative for malignant cells. --Inflammation. SPECIMEN(S) RECEIVED 1. PLEURAL - PLEURAL FLUID GROSS DESCRIPTION 800 ml of clear yellow fluid. Signed by and Reported on: Jessica Biswas MD 03/25/19 1149 END OF REPORT DEPARTMENT OF PATHOLOGY, [address] [place] [address] Carson Navarro M.D. Director [facility] # [id number] 3 -- REFERENCE VALUE -- Synovial: <150/mcL Peritoneal: <500/mcL Pleural: <500/mcL Pericardial: <500/mcL 4 No evidence of an acute inflammatory response. No evidence of malignancy. Reviewed by Jessica Biswas MD 5 REFERENCE VALUE Not Applicable ADDITIONAL INFORMATION This test has been modified from the retail customer service specialist's instructions. Its performance characteristics were determined by [facility] in a manner consistent with CLIA requirements. This test has not been cleared or approved by the U.S. Food and Drug Administration. 6 Test Performed by: [facility] - [address] [address] Percussion Welding Machine Operator: Wali James M.D. Ph.D.; CLIA# [id number] 7 REFERENCE VALUE Not Applicable 8 Test Performed by: [facility] - [address] [address] Percussion Welding Machine Operator: Wali James M.D. Ph.D.; CLIA# [id number] Test Name Result pH, Body Fluid Ref Range Not Established This reference interval(s) and other method performance specifications have not been established for this body fluid. The test must be integrated into the clinical context for interpretation. Comments; This test was developed and its performance characteristics determined by [facility]. It has not been cleared or approved by the Food and Drug Administration. Test Reported Date/Time: Test Performed: [facility] [address] [id number] Dir: Shyla Marshall MD Procedures Date Code Description Status 03/21/2019 68768 Thoracentesis W/ Img Guidance Completed Medical Devices Description No Information Available Encounters Type Date Location Provider Dx Diagnosis Office Visit 06/10/2019 Pulmonology And Reina Loza, J44.9 Chronic obstructive 9:15a [facility] Services Of pulmonary disease, Dry Clipper Tender unspecified C34.90 Malignant neoplasm of unsp part of unsp bronchus or lung Assessments Date Code Description Provider 06/10/2019 J44.9 Chronic obstructive pulmonary disease, Reina Loza MD unspecified 06/10/2019 C34.90 Malignant neoplasm of unspecified part of Reina Loza MD unspecified bronch 03/21/2019 J90 Pleural effusion, not elsewhere classified Reina Loza MD Plan of Treatment Future Appointment(s):12/09/2019 9:30 am - Maria Esther Sutton FACE AND FILL PACKER at [facility]06/10/2019 - Reina Loza MDJ44.9 Chronic obstructive pulmonary disease, unspecifiedNew Medication:Anoro Ellipta 62.5-25 mcg/Inh - 1 inhalation dailyFollow up:6 eelnqhN21.90 Malignant neoplasm of unspecified part of unspecified bronch Functional Status Description No Information Available Mental Status Description No Information Available Referrals Description No Information Available
[2019-06-14] MEDS ORDERED: NS 0.9% 1000 ML** 1,000 ML IV.FLUID IV ONE (11:08)
[2019-06-14] MEDS ORDERED: Cefepime(*) 2 GM in NS 0.9% 50 ML* 50 ML IVPB ONE (11:08)
[2019-06-14] MEDS ORDERED: Levofloxacin 750 MG IVPREMIX(* 750 MG/150 ML BAG IVPB ONE (11:08)
[2019-06-14] MEDS ORDERED: Levalbuterol 1.25MG/0.5ML NEB INH ONE (11:10)
[2019-06-14] MEDS ORDERED: methylPREDNISolone 125 MG* 2 ML VIAL IV ONE (11:10)
[2019-06-14] MEDS ORDERED: Lidocaine 2.5%/Prilocain 2.5%* 5 GM TUBE TOPICAL ONE (11:14)
--- NOTE | 2019-06-14 11:18 | ED ---
Shortness of Breath - HPI Summary HPI Summary: Patient is a 58 y/o F w/ Hx of stage 4 lung cancer and COPD who presents to [facility] via EMS with chief complaint of SOB. SOB onset this morning, patient used inhalers and nebulizer treatment at home with no relief in Sx. She notes productive cough and chills but denies fevers. Patient is normally on 2 L o2 but in ED she is on 6 L o2 NC and is saturating at 88%. Home medications and allergies are reviewed. - History of Current Complaint Chief Complaint: EDRespiratoryDistress Time Seen by Provider: 06/14/19 10:56 Hx Obtained From: Patient Onset/Duration: Still Present Timing: Constant Current Severity: Severe Dyspnea At: Rest Associated Signs & Symptoms: Cough (Productive), Chills - Allergy/Home Medications Allergies/Adverse Reactions: Allergies Allergy/AdvReac Type Severity Reaction Status Date / Time bee venom protein (honey bee) Allergy Severe Difficulty Verified 06/14/19 10:59 Breathing Sulfa (Sulfonamide Allergy Intermediate Hives Verified 06/14/19 10:59 Antibiotics) latex Allergy Mild Hives Verified 06/14/19 10:59 Home Medications: Home Medications Docusate CAP* [Colace Cap*] 100 mg PO BID 06/14/19 [History Confirmed 06/14/19] Potassium Chlor TAB* [Klor Con ER TAB*] 20 meq PO DAILY 06/14/19 [History Confirmed 06/14/19] Prochlorperazine 10 mg TAB [Compazine 10 mg TAB] 10 mg PO Q6H PRN 06/14/19 [ History Confirmed 06/14/19] Umeclidin/Vilant 62.5 MDI(NF) [ANORO 62.5/25 Ellipta DEVICE (NF)] 1 puff INH BID 06/14/19 [History Confirmed 06/14/19] traMADol TAB* [Ultram*] 50 mg PO Q6HR PRN MDD 4 06/14/19 [History Confirmed 06/02] PMH/Surg Hx/FS Hx/Imm Hx Endocrine/Hematology History: Reports: Other Endocrine/Hematological Disorders - HIV Denies: Hx Anticoagulant Therapy, Hx Diabetes, Hx Systemic Lupus Erythematosus, Hx Anemia, Hx Unexplained Bleeding Cardiovascular History: Denies: Hx Aneurysm, Hx Angina, Hx Angioplasty, Hx Auto Implanted Cardiovert Defib, Hx Cardiac Arrest, Hx Cardiomegaly, Hx Congenital Heart Disease, Hx Congestive Heart Failure, Hx Coronary Artery Disease, Hx Deep Vein Thrombosis, Hx Embolism, Hx Hypercholesterolemia, Hx Hypotension, Hx Hypertension, Hx Pacemaker/ICD, Hx Peripheral Vascular Disease, Hx Rheumatic Fever, Hx Syncope, Hx Valvular Heart Disease, Other Cardiovascular Problems/Disorders Respiratory History: Reports: Hx Asthma - INHALERS, USED DAILY, Hx Chronic Bronchitis, Hx Chronic Obstructive Pulmonary Disease (COPD), Hx Lung Cancer - normal, Hx Pneumonia, Other Respiratory Problems/Disorders - COPD Denies: Hx Bronchopulmonary Dysplasia, Hx Cystic Fibrosis, Hx Pleural Effusion, Hx Pulmonary Edema, Hx Pulmonary Embolism, Hx Seasonal Allergies, Hx Sleep Apnea GI History: Denies: Hx Cirrhosis, Hx Crohn's Disease, Hx Diverticulosis, Hx Gall Bladder Disease, Hx Gastroesophageal Reflux Disease, Hx Gastrointestinal Bleed, Hx Hiatal Hernia, Hx Irritable Bowel, Hx Jaundice, Hx Obstructive Bowel, Hx Ileostomy, Hx Pyloric Stenosis, Hx Ulcer, Other GI Disorders History: Denies: Hx Acute Renal Failure, Hx Benign Prostatic Hyperplasia, Hx Chronic Renal Failure, Hx Dialysis, Hx Kidney Infection, Hx Kidney Stones, Hx Renal Disease, Other Problems/Disorders Musculoskeletal History: Reports: Hx Arthritis - KNEES, HANDS Denies: Hx Rheumatoid Arthritis, Hx Back Problems, Hx Bursitis, Hx Congenital Bone Abnormalities, Hx Fibromyalgia, Hx Gout, Hx Orthopedic Injury, Hx Osteoporosis, Hx Scoliosis, Hx Tendonitis, Other Musculoskeletal History Sensory History: Reports: Hx Cataracts - surgery in the past, Hx Contacts or Glasses Denies: Hx Eye Injury, Hx Eye Prosthesis, Hx Glaucoma, Hx Legally Blind, Hx Macular Degeneration, Hx Vision Problem, Hx Deafness, Hx Hearing Aid, Hx Hearing Problem, Other Sensory Impairments Opthamlomology History: Reports: Hx Cataracts - surgery in the past, Hx Contacts or Glasses Denies: Hx Eye Injury, Hx Eye Prosthesis, Hx Glaucoma, Hx Legally Blind, Hx Macular Degeneration, Hx Vision Problem, Other Sensory Impairments Neurological History: Reports: Hx Headaches - once in a while Denies: Hx Dementia, Hx Developmental Delay, Hx Migraine, Hx Nerve Disease, Hx Seizures, Hx Spinal Cord Injury, Hx Transient Ischemic Attacks (TIA), Other Neuro Impairments/Disorders Psychiatric History: Denies: Hx Anxiety, Hx Depression, Hx Panic Disorder - Cancer History Cancer Type, Location and Year: LUNG CANCER Hx Hematologic Symptoms: Yes Hx Chemotherapy: Yes Hx Radiation Therapy: Yes - Cranial - Surgical History Surgery Procedure, Year, and Place: 1989 BILATERAL TUBAL LIGATION. UMBILICAL HERNIA REPAIR. mediastinoscopy 07/26/17 [facility]. [facility] [place]. bilat cataract with IOL. LOWER BACK SURGERY - [place]. RIGHT WRIST SURGERY (WITH PIN) Hx Anesthesia Reactions: No - Immunization History Date of Tetanus Vaccine: 2014 Date of Influenza Vaccine: 2015 Infectious Disease History: No Infectious Disease History: Reports: Hx Human Immunodeficiency Virus (HIV), Hx of Known/Suspected MRSA - 6 years ago Denies: Hx Clostridium Difficile, Hx Hepatitis, Hx Shingles, Hx Tuberculosis , History Other Infectious Disease, Traveled Outside the [place] in Last 30 Days - Family History Known Family History: Positive: Diabetes, Other - denies FHx of breast CA, but does have other cancers in the family Family History: No FHx of breast CA. - Social History Alcohol Use: None Hx Substance Use: No Substance Use Type: Reports: None Hx Tobacco Use: Yes Smoking Status (MU): Light Every Day Tobacco Smoker Type: Cigarettes Amount Used/How Often: 4 PPD X 44 YEARS THEN DECREASED TO 1 PPD, NOW 1 CIG/DAY Have You Smoked in the Last Year: Yes Review of Systems Positive: Chills. Negative: Fever Positive: Shortness Of Breath, Cough All Other Systems Reviewed And Are Negative: Yes Physical Exam - Summary Physical Exam Summary: VITAL SIGNS: Reviewed. GENERAL: Patient is a well-developed and nourished female who is lying in the stretcher. HEAD AND FACE: No signs of trauma. No ecchymosis, hematomas or skull depressions. No sinus tenderness. EYES: PERRLA, EOMI x 2, No injected conjunctiva, no nystagmus. EARS: Hearing grossly intact. Ear canals and tympanic membranes are within normal limits. MOUTH: Oropharynx within normal limits. NECK: Supple, trachea is midline, no adenopathy, no JVD, no carotid bruit, no c- spine tenderness, neck with full ROM. CHEST: Symmetric, no tenderness at palpation. LUNGS: Patient is in respiratory distress but able to speak in complete sentences. Crackles in the bases of the lungs and wheezing noted. She is hypoxic. CVS: Tachycardic, S1 and S2 present, no murmurs or gallops appreciated. ABDOMEN: Soft, non-tender. No signs of distention. No rebound, no guarding, and no masses palpated. Bowel sounds are normal. EXTREMITIES: FROM in all major joints, no edema, no cyanosis or clubbing. NEURO: Alert and oriented x 3. No acute neurological deficits. Speech is normal and follows commands. SKIN: Dry and febrile. Triage Information Reviewed: Yes Vital Signs On Initial Exam: Initial Vitals Temp Pulse Resp BP Pulse Ox 99.9 F 147 32 136/89 86 06/14/19 10:55 06/14/19 10:55 06/14/19 10:55 06/14/19 10:55 06/14/19 10:55 Vital Signs Reviewed: Yes Procedures - Sedation Patient Received Moderate/Deep Sedation with Procedure: No Diagnostics - Vital Signs Vital Signs Temp Pulse Resp BP Pulse Ox 06/14/19 11:00 144 33 88 06/14/19 10:56 147 32 136/89 84 06/14/19 10:55 99.9 F 151 24 136/89 88 - Laboratory Result Diagrams: 06/14/19 11:28 06/14/19 11:28 Lab Statement: Any lab studies that have been ordered have been reviewed, and results considered in the medical decision making process. Course/Dx - Course Assessment/Plan: Patient is a 58 y/o F w/ Hx of stage 4 lung cancer and COPD who presents to [facility] via EMS with chief complaint of SOB. SOB onset this morning, patient used inhalers and nebulizer treatment at home with no relief in Sx. She notes productive cough and chills but denies fevers. Patient is normally on 2 L o2 but in ED she is on 6 L o2 NC and is saturating at 88%. In the ED course the patient was placed in a telemetry monitor, IV access was obtained, IV fluids started at 30 cc/kg and given Cefepime and Levaquin. Patient given Xopenex and Solumedrol for Wheezing. Blood test w/o a significant abnormality except for. Absolute neutrophils 9.5, fibrinogen 476, sodium 132, glucose 128, CRP 150, urinalysis negative for UTI, and influenza A and B are negative. ABG shows a pH of 7.47, PCO2 is 53, PCO2 36, O2 sat 88. Chest x-ray impression: similar linear space opacifications to the right midlung zone. No definite any of focal airspace opacification. Discussed the case with Dr. Bueno from oncology and he recommends admission to the hospital services. I discuss my physical exam and test results with Dr. Aden from the hospitalist services and she agrees to admit the patient to her services. The patient is hemodynamically stable alert and oriented x 3. - Diagnoses Differential Diagnosis/HQI/PQRI: Positive: Asthma, Bronchitis, CHF, COPD Exacerbation, Pneumonia Provider Diagnoses: Pneumonia, COPD exacerbation - Physician Notifications Discussed Care of Patient With: Brian Bueno Time Discussed With Above Provider: 13:15 Instructed by Provider To: Other - Patient's case was discussed with Dr. Bueno, Dr. Bueno recommends admission to hospitalist. 1320 - Patient's case was discussed with Dr. Aden, Dr. Aden accepts for admission. Discharge ED - Sign-Out/Discharge Documenting (check all that apply): Patient Departure - admit All imaging exams completed and their final reports reviewed: Yes - Discharge Plan Condition: Stable Disposition: ADMITTED TO [facility] - Billing Disposition and Condition Condition: STABLE Disposition: Admitted to [facility] - Attestation Statements Document Initiated by Scribe: Yes Documenting Scribe: JOSEF MATIAS Provider For Whom Lisye is Documenting (Include Credential): YULIYA RIVERA MD Scribe Attestation: I, JOSEF MATIAS, scribed for YULIYA RIVERA MD on 06/14/19 at 1853. Scribe Documentation Reviewed: Yes Provider Attestation: The documentation as recorded by the scribeJOSEF accurately reflects the service I personally performed and the decisions made by me, YULIYA RIVERA MD Status of Scribe Document: Viewed
[2019-06-14 11:47] LABS: ABS Lymphocytes 0.3 10^3/ul (1.0-4.8); ABS Monocytes 0.5 10^3/ul (0-0.8); ABS Neutrophils 9.5 10^3/ul (1.5-7.7); ABS Nucleated RBC 0.1 10^3/ul; Hematocrit 39 % (35-47); Hemoglobin 13.2 g/dL (12.0-16.0); Lymphocyte % 2.5 %; Mean Corpuscular HGB Conc 34 g/dL (31-36); Mean Corpuscular Hemoglobin 32 pg (27-31); Mean Corpuscular Volume 95 fL (80-97); Mean Platelet Volume 7.5 fL (7.4-10.4); Nucleated Red Blood Cells % 0.9; Platelet Count 107 10^3/uL (150-450); Red Blood Count 4.16 10^6 /uL (3.70-4.87); Red Cell Distribution Width 23 % (10-15); White Blood Count 10.2 10^3/uL (3.5-10.8)
[2019-06-14] MEDS ORDERED: NS 0.9% 50 ML* 50 ML ONE (11:51)
[2019-06-14 11:54] LABS: Activated Partial Thrombo Time 26.2 seconds (26.0-38.0); INR 0.98 (0.82-1.09)
[2019-06-14 12:05] LABS: Troponin I 0.01 ng/mL (<0.03)
[2019-06-14 12:06] LABS: Albumin 3.9 g/dL (3.2-5.2); Albumin/Globulin Ratio 1.3 (1-3); BUN/Creatinine Ratio 24.3 (8-20); C Reactive Protein 150.26 mg/L (<8.01); Calcium 8.9 mg/dL (8.6-10.3); EGFR African American 103.6 (>60); EGFR Non-African American 85.6 (>60); Globulin 2.9 g/dL (2-4); Total Bilirubin 0.6 mg/dL (0.2-1.0); Total Protein 6.8 g/dL (6.4-8.9)
[2019-06-14] MEDS ORDERED: Cefepime* 2 GM in Dextrose 50mL Q24H (Duplex) IV ONE (12:30)
[2019-06-14 12:38] LABS: Influenza A Molecular Negative (Negative); Influenza B Molecular Negative (Negative)
[2019-06-14 12:49] LABS: Polychromasia 1+
[2019-06-14 13:05] LABS: Urine Appearance Cloudy; Urine Bilirubin Negative (Negative); Urine Blood Negative (Negative); Urine Color Yellow; Urine Glucose Negative (Negative); Urine Ketones Negative (Negative); Urine Nitrite Negative (Negative); Urine Protein Negative (Negative); Urine Specific Gravity 1.025 (1.010-1.030); Urine Urobilinogen Negative (Negative)
[2019-06-14 13:08] LABS: Erythrocyte Sed Rate 25 mm/Hr (0-29)
[2019-06-14] MEDS ORDERED: Azithromycin 500 mg/250 ml NS 500 MG/250 ML BAG IVPB ONE (14:25)
[2019-06-14] MEDS ORDERED: Iodixanol* (CONTRAST) 320 MG/ML 100 ML SDV IV ONE (14:29)
[2019-06-14] MEDS ORDERED: traZODone TAB* 50 MG TAB PO PRN (14:39)
[2019-06-14] MEDS: Albuterol/Ipratropium NEB.SOL* Albuterol 2.5 MG/Ipratropium 0.5 MG 3 ML INH SCH ×3 (15:45→23:12)
--- NOTE | 2019-06-14 16:07 | HP ---
CC: Dr. Diamond; Dr. Bueno * [facility] MEDICINE HISTORY AND PHYSICAL: DATE OF ADMISSION: 06/14/19 PRIMARY CARE PHYSICIAN: Dr. Diamond. ONCOLOGIST: Dr. Bueno ATTENDING PHYSICIAN: Romy Thakur MD * (dictation provided by Jaymie Alexis NP ) CHIEF COMPLAINT: Shortness of breath. HISTORY OF PRESENT ILLNESS: Ms. 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 Ms. Burnett was just admitted to the hospital from 06/06/19 to 06/07 with finding of hemorrhagic brain metastasis. At that time, she was started on dexamethasone and discharged feeling reasonably well. The plan was for her to start emergent radiation therapy with Dr. Salas this coming Sunday. The patient states that yesterday, she began to feel short of breath that was fairly mild. She had a cough and some postnasal drip. She suspected that perhaps her allergies were acting up, but it was again only mild. Today, the patient became much more short of breath and was therefore brought to the emergency room for evaluation. In the emergency room, Ms. Burnett was found to be afebrile, but tachycardic with a heart rate running about to 120. She is now currently on 30% Vapotherm to maintain an O2 saturation greater than 90%. Her blood pressure is running in the 90s to the one-teens. Her labs show no leukocytosis, but she does have a bandemia of 16%. Her CRP is 150.26. Lactic acid is 2.8. She is mildly hyponatremic with a sodium of 132. Her blood gas shows a respiratory alkalosis with a pH 7.47, pCO2 36, pO2 53. Urine negative for infection. Flu swab is negative. Chest x-ray is seemingly unchanged. PAST MEDICAL HISTORY: 1. Metastatic small cell lung CA with hemorrhagic brain mets. 2. History of HIV 20 years, viral load has been undetectable. 3. History of tubal ligation. 4. Long-term smoker. 5. COPD. 6. Chronic respiratory failure. MEDICATIONS: 1. Trazodone 25 to 50 mg p.o. at bedtime p.r.n. 2. Tramadol 50 mg p.o. q.6 hours p.r.n. 3. Diazepam 5 mg p.o. daily p.r.n. 4. Anoro Ellipta device 1 puff inhaled b.i.d. 5. Potassium chloride 20 mEq p.o. daily. 6. Omeprazole 40 mg p.o. daily. 7. Magnesium oxide 800 mg p.o. b.i.d. 8. Loratadine 10 mg p.o. daily. 9. Odefsey tablet, 1 tab p.o. daily. 10. Docusate 100 mg p.o. b.i.d. 11. Dexamethasone 8 mg p.o. b.i.d. 12. Albuterol inhaler 2 puffs inhaled q.6 hours p.r.n. 13. Compazine 10 mg p.o. q.6 hours p.r.n. ALLERGIES: To BEE VENOM, SULFA, and LATEX. FAMILY HISTORY: Mother had hypertension and diabetes, at age 83. Father in his 50s with an [place]. Has sister with COPD. SOCIAL HISTORY: The patient is a smoker, smoked for over 35 years and reportedly still smoking at times. No report of significant alcohol or drug use. Her healthcare proxy is her sister. REVIEW OF SYSTEMS: A 14-point review of systems was completed with Ms. Burnett and all those not mentioned above were negative. PHYSICAL EXAMINATION GENERAL: Ms. Burnett is sitting in the bed, she is in no acute distress. VITAL SIGNS: Temperature 98.9, pulse rate 117, respiratory rate 26, O2 saturation 94% on 30% Vapotherm, and blood pressure 90/66. LUNGS: Have some crackles, wheezes bilaterally. Diminished breath sounds on the left base. There is no accessory muscle use. HEART: S1, S2. No murmur, rub, or gallop, and regular. ABDOMEN: Soft, nontender with bowel sounds positive x4. EXTREMITIES: No cyanosis or edema. NEURO: She is alert. She is oriented x3. She moves all extremities equally. There is no facial asymmetry or focal weakness. Extraocular movements are intact. SKIN: Intact. DIAGNOSTIC STUDIES/LAB DATA: WBC 10.2, hemoglobin 13.2, hematocrit 39, platelet count 107, bands are 16%. INR 0.98. PTT 26.2. Fibrinogen 476. PH 7.47, pCO2 of 36, pO2 of 53. Bicarb 26.7. Sodium 132, potassium 4, chloride 92 , serum bicarbonate 28, BUN 17, creatinine 0.70, glucose 128. Lactic acid 2.8. Troponin 0.01. CRP 150.26. Urine shows no evidence of infection. Flu swab is negative. Chest x-ray shows no significant change. ASSESSMENT: Ms. Burnett is a 58-year-old female who presents today to the hospital with concern for shortness of breath, found to have acute on chronic hypoxic respiratory failure, likely secondary to multiple factors including potential chronic obstructive pulmonary disease exacerbation, potential early pneumonia, longstanding lung cancer, pleural effusion. PLAN: Our plan is as follows: 1. Shortness of breath: Plan to treat COPD exacerbation with continuation of her dexamethasone as she is already on high-dose steroids. She will have Duo nebulizers q.4 hours. She will have oxygen via Vapotherm. For potential pneumonia, she will have ceftriaxone and azithromycin. To rule out pulmonary embolism, plan to check CTA chest. Flu swab is negative. The patient will be admitted to the intensive care unit. She is at this time accepting intubation. This appears to be a change for her, but she states "I am not ready to yet." I think we need to continue to have further conversations with her regarding the potential use of mechanical ventilation. 2. HIV. Continue home medications. 3. DVT prophylaxis with SCDs in the setting of finding of recent hemorrhagic brain metastasis. 4. Code status is DNR with accepting intubation. 5. Disposition to ICU. TIME SPENT: Approximately 60 minutes were spent on the admission of this patient; more than half of the time was spent with her at the bedside reviewing the events leading up to this hospitalization, performing the physical examination, and reviewing my plan of care. JAYMIE ALEXIS NP [id number]/[facility] #: [id number] LEVY
[2019-06-14] MEDS: traMADol TAB* 50 MG PO PRN (16:52)
[2019-06-14] MEDS: Lactated Ringers 1000 ML Bag* 1,000 ML IV SCH (16:54)
--- NOTE | 2019-06-14 18:41 | CONSULT ---
Consult Consult: DATE OF CONSULT: 06/14/19 REASON FOR CONSULT: SOB HPI: Mary Burnett is a 58 year-old woman with a h/o of stage 4 small cell lung cancer and COPD who presented to the ED with worsening dyspnea. She reports shortness of breath yesterday which was mild. The shortness of breath started worsening last night and she came to the ED this morning after there was no improvement. She has a chronic cough which she thinks is the same. She uses 2-3L of O2 at home at baseline. She denies chest pain. She had been in her usual state of health up until yesterday. She recently was hospitalized in May for hemorrhagic brain metastases. She has been on dexamethasone for the metastases. She is scheduled for radiation therapy this coming week. In the ED, she was started on Vapotherm 30 LPM, FiO2 100%. She wishes to be DNR but is open to a trial of intubation. PMH: Metastatic small cell lung cancer with brain metastases COPD H/o HIV Chronic respiratory failure PSH: Umbilical hernia repair Tubal ligation Home Medications Medication Instructions Recorded Confirmed Type Albuterol inh POWDER (NF) [Proair 2 puff INH Q6HR PRN 07/18/18 06/14/19 History Respiclick] Magnesium Oxide TAB* [MagOx 400 800 mg PO BID 09/10/18 06/14/19 History TAB*] Emtricitabine/Rilpivirine/Teno 1 tab PO DAILY 10/30/18 06/14/19 History [Odefsey Tablet] Loratadine [Allergy Relief] 10 mg PO DAILY 06/06/19 06/14/19 History Omeprazole (Nf) [Prilosec (NF)] 40 mg PO DAILY 06/06/19 06/14/19 History traZODone TAB* [Desyrel TAB*] 25 - 50 mg PO BEDTIME PRN 06/06/19 06/14/19 History Dexamethasone TAB* [Decadron TAB*] 8 mg PO BID #120 tab 06/07/19 06/14/19 Rx diazePAM [Valium] 5 mg PO DAILY PRN #15 tablet MDD 5 06/09/19 06/14/19 Rx mg Docusate CAP* [Colace Cap*] 100 mg PO BID 06/14/19 06/14/19 History Potassium Chlor TAB* [Klor Con ER 20 meq PO DAILY 06/14/19 06/14/19 History TAB*] Prochlorperazine 10 mg TAB 10 mg PO Q6H PRN 06/14/19 06/14/19 History [Compazine 10 mg TAB] Umeclidin/Vilant 62.5 MDI(NF) 1 puff INH BID 06/14/19 06/14/19 History [ANORO 62.5/25 Ellipta DEVICE (NF)] traMADol TAB* [Ultram*] 50 mg PO Q6HR PRN MDD 4 06/14/19 06/14/19 History Allergies bee venom protein (honey bee) Allergy (Severe, Verified 06/14/19 10:59) Difficulty Breathing Sulfa (Sulfonamide Antibiotics) Allergy (Intermediate, Verified 06/14/19 10:59) Hives latex Allergy (Mild, Verified 06/14/19 10:59) Hives with powder in gloves FH: Mother had diabetes and in her 80s from complications related to diabetes. Her father due to [place]. She has limited information about her father's medical history. She has a sister with COPD. SH: Patient smokes about 2-3 cigarettes. She started smoking at age 12 and at the most smoked 4 ppd. She previously drank a 30 pack daily but quit drinking 10 years ago. She denies recreational drug use. She lives with her boyfriend and grandson. ROS: 10-point review of systems was obtained and pertinent positives and negatives are in the HPI. PHYSICAL EXAM: Temp Pulse Resp BP Pulse Ox 98.8 F 105 25 85/73 100 06/14/19 16:18 06/14/19 17:45 06/14/19 17:45 06/14/19 17:45 06/14/19 17:45 General: No acute distress. Sitting in bed. Head: Normocephalic and atraumatic. Eyes: Pupils equal. No scleral icterus. Mouth: Moist mucous membranes. Neck: Supple. Trachea midline CV: RRR, tachycardic Respiratory: Bilateral air entry, coarse breath sounds b/l. No accessory muscle use. Abdomen: Soft, nontender, nondistended. Extremities: Warm. No pedal edema. Skin: Warm and dry. Intact. Neuro: Alert and oriented x3. Moves all extremities equally. Psych: Affect normal. Laboratory Last Values WBC 10.2 10^3/uL (3.5-10.8) 06/14/19 11:28 RBC 4.16 10^6 /uL (3.70-4.87) 06/14/19 11:28 Hgb 13.2 g/dL (12.0-16.0) 06/14/19 11:28 Hct 39 % (35-47) 06/14/19 11:28 MCV 95 fL (80-97) 06/14/19 11:28 MCH 32 pg (27-31) H 06/14/19 11:28 MCHC 34 g/dL (31-36) 06/14/19 11:28 RDW 23 % (10-15) H 06/14/19 11:28 Plt Count 107 10^3/uL (150-450) L 06/14/19 11:28 MPV 7.5 fL (7.4-10.4) 06/14/19 11:28 Neut % (Auto) 92.3 % 06/14/19 11:28 Lymph % (Auto) 2.5 % 06/14/19 11:28 [place] % (Auto) 5.2 % 06/14/19 11:28 Eos % (Auto) 0.0 % 06/14/19 11:28 Baso % (Auto) 0.0 % 06/14/19 11:28 Absolute Neuts (auto) 9.5 10^3/ul (1.5-7.7) H 06/14/19 11:28 Absolute Lymphs (auto) 0.3 10^3/ul (1.0-4.8) L 06/14/19 11:28 Absolute Monos (auto) 0.5 10^3/ul (0-0.8) 06/14/19 11:28 Absolute Eos (auto) 0.0 10^3/ul (0-0.6) 06/14/19 11:28 Absolute Basos (auto) 0.0 10^3/ul (0-0.2) 06/14/19 11:28 Absolute Nucleated RBC 0.1 10^3/ul 06/14/19 11:28 Immature Gran % 17.0 % (0-9) H 06/14/19 11:28 Neutrophils % 73.0 % 06/14/19 11:28 Band Neutrophils % 16.0 % (0-8) H 06/14/19 11:28 Lymphocytes % 1.0 % 06/14/19 11:28 Monocytes % 9.0 % 06/14/19 11:28 Metamyelocytes % 1.0 % (0-2) 06/14/19 11:28 Nucleated RBC % 0.9 06/14/19 11:28 Nucleated RBCs/100 WBC 2.0 (0-0) H 06/14/19 11:28 Normal RBC Morphology Not Reportable 06/14/19 11:28 Polychromasia 1+ 06/14/19 11:28 Anisocytosis 2+ 06/14/19 11:28 ESR 25 mm/Hr (0-29) 06/14/19 11:28 INR (Anticoag Therapy) 0.98 (0.82-1.09) 06/14/19 11:28 APTT 26.2 seconds (26.0-38.0) 06/14/19 11:28 Fibrinogen 476.0 mg/dL (110.8-404.3) H 06/14/19 11:28 Patient Temperature Not Reportable 06/14/19 11:40 ABG pH 7.47 (7.35-7.45) H 06/14/19 11:40 ABG pH (Temp Correct) Not Reportable 06/14/19 11:40 ABG pCO2 36 mmHg (35-45) 06/14/19 11:40 ABG pCO2 (Temp Corrct Not Reportable 06/14/19 11:40 ABG pO2 53 mmHg (80-100) L* 06/14/19 11:40 ABG pO2 (Temp Correct Not Reportable 06/14/19 11:40 ABG HCO3 26.7 mmol/L (19-31) 06/14/19 11:40 ABG O2 Saturation 88.6 % (94.0-98.0) L 06/14/19 11:40 ABG Base Excess 2.7 mmol/L (-2.0-2.0) H 06/14/19 11:40 Respiration Rate Not Reportable 06/14/19 11:40 O2 Delivery Device nasal cannula 6lpm 06/14/19 11:40 Ventilator Type Not Reportable 06/14/19 11:40 Vent Mode Not Reportable 06/14/19 11:40 FiO2 Not Reportable 06/14/19 11:40 Inspiratory Time Not Reportable 06/14/19 11:40 PEEP Not Reportable 06/14/19 11:40 Pressure Support Not Reportable 06/14/19 11:40 Pressure Control Not Reportable 06/14/19 11:40 EPAP Not Reportable 06/14/19 11:40 IPAP Not Reportable 06/14/19 11:40 BiPAP Not Reportable 06/14/19 11:40 Sodium 132 mmol/L (135-145) L 06/14/19 11:28 Potassium 4.0 mmol/L (3.5-5.0) 06/14/19 11:28 Chloride 92 mmol/L (101-111) L 06/14/19 11:28 Carbon Dioxide 28 mmol/L (22-32) 06/14/19 11:28 Anion Gap 12 mmol/L (2-11) H 06/14/19 11:28 BUN 17 mg/dL (6-24) 06/14/19 11:28 Creatinine 0.70 mg/dL (0.51-0.95) 06/14/19 11:28 Est GFR ( Amer) 103.6 (>60) 06/14/19 11:28 Est GFR (Non-Af Amer) 85.6 (>60) 06/14/19 11:28 BUN/Creatinine Ratio 24.3 (8-20) H 06/14/19 11:28 Glucose 128 mg/dL (70-100) H 06/14/19 11:28 Lactic Acid 1.4 mmol/L (0.5-2.0) 06/14/19 15:22 Calcium 8.9 mg/dL (8.6-10.3) 06/14/19 11:28 Total Bilirubin 0.60 mg/dL (0.2-1.0) 06/14/19 11:28 AST 19 U/L (13-39) 06/14/19 11:28 ALT 19 U/L (7-52) 06/14/19 11:28 Alkaline Phosphatase 98 U/L (34-104) 06/14/19 11:28 Total Creatine Kinase 48 U/L (10-223) 06/14/19 11:28 Troponin I 0.01 ng/mL (<0.03) 06/14/19 11:28 C-Reactive Protein 150.26 mg/L (<8.01) H 06/14/19 11:28 B-Natriuretic Peptide 201 pg/mL (<=100) H 06/14/19 12:10 Total Protein 6.8 g/dL (6.4-8.9) 06/14/19 11:28 Albumin 3.9 g/dL (3.2-5.2) 06/14/19 11:28 Globulin 2.9 g/dL (2-4) 06/14/19 11:28 Albumin/Globulin Ratio 1.3 (1-3) 06/14/19 11:28 Urine Color Yellow 06/14/19 12:43 Urine Appearance Cloudy 06/14/19 12:43 Urine pH 6.0 (5-9) 06/14/19 12:43 Ur Specific [place] 1.025 (1.010-1.030) 06/14/19 12:43 Urine Protein Negative (Negative) 06/14/19 12:43 Urine Ketones Negative (Negative) 06/14/19 12:43 Urine Blood Negative (Negative) 06/14/19 12:43 Urine Nitrate Negative (Negative) 06/14/19 12:43 Urine Bilirubin Negative (Negative) 06/14/19 12:43 Urine Urobilinogen Negative (Negative) 06/14/19 12:43 Ur Leukocyte Esterase Negative (Negative) 06/14/19 12:43 Urine Glucose Negative (Negative) 06/14/19 12:43 Influenza A (Rapid) Negative (Negative) 06/14/19 12:10 Influenza B (Rapid) Negative (Negative) 06/14/19 12:10 Blood Type A Positive 06/14/19 12:10 Antibody Screen Negative 06/14/19 12:10 CTA thorax- No PE. Small right pleural effusion. Consolidation in b/l lower lobes, RML, lingula. Suspicion of PNA. IMPRESSION: 58F with acute on chronic hypoxic respiratory failure, likely due to pneumonia. Acute on chronic hypoxic respiratory failure Pneumonia COPD Stage 4 small cell lung cancer H/o HIV Plan: Wean Vapotherm as able to maintain O2 sat >90%. She appears comfortable on Vapotherm but will monitor closely in case there is a need for NIPPV or intubation. She is DNR only. Agree with azithromycin and ceftriaxone for CAP. Patient will continue dexamethasone which was prescribed for brain lesions but will also cover COPD exacerbation. Time spent: 40 min
[2019-06-14] MEDS: Dexamethasone TAB* 4 MG PO SCH (21:30)
[2019-06-14] MEDS: Docusate CAP* 100 MG PO SCH (21:30)
[2019-06-14] MEDS: Magnesium Oxide TAB* 400 MG PO SCH (21:30)
[2019-06-14] MEDS: cefTRIAXone(*) 1 GM in NS 0.9% 50 ML* 50 ML IVPB SCH (21:41)
[2019-06-15] MEDS: Albuterol/Ipratropium NEB.SOL* Albuterol 2.5 MG/Ipratropium 0.5 MG 3 ML INH SCH ×3 (03:17→08:14)
[2019-06-15 05:13] LABS: Hematocrit 30 % (35-47); Mean Corpuscular HGB Conc 33 g/dL (31-36); Mean Corpuscular Hemoglobin 31 pg (27-31); Mean Corpuscular Volume 95 fL (80-97); Red Blood Count 3.19 10^6 /uL (3.70-4.87); Red Cell Distribution Width 23 % (10-15); White Blood Count 12.3 10^3/uL (3.5-10.8)
[2019-06-15 05:18] LABS: BUN/Creatinine Ratio 27.7 (8-20); Calcium 8.2 mg/dL (8.6-10.3); EGFR African American 164.1 (>60); EGFR Non-African American 135.6 (>60); Potassium 3.9 mmol/L (3.5-5.0)
[2019-06-15 05:39] LABS: Polychromasia 1+
[2019-06-15 05:44] LABS: ABS Lymphocytes 0.2 10^3/ul (1.0-4.8); ABS Monocytes 0.6 10^3/ul (0-0.8); ABS Neutrophils 11.4 10^3/ul (1.5-7.7); Mean Platelet Volume 7.8 fL (7.4-10.4); Nucleated Red Blood Cells % 0.1; Platelet Count 76 10^3/uL (150-450)
[2019-06-15] MEDS ORDERED: Albuterol/Ipratropium NEB.SOL* Albuterol 2.5 MG/Ipratropium 0.5 MG 3 ML INH PRN (08:17)
--- NOTE | 2019-06-15 08:24 | PN ---
Subjective Date of Service: 06/15/19 Interval History: Discussed patient with RN. Per RN patient's Vapotherm has been titrated down by RT and so far patient is tolerating well. Patient resting in bed on assessment. States she feels "much" better this morning. Reports work of breathing is improving. Continues to have cough. Denies cp, palpitations, WRIGHT, nausea, vomiting, diarrhea, fever, chills. Objective Active Medications: Albuterol/Ipratropium (Duoneb (Albuterol 2.5 Mg/Ipratropium 0.5 Mg)) 1 neb INH Q4H PRN PRN Reason: SOB/WHEEZING Dexamethasone (Decadron Tab*) 8 mg PO BID [facility] Last Admin: 06/14/19 21:30 Dose: 8 mg Diazepam (Valium Tab(*)) 5 mg PO DAILY PRN PRN Reason: ANXIETY Docusate Sodium (Colace Cap*) 100 mg PO BID [facility] Last Admin: 06/14/19 21:30 Dose: 100 mg Emtricitabine/Rilpivirine/Tenofovir (Odefsey Tablet) 1 each PO DAILY [facility] Ceftriaxone Sodium 1 gm/ (Sodium Chloride) 50 mls @ 100 mls/hr IVPB Q24H [facility] Last Admin: 06/14/19 21:41 Dose: 100 mls/hr Azithromycin 250 mg/ Sodium (Chloride) 250 mls @ 250 mls/hr IVPB Q24H [facility] Stop: 06/19/19 14:59 Lactated Ringer's (Lactated Ringers 1000 Ml Bag*) 1,000 mls @ 75 mls/hr IV PER RATE [facility] Last Admin: 06/14/19 16:54 Dose: 75 mls/hr Magnesium Oxide (Magox 400 Tab*) 800 mg PO BID [facility] Last Admin: 06/14/19 21:30 Dose: 800 mg Potassium Chloride (Klor Con Er Tab*) 20 meq PO DAILY [facility] Prochlorperazine (Compazine 10 Mg Tab) 10 mg PO Q6H PRN PRN Reason: NAUSEA Tramadol HCl (Ultram*) 50 mg PO Q6HR PRN PRN Reason: PAIN - MILD Last Admin: 06/14/19 16:52 Dose: 50 mg Trazodone HCl (Desyrel Tab*) 50 mg PO BEDTIME PRN PRN Reason: INSOMNIA Vital Signs - 8 hr 06/15/19 06/15/19 06/15/19 00:47 01:00 02:00 Temperature Pulse Rate 93 90 Respiratory 15 13 Rate Blood Pressure 90/62 95/68 (mmHg) O2 Sat by Pulse 99 98 98 Oximetry 06/15/19 06/15/19 06/15/19 03:00 03:19 03:49 Temperature 98.0 F Pulse Rate 91 96 Respiratory 19 24 Rate Blood Pressure 98/70 (mmHg) O2 Sat by Pulse 100 98 Oximetry 06/15/19 06/15/19 06/15/19 04:00 05:00 06:00 Temperature Pulse Rate 92 90 88 Respiratory 14 14 14 Rate Blood Pressure 99/65 104/63 105/65 (mmHg) O2 Sat by Pulse 96 97 98 Oximetry 06/15/19 06/15/19 07:54 08:14 Temperature 98.0 F Pulse Rate 87 Respiratory 18 Rate Blood Pressure (mmHg) O2 Sat by Pulse 97 Oximetry Oxygen Devices in Use Now: High Flow Heated Nasal Cannula Appearance: Mild dyspnea noted. NAD. Moving well in bed. Eyes: No Scleral Icterus, PERRLA Ears/Nose/Mouth/Throat: Clear Oropharnyx, Mucous Membranes Moist Respiratory: - - Mild dyspnea noted. Rhonchi throughout. Cardiovascular: NL Sounds; No Murmurs; No JVD, RRR, No Edema Abdominal: NL Sounds; No Tenderness; No Distention Extremities: No Edema Skin: No Rash or Ulcers Neurological: Alert and Oriented x 3, NL Muscle Strength and Tone Nutrition: Taking PO's Result Diagrams: 06/15/19 04:55 06/15/19 04:55 Additional Lab and Data: Laboratory Results - last 24 hr 06/14/19 06/14/19 06/14/19 11:28 11:28 11:28 WBC 10.2 RBC 4.16 Hgb 13.2 Hct 39 MCV 95 MCH 32 H MCHC 34 RDW 23 H Plt Count 107 L MPV 7.5 Neut % (Auto) 92.3 Lymph % (Auto) 2.5 [place] % (Auto) 5.2 Eos % (Auto) 0.0 Baso % (Auto) 0.0 Absolute Neuts (auto) 9.5 H Absolute Lymphs (auto) 0.3 L Absolute Monos (auto) 0.5 Absolute Eos (auto) 0.0 Absolute Basos (auto) 0.0 Absolute Nucleated RBC 0.1 Immature Gran % 17.0 H Neutrophils % 73.0 Band Neutrophils % 16.0 H Lymphocytes % 1.0 Monocytes % 9.0 Metamyelocytes % 1.0 Nucleated RBC % 0.9 Nucleated RBCs/100 WBC 2.0 H Toxic Granulation Dohle Bodies Normal RBC Morphology Not Reportable Polychromasia 1+ Basophilic Stippling Anisocytosis 2+ ESR 25 INR (Anticoag Therapy) 0.98 APTT 26.2 Fibrinogen 476.0 H Patient Temperature ABG pH ABG pH (Temp Correct) ABG pCO2 ABG pCO2 (Temp Corrct ABG pO2 ABG pO2 (Temp Correct ABG HCO3 ABG O2 Saturation ABG Base Excess Respiration Rate O2 Delivery Device Ventilator Type Vent Mode FiO2 Inspiratory Time PEEP Pressure Support Pressure Control EPAP IPAP BiPAP Sodium 132 L Potassium 4.0 Chloride 92 L Carbon Dioxide 28 Anion Gap 12 H BUN 17 Creatinine 0.70 Est GFR ( Amer) 103.6 Est GFR (Non-Af Amer) 85.6 BUN/Creatinine Ratio 24.3 H Glucose 128 H Lactic Acid Calcium 8.9 Total Bilirubin 0.60 AST 19 ALT 19 Alkaline Phosphatase 98 Total Creatine Kinase 48 Troponin I 0.01 C-Reactive Protein 150.26 H B-Natriuretic Peptide Total Protein 6.8 Albumin 3.9 Globulin 2.9 Albumin/Globulin Ratio 1.3 Urine Color Urine Appearance Urine pH Ur Specific [place] Urine Protein Urine Ketones Urine Blood Urine Nitrate Urine Bilirubin Urine Urobilinogen Ur Leukocyte Esterase Urine Glucose Influenza A (Rapid) Influenza B (Rapid) Blood Type Antibody Screen 06/14/19 06/14/19 06/14/19 11:40 12:10 12:10 WBC RBC Hgb Hct MCV MCH MCHC RDW Plt Count MPV Neut % (Auto) Lymph % (Auto) [place] % (Auto) Eos % (Auto) Baso % (Auto) Absolute Neuts (auto) Absolute Lymphs (auto) Absolute Monos (auto) Absolute Eos (auto) Absolute Basos (auto) Absolute Nucleated RBC Immature Gran % Neutrophils % Band Neutrophils % Lymphocytes % Monocytes % Metamyelocytes % Nucleated RBC % Nucleated RBCs/100 WBC Toxic Granulation Dohle Bodies Normal RBC Morphology Polychromasia Basophilic Stippling Anisocytosis ESR INR (Anticoag Therapy) APTT Fibrinogen Patient Temperature Not Reportable ABG pH 7.47 H ABG pH (Temp Correct) Not Reportable ABG pCO2 36 ABG pCO2 (Temp Corrct Not Reportable ABG pO2 53 L* ABG pO2 (Temp Correct Not Reportable ABG HCO3 26.7 ABG O2 Saturation 88.6 L ABG Base Excess 2.7 H Respiration Rate Not Reportable O2 Delivery Device nasal cannula 6lpm Ventilator Type Not Reportable Vent Mode Not Reportable FiO2 Not Reportable Inspiratory Time Not Reportable PEEP Not Reportable Pressure Support Not Reportable Pressure Control Not Reportable EPAP Not Reportable IPAP Not Reportable BiPAP Not Reportable Sodium Potassium Chloride Carbon Dioxide Anion Gap BUN Creatinine Est GFR ( Amer) Est GFR (Non-Af Amer) BUN/Creatinine Ratio Glucose Lactic Acid 2.8 H* Calcium Total Bilirubin AST ALT Alkaline Phosphatase Total Creatine Kinase Troponin I C-Reactive Protein B-Natriuretic Peptide 201 H Total Protein Albumin Globulin Albumin/Globulin Ratio Urine Color Urine Appearance Urine pH Ur Specific [place] Urine Protein Urine Ketones Urine Blood Urine Nitrate Urine Bilirubin Urine Urobilinogen Ur Leukocyte Esterase Urine Glucose Influenza A (Rapid) Influenza B (Rapid) Blood Type Antibody Screen 06/14/19 06/14/19 06/14/19 12:10 12:10 12:43 WBC RBC Hgb Hct MCV MCH MCHC RDW Plt Count MPV Neut % (Auto) Lymph % (Auto) [place] % (Auto) Eos % (Auto) Baso % (Auto) Absolute Neuts (auto) Absolute Lymphs (auto) Absolute Monos (auto) Absolute Eos (auto) Absolute Basos (auto) Absolute Nucleated RBC Immature Gran % Neutrophils % Band Neutrophils % Lymphocytes % Monocytes % Metamyelocytes % Nucleated RBC % Nucleated RBCs/100 WBC Toxic Granulation Dohle Bodies Normal RBC Morphology Polychromasia Basophilic Stippling Anisocytosis ESR INR (Anticoag Therapy) APTT Fibrinogen Patient Temperature ABG pH ABG pH (Temp Correct) ABG pCO2 ABG pCO2 (Temp Corrct ABG pO2 ABG pO2 (Temp Correct ABG HCO3 ABG O2 Saturation ABG Base Excess Respiration Rate O2 Delivery Device Ventilator Type Vent Mode FiO2 Inspiratory Time PEEP Pressure Support Pressure Control EPAP IPAP BiPAP Sodium Potassium Chloride Carbon Dioxide Anion Gap BUN Creatinine Est GFR ( Amer) Est GFR (Non-Af Amer) BUN/Creatinine Ratio Glucose Lactic Acid Calcium Total Bilirubin AST ALT Alkaline Phosphatase Total Creatine Kinase Troponin I C-Reactive Protein B-Natriuretic Peptide Total Protein Albumin Globulin Albumin/Globulin Ratio Urine Color Yellow Urine Appearance Cloudy Urine pH 6.0 Ur Specific [place] 1.025 Urine Protein Negative Urine Ketones Negative Urine Blood Negative Urine Nitrate Negative Urine Bilirubin Negative Urine Urobilinogen Negative Ur Leukocyte Esterase Negative Urine Glucose Negative Influenza A (Rapid) Negative Influenza B (Rapid) Negative Blood Type A Positive Antibody Screen Negative 06/14/19 06/15/19 06/15/19 15:22 04:55 04:55 WBC 12.3 H RBC 3.19 L Hgb 10.0 L Hct 30 L MCV 95 MCH 31 MCHC 33 RDW 23 H Plt Count 76 L MPV 7.8 Neut % (Auto) 93.2 Lymph % (Auto) 2.0 [place] % (Auto) 4.6 Eos % (Auto) 0.0 Baso % (Auto) 0.2 Absolute Neuts (auto) 11.4 H Absolute Lymphs (auto) 0.2 L Absolute Monos (auto) 0.6 Absolute Eos (auto) 0.0 Absolute Basos (auto) 0.0 Absolute Nucleated RBC 0.0 Immature Gran % 16.0 H Neutrophils % 78.0 Band Neutrophils % 16.0 H Lymphocytes % 2.0 Monocytes % 4.0 Metamyelocytes % Nucleated RBC % 0.1 Nucleated RBCs/100 WBC Toxic Granulation 1+ Dohle Bodies Present Normal RBC Morphology Not Reportable Polychromasia 1+ Basophilic Stippling 1+ Anisocytosis 2+ ESR INR (Anticoag Therapy) APTT Fibrinogen Patient Temperature ABG pH ABG pH (Temp Correct) ABG pCO2 ABG pCO2 (Temp Corrct ABG pO2 ABG pO2 (Temp Correct ABG HCO3 ABG O2 Saturation ABG Base Excess Respiration Rate O2 Delivery Device Ventilator Type Vent Mode FiO2 Inspiratory Time PEEP Pressure Support Pressure Control EPAP IPAP BiPAP Sodium 131 L Potassium 3.9 Chloride 97 L Carbon Dioxide 31 Anion Gap 3 BUN 13 Creatinine 0.47 L Est GFR ( Amer) 164.1 Est GFR (Non-Af Amer) 135.6 BUN/Creatinine Ratio 27.7 H Glucose 173 H Lactic Acid 1.4 Calcium 8.2 L Total Bilirubin AST ALT Alkaline Phosphatase Total Creatine Kinase Troponin I C-Reactive Protein B-Natriuretic Peptide Total Protein Albumin Globulin Albumin/Globulin Ratio Urine Color Urine Appearance Urine pH Ur Specific [place] Urine Protein Urine Ketones Urine Blood Urine Nitrate Urine Bilirubin Urine Urobilinogen Ur Leukocyte Esterase Urine Glucose Influenza A (Rapid) Influenza B (Rapid) Blood Type Antibody Screen Microbiology and Other Data: Microbiology 06/14/19 17:22 Nasal Screen MRSA (PCR) - Final Nasal Mrsa Not Detected 06/14/19 12:22 Gram Stain - Final Sputum Expectorated Assess/Plan/Problems-Billing Assessment: 58 yr old female with pmh of lung ca with mets to brain, hemorrhagic brain mets , chronic hypoxic resp failure (on 2 to 3 L at home), copd, hiv, and smoking hx who presented to the ED with sob - Patient Problems (1) Pneumonia Comment: - Cont Azithro and Ceftriaxine (2) Leukocytosis Comment: - Secondary to steriods and pna - Continue azithro and ceftriaxone - afebrile (3) COPD exacerbation Comment: - Continue high dose dexamethasone (which she is already on due to hemorrhagic brain mets) - Cont duonebs - Cont supplemental O2. Currently on Vapotherm 20L/min (4) Acute and chronic respiratory failure with hypoxia Comment: - COPD exacerbation - Wears 2 to 3 L nc at home. Currently on Vapotherm 20L/min (5) Shortness of breath Comment: - COPD exacerbation and PNA - CTA negative (6) Lung cancer Comment: - [place] [facility] patient - Dr Bueno consulting (7) Brain metastases Comment: - Cont high dose steriods - Neuro checks - Seizures precautions (8) HIV (human immunodeficiency virus infection) Comment: - Cont home medications (9) DNR (do not resuscitate) Comment: - Discussed with patient. She is DNR, but NOT DNI (10) DVT prophylaxis Comment: - SCDs in setting of hemorrhagic brain mets
[2019-06-15] MEDS: Dexamethasone TAB* 4 MG PO SCH ×2 (08:51→19:43)
[2019-06-15] MEDS: Magnesium Oxide TAB* 400 MG PO SCH ×2 (08:51→19:43)
[2019-06-15] MEDS: Docusate CAP* 100 MG PO SCH ×2 (08:51→19:43)
[2019-06-15] MEDS: Potassium Chlor TAB* 20 MEQ TAB.ER PO SCH (08:51)
[2019-06-15] MEDS: PTO: Emtricitabine/Rilpivirine/Teno (Odefsey) 200/25/25 TABLET PO SCH (09:13)
[2019-06-15] MEDS: Lactated Ringers 1000 ML Bag* 1,000 ML IV SCH ×2 (09:13→23:31)
--- NOTE | 2019-06-15 12:58 | PN ---
Date of Service: 06/15/19 Critical Care Services: Feeling better today. breathing much more comfortably by report. Vital Signs: Temp Pulse Resp BP SpO2 FiO2 36.4 C 92 17 118/73 96 70 06/15/19 11:26 06/15/19 12:00 06/15/19 12:00 06/15/19 12:00 06/15/19 12:00 06/15 08:14 Physical Exam: Gen: awake and appropriate eating lunch HEENT: NCAT, alopecia, PERRL Lungs: basilar crackles right>left Cardiac: S1S2 regular Abdomen: benign Extremities: trace edema Neuro: grossly intact Fluid Balance (Past 24 Hours): I= O= Net Intake & Output 06/13/19 06/14/19 06/15/19 06/16/19 06:59 06:59 06:59 06:59 Intake Total 1347 120 Output Total 1050 950 Balance 297 -830 Weight 63.321 kg Intake: IV Fluids 1035 LR 810 NS (0.9%) 25 IVPB 62 ABX - CEFTRIAXONE 62 Oral 250 120 Output: Urine 1050 950 Other: Estimated Void Medium Labs: Laboratory Results - last 24 hr 06/14/19 06/14/19 06/14/19 11:28 12:10 12:10 WBC RBC Hgb Hct MCV MCH MCHC RDW Plt Count MPV Neut % (Auto) Lymph % (Auto) [place] % (Auto) Eos % (Auto) Baso % (Auto) Absolute Neuts (auto) Absolute Lymphs (auto) Absolute Monos (auto) Absolute Eos (auto) Absolute Basos (auto) Absolute Nucleated RBC Immature Gran % 17.0 H Neutrophils % 73.0 Band Neutrophils % 16.0 H Lymphocytes % 1.0 Monocytes % 9.0 Metamyelocytes % 1.0 Nucleated RBC % Nucleated RBCs/100 WBC 2.0 H Toxic Granulation Dohle Bodies Normal RBC Morphology Not Reportable Polychromasia 1+ Basophilic Stippling Anisocytosis 2+ ESR 25 Sodium Potassium Chloride Carbon Dioxide Anion Gap BUN Creatinine Est GFR ( Amer) Est GFR (Non-Af Amer) BUN/Creatinine Ratio Glucose Lactic Acid 2.8 H* Calcium Urine Color Urine Appearance Urine pH Ur Specific [place] Urine Protein Urine Ketones Urine Blood Urine Nitrate Urine Bilirubin Urine Urobilinogen Ur Leukocyte Esterase Urine Glucose Antibody Screen Negative 06/14/19 06/14/1920 12:43 15:22 04:55 WBC RBC Hgb Hct MCV MCH MCHC RDW Plt Count MPV Neut % (Auto) Lymph % (Auto) [place] % (Auto) Eos % (Auto) Baso % (Auto) Absolute Neuts (auto) Absolute Lymphs (auto) Absolute Monos (auto) Absolute Eos (auto) Absolute Basos (auto) Absolute Nucleated RBC Immature Gran % Neutrophils % Band Neutrophils % Lymphocytes % Monocytes % Metamyelocytes % Nucleated RBC % Nucleated RBCs/100 WBC Toxic Granulation Dohle Bodies Normal RBC Morphology Polychromasia Basophilic Stippling Anisocytosis ESR Sodium 131 L Potassium 3.9 Chloride 97 L Carbon Dioxide 31 Anion Gap 3 BUN 13 Creatinine 0.47 L Est GFR ( Amer) 164.1 Est GFR (Non-Af Amer) 135.6 BUN/Creatinine Ratio 27.7 H Glucose 173 H Lactic Acid 1.4 Calcium 8.2 L Urine Color Yellow Urine Appearance Cloudy Urine pH 6.0 Ur Specific [place] 1.025 Urine Protein Negative Urine Ketones Negative Urine Blood Negative Urine Nitrate Negative Urine Bilirubin Negative Urine Urobilinogen Negative Ur Leukocyte Esterase Negative Urine Glucose Negative Antibody Screen 06/15/19 04:55 WBC 12.3 H RBC 3.19 L Hgb 10.0 L Hct 30 L MCV 95 MCH 31 MCHC 33 RDW 23 H Plt Count 76 L MPV 7.8 Neut % (Auto) 93.2 Lymph % (Auto) 2.0 [place] % (Auto) 4.6 Eos % (Auto) 0.0 Baso % (Auto) 0.2 Absolute Neuts (auto) 11.4 H Absolute Lymphs (auto) 0.2 L Absolute Monos (auto) 0.6 Absolute Eos (auto) 0.0 Absolute Basos (auto) 0.0 Absolute Nucleated RBC 0.0 Immature Gran % 16.0 H Neutrophils % 78.0 Band Neutrophils % 16.0 H Lymphocytes % 2.0 Monocytes % 4.0 Metamyelocytes % Nucleated RBC % 0.1 Nucleated RBCs/100 WBC Toxic Granulation 1+ Dohle Bodies Present Normal RBC Morphology Not Reportable Polychromasia 1+ Basophilic Stippling 1+ Anisocytosis 2+ ESR Sodium Potassium Chloride Carbon Dioxide Anion Gap BUN Creatinine Est GFR ( Amer) Est GFR (Non-Af Amer) BUN/Creatinine Ratio Glucose Lactic Acid Calcium Urine Color Urine Appearance Urine pH Ur Specific [place] Urine Protein Urine Ketones Urine Blood Urine Nitrate Urine Bilirubin Urine Urobilinogen Ur Leukocyte Esterase Urine Glucose Antibody Screen Studies: CT and CXR reviewed. Nutrition: Eating Impression: 58 y/o female with advanced NSCLC and now superimposed CAP improving since admission Plan: Acute Hypoxic Respiratory Failure - improving, I asked that her HFNC be changed to [place] this AM and she is currently doing well on 10L NC. I think between treatment for her pneumonia and high dose steroids she is improving rapidly. Community Acquired Pneumonia - she is MRSA negative with sputum gram consistent with CAP and now growing strep. Continue ceftriaxone and azithromycin. COPD Exacerbation - continue bronchodilators and steroids, CTA negative and not all that much parenchymal pneumonia. Baseline oxygen requirement is the source for her dramatic increase in oxygen requirement at admission, no reserve. NSCLC - Dex for her brain mets recently hemorrhagic as well as the COPD exacerbation associated with her pneumonia. Clearly improving. Likely out of ICU later today or tomorrow.
[2019-06-15] MEDS: Azithromycin IV(*) 250 MG in NS 0.9% 250 ML* 250 ML IVPB SCH (14:08)
[2019-06-15] MEDS: cefTRIAXone(*) 1 GM in NS 0.9% 50 ML* 50 ML IVPB SCH (19:34)
[2019-06-15] MEDS: Diazepam TAB(*) 5 MG PO PRN (19:43)
[2019-06-16 06:03] LABS: ABS Lymphocytes 0.2 10^3/ul (1.0-4.8); ABS Monocytes 0.6 10^3/ul (0-0.8); Hematocrit 32 % (35-47); Hemoglobin 10.5 g/dL (12.0-16.0); Lymphocyte % 1.7 %; Mean Corpuscular HGB Conc 33 g/dL (31-36); Mean Corpuscular Hemoglobin 31 pg (27-31); Mean Corpuscular Volume 95 fL (80-97); Mean Platelet Volume 7.7 fL (7.4-10.4); Nucleated Red Blood Cells % 0.1; Platelet Count 80 10^3/uL (150-450); Red Blood Count 3.37 10^6 /uL (3.70-4.87); Red Cell Distribution Width 23 % (10-15); White Blood Count 13.8 10^3/uL (3.5-10.8)
[2019-06-16 06:09] LABS: BUN/Creatinine Ratio 37.2 (8-20); Calcium 8.5 mg/dL (8.6-10.3); EGFR African American 181.9 (>60); EGFR Non-African American 150.3 (>60); Potassium 4.4 mmol/L (3.5-5.0)
--- NOTE | 2019-06-16 09:31 | PN ---
Date of Service: 06/16/19 Critical Care Services: No acute events overnight Vital Signs: Temp Pulse Resp BP SpO2 FiO2 37.3 C 87 15 112/74 98 90 06/16/19 03:15 06/16/19 06:00 06/16/19 06:00 06/16/19 06:00 06/16/19 07:19 06/16 07:19 Physical Exam: Gen: awake and alert HEENT: NCAT, PERRL, alopecia Lungs: basilar crackles right Cardiac: S1S2 regular Abdomen: benign Extremities: no edema Neuro: grossly non-focal Fluid Balance (Past 24 Hours): I= O= Net Intake & Output 06/14/19 06/15/19 06/16/19 06/17/19 06:59 06:59 06:59 06:59 Intake Total 1347 2805 Output Total 1050 1350 Balance 297 1455 Weight 63.321 kg 62.051 kg Intake: IV Fluids 1035 2145 ABX - CEFTRIAXONE 265 LR 810 1880 NS (0.9%) 25 IVPB 62 ABX - CEFTRIAXONE 62 Oral 250 660 Output: Urine 1050 1350 Other: Estimated Void Medium Date of Last Bowel 06/16/2019 Movement # Bowel Movements 1 Estimated Stool Amount Small Labs: Laboratory Results - last 24 hr 06/16/19 06/16/19 05:31 05:31 WBC 13.8 H RBC 3.37 L Hgb 10.5 L Hct 32 L MCV 95 MCH 31 MCHC 33 RDW 23 H Plt Count 80 L MPV 7.7 Neut % (Auto) 94.1 Lymph % (Auto) 1.7 [place] % (Auto) 4.1 Eos % (Auto) 0.0 Baso % (Auto) 0.1 Absolute Neuts (auto) 13.0 H Absolute Lymphs (auto) 0.2 L Absolute Monos (auto) 0.6 Absolute Eos (auto) 0.0 Absolute Basos (auto) 0.0 Absolute Nucleated RBC 0.0 Nucleated RBC % 0.1 Sodium 132 L Potassium 4.4 Chloride 96 L Carbon Dioxide 31 Anion Gap 5 BUN 16 Creatinine 0.43 L Est GFR ( Amer) 181.9 Est GFR (Non-Af Amer) 150.3 BUN/Creatinine Ratio 37.2 H Glucose 131 H Calcium 8.5 L Nutrition: Eating fairly well Impression: CAP and COPD exacerbation over NSCLC improving steadily Plan: Acute Hypoxic Respiratory Failure - improved. Now down to 5L NC this AM with SaO2 in the mid 90s and RR mid 20s. Continue tx for CAP and COPD exacerbation. COPD Exacerbation - steroids, bronchodilators and steadily improving. Almost down to her baseline oxygen requirement. Needs PT, OOB. Streptococcal Pneumonia - continue ceftriaxone to complete 7 days and Zmax to complete 4 days. Stage IV NSCLC - currently on high dose Dex and Brain RT. Management per Oncology. OK to floor.
[2019-06-16] MEDS: Dexamethasone TAB* 4 MG PO SCH ×2 (09:41→21:25)
[2019-06-16] MEDS: PTO: Emtricitabine/Rilpivirine/Teno (Odefsey) 200/25/25 TABLET PO SCH (09:41)
[2019-06-16] MEDS: Docusate CAP* 100 MG PO SCH ×2 (09:41→21:25)
[2019-06-16] MEDS: Magnesium Oxide TAB* 400 MG PO SCH ×2 (09:41→21:26)
[2019-06-16] MEDS: Potassium Chlor TAB* 20 MEQ TAB.ER PO SCH (09:41)
[2019-06-16] MEDS ORDERED: Albuterol/Ipratropium NEB.SOL* Albuterol 2.5 MG/Ipratropium 0.5 MG 3 ML INH SCH (10:00)
--- NOTE | 2019-06-16 10:20 | PN ---
Progress Note - Progress Note Date of Service: 06/16/19 SOAP: Subjective: [Admitted over the weekend with acute on chronic respiratory failure secondary to PNA/COPD exacerbation, initially requiring Vapotherm. Oxygen requirements have improved significantly and she reports feeling better each day. She is still quite dyspneic and doesn't feel like she can lie flat for WBRT today. She is eating ok, reports being constipated and feeling slightly uncomfortable because of that. ] Objective: [ Vital Signs: Temp Pulse Resp BP Pulse Ox 99.2 F 95 30 112/75 90 06/16/19 03:15 06/16/19 09:00 06/16/19 09:00 06/16/19 08:00 06/16/19 09:00 Albuterol/Ipratropium (Duoneb (Albuterol 2.5 Mg/Ipratropium 0.5 Mg)) 1 neb INH Q4H PRN PRN Reason: SOB/WHEEZING Albuterol/Ipratropium (Duoneb (Albuterol 2.5 Mg/Ipratropium 0.5 Mg)) 1 neb INH Q6H NATALI Dexamethasone (Decadron Tab*) 8 mg PO BID [facility] Last Admin: 06/16/19 09:41 Dose: 8 mg Diazepam (Valium Tab(*)) 5 mg PO DAILY PRN PRN Reason: ANXIETY Last Admin: 06/15/19 19:43 Dose: 5 mg Docusate Sodium (Colace Cap*) 100 mg PO BID [facility] Last Admin: 06/16/19 09:41 Dose: 100 mg Emtricitabine/Rilpivirine/Tenofovir (Odefsey Tablet) 1 each PO DAILY [facility] Last Admin: 06/16/19 09:41 Dose: Not Given Ceftriaxone Sodium 1 gm/ (Sodium Chloride) 50 mls @ 100 mls/hr IVPB Q24H [facility] Last Admin: 06/15/19 19:34 Dose: 100 mls/hr Azithromycin 250 mg/ Sodium (Chloride) 250 mls @ 250 mls/hr IVPB Q24H [facility] Stop: 06/19/19 14:59 Last Admin: 06/15/19 14:08 Dose: 250 mls/hr Magnesium Oxide (Magox 400 Tab*) 800 mg PO BID [facility] Last Admin: 06/16/19 09:41 Dose: 800 mg Potassium Chloride (Klor Con Er Tab*) 20 meq PO DAILY NATALI Last Admin: 06/16/19 09:41 Dose: 20 meq Prochlorperazine (Compazine 10 Mg Tab) 10 mg PO Q6H PRN PRN Reason: NAUSEA Tramadol HCl (Ultram*) 50 mg PO Q6HR PRN PRN Reason: PAIN - MILD Last Admin: 06/14/19 16:52 Dose: 50 mg Trazodone HCl (Desyrel Tab*) 50 mg PO BEDTIME PRN PRN Reason: INSOMNIA Laboratory Results - last 24 hr 06/16/19 06/16/19 05:31 05:31 WBC 13.8 H RBC 3.37 L Hgb 10.5 L Hct 32 L MCV 95 MCH 31 MCHC 33 RDW 23 H Plt Count 80 L MPV 7.7 Neut % (Auto) 94.1 Lymph % (Auto) 1.7 [place] % (Auto) 4.1 Eos % (Auto) 0.0 Baso % (Auto) 0.1 Absolute Neuts (auto) 13.0 H Absolute Lymphs (auto) 0.2 L Absolute Monos (auto) 0.6 Absolute Eos (auto) 0.0 Absolute Basos (auto) 0.0 Absolute Nucleated RBC 0.0 Nucleated RBC % 0.1 Sodium 132 L Potassium 4.4 Chloride 96 L Carbon Dioxide 31 Anion Gap 5 BUN 16 Creatinine 0.43 L Est GFR ( Amer) 181.9 Est GFR (Non-Af Amer) 150.3 BUN/Creatinine Ratio 37.2 H Glucose 131 H Calcium 8.5 L Exam: Gen: chronically ill appearing 58 yo female in NAD HEENT: MMM CV: RRR, no m/r/g Resp: decreased breath sounds, no wheezing, but crackles noted at bases Abd: soft, slightly TTP throughout, active BS Ext: no edema Skin: no rashes] Assessment: [This is a 58 yo female with advanced stage small cell lung CA with recent progression on 3rd line therapy, no receiving WBRT for multiple brain metastases and started gemcitabine 06/05/19. She was admitted over the weekend with acute on chronic respiratory failure secondary to PNA/COPD exacerbation, initially requiring Vapotherm. Oxygen requirements have improved significantly and she reports feeling better each day. Blood cultures negative. Sputum grew a pansensitive S. pneumo. Plan: 1. PNA/COPD exacerbation with acute on chronic respiratory failure - back to near baseline oxygen requirements - plan to transfer to floor today - cont ceftriaxone/azithro, bronchodilators and corticosteroids - start to taper dex 2. Brain mets - cont WBRT (hold today due inability to lay flat) - cont dex, but start to taper tomorrow to 6 mg bid 3. SCLC, advanced stage - C1D1 gemcitabine 06/05/19, day 8 held for WBRT - plan to resume systemic therapy following completion of WBRT and recovery from acute illness 4. HIV - cont antiretroviral medications Dispo: transfer to medical floor, oncology service will take over as primary service
[2019-06-16] MEDS: Albuterol/Ipratropium NEB.SOL* Albuterol 2.5 MG/Ipratropium 0.5 MG 3 ML INH SCH ×2 (12:33→19:29)
[2019-06-16] MEDS: Azithromycin IV(*) 250 MG in NS 0.9% 250 ML* 250 ML IVPB SCH (16:22)
[2019-06-16] MEDS ORDERED: Magnesium CITRATE* 300 ML BTL PO ONE (16:39)
[2019-06-16] MEDS: traMADol TAB* 50 MG PO PRN (18:33)
[2019-06-16] MEDS: Senna TAB 8.6 mg* TAB PO SCH (21:26)
[2019-06-16] MEDS: cefTRIAXone(*) 1 GM in NS 0.9% 50 ML* 50 ML IVPB SCH (22:39)
[2019-06-17] MEDS: Albuterol/Ipratropium NEB.SOL* Albuterol 2.5 MG/Ipratropium 0.5 MG 3 ML INH SCH ×4 (01:00→20:09)
[2019-06-17 04:52] LABS: Hematocrit 34 % (35-47); Hemoglobin 10.8 g/dL (12.0-16.0); Mean Corpuscular HGB Conc 32 g/dL (31-36); Mean Corpuscular Hemoglobin 31 pg (27-31); Mean Corpuscular Volume 95 fL (80-97); Mean Platelet Volume 7.7 fL (7.4-10.4); Platelet Count 100 10^3/uL (150-450); Red Blood Count 3.53 10^6 /uL (3.70-4.87); Red Cell Distribution Width 22 % (10-15); White Blood Count 11.7 10^3/uL (3.5-10.8)
[2019-06-17 05:14] LABS: BUN/Creatinine Ratio 28.8 (8-20); Calcium 8.5 mg/dL (8.6-10.3); EGFR Non-African American 120.7 (>60); Potassium 4.3 mmol/L (3.5-5.0)
[2019-06-17 05:48] LABS: ABS Lymphocytes 0.3 10^3/ul (1.0-4.8); ABS Monocytes 0.5 10^3/ul (0-0.8); ABS Neutrophils 10.9 10^3/ul (1.5-7.7); Lymphocyte % 2.4 %; Nucleated Red Blood Cells % 0.1
--- NOTE | 2019-06-17 10:36 | PN ---
Progress Note - Progress Note Date of Service: 06/17/19 SOAP: Subjective: []Transferred out of the ICU yesterday. Resumed WBRT today. Seen this afternoon @ approx. 1500 as she was off the unit in the AM @ RT. Feeling well. "Much better." O2 via NC down to 4L, still easily winded but not coughing as much. Medications: Albuterol/Ipratropium (Duoneb (Albuterol 2.5 Mg/Ipratropium 0.5 Mg)) 1 neb INH Q4H PRN PRN Reason: SOB/WHEEZING Albuterol/Ipratropium (Duoneb (Albuterol 2.5 Mg/Ipratropium 0.5 Mg)) 1 neb INH [id number] AWAKE [facility] Last Admin: 06/17/19 08:28 Dose: 1 neb Dexamethasone (Decadron Tab*) 6 mg PO BID [facility] Diazepam (Valium Tab(*)) 5 mg PO DAILY PRN PRN Reason: ANXIETY Last Admin: 06/15/19 19:43 Dose: 5 mg Docusate Sodium (Colace Cap*) 100 mg PO BID [facility] Last Admin: 06/16/19 21:25 Dose: 100 mg Emtricitabine/Rilpivirine/Tenofovir (Odefsey Tablet) 1 each PO DAILY [facility] Last Admin: 06/16/19 09:41 Dose: Not Given Ceftriaxone Sodium 1 gm/ (Sodium Chloride) 50 mls @ 100 mls/hr IVPB Q24H [facility] Last Admin: 06/16/19 22:39 Dose: 100 mls/hr Azithromycin 250 mg/ Sodium (Chloride) 250 mls @ 250 mls/hr IVPB Q24H [facility] Stop: 06/19/19 14:59 Last Admin: 06/16/19 16:22 Dose: 250 mls/hr Magnesium Oxide (Magox 400 Tab*) 800 mg PO BID [facility] Last Admin: 06/16/19 21:26 Dose: 800 mg Potassium Chloride (Klor Con Er Tab*) 20 meq PO DAILY [facility] Last Admin: 06/16/19 09:41 Dose: 20 meq Prochlorperazine (Compazine 10 Mg Tab) 10 mg PO Q6H PRN PRN Reason: NAUSEA Senna (Senokot 8.6 Mg Tab*) 1 tab PO BEDTIME [facility] Last Admin: 06/16/19 21:26 Dose: 1 tab Tramadol HCl (Ultram*) 50 mg PO Q6HR PRN PRN Reason: PAIN - MILD Last Admin: 06/16/19 18:33 Dose: 50 mg Trazodone HCl (Desyrel Tab*) 50 mg PO BEDTIME PRN PRN Reason: INSOMNIA Last Admin: 06/16/19 21:26 Dose: 50 mg Objective: [] Vital Signs Temp Pulse Resp BP Pulse Ox 97 F 92 20 127/76 95 06/17/19 07:29 06/17/19 07:29 06/17/19 08:31 06/17/19 07:29 06/17/19 07:29 Alert and oriented, but notably forgetful HRR, S1S2 LS dim. with exp. wheeze throughout Laboratory Results - last 24 hr 06/15/19 06/17/19 06/17/19 04:55 04:35 04:35 WBC 11.7 H RBC 3.53 L Hgb 10.8 L Hct 34 L MCV 95 MCH 31 MCHC 32 RDW 22 H Plt Count 100 L MPV 7.7 Neut % (Auto) 93.1 Lymph % (Auto) 2.4 [place] % (Auto) 4.5 Eos % (Auto) 0.0 Baso % (Auto) 0.0 Absolute Neuts (auto) 10.9 H Absolute Lymphs (auto) 0.3 L Absolute Monos (auto) 0.5 Absolute Eos (auto) 0.0 Absolute Basos (auto) 0.0 Absolute Nucleated RBC 0.0 Nucleated RBC % 0.1 Hem Pathologist Commnt Sodium 131 L Potassium 4.3 Chloride 93 L Carbon Dioxide 32 Anion Gap 6 BUN 15 Creatinine 0.52 Est GFR ( Amer) 146.0 Est GFR (Non-Af Amer) 120.7 BUN/Creatinine Ratio 28.8 H Glucose 218 H Calcium 8.5 L Microbiology 06/14/19 12:10 Aerobic Blood Culture - Preliminary Blood Venous No Growth Day 2 Anaerobic Blood Culture - Preliminary No Growth Day 2 06/14/19 11:28 Aerobic Blood Culture - Preliminary Blood Venous No Growth Day 2 Anaerobic Blood Culture - Preliminary No Growth Day 2 06/14/19 12:22 Gram Stain - Final Sputum Expectorated Sputum Culture - Final Streptococcus Pneumoniae Normal Jill 06/14/19 17:22 Nasal Screen MRSA (PCR) - Final Nasal Mrsa Not Detected Assessment: []Mary is a 58 yo female with extensive stage small cell lung CA with recently diagnosed [employer] mets receiving WBRT admitted with acute on chronic respiratory failure secondary to Strep pneumonia with COPD exacerbation. She required Vapotherm for approx. 48 hours and was transferred out of the ICU yesterday. Plan: []1. PNA/COPD exacerbation with acute on chronic respiratory failure - waen oxygen tonight, baseline 2L/min overnight and during day PRN - cont ceftriaxone/azithro, bronchodilators and corticosteroids - d/c azithro tomorrow and will plan to transition to Augmentin at d/c 2. Brain mets - cont WBRT (hold today due inability to lay flat) - cont dex @ 6 mg bid 3. SCLC, advanced stage - plan to resume systemic therapy following completion of WBRT and recovery from acute illness 4. HIV - cont antiretroviral medications Dispo: likely home tomorrow on oral abx. and cont.'d O2 with PRN nebs
[2019-06-17] MEDS: Docusate CAP* 100 MG PO SCH ×2 (11:51→21:25)
[2019-06-17] MEDS: Potassium Chlor TAB* 20 MEQ TAB.ER PO SCH (11:51)
[2019-06-17] MEDS: Magnesium Oxide TAB* 400 MG PO SCH ×2 (11:52→21:25)
[2019-06-17] MEDS: PTO: Emtricitabine/Rilpivirine/Teno (Odefsey) 200/25/25 TABLET PO SCH (11:52)
[2019-06-17] MEDS: Dexamethasone TAB* 6 MG PO SCH ×2 (11:52→21:25)
[2019-06-17] MEDS: Azithromycin IV(*) 250 MG in NS 0.9% 250 ML* 250 ML IVPB SCH (15:35)
[2019-06-17] MEDS: Polyethylene Glycol 3350* 17 GM PACKET PO SCH (16:50)
[2019-06-17] MEDS: cefTRIAXone(*) 1 GM in NS 0.9% 50 ML* 50 ML IVPB SCH (21:24)
[2019-06-17] MEDS: Senna TAB 8.6 mg* TAB PO SCH (21:25)
[2019-06-18] MEDS: Albuterol/Ipratropium NEB.SOL* Albuterol 2.5 MG/Ipratropium 0.5 MG 3 ML INH SCH ×2 (01:08→08:19)
[2019-06-18 06:17] LABS: Hematocrit 36 % (35-47); Hemoglobin 12.2 g/dL (12.0-16.0); Mean Corpuscular HGB Conc 34 g/dL (31-36); Mean Corpuscular Hemoglobin 32 pg (27-31); Mean Corpuscular Volume 94 fL (80-97); Mean Platelet Volume 7.7 fL (7.4-10.4); Platelet Count 128 10^3/uL (150-450); Red Blood Count 3.84 10^6 /uL (3.70-4.87); Red Cell Distribution Width 22 % (10-15); White Blood Count 10.1 10^3/uL (3.5-10.8)
[2019-06-18 06:27] LABS: Albumin 3.4 g/dL (3.2-5.2); Albumin/Globulin Ratio 1.2 (1-3); BUN/Creatinine Ratio 25.9 (8-20); Calcium 8.6 mg/dL (8.6-10.3); EGFR African American 139.8 (>60); EGFR Non-African American 115.6 (>60); Globulin 2.9 g/dL (2-4); Potassium 4.2 mmol/L (3.5-5.0); Total Bilirubin 0.3 mg/dL (0.2-1.0); Total Protein 6.3 g/dL (6.4-8.9)
[2019-06-18 07:07] LABS: ABS Lymphocytes 0.4 10^3/ul (1.0-4.8); ABS Monocytes 0.7 10^3/ul (0-0.8); ABS Nucleated RBC 0.1 10^3/ul; Lymphocyte % 4.1 %; Nucleated Red Blood Cells % 0.8
[2019-06-18] MEDS: Magnesium Oxide TAB* 400 MG PO SCH (08:56)
[2019-06-18] MEDS: Dexamethasone TAB* 6 MG PO SCH (08:56)
[2019-06-18] MEDS: PTO: Emtricitabine/Rilpivirine/Teno (Odefsey) 200/25/25 TABLET PO SCH (08:56)
[2019-06-18] MEDS: Docusate CAP* 100 MG PO SCH (08:56)
[2019-06-18] MEDS: Polyethylene Glycol 3350* 17 GM PACKET PO SCH (08:56)
[2019-06-18] MEDS: Diazepam TAB(*) 5 MG PO PRN (08:56)
[2019-06-18] MEDS: Potassium Chlor TAB* 20 MEQ TAB.ER PO SCH (08:56)
[2019-06-18] MEDS: traMADol TAB* 50 MG PO PRN (08:57)
[2019-06-18] MEDS ORDERED: Saline NASAL SPRAY 0.65%* BTL BOTH NARES PRN (09:12)
[2019-06-18 11:19] VITALS: BP 125/81
[2019-06-18] MEDS ORDERED: Nystatin SUSPENSION* 100000 UNITS/ML 5 ML UDC PO SCH (13:00)
--- NOTE | 2019-06-18 14:18 | DS ---
CC: Dr. Diamond * DISCHARGE SUMMARY: DATE OF ADMISSION: 06/14/19 DATE OF DISCHARGE: 06/18/19 PRIMARY CARE PROVIDER: Dr. Diamond. PRIMARY ONCOLOGIST AND ATTENDING PHYSICIAN: Dr. Brian Bueno * (DICTATED BY GRISEL COON) DISCHARGING PROVIDER: GRISEL Coon. PRIMARY DISCHARGE DIAGNOSES: 1. Streptococcus pneumoniae with chronic obstructive pulmonary disease exacerbation. 2. Acute on chronic respiratory failure secondary to the above requiring Vapotherm and associated ICU stay. 3. Metastatic small cell, currently receiving advanced line chemotherapy and whole brain radiation for recent central nervous system metastasis. 4. Thrush. 5. Human immunodeficiency viruses - stable on antiretroviral medications. DISCHARGE MEDICATIONS: 1. Albuterol inhaler 2 puffs every 6 hours as needed for shortness of breath. 2. Docusate 100 mg p.o. twice daily. 3. Odefsey 1 tablet p.o. daily. 4. Loratadine 10 mg p.o. daily. 5. Magnesium oxide 800 mg p.o. twice daily. 6. Omeprazole 40 mg p.o. daily. 7. Potassium chloride 20 mEq p.o. daily. 8. Compazine 10 mg p.o. q.6 hours as needed for nausea and vomiting. 9. Ultram 50 mg p.o. q.6 hours as needed for pain. 10. Trazodone 25 to 50 mg p.o. at bedtime as needed for insomnia. 11. Anoro Ellipta device 1 puff inhaled twice daily. 12. DuoNeb 1 neb inhaled every 4 hours as needed for shortness of breath. 13. Augmentin 875/125, one tablet p.o. twice daily for 7 days. 14. Dexamethasone 4 mg p.o. twice daily. 15. Valium 5 mg p.o. daily 30 minutes prior to radiation therapy. 16. Nystatin 500,000 units p.o. 4 times daily for 1 week for thrush. HOSPITAL IMAGIN. Chest x-ray, 06/14/19, shows linear airspace opacification in the right mid lung zone, which could be related to radiation without any obvious new air space opacifications. 2. CTA of the chest, 06/14/19, demonstrates no evidence of PE. There is increase in consolidation and tree-in-bud nodularity concerning for pneumonia and bronchiolitis. No change to known metastatic disease. HOSPITAL COURSE: This is a 58-year-old female under the care of Dr. Bueno for extensive stage small cell carcinoma with recent both systemic and [employer] progression, now receiving palliative gemcitabine and whole brain radiation. She presented to the emergency department with acute shortness of breath, found to be hypoxic, initially saturating in the low 80s and requiring nearly immediately Vapotherm up to 30 L in order to maintain saturation in the low 90s. Initial chest x-ray was somewhat unremarkable followed by a CTA, which was negative for PE but demonstrated an infiltrate consistent with pneumonia. She was afebrile. Blood cultures were collected, which were eventually negative. She was treated with broad spectrum antibiotics and admitted to ICU for Vapotherm. Sputum cultures eventually grew pansensitive strep pneumoniae and she was transferred out of ICU on day 3 of her hospitalization. Her oxygen requirement continued to improve throughout her hospital stay and at discharge was able to ambulate on room air and maintain saturations in the high 90s with minimal dyspnea. DISPOSITION AND FOLLOWUP PLAN: The patient is being discharged to home in stable condition where she lives with her partner. She will be continued on 7 additional days of Augmentin. Her dexamethasone, initially started for treatment of vasogenic edema secondary to her [employer] metastasis, has been decreased from 8 mg twice a day to 4 mg twice a day at the time of discharge. She was provided with a prescription for DuoNebs with instructions to take that as needed for additional shortness of breath. She will continue her whole brain radiation. She had some noted thrush at the time discharge and was discharged with nystatin. She will follow up with oncology clinic on Sunday at which point the timing of resuming chemotherapy will be reviewed in more detail. GRISEL COON [id number]/[facility] #: [id number] MTDKristin
== END 2019-06-18 11:53 | disposition home or self-care (01) | DRG 193 ==
LOC: ED 10:46 → ICU 14:08 → MED 06-16 10:55
PROVIDERS: ADMIT Internal Medicine; ATTEND Internal Medicine Hematology & Oncology
PROC: D0Y07ZZ Contact Radiation of Brain (ICD-10-PCS; principal; 2019-06-17)
PROC: DWY27ZZ Contact Radiation of Chest (ICD-10-PCS; 2019-06-17)
DX: J13 Pneumonia due to Streptococcus pneumoniae (principal); J96.21 Acute and chronic respiratory failure with hypoxia; C34.90 Malignant neoplasm of unspecified part of unspecified bronchus or lung; C79.31 Secondary malignant neoplasm of brain; J44.1 Chronic obstructive pulmonary disease with (acute) exacerbation; J44.0 Chronic obstructive pulmonary disease with (acute) lower respiratory infection; E87.1 Hypo-osmolality and hyponatremia; E87.3 Alkalosis; B37.9 Candidiasis, unspecified; Z66 Do not resuscitate; F17.210 Nicotine dependence, cigarettes, uncomplicated; D72.829 Elevated white blood cell count, unspecified; Z21 Asymptomatic human immunodeficiency virus [HIV] infection status; T38.0X5A Adverse effect of glucocorticoids and synthetic analogues, initial encounter; Y92.239 Unspecified place in hospital as the place of occurrence of the external cause; M17.0 Bilateral primary osteoarthritis of knee; M19.042 Primary osteoarthritis, left hand; M19.041 Primary osteoarthritis, right hand; Z99.81 Dependence on supplemental oxygen; Z88.2 Allergy status to sulfonamides; Z91.030 Bee allergy status; Z91.040 Latex allergy status; Z92.21 Personal history of antineoplastic chemotherapy; Z79.899 Other long term (current) drug therapy
CPT/HCPCS: 36415; 71045; 71275; 80048; 80053; 81003; 82550; 82803; 83605; 83880; 84484; 85025; 85060; 85384; 85610; 85652; 85730; 86140; 86850; 86900; 86901; 87040; 87070; 87077; 87186; 87205; 87641; 93005; 94640; 99232; 99239; 99285; A9270-GY; J0456; J0692; J0696; J1642; J2930; J8540; Q0164; Q9967

== ENCOUNTER 2019-07-10 09:00 | Inpatient (IN) | payer MEDICARE, MEDICAID ==
--- OUTSIDE RECORDS SUMMARY | 2019-07-10 09:11 | XMS REPORT ---
:1960 Author Organization [facility] Care Team Providers Name Role Phone Unavailable Unavailable Unavailable Problems Condition Condition Condition Status Onset Resolution Last Treating Comments Name Details Category Date Date Treatment Clinician Date Malignant Malignant Diagnosis Active Jessica neoplasm of neoplasm of 2-11 Cronin unspecified unspecified part of part of unspecified unspecified bronchus or bronchus or lung lung Allergies, Adverse Reactions, Alerts Allergy Allergy Type Status Severity Reaction(s) Onset Inactive Treating Comments Name Date Date Clinician latex Base Active Unknown Reaction 2019-06 Rhonda Ingredient Unknown -11 Wendela [id number] Sulfa Allergen Active Unknown Reaction 2019-06 Rhonda (Sulfonam Group Unknown -11 Wendela good [id number] Antibioti cs) Medications Ordered Filled Start Stop Current Ordering Indication Dosage Frequency Signature Comments Components Medication Medication Date Date Medication? Clinician (SIG) Name Name No Known No Known No None None None Medications Medications For This For This Patient Patient Procedures This patient has no known procedures. Results This patient has no known results.
--- OUTSIDE RECORDS SUMMARY | 2019-07-10 09:11 | XMS REPORT ---
:1960 Author Organization [facility] Care Team Providers Name Role Phone Unavailable Unavailable Unavailable Problems Condition Condition Condition Status Onset Resolution Last Treating Comments Name Details Category Date Date Treatment Clinician Date Malignant Malignant Diagnosis Active Rhonda neoplasm of neoplasm of 2-21 Wendela unspecified unspecified [id number] part of part of unspecified unspecified bronchus or bronchus or lung lung Allergies, Adverse Reactions, Alerts Allergy Allergy Type Status Severity Reaction(s) Onset Inactive Treating Comments Name Date Date Clinician latex Base Active Unknown Reaction 2019-06 Rhonda Ingredient Unknown -11 Wendela [id number] Sulfa Allergen Active Unknown Reaction 2019-06 Rhonda (Sulfonam Group Unknown -11 Wendela good [id number] Antibioti cs) Medications Ordered Filled Start Stop Current Ordering Indication Dosage Frequency Signature Comments Components Medication Medication Date Date Medication? Clinician (SIG) Name Name No Known No Known No None None None Medications Medications For This For This Patient Patient Procedures This patient has no known procedures. Results This patient has no known results.
--- OUTSIDE RECORDS SUMMARY | 2019-07-10 09:11 | XMS REPORT ---
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 with with (acute) (acute) exacerbatio exacerbatio n n Chronic Chronic Diagnosis Active Jaden respiratory respiratory 1- Isabella failure failure [id number] with with hypoxia hypoxia Malignant Malignant Diagnosis Active Jaden neoplasm of neoplasm of 3- Isabella upper lobe, upper lobe, [id number] right right bronchus or bronchus or lung lung 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 Candidal Candidal Diagnosis Active Jaden stomatitis stomatitis 2-01 Isabella [id number] Abrasion of Abrasion of Diagnosis Active Jaden left wrist, left wrist, 2-24 Isabella initial initial [id number] encounter encounter 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 [id number] [HIV] [HIV] disease disease Nicotine Nicotine Diagnosis Active Jaden dependence, dependence, Isabella cigarettes, cigarettes, [id number] uncomplicat uncomplicat ed ed Dependence Dependence Diagnosis Active Jaden on on Isabella supplementa supplementa [id number] l oxygen l oxygen 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 Jaden (current) (current) Isabella use of use of [id number] systemic systemic steroids steroids halfway halfway Diagnosis Active Jaden (current) (current) Isabella use of use of [id number] opiate opiate analgesic analgesic History of History of Diagnosis Active Jaden falling falling Gingericz [id number] Personal Personal Diagnosis Active Jaden history of history of Isabella pneumonia pneumonia [id number] (recurrent) (recurrent) Pain frequent Pain Mgmt Resolve 2019-07-07 Padmini pain d 07-07 09:45:00 [place] 09:45: [id number] 00 Respiratory dyspnea Respirator Resolve 2019-07-07 Padmini present y d 07-07 09:45:00 [place] 09:45: [id number] 00 Respiratory oxygen Respirator Resolve 2019-07-07 Padmini treatments y d 07-07 09:45:00 [place] in home 09:45: [id number] 00 Respiratory knowledge/s Respirator Resolve 2019-07-07 Padmini kill y d 07-07 09:45:00 [place] deficit: pt 09:45: [id number] 00 Respiratory smoker Respirator Resolve 2019-07-07 Padmini y d 07-07 09:45:00 [place] 09:45: [id number] 00 Respiratory nebulizer Respirator Resolve 2019-07-07 Padmini treatment y d 07-07 09:45:00 [place] in home 09:45: [id number] 00 Sensory impaired Sensory Resolve 2019-07-07 Padmini hearing d 07-07 09:45:00 [place] 09:45: [id number] 00 Integument skin Integument Resolve 2019-07-07 Padmini integrity d 07-07 09:45:00 [place] risk 09:45: [id number] 00 Nutrition nutritional Nutrition Resolve 2019-07-07 Padmini restriction d 07-07 09:45:00 [place] s 09:45: [id number] 00 Elimination urinary Eliminatio Resolve 2019-07-07 Padmini incontinenc n d 07-07 09:45:00 [place] e 09:45: [id number] 00 Neuro confusion Neuro/Emot Resolve 2019-07-07 Padmini present ion d 07-07 09:45:00 [place] 09:45: [id number] 00 Neuro impaired Neuro/Emot Resolve 2019-07-07 Padmini decision-ma ion d 07-07 09:45:00 [place] claudia 09:45: [id number] 00 Activity ADL Activity Resolve 2019-07-07 Padmini assistance d 07-07 09:45:00 Leonard required 09:45: [id number] 00 Activity self-care Activity Resolve 2019-07-07 Padmini deficit d 07-07 09:45:00 [place] 09:45: [id number] 00 Safety fall risk Safety Resolve 2019-07-07 Padmini factor d 07-07 09:45:00 [place] present 09:45: [id number] 00 Safety risk for Safety Resolve 2019-07-07 Padmini hospitaliza d 07-07 09:45:00 [place] tion 09:45: [id number] 00 Medication oral med Meds Resolve 2019-07-07 Padmini assistance d 07-07 09:45:00 [place] required 09:45: [id number] 00 Medication knowledge/s Meds Resolve 2019-07-07 Padmini kill d 07-07 09:45:00 [place] deficit: pt 09:45: [id number] 00 Musculoskel transfer Musculoske Resolve 2019-07-07 Padmini etal assistance letal d 07-07 09:45:00 [place] required 09:45: [id number] 00 Nutrition changing Nutrition Active Jaden weight/appe 07-07 [place] tite 12:20: [id number] 00 Safety can be left Safety Active 2019-0 Jaden alone for 07-07 [place]oblissetteewicz only short 12:20: [id number] periods 00 Safety knowledge/s Safety Active 2019- Jaden kill 07-07 Rosieewicz deficit: pt 12:20: [id number] 00 Safety fall risk Safety Unknown 2019- Jaden factor - Kobziewicz present 12:20: [id number] 00 Safety risk for Safety Unknown 2019-0 Jaden hospitaliza - Kobziewicz tion 12:20: [id number] 00 Diagnoses knowledge/s Diagnoses Active 2019- Jaden kill 07-07 Kobziewicz deficit: pt 12:20: [id number] 00 Bed mobility/tr PT/OT: Bed Active 2019-0 Jaden Mobility/Tr ansfer Mobility/T 07-07 Isabella ansfer device ransfer 12:20: [id number] present 00 Bed transfer PT/OT: Bed Active Jaden Mobility/Tr deficit: Mobility/T 07-07 Isabella ansfer shower/tub ransfer 12:20: [id number] 00 Bed transfer PT/OT: Bed Active Jaden Mobility/Tr deficit: Mobility/T 2-24 Kobzipaul ansfer vehicle ransfer 12:20: [id number] 00 Bed knowledge/s PT/OT: Bed Active 0 Jaden Mobility/Tr kill Mobility/T 2-24 Isabella ansfer deficit: pt ransfer 12:20: [id number] 00 Balance/End balance/sponsorship coordinator PT/OT: Active Jaden urance rdination Balance/En 2-24 Kobziewicz deficit durance 12:20: [id number] 00 OT: Self self-care OT: Active Jaden Care deficit Self-Care 2-24 Kobziewicz 12:20: [id number] 00 OT: Self knowledge/s OT: Active Jaden Care kill Self-Care 2-24 Kobziewicz deficit: pt 12:20: [id number] 00 Gait/Locomo stair PT/OT: Active Jaden tion management Gait/Locom 2-24 Kobziewicz problems req otion 12:20: [id number] 00 Gait/Locomo gait PT/OT: Active Jaden tion assistive Gait/Locom 2-24 Kobziewicz problems device otion 12:20: [id number] present 00 Gait/Locomo knowledge/s PT/OT: Active Jaden tion kill Gait/Locom 2-24 Kobziewicz problems deficit: pt otion 12:20: [id number] 00 Gait/Locomo gait PT/OT: Active Jaden tion deficit Gait/Locom 2-24 Kobziewicz problems otion 12:20: [id number] 00 Allergies, Adverse Reactions, Alerts Allergy Allergy Type Status Severity Reaction(s) Onset Inactive Treating Comments Name Date Date Clinician latex Base Active Unknown Reaction 2019-06 Rhonda Ingredient Unknown -11 Wendela [id number] Sulfa Allergen Active Unknown Reaction 2019-06 Rhonda (Sulfonam Group Unknown -11 Wendela good [id number] Antibioti cs) Medications Ordered Filled Start Stop Current Ordering Indication Dosage Frequency Signature Comments Components Medication Medication Date Date Medication? Clinician (SIG) Name Name ipratropium ipratropium Yes Garbo Unknown Unknown -albuterol -albuterol 2-24 Brian HORN 0.5 mg-3 0.5 mg-3 mg(2.5 mg mg(2.5 mg base)/3 mL base)/3 mL nebulizatio nebulizatio n soln n soln dexAMETHaso dexAMETHaso 2019-0 Yes Garbo Unknown Unknown ne 4 mg ne 4 mg 2-24 Brian HORN tablet tablet nystatin nystatin 2019-0 Yes Garbo Unknown Unknown 100,000 100,000 2-24 Brian HORN unit/mL unit/mL oral oral suspension suspension ProAir HFA ProAir HFA 0 Yes Garbo Unknown Unknown 90 90 2-24 Brian HORN mcg/actuati mcg/actuati on aerosol on aerosol inhaler inhaler magnesium magnesium 2019-0 Yes Garbo Unknown Unknown oxide 400 oxide 400 2-24 Brian HORN mg (241.3 mg (241.3 mg mg magnesium) magnesium) tablet tablet Odefsey 200 Odefsey 200 2019-0 Yes Garbo Unknown Unknown mg-25 mg-25 mg-25 mg-25 2-24 Brian HORN mg tablet mg tablet Allergy Allergy 2019-0 Yes Garbo Unknown Unknown Relief Relief 2-24 Brian HORN (loratadine (loratadine ) 10 mg ) 10 mg tablet tablet traZODone traZODone 2019-0 Yes Myles Unknown Unknown 50 mg 50 mg 2-24 Brian HORN tablet tablet omeprazole omeprazole 2019-0 Yes Sotobo Unknown Unknown 40 mg 40 mg 2-24 Brian HORN capsule,del capsule,del ayed ayed release release morphine 15 morphine 15 2019-0 Yes Myles Unknown Unknown mg mg 2-24 Brian HORN immediate immediate release release tablet tablet traMADol 50 traMADol 50 2019-0 Yes Garbo Unknown Unknown mg tablet mg tablet 2-24 Brian HORN Anoro Anoro 2019-0 Yes Garbo Unknown Unknown Ellipta Ellipta 2-24 Brian HORN 62.5 mcg-25 62.5 mcg-25 mcg/actuati mcg/actuati on powder on powder for for inhalation inhalation Klor-Con Klor-Con 2019-0 Yes Garbo Unknown Unknown M20 mEq M20 mEq 2-24 Brian HORN tablet,exte tablet,exte nded nded release release Mucinex 600 Mucinex 600 2019-0 Yes Garbo Unknown Unknown mg tablet, mg tablet, 2-24 Brian HORN extended extended release release Vital Signs Vital Name Observation Time Observation Value Comments SYSTOLIC mm[Hg] 2019-07-07 18:10:33 130 mm[Hg] mm[Hg] Method: Sit SYSTOLIC mm[Hg] 2019-07-07 18:10:33 134 mm[Hg] mm[Hg] Method: Stand DIASTOLIC mm[Hg] 2019-07-07 18:10:33 80 mm[Hg] mm[Hg] Method: Sit DIASTOLIC mm[Hg] 2019-07-07 18:10:33 82 mm[Hg] mm[Hg] Method: Stand PULSE 2019-07-07 18:10:33 100 /min /min RESP RATE 2019-07-07 18:10:33 18 /min /min TEMP 2019-07-07 18:10:33 98.2 [degF] Procedures This patient has no known procedures. Results This patient has no known results.
--- OUTSIDE RECORDS SUMMARY | 2019-07-10 09:11 | XMS REPORT ---
:1960 Author Organization [facility] Care Team Providers Name Role Phone Unavailable [...] Reaction 2019-06 Rhonda Ingredient Unknown -11 Wendela [id number] Sulfa Allergen Active Unknown Reaction 2019-06 Rhonda (Sulfonam Group Unknown -11 Wendela good [id number] Antibioti cs) Medications Ordered Filled Start Stop Current Ordering Indication Dosage Frequency Signature Comments Components Medication Medication Date Date Medication? Clinician (SIG) Name Name No Known No Known No None None None Medications Medications For This For This Patient Patient Procedures This patient has no known procedures. Results This patient has no known results.
--- OUTSIDE RECORDS SUMMARY | 2019-07-10 09:11 | XMS REPORT ---
[...] Reaction 2019-06 Rhonda Ingredient Unknown -11 Wendela Sulfa Allergen Active Unknown Reaction 2019-06 Rhonda (Sulfonam Group Unknown -11 Wendela good Antibioti cs) Medications Ordered Filled Start Stop Current Ordering Indication Dosage Frequency Signature Comments Components Medication Medication Date Date Medication? Clinician (SIG) Name Name No Known No Known No None None None Medications Medications For This For This Patient Patient Procedures This patient has no known procedures. Results This patient has no known results.
--- OUTSIDE RECORDS SUMMARY | 2019-07-10 09:11 | XMS REPORT ---
:1960 Author Organization [facility] Care Team Providers Name Role Phone Unavailable Unavailable Unavailable Problems Condition Condition Condition Status Onset Resolution Last Treating Comments Name Details Category Date Date Treatment Clinician Date Malignant Malignant Diagnosis Active Rhonda neoplasm of neoplasm of 2-11 Wendela unspecified unspecified part of part of unspecified [...]
--- OUTSIDE RECORDS SUMMARY | 2019-07-10 09:11 | XMS REPORT ---
:1960 Author Organization [facility] Care Team Providers Name Role Phone Unavailable [...]
--- OUTSIDE RECORDS SUMMARY | 2019-07-10 09:11 | XMS REPORT ---
:1960 Author Organization [facility] Care Team Providers Name Role Phone Unavailable [...]
--- OUTSIDE RECORDS SUMMARY | 2019-07-10 09:11 | XMS REPORT ---
:1960 Author Organization [facility] Care Team Providers Name Role Phone Unavailable Unavailable Unavailable Problems Condition Condition Condition Status Onset Resolution Last Treating Comments Name Details Category Date Date Treatment Clinician Date Malignant Malignant Diagnosis Active Jaden neoplasm of neoplasm of 07-04 Isabella unspecified unspecified [id number] part of part of unspecified unspecified bronchus or bronchus or lung lung Pain frequent Pain Mgmt Resolve 2019-07-07 Padmini pain d 07-07 09:45:00 [place] 09:45: [id number] 00 Respiratory dyspnea Respirator Resolve 2019-07-07 Padmini present y d 07-07 09:45:00 [place] 09:45: [id number] 00 Respiratory oxygen Respirator Resolve 2019-07-07 Padmini treatments y d 07-07 09:45:00 [place] in home 09:45: [id number] 00 Respiratory knowledge/s Respirator Resolve 2019-07-07 Padmini kill y d 07-07 09:45:00 [place] deficit: pt 09:45: [id number] 00 Respiratory smoker Respirator Resolve 2019-07-07 Padmini y d 07-07 09:45:00 [place] 09:45: [id number] 00 Respiratory nebulizer Respirator Resolve 2019-07-07 Padmini treatment y d 07-07 09:45:00 [place] in home 09:45: [id number] 00 Sensory impaired Sensory Resolve 2019-07-07 Padmini hearing d 07-07 09:45:00 [place] 09:45: [id number] 00 Integument skin Integument Resolve 2019-07-07 Padmini integrity d 07-07 09:45:00 [place] risk 09:45: [id number] 00 Nutrition nutritional Nutrition Resolve 2019-07-07 Padmini restriction d 07-07 09:45:00 [place] s 09:45: [id number] 00 Elimination urinary Eliminatio Resolve 2019-07-07 Padmini incontinenc n d 07-07 09:45:00 [place] e 09:45: [id number] 00 Neuro confusion Neuro/Emot Resolve 2019-07-07 Padmini present ion d 07-07 09:45:00 [place] 09:45: [id number] 00 Neuro impaired Neuro/Emot Resolve 2019-07-07 Padmini decision-ma ion d 07-07 09:45:00 Leonard claudia 09:45: [id number] 00 Activity ADL Activity Resolve 2019-07-07 Padmini assistance d 07-07 09:45:00 Leonard required 09:45: [id number] 00 Activity self-care Activity Resolve 2019-07-07 Padmini deficit d 07-07 09:45:00 [place] 09:45: [id number] 00 Safety fall risk Safety Resolve 2019-07-07 Padmini factor d 07-07 09:45:00 Leonard present 09:45: [id number] 00 Safety risk for Safety Resolve 2019-07-07 Padmini hospitaliza d 07-07 09:45:00 [place] tion 09:45: [id number] 00 Medication oral med Meds Resolve 2019-07-07 Padmini assistance d 07-07 09:45:00 [place] required 09:45: [id number] 00 Medication knowledge/s Meds Resolve 2019-07-07 Padmini kill d 07-07 09:45:00 Leonard deficit: pt 09:45: [id number] 00 Musculoskel transfer Musculoske Resolve 2019-07-07 Padmini etal assistance letal d 07-07 09:45:00 [place] required 09:45: [id number] 00 Nutrition changing Nutrition Active Jaden weight/appe 07-07 Isabella tite 12:20: [id number] 00 Safety can be left Safety Active Jaden alone for 07-07 Isabella guan short 12:20: [id number] periods 00 Safety knowledge/s Safety Active Jaden kill 07-07 Isabella deficit: pt 12:20: [id number] 00 Diagnoses knowledge/s Diagnoses Active 2019- Jaden kill 2-24 Kobziewicz deficit: pt 12:20: [id number] 00 Bed mobility/tr PT/OT: Bed Active 2020-0 Jaden Mobility/Tr ansfer Mobility/T 2-24 Isabella ansfer device ransfer 12:20: [id number] present 00 Bed transfer PT/OT: Bed Active 2020-0 Jaden Mobility/Tr deficit: Mobility/T 2-24 Kobziewicz ansfer shower/tub ransfer 12:20: [id number] 00 Bed transfer PT/OT: Bed Active 2019-0 Jaden Mobility/Tr deficit: Mobility/T 2-24 Kobziewibis ansfer vehicle ransfer 12:20: [id number] 00 Bed knowledge/s PT/OT: Bed Active Jaden Mobility/Tr kill Mobility/T 2-24 Kobzipaul ansfer deficit: pt ransfer 12:20: [id number] 00 Balance/End balance/behavioral therapy coordinator PT/OT: Active Jaden urance rdination Balance/En 2-24 Kobziewicz deficit durance 12:20: [id number] 00 OT: Self self-care OT: Active Jaden Care deficit Self-Care 2-24 Kobziewicz 12:20: [id number] 00 OT: Self knowledge/s OT: Active Jaden Care kill Self-Care 2-24 Kobziewicz deficit: pt 12:20: [id number] 00 Gait/Locomo stair PT/OT: Active Jaden tion management Gait/Locom 2-24 Kobziewicz problems req otion 12:20: [id number] 00 Gait/Locomo gait PT/OT: Active 2019-0 Jaden tion assistive Gait/Locom 2-24 Kobziewicz problems device otion 12:20: [id number] present 00 Gait/Locomo knowledge/s PT/OT: Active 2019-0 Jaden tion kill Gait/Locom 2-24 Kobziewicz problems deficit: pt otion 12:20: [id number] 00 Gait/Locomo gait PT/OT: Active 2019-0 Jaden tion deficit Gait/Locom 2-24 Kobziewicz problems otion 12:20: [id number] 00 Allergies, Adverse Reactions, Alerts Allergy Allergy Type Status Severity Reaction(s) Onset Inactive Treating Comments Name Date Date Clinician latex Base Active Unknown Reaction 2019-06 Rhonda Ingredient Unknown -11 Logan [id number] Sulfa Allergen Active Unknown Reaction 2019-06 Rhonda (Sulfonam Group Unknown -11 Logan funk [id number] Antibioti cs) Medications Ordered Filled Start Stop Current Ordering Indication Dosage Frequency Signature Comments Components Medication Medication Date Date Medication? Clinician (SIG) Name Name ipratropium ipratropium Yes Garbo Unknown Unknown -albuterol -albuterol 2-24 Brian HORN 0.5 mg-3 0.5 mg-3 mg(2.5 mg mg(2.5 mg base)/3 mL base)/3 mL nebulizatio nebulizatio n soln n soln dexAMETHaso dexAMETHaso Yes Garbo Unknown Unknown ne 4 mg ne 4 mg 2-24 Brian HORN tablet tablet nystatin nystatin Yes Garbo Unknown Unknown 100,000 100,000 2-24 Brian HORN unit/mL unit/mL oral oral suspension suspension ProAir HFA ProAir HFA Yes Garbo Unknown Unknown 90 90 2-24 Brian HORN mcg/actuati mcg/actuati on aerosol on aerosol inhaler inhaler magnesium magnesium 2019-0 Yes Garbo Unknown Unknown oxide 400 oxide 400 2-24 Brian HORN mg (241.3 mg (241.3 mg mg magnesium) magnesium) tablet tablet Odefsey 200 Odefsey 200 2019-0 Yes Garbo Unknown Unknown mg-25 mg-25 mg-25 mg-25 2-24 Brian HORN mg tablet mg tablet Allergy Allergy 0 Yes Garbo Unknown Unknown Relief Relief 2-24 Brian HORN (loratadine (loratadine ) 10 mg ) 10 mg tablet tablet traZODone traZODone 2019-0 Yes Sotobo Unknown Unknown 50 mg 50 mg 2-24 Brian HORN tablet tablet omeprazole omeprazole 2019-0 Yes Myles Unknown Unknown 40 mg 40 mg 2-24 Brian HORN capsule,del capsule,del ayed ayed release release morphine 15 morphine 15 2019-0 Yes Garbo Unknown Unknown mg mg 2-24 Brian HORN immediate immediate release release tablet tablet traMADol 50 traMADol 50 2019-0 Yes Myles Unknown Unknown mg tablet mg tablet 2-24 Brian HORN Anoro Anoro Yes Garbo Unknown Unknown Ellipta Ellipta 2-24 Brian HORN 62.5 mcg-25 62.5 mcg-25 mcg/actuati mcg/actuati on powder on powder for for inhalation inhalation Klor-Con Klor-Con Yes Garbo Unknown Unknown M20 mEq M20 mEq 2-24 Brian HORN tablet,exte tablet,exte nded nded release release Mucinex 600 Mucinex 600 Yes Garbo Unknown Unknown mg tablet, mg [...]
--- OUTSIDE RECORDS SUMMARY | 2019-07-10 09:11 | XMS REPORT ---
:1960 Author Organization [facility] Care Team Providers Name Role Phone Unavailable Unavailable Unavailable Problems Condition Condition Condition Status Onset Resolution Last Treating Comments Name Details Category Date Date Treatment Clinician Date Malignant Malignant Diagnosis Active 2020-0 Jessica neoplasm of neoplasm of 07-04 Cronin unspecified unspecified part of part of unspecified unspecified bronchus or bronchus or lung lung Pain frequent Pain Mgmt Active 2020-0 Padmini pain 07-07 [place] 09:45: [id number] 00 Respiratory dyspnea Respirator Active 2020-0 Padmini present y 07-07 [place] 09:45: [id number] 00 Respiratory oxygen Respirator Active 2020-0 Padmini treatments y 07-07 [place] in home 09:45: [id number] 00 Respiratory knowledge/s Respirator Active 2020-0 Padmini kill y 07-07 [place] deficit: pt 09:45: [id number] 00 Respiratory smoker Respirator Active 2020-0 Padmini y 07-07 [place] 09:45: [id number] 00 Respiratory nebulizer Respirator Active 2020-0 Padmini treatment y - [place] in home 09:45: [id number] 00 Sensory impaired Sensory Active 2020-0 Padmini hearing 07-07 [place] 09:45: [id number] 00 Integument skin Integument Active 2020-0 Padmini integrity 07-07 [place] risk 09:45: [id number] 00 Nutrition nutritional Nutrition Active 2020-0 Padmini restriction - [place] s 09:45: [id number] 00 Elimination urinary Eliminatio Active 2020-0 Padmini incontinenc n 07-07 [place] e 09:45: [id number] 00 Neuro confusion Neuro/Emot Active 2020-0 Padmini present ion 07-07 [place] 09:45: [id number] 00 Neuro impaired Neuro/Emot Active 2020-0 Padmini decision-ma ion 07-07 [place] claudia 09:45: [id number] 00 Activity ADL Activity Active 2020-0 Padmini assistance 07-07 [place] required 09:45: [id number] 00 Activity self-care Activity Active 2020-0 Padmini deficit 07-07 [place] 09:45: [id number] 00 Safety fall risk Safety Active 2020-0 Padmini factor 07-07 P[place] present 09:45: [id number] 00 Safety risk for Safety Active 2020-0 Padmini hospitaliza 07-07 [place] tion 09:45: [id number] 00 Medication oral med Meds Active 2020-0 Padmini assistance 07-07 [place] required 09:45: [id number] 00 Medication knowledge/s Meds Active 2020-0 Padmini kill 07-07 [place] deficit: pt 09:45: [id number] 00 Musculoskel transfer Musculoske Active 2019-0 Padmini etal assistance letal 07-07 Pimento required 09:45: [id number] 00 Nutrition changing Nutrition Active 2019-0 Jaden weight/appe 07-07 Isabella tite 12:20: [id number] 00 Safety can be left Safety Active 2020-0 Jaden alone for 07-07 Isabella only short 12:20: [id number] periods 00 Safety knowledge/s Safety Active 2020-0 Jaden kill 07-07 Isabella deficit: pt 12:20: [id number] 00 Diagnoses knowledge/s Diagnoses Active 2019-0 Jaden kill 07-07 Isabella deficit: pt 12:20: [id number] 00 Bed mobility/tr PT/OT: Bed Active 2020-0 Jaden Mobility/Tr ansfer Mobility/T 224 Isabella bolanosfer device ransfer 12:20: [id number] present 00 Bed transfer PT/OT: Bed Active 2020-0 Jaden Mobility/Tr deficit: Mobility/T 2-24 Isabella bolanosfer shower/tub ransfer 12:20: [id number] 00 Bed transfer PT/OT: Bed Active 2020-0 Jaden Mobility/Tr deficit: Mobility/T 2-24 Isabella ansfer vehicle ransfer 12:20: [id number] 00 Bed knowledge/s PT/OT: Bed Active 2020-0 Jaden Mobility/Tr kill Mobility/T 2-24 Isabella ansfer deficit: pt ransfer 12:20: [id number] 00 Balance/End balance/patient coordinator front desk PT/OT: Active 2020-0 Jaden urance rdination Balance/En 2-24 Kobziewicz deficit durance 12:20: [id number] 00 OT: Self self-care OT: Active Jaden Care deficit Self-Care 2-24 Kobziewicz 12:20: [id number] 00 OT: Self knowledge/s OT: Active Jaden Care kill Self-Care 2-24 Kobziewicz deficit: pt 12:20: [id number] 00 Gait/Locomo stair PT/OT: Active Jaden tion management Gait/Locom 2-24 Kobziewicz problems req otion 12:20: [id number] 00 Gait/Locomo gait PT/OT: Active Jaden tion assistive Gait/Locom 2-24 Kobziewicz problems device otion 12:20: [id number] present 00 Gait/Locomo knowledge/s PT/OT: Active Jaden tion kill Gait/Locom 2-24 Kobziewicz problems deficit: pt otion 12:20: [id number] 00 Gait/Locomo gait PT/OT: Active Jaden tion deficit Gait/Locom 2-24 Kobziewicz problems otion 12:20: [id number] 00 Allergies, Adverse Reactions, Alerts Allergy Allergy Type Status Severity Reaction(s) Onset Inactive Treating Comments Name Date Date Clinician latex Base Active Unknown Reaction 2019-06 Rhonda Ingredient Unknown -11 Wendela [id number] Sulfa Allergen Active Unknown Reaction 2019-06 Rhonda (Sulfonam Group Unknown -11 Wendela good [id number] Antibioti cs) Medications Ordered Filled Start Stop Current Ordering Indication Dosage Frequency Signature Comments Components Medication Medication Date Date Medication? Clinician (SIG) Name Name No Known No Known No None None None Medications Medications For This For This Patient Patient Vital Signs Vital Name Observation Time Observation [...]
--- OUTSIDE RECORDS SUMMARY | 2019-07-10 09:11 | XMS REPORT ---
:1960 Author Organization [facility] Care Team Providers Name Role Phone Unavailable [...] Reaction 2019-06 Rhonda Ingredient Unknown -11 Wendela [id number] Sulfa Allergen Active Unknown Reaction 2019-06 Rhonda (Sulfonam Group Unknown -11 Wendela good [id number] Antibioti cs) Medications Ordered Filled Start Stop Current Ordering Indication Dosage Frequency Signature Comments Components Medication Medication Date Date Medication? Clinician (SIG) Name Name No Known No Known No None None None Medications Medications For This For This Patient Patient Procedures This patient has no known procedures. Results This patient has no known results.
--- NOTE | 2019-07-10 09:31 | ED ---
Altered Mental Status - HPI Summary HPI Summary: Patient is a 58 y/o female presenting to [facility] accompanied by family with concerns for AMS today with multiple recent falls. Per family, the patient is checked on throughout the day. Yesterday, she had fallen and hit the occipital head where there is now a bruise, and there is also ecchymosis in the knees. She went to sleep last night around 1800 and was periodically checked on about every two hours. This morning around 0800, the patients family went to check on her, and she had fallen out of bed. They also noticed she is less responsive and confused compared to her baseline, she has a decreased oral intake, and there is edema and rash in the bilateral ankles. She notes weakness in the legs. She was placed on Morphine a week ago but likely did not take any of her medications this morning. Patient diagnosed with lung cancer with chemotherapy and radiation treatment, finished 06/25/2019. The family did not recognize any skin changes following treatment. She was seen by Dr. Bueno yesterday with plan for hospice care. No blood thinners. Past medical history significant for asthma , COPD, arthritis, HIV. Current smoker, no alcohol use, no substance use. Medications reviewed. Allergies noted. Level 5 caveat secondary to AMS. History obtained from family and medical records. - History Of Current Complaint Chief Complaint: EDAltMentalStatus Stated Complaint: GENERAL PER FAMILY Time Seen by Provider: 07/10/19 09:09 Hx Obtained From: Family/[employer] Whe[employer] Driver, Medical Records Hx From Patient Unobtainable Due To: Altered Mental Status - Level 5 caveat Onset/Duration: Still Present Severity Currently: Moderate Character: Confusion, Responsiveness Aggravating Factor(s): Unknown Associated Signs And Symptoms: Positive: Weakness - BLE - Allergies/Home Medications Allergies/Adverse Reactions: Allergies Allergy/AdvReac Type Severity Reaction Status Date / Time bee venom protein (honey bee) Allergy Severe Difficulty Verified 07/10/19 10:14 Breathing Sulfa (Sulfonamide Allergy Intermediate Hives Verified 07/10/19 10:14 Antibiotics) latex Allergy Mild Hives Verified 07/10/19 10:14 Home Medications: Home Medications Magnesium Oxide TAB* [MagOx 400 TAB*] 800 mg PO BID 09/10/18 [History Confirmed 07/10/19] Omeprazole (Nf) [Prilosec (NF)] 40 mg PO DAILY 06/06/19 [History Confirmed 07/10] traZODone TAB* [Desyrel TAB*] 25 - 50 mg PO BEDTIME PRN 06/06/19 [History Confirmed 07/10/19] Docusate CAP* [Colace Cap*] 100 mg PO BID 06/14/19 [History Confirmed 07/10/19] Potassium Chlor TAB* [Potassium Chlor TAB 20 MEQ*] 20 meq PO DAILY 06/14/19 [ History Confirmed 07/10/19] Cetirizine HCl [Allergy Relief] 10 mg PO DAILY 07/10/19 [History Confirmed 07/10] Dexamethasone TAB* [Decadron TAB*] 8 mg PO BID 07/10/19 [History Confirmed 07/10] Emtricitabine/Rilpivirine/Teno [Odefsey 200-25-25 mg] 1 tab PO DAILY 07/10/19 [ History Confirmed 07/10/19] Morphine Sulfate 15 mg PO BID MDD 2 tsbs 07/10/19 [History Confirmed 07/10/19] guaiFENesin ER TAB [Mucinex*] 1,200 mg PO BID 07/10/19 [History Confirmed ] PMH/Surg Hx/FS Hx/Imm Hx Endocrine/Hematology History: Reports: Other Endocrine/Hematological Disorders - HIV Denies: Hx Anticoagulant Therapy, Hx Diabetes, Hx Systemic Lupus Erythematosus, Hx Anemia, Hx Unexplained Bleeding Cardiovascular History: Denies: Hx Aneurysm, Hx Angina, Hx Angioplasty, Hx Auto Implanted Cardiovert Defib, Hx Cardiac Arrest, Hx Cardiomegaly, Hx Congenital Heart Disease, Hx Congestive Heart Failure, Hx Coronary Artery Disease, Hx Deep Vein Thrombosis, Hx Embolism, Hx Hypercholesterolemia, Hx Hypotension, Hx Hypertension, Hx Pacemaker/ICD, Hx Peripheral Vascular Disease, Hx Rheumatic Fever, Hx Syncope, Hx Valvular Heart Disease, Other Cardiovascular Problems/Disorders Respiratory History: Reports: Hx Asthma - INHALERS, USED DAILY, Hx Chronic Bronchitis, Hx Chronic Obstructive Pulmonary Disease (COPD), Hx Lung Cancer - normal, Hx Pneumonia, Other Respiratory Problems/Disorders - COPD Denies: Hx Bronchopulmonary Dysplasia, Hx Cystic Fibrosis, Hx Pleural Effusion, Hx Pulmonary Edema, Hx Pulmonary Embolism, Hx Seasonal Allergies, Hx Sleep Apnea GI History: Denies: Hx Cirrhosis, Hx Crohn's Disease, Hx Diverticulosis, Hx Gall Bladder Disease, Hx Gastroesophageal Reflux Disease, Hx Gastrointestinal Bleed, Hx Hiatal Hernia, Hx Irritable Bowel, Hx Jaundice, Hx Obstructive Bowel, Hx Ileostomy, Hx Pyloric Stenosis, Hx Ulcer, Other GI Disorders History: Denies: Hx Acute Renal Failure, Hx Benign Prostatic Hyperplasia, Hx Chronic Renal Failure, Hx Dialysis, Hx Kidney Infection, Hx Kidney Stones, Hx Renal Disease, Other Problems/Disorders Musculoskeletal History: Reports: Hx Arthritis - KNEES, HANDS Denies: Hx Rheumatoid Arthritis, Hx Back Problems, Hx Bursitis, Hx Congenital Bone Abnormalities, Hx Fibromyalgia, Hx Gout, Hx Orthopedic Injury, Hx Osteoporosis, Hx Scoliosis, Hx Tendonitis, Other Musculoskeletal History Sensory History: Reports: Hx Cataracts - surgery in the past, Hx Contacts or Glasses Denies: Hx Eye Injury, Hx Eye Prosthesis, Hx Glaucoma, Hx Legally Blind, Hx Macular Degeneration, Hx Vision Problem, Hx Deafness, Hx Hearing Aid, Hx Hearing Problem, Other Sensory Impairments Opthamlomology History: Reports: Hx Cataracts - surgery in the past, Hx Contacts or Glasses Denies: Hx Eye Injury, Hx Eye Prosthesis, Hx Glaucoma, Hx Legally Blind, Hx Macular Degeneration, Hx Vision Problem, Other Sensory Impairments Neurological History: Reports: Hx Headaches - once in a while Denies: Hx Dementia, Hx Developmental Delay, Hx Migraine, Hx Nerve Disease, Hx Seizures, Hx Spinal Cord Injury, Hx Transient Ischemic Attacks (TIA), Other Neuro Impairments/Disorders Psychiatric History: Denies: Hx Anxiety, Hx Depression, Hx Panic Disorder - Cancer History Cancer Type, Location and Year: LUNG CANCER Hx Hematologic Symptoms: Yes Hx Chemotherapy: Yes Hx Radiation Therapy: Yes - Cranial - Surgical History Surgery Procedure, Year, and Place: 1989 BILATERAL TUBAL LIGATION. UMBILICAL HERNIA REPAIR. mediastinoscopy 07/26/17 [facility] [place]. EBUS [facility] [place]. bilat cataract with IOL. LOWER BACK SURGERY - [place]. RIGHT WRIST SURGERY (WITH PIN) Hx Anesthesia Reactions: No - Immunization History Date of Tetanus Vaccine: 2014 Date of Influenza Vaccine: 2015 Infectious Disease History: No Infectious Disease History: Reports: Hx Human Immunodeficiency Virus (HIV), Hx of Known/Suspected MRSA - 6 years ago Denies: Hx Clostridium Difficile, Hx Hepatitis, Hx Shingles, Hx Tuberculosis , History Other Infectious Disease, Traveled Outside the [place] in Last 30 Days - Family History Known Family History: Positive: Diabetes, Other - denies FHx of breast CA, but does have other cancers in the family Family History: No FHx of breast CA. - Social History Alcohol Use: None Hx Substance Use: No Substance Use Type: Reports: None Hx Tobacco Use: Yes Smoking Status (MU): Light Every Day Tobacco Smoker Type: Cigarettes Amount Used/How Often: 4 PPD X 44 YEARS THEN DECREASED TO 1 PPD, NOW 1 CIG/DAY Have You Smoked in the Last Year: Yes Review of Systems Positive: Other - decreased oral intake Positive: Edema - bilateral ankles Positive: Rash - ankles, Bruising - knees Neurological/Mental Status: Other - AMS Positive: Weakness - legs All Other Systems Reviewed And Are Negative: No - Comments Additional Review of Systems Comments: Level 5 caveat secondary to AMS. Physical Exam - Summary Physical Exam Summary: Constitutional: Well-developed, Well-nourished, Grunting. (-) Distressed Skin: Warm, Dry HENT: Normocephalic; 5cm occipital linear ecchymosis Eyes: Conjunctiva normal Neck: posterior midline cervical tenderness. Musculoskeletal ROM normal neck. (- ) JVD, (-) Stridor, (-) Tracheal deviation Cardio: Rhythm regular, rate normal, Heart sounds normal; Intact distal pulses; The pedal pulses are 2+ and symmetric. Radial pulses are 2+ and symmetric. (-) Murmur Pulmonary/Chest wall: Effort normal. (-) Respiratory distress, (-) Wheezes, (-) Rales Abd: Soft, (-) tenderness, (-) Distension, (-) Guarding, (-) Rebound Musculoskeletal: (+) Trace edema of both ankles Lymph: (-) Cervical adenopathy Neuro: Grunting, Briefly responds to some questions but is not answering all questions Psych: Mood and affect Normal GCS: 14 Triage Information Reviewed: Yes Vital Signs On Initial Exam: Initial Vitals Temp Pulse Resp BP Pulse Ox 99.3 F 105 22 143/91 95 07/10/19 09:07 07/10/19 09:07 07/10/19 09:07 07/10/19 09:07 07/10/19 09:07 Vital Signs Reviewed: Yes Completion Of Physical Exam Limited Due To: Altered Mental Status, Level 5 Procedures - Sedation Patient Received Moderate/Deep Sedation with Procedure: No Diagnostics - Vital Signs Vital Signs Temp Pulse Resp BP Pulse Ox 07/10/19 09:07 99.3 F 105 22 143/91 95 - Laboratory Result Diagrams: 07/10/19 09:25 07/10/19 09:25 Lab Statement: Any lab studies that have been ordered have been reviewed, and results considered in the medical decision making process. - Radiology CXR Radiology Interpretation Completed By: Radiologist Summary of Radiographic Findings: Impression: 1. Right upper lobe infiltrate, unchanged. 2. Small right pleural effusion. ED physician has reviewed this report. - CT Brain CT CT Interpretation Completed By: Radiologist Summary of CT Findings: Impression: Interval progression of intra-axial brain metastasis compared with the June 06, 2019 exam. Negative for significant mass effect. ED physician has reviewed this report. Cervical Spine CT CT Interpretation Completed By: Radiologist Summary of CT Findings: Impression: Sclerotic areas C5 posterior inferior endplate without change since March 06, 2019. No fracture is noted. ED physician has reviewed this report. - EKG 0949 Cardiac Rate: Tachycardia - 109 BPM EKG Rhythm: Sinus Tachycardia Summary of EKG Findings: An EKG at 0949 reveals sinus tachycardia at 109 BPM. No STEMI. ED physician has reviewed and interpreted this EKG. Re-Evaluation - Re-Evaluation First Eval Re-Evaluation Time: 11:20 Comment: All results discussed. Family agreeable with admission. Altered Mental Statu Course/Dx - Course Course Of Treatment: Patient is a 58 y/o F who has lung cancer with complete chemotherapy and radiation presenting with family who have concerns with multiple falls, one occurring last night and another this morning with ecchymosis to the occipital head and bilateral knees, as well as concern for AMS with confusion and decreased responsiveness. She saw Dr. Bueno yesterday, and they have a plan for hospice care. Hx also significant for asthma, COPD, HIV. Physical exam reveals patient to be grunting, she briefly responds to some questions but is not answering all questions, trace edema of both ankles, 5cm occipital linear ecchymosis, posterior midline cervical tenderness. Port access obtained. Patient received fluids, Morphine, and Zofran. Blood work reveals RBCs 3.12, hemoglobin 10.7, hematocrit 31, MCV 100, MCH 34, RDW 21, platelets 146, absolute lymphocytes 0.4, INR 1.1, APTT 39, sodium 131, potassium 3.3. chloride 91, anion gap 12, creatinine 0.45, glucose 103, calcium 8.5, alkaline phosphatase 107, and total protein 5.8. UA shows 2+ ketones but is otherwise normal. An EKG at 0949 reveals sinus tachycardia at 109 BPM, no STEMI. CXR impression reveals right upper lobe infiltrate, small right pleural effusion. Brain CT impression reveals interval progression of intra-axial brain metastasis compared with the June 06, [address] exam. C-Spine CT impression reveals sclerotic areas C5 posterior inferior endplate without change since March 06, 2019; no fracture. I spoke with Dr. Ross from oncology, and he accepts the patient for admission. All results discussed. Patients family agreeable with plan. - Diagnoses Provider Diagnoses: Metastatic lung cancer (metastasis from lung to other site), Brain mass, Altered mental status - Provider Notifications Discussed Care Of Patient With: Kenney Ross - oncology Time Discussed With Above Provider: 11:15 Instructed by Provider To: Other - I discussed the patient's case with Dr. Ross , and he accepts the patien for admission. Discharge ED - Sign-Out/Discharge Documenting (check all that apply): Patient Departure - Patient accepted for admission by Dr. Ross. - Discharge Plan Condition: Stable Disposition: ADMITTED TO [facility] Referrals: Philip Diamond MD [Primary Care Provider] - - Attestation Statements Document Initiated by Scribe: Yes Documenting Scribe: Leigha Evans Provider For Whom Scribe is Documenting (Include Credential): Dr. Fam Jim MD Scribe Attestation: Leigha Keith, scribed for Dr. Fam Jim MD on 07/10/19 at 1238. Status of Scribe Document: Ready
[2019-07-10 09:39] LABS: Hematocrit 31 % (35-47); Hemoglobin 10.7 g/dL (12.0-16.0); Mean Corpuscular HGB Conc 34 g/dL (31-36); Mean Corpuscular Hemoglobin 34 pg (27-31); Mean Corpuscular Volume 100 fL (80-97); Platelet Count 146 10^3/uL (150-450); Red Blood Count 3.12 10^6 /uL (3.70-4.87); Red Cell Distribution Width 21 % (10-15); White Blood Count 8.8 10^3/uL (3.5-10.8)
[2019-07-10] MEDS ORDERED: Morphine 4 MG/ML VIAL (1 ml) 4 MG/ML VIAL IV ONE (09:44)
[2019-07-10] MEDS ORDERED: Ondansetron INJ* 2 MG/ML VIAL IV ONE (09:44)
[2019-07-10] MEDS ORDERED: NS 0.9% 1000 ML** 1,000 ML IV ONE (09:44)
[2019-07-10 09:49] LABS: INR 1.1 (0.82-1.09)
[2019-07-10 09:59] LABS: Albumin 3.3 g/dL (3.2-5.2); Albumin/Globulin Ratio 1.3 (1-3); BUN/Creatinine Ratio 26.7 (8-20); Calcium 8.5 mg/dL (8.6-10.3); EGFR African American 172.6 (>60); EGFR Non-African American 142.6 (>60); Globulin 2.5 g/dL (2-4); Potassium 3.3 mmol/L (3.5-5.0); Total Bilirubin 0.6 mg/dL (0.2-1.0); Total Protein 5.8 g/dL (6.4-8.9)
[2019-07-10 10:00] LABS: ABS Basophils 0.1 10^3/ul (0-0.2); ABS Lymphocytes 0.4 10^3/ul (1.0-4.8); ABS Monocytes 0.5 10^3/ul (0-0.8); ABS Neutrophils 7.7 10^3/ul (1.5-7.7); ABS Nucleated RBC 0.1 10^3/ul; Lymphocyte % 4.6 %
[2019-07-10 10:01] LABS: Troponin I 0.02 ng/mL (<0.03)
[2019-07-10 11:23] LABS: Urine Appearance Clear; Urine Bilirubin Negative (Negative); Urine Blood Negative (Negative); Urine Color Yellow; Urine Glucose Negative (Negative); Urine Ketones 2+ (Negative); Urine Nitrite Negative (Negative); Urine Protein Negative (Negative); Urine Specific Gravity 1.019 (1.010-1.030); Urine Urobilinogen Negative (Negative)
[2019-07-10] MEDS ORDERED: Ondansetron INJ* 2 MG/ML VIAL IV PRN (12:49)
[2019-07-10] MEDS ORDERED: NS 0.9% 1000 ML** 1,000 ML IV SCH (13:00)
--- NOTE | 2019-07-10 14:05 | ADMNOTE ---
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 She presented 04/2017 with pneumonia and a pleural effusion. She was treated with pulmonary support and antibiotics. Her symptoms persisted prompting Mediastinal node biopsy showing small cell lung cancer 2017. She was initially treated with Cisplatin and Etoposide followed by concurrent Cisplatin/Etoposide and Radiotherapy. Radiotherapy was completed 09/24. PCI was delivered 02/2018. She developed recurrence, extracranial, 2018 and was treated with Carboplatin and Etoposide. 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 Palliative radiotherapy was given to the left supraclavicular area. Taxol 03/2019. WATER QUALITY ANALYST metastases noted 05/2019 with WBRT and single agent Gemcitabine 06/04/2019. She is now admitted via the ER with progressive inability to care for her self. CXR with stable right upper lobe density/infiltrate. CT head with multiple lesions some with reported calcifications, [place] more prominent than 05/2019 scan. WBC 8.8 Hg 12.7 platelets 146 PTinr 1.1 PTT 37 Na 131 Normal creatinine Troponin normal, LA was normal In the ER she has received Morphine and is sedate and will not currently supply additional information, nor can a ROS be obtained. No family is present Allergies/Medications Allergies/Adverse Reactions: Allergies Allergy/AdvReac Type Severity Reaction Status Date / Time bee venom protein (honey bee) Allergy Severe Difficulty Verified 07/10/19 10:14 Breathing Sulfa (Sulfonamide Allergy Intermediate Hives Verified 07/10/19 10:14 Antibiotics) latex Allergy Mild Hives Verified 07/10/19 10:14 History - Past Medical History Hx Arthritis: No Hx Blood Dyscrasias: Yes - ITP Hx Cancer: Yes Hx Cardiac Disorders: No Hx Circulatory Problems: No Hx Diabetes: No Hx Hypercholesterolemia: No Hx Hypertension: No Surgical History: Yes Surgery Procedure, Year, and Place: EBUS Hx Endocrine Problem: No - Family History Hx Family Cancer: No - Social History Hx Tobacco Use: Yes Review of Systems - Review of Systems General Comments: Cannot be currently obtained Physical Exam - Physical Exam Physical Examination: Sedated Opens eyes to voice, will not follow commands or maintain conversation PERRLA Oral mucosa dry Lungs with scattered rhonchi bilaterally, left CW port acessed Cardiac mild tachycardia Abdomen soft Extremities w/o CCE Neurologically, sedate, full neuro exam cannot be performed Results - Lab Results Lab Results: 07/10/19 07/10/19 07/10/19 09:25 09:25 09:25 WBC 8.8 RBC 3.12 L Hgb 10.7 L Hct 31 L MCV 100 H MCH 34 H MCHC 34 RDW 21 H Plt Count 146 L MPV 8.0 Neut % (Auto) 88.6 Lymph % (Auto) 4.6 [place] % (Auto) 6.1 Eos % (Auto) 0.0 Baso % (Auto) 0.7 Absolute Neuts (auto) 7.7 Absolute Lymphs (auto) 0.4 L Absolute Monos (auto) 0.5 Absolute Eos (auto) 0.0 Absolute Basos (auto) 0.1 Absolute Nucleated RBC 0.1 Nucleated RBC % 1.0 INR (Anticoag Therapy) 1.10 H APTT 39.0 H Sodium 131 L Potassium 3.3 L Chloride 91 L Carbon Dioxide 28 Anion Gap 12 H BUN 12 Creatinine 0.45 L Est GFR ( Amer) 172.6 Est GFR (Non-Af Amer) 142.6 BUN/Creatinine Ratio 26.7 H Glucose 103 H Lactic Acid Calcium 8.5 L Total Bilirubin 0.60 AST 32 ALT 19 Alkaline Phosphatase 107 H Ammonia Troponin I 0.02 Total Protein 5.8 L Albumin 3.3 Globulin 2.5 Albumin/Globulin Ratio 1.3 Urine Color Urine Appearance Urine pH Ur Specific Ace Urine Protein Urine Ketones Urine Blood Urine Nitrate Urine Bilirubin Urine Urobilinogen Ur Leukocyte Esterase Urine Glucose 07/10/19 07/10/19 07/10/19 09:25 10:05 12:40 WBC RBC Hgb Hct MCV MCH MCHC RDW Plt Count MPV Neut % (Auto) Lymph % (Auto) [place] % (Auto) Eos % (Auto) Baso % (Auto) Absolute Neuts (auto) Absolute Lymphs (auto) Absolute Monos (auto) Absolute Eos (auto) Absolute Basos (auto) Absolute Nucleated RBC Nucleated RBC % INR (Anticoag Therapy) APTT Sodium Potassium Chloride Carbon Dioxide Anion Gap BUN Creatinine Est GFR ( Amer) Est GFR (Non-Af Amer) BUN/Creatinine Ratio Glucose Lactic Acid 0.8 0.5 Calcium Total Bilirubin AST ALT Alkaline Phosphatase Ammonia Troponin I Total Protein Albumin Globulin Albumin/Globulin Ratio Urine Color Yellow Urine Appearance Clear Urine pH 6.0 Ur Specific Ace 1.019 Urine Protein Negative Urine Ketones 2+ A Urine Blood Negative Urine Nitrate Negative Urine Bilirubin Negative Urine Urobilinogen Negative Ur Leukocyte Esterase Negative Urine Glucose Negative 07/10/19 12:40 WBC RBC Hgb Hct MCV MCH MCHC RDW Plt Count MPV Neut % (Auto) Lymph % (Auto) [place] % (Auto) Eos % (Auto) Baso % (Auto) Absolute Neuts (auto) Absolute Lymphs (auto) Absolute Monos (auto) Absolute Eos (auto) Absolute Basos (auto) Absolute Nucleated RBC Nucleated RBC % INR (Anticoag Therapy) APTT Sodium Potassium Chloride Carbon Dioxide Anion Gap BUN Creatinine Est GFR ( Amer) Est GFR (Non-Af Amer) BUN/Creatinine Ratio Glucose Lactic Acid Calcium Total Bilirubin AST ALT Alkaline Phosphatase Ammonia 44 Troponin I Total Protein Albumin Globulin Albumin/Globulin Ratio Urine Color Urine Appearance Urine pH Ur Specific Ace Urine Protein Urine Ketones Urine Blood Urine Nitrate Urine Bilirubin Urine Urobilinogen Ur Leukocyte Esterase Urine Glucose Assessment and Plan Impression: 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, progressive based upon recent CT in ER Reported inability to care for self with frequent falls Current AMS likely in part secondary to medication sedation/ WATER QUALITY ANALYST metastases Volume contraction Multifactorial anemia Mild hyponatremia (Hypovolemic Hyponatremia +/- SIADH) Human immunodeficiency Virus No current evidence of active infection (CXR findings reported chronic) Plan: Hold further sedatives at this time Resuscitative status will need to be readdressed as mental status improves Palliative care consultation Overall prognosis is very poor given the number of lines of prior treatment as well as progressive WATER QUALITY ANALYST Metastases on current imaging Hydrate with NS Follow electrolytes Reassess analgesia in follow up (Holding sedative medications at this time) Lovenox for DVT prophylaxis Follow up pending labs obtained by ER Physicians
[2019-07-10] MEDS: Enoxaparin(*) 40 MG/0.4 ML SYR SUBCUT SCH (15:30)
[2019-07-10] MEDS: NS 0.9% w/ 20 Meq KCL 1000 ML* 1,000 ML IV SCH (16:09)
[2019-07-10] MEDS: Dexamethasone IV* 4 MG/ML 1 ML (4 MG) IV SLOW PU SCH (17:03)
[2019-07-10] MEDS: levETIRAcetam 500 MG IVPREMIX* 500 MG/100 ML BAG IV SCH (17:03)
[2019-07-10] MEDS: Docusate CAP* 100 MG PO SCH (20:57)
[2019-07-10] MEDS: Magnesium Oxide TAB* 400 MG PO SCH (20:57)
[2019-07-10] MEDS ORDERED: Dexamethasone TAB* 4 MG PO SCH (21:00)
[2019-07-10] MEDS ORDERED: guaiFENesin ER TAB 600 MG PO SCH (21:00)
[2019-07-11] MEDS: Dexamethasone IV* 4 MG/ML 1 ML (4 MG) IV SLOW PU SCH ×4 (00:40→18:16)
[2019-07-11] MEDS: levETIRAcetam 500 MG IVPREMIX* 500 MG/100 ML BAG IV SCH ×2 (05:21→17:05)
[2019-07-11 06:09] LABS: Hematocrit 29 % (35-47); Hemoglobin 9.8 g/dL (12.0-16.0); Mean Corpuscular HGB Conc 33 g/dL (31-36); Mean Corpuscular Hemoglobin 34 pg (27-31); Mean Corpuscular Volume 102 fL (80-97); Mean Platelet Volume 7.7 fL (7.4-10.4); Platelet Count 134 10^3/uL (150-450); Red Blood Count 2.88 10^6 /uL (3.70-4.87); Red Cell Distribution Width 20 % (10-15); White Blood Count 7.4 10^3/uL (3.5-10.8)
[2019-07-11 06:31] LABS: Albumin 2.9 g/dL (3.2-5.2); Albumin/Globulin Ratio 1.3 (1-3); BUN/Creatinine Ratio 29.8 (8-20); Calcium 7.8 mg/dL (8.6-10.3); EGFR African American 164.1 (>60); EGFR Non-African American 135.6 (>60); Globulin 2.3 g/dL (2-4); Potassium 3.8 mmol/L (3.5-5.0); Total Bilirubin 0.5 mg/dL (0.2-1.0); Total Protein 5.2 g/dL (6.4-8.9)
[2019-07-11 06:39] LABS: ABS Lymphocytes 0.3 10^3/ul (1.0-4.8); ABS Monocytes 0.2 10^3/ul (0-0.8); ABS Neutrophils 6.9 10^3/ul (1.5-7.7); Lymphocyte % 4.2 %; Nucleated Red Blood Cells % 0.2
--- NOTE | 2019-07-11 08:33 | PN ---
Progress Note - Progress Note Date of Service: 07/11/19 SOAP: Subjective: Much more alert Denies seizure activity No family in room No current pain EEG reviewed with Neurology, focal slowing but no active seizure activity. Prior seizure not excluded K now normal Objective: Alert and conversive Oriented to person and place PERRLA Oropharynx dry Neck supple Lungs with scattered rhonchi Abdomen soft Extrem w/o CCE Neuro grossly intact Vital Signs - 8 hr 07/11/19 03:23 Temperature 97.4 F Pulse Rate 100 Respiratory 16 Rate Blood Pressure 122/73 (mmHg) O2 Sat by Pulse 98 Oximetry 07/10/19 07/10/19 07/10/19 09:25 09:25 09:25 WBC 8.8 RBC 3.12 L Hgb 10.7 L Hct 31 L MCV 100 H MCH 34 H MCHC 34 RDW 21 H Plt Count 146 L MPV 8.0 Neut % (Auto) 88.6 Lymph % (Auto) 4.6 [place] % (Auto) 6.1 Eos % (Auto) 0.0 Baso % (Auto) 0.7 Absolute Neuts (auto) 7.7 Absolute Lymphs (auto) 0.4 L Absolute Monos (auto) 0.5 Absolute Eos (auto) 0.0 Absolute Basos (auto) 0.1 Absolute Nucleated RBC 0.1 Nucleated RBC % 1.0 INR (Anticoag Therapy) 1.10 H APTT 39.0 H Sodium 131 L Potassium 3.3 L Chloride 91 L Carbon Dioxide 28 Anion Gap 12 H BUN 12 Creatinine 0.45 L Est GFR ( Amer) 172.6 Est GFR (Non-Af Amer) 142.6 BUN/Creatinine Ratio 26.7 H Glucose 103 H Lactic Acid Calcium 8.5 L Total Bilirubin 0.60 AST 32 ALT 19 Alkaline Phosphatase 107 H Ammonia Troponin I 0.02 Total Protein 5.8 L Albumin 3.3 Globulin 2.5 Albumin/Globulin Ratio 1.3 Urine Color Urine Appearance Urine pH Ur Specific [place] Urine Protein Urine Ketones Urine Blood Urine Nitrate Urine Bilirubin Urine Urobilinogen Ur Leukocyte Esterase Urine Glucose 07/10/19 07/10/19 07/10/19 09:25 10:05 12:40 WBC RBC Hgb Hct MCV MCH MCHC RDW Plt Count MPV Neut % (Auto) Lymph % (Auto) [place] % (Auto) Eos % (Auto) Baso % (Auto) Absolute Neuts (auto) Absolute Lymphs (auto) Absolute Monos (auto) Absolute Eos (auto) Absolute Basos (auto) Absolute Nucleated RBC Nucleated RBC % INR (Anticoag Therapy) APTT Sodium Potassium Chloride Carbon Dioxide Anion Gap BUN Creatinine Est GFR ( Amer) Est GFR (Non-Af Amer) BUN/Creatinine Ratio Glucose Lactic Acid 0.8 0.5 Calcium Total Bilirubin AST ALT Alkaline Phosphatase Ammonia Troponin I Total Protein Albumin Globulin Albumin/Globulin Ratio Urine Color Yellow Urine Appearance Clear Urine pH 6.0 Ur Specific [place] 1.019 Urine Protein Negative Urine Ketones 2+ A Urine Blood Negative Urine Nitrate Negative Urine Bilirubin Negative Urine Urobilinogen Negative Ur Leukocyte Esterase Negative Urine Glucose Negative 07/10/19 07/11/19 07/11/19 12:40 06:00 06:00 WBC 7.4 RBC 2.88 L Hgb 9.8 L Hct 29 L MCV 102 H MCH 34 H MCHC 33 RDW 20 H Plt Count 134 L MPV 7.7 Neut % (Auto) 92.8 Lymph % (Auto) 4.2 [place] % (Auto) 2.7 Eos % (Auto) 0.0 Baso % (Auto) 0.3 Absolute Neuts (auto) 6.9 Absolute Lymphs (auto) 0.3 L Absolute Monos (auto) 0.2 Absolute Eos (auto) 0.0 Absolute Basos (auto) 0.0 Absolute Nucleated RBC 0.0 Nucleated RBC % 0.2 INR (Anticoag Therapy) APTT Sodium 132 L Potassium 3.8 Chloride 96 L Carbon Dioxide 24 Anion Gap 12 H BUN 14 Creatinine 0.47 L Est GFR ( Amer) 164.1 Est GFR (Non-Af Amer) 135.6 BUN/Creatinine Ratio 29.8 H Glucose 74 Lactic Acid Calcium 7.8 L Total Bilirubin 0.50 AST 32 ALT 18 Alkaline Phosphatase 89 Ammonia 44 Troponin I Total Protein 5.2 L Albumin 2.9 L Globulin 2.3 Albumin/Globulin Ratio 1.3 Urine Color Urine Appearance Urine pH Ur Specific [place] Urine Protein Urine Ketones Urine Blood Urine Nitrate Urine Bilirubin Urine Urobilinogen Ur Leukocyte Esterase Urine Glucose Intake and Output Last 24 Hours 07/09/19 07/10/19 07/11/19 07/12/19 06:59 06:59 06:59 06:59 Intake Total 2113 Balance 2113 Weight 121 lb Intake: IV Fluids 2013 NS 30 NS c 20 KCl 984 IVPB 100 keppra 100 Oral 0 Other: Estimated Void Medium # Bowel Movements 0 # Voids 1 Dexamethasone Sodium Phosphate (Decadron Iv*) 6 mg IV SLOW PU Q6HR [facility] Last Admin: 07/11/19 05:49 Dose: 6 mg Docusate Sodium (Colace Cap*) 100 mg PO BID [facility] Last Admin: 07/10/19 20:57 Dose: 100 mg Emtricitabine/Rilpivirine/Tenofovir (Odefsey Tablet) 1 each PO DAILY [facility] Enoxaparin Sodium (Lovenox(*)) 40 mg SUBCUT Q24H [facility] Last Admin: 07/10/19 15:30 Dose: 40 mg Guaifenesin (Mucinex*) 1,200 mg PO BID [facility] Last Admin: 07/10/19 20:57 Dose: 1,200 mg Potassium Chloride/Sodium Chloride (Ns 0.9% W/ 20 Meq Kcl 1000 Ml*) 1,000 mls @ 75 mls/hr IV PER RATE [facility] Last Admin: 07/10/19 16:09 Dose: 75 mls/hr Levetiracetam (Keppra Iv Premix*) 500 mg in 100 mls @ 400 mls/hr IV Q12H [facility] Last Admin: 07/11/19 05:21 Dose: 400 mls/hr Magnesium Oxide (Magox 400 Tab*) 800 mg PO BID [facility] Last Admin: 07/10/19 20:57 Dose: 800 mg Ondansetron HCl (Zofran Inj*) 4 mg IV Q4H PRN PRN Reason: NAUSEA/VOMITING Pantoprazole Sodium (Protonix Tab*) 40 mg PO DAILY [facility] Assessment: Extensive stage small cell lung cancer prior WBRT now with progressive CNBS disease AMS improved likely multifactorial including medications, progressive STITCHER HAND disease and seizure activity not excluded Generalized deconditioning Hypokalemia Volume contraction Plan: Continue IV DEX and Keppra Hydrate Monitor electrolytes Increase activity Social work and palliative care consult minimize sedatives
[2019-07-11] MEDS: Pantoprazole TAB * 40 MG TAB PO SCH (09:53)
[2019-07-11] MEDS: Docusate CAP* 100 MG PO SCH ×2 (09:53→21:51)
[2019-07-11] MEDS: Magnesium Oxide TAB* 400 MG PO SCH ×2 (09:53→21:53)
[2019-07-11] MEDS: PTO:Emtricitabine/Rilpivirine/Teno (Odefsey) 200/25/25 TABLET PO SCH (09:53)
[2019-07-11] MEDS: NS 0.9% w/ 20 Meq KCL 1000 ML* 1,000 ML IV SCH (09:54)
[2019-07-11] MEDS: oxyCODONE TAB* 5 MG TAB PO PRN (10:41)
[2019-07-11 11:58] LABS: Urine Appearance Clear; Urine Bilirubin Negative (Negative); Urine Blood Negative (Negative); Urine Color Yellow; Urine Glucose Negative (Negative); Urine Ketones 2+ (Negative); Urine Nitrite Negative (Negative); Urine Protein Negative (Negative); Urine Urobilinogen Negative (Negative)
--- NOTE | 2019-07-11 13:26 | CONSULT ---
Palliative / Hospice Consult Ordering Provider: Kenney Ross Referal Reason: Goals of care/colace/oxy - Subjective Code Status: DNR Advance Directives Location: With Family MOLST Part A Completed: Yes - updated on chart MOLST Part E Completed:: Yes - updated on chart - History or Present Illness History or Present Illness: 58yo female with extensive small cell lung cancer and PRODUCTION WEIGHER mets presents to ER because unable to care for herself at home and falling frequently. PMH is significant for SCLC diagnosed 04/2017 received chemo and radiation 05/2019 diagnosed with PRODUCTION WEIGHER mets, ITP, anemia and HIV. PSHx pt lives at home with boyfriend, daughter lives next door, sister Lora is HCP [phone], +tob, no drugs, no etoh. Studies brain CT-interval progression of brain mets no mass effect, CXR- RUL infiltrate, small R pleural effusion, EKG-sinus tach, cervical spine CT-no fracture, sclerotic lesion C5, H/H 10.7/31, BUN/Cr 12/.45, egfr 142.6, alb 3.3 and INR 1.10. Pt admitted with dehydration and hypernatremia. Pt with 2 ER visits and three hospitalizations 07/19-01/30 for COPD, 06/06- for numbness and 06/14-09/30 acuteon chronic resp failure. All history is from pt, family and medical record. Lab Values: Abnormal Lab Results 07/11/19 07/11/19 07/11/19 06:00 06:00 11:28 WBC 7.4 RBC 2.88 L Hgb 9.8 L Hct 29 L MCV 102 H MCH 34 H MCHC 33 RDW 20 H Plt Count 134 L MPV 7.7 Neut % (Auto) 92.8 Lymph % (Auto) 4.2 Hand % (Auto) 2.7 Eos % (Auto) 0.0 Baso % (Auto) 0.3 Absolute Neuts (auto) 6.9 Absolute Lymphs (auto) 0.3 L Absolute Monos (auto) 0.2 Absolute Eos (auto) 0.0 Absolute Basos (auto) 0.0 Absolute Nucleated RBC 0.0 Nucleated RBC % 0.2 Sodium 132 L Potassium 3.8 Chloride 96 L Carbon Dioxide 24 Anion Gap 12 H BUN 14 Creatinine 0.47 L Est GFR ( Amer) 164.1 Est GFR (Non-Af Amer) 135.6 BUN/Creatinine Ratio 29.8 H Glucose 74 Calcium 7.8 L Total Bilirubin 0.50 AST 32 ALT 18 Alkaline Phosphatase 89 Total Protein 5.2 L Albumin 2.9 L Globulin 2.3 Albumin/Globulin Ratio 1.3 Urine Color Yellow Urine Appearance Clear Urine pH 5.0 Ur Specific [place] 1.020 Urine Protein Negative Urine Ketones 2+ A Urine Blood Negative Urine Nitrate Negative Urine Bilirubin Negative Urine Urobilinogen Negative Ur Leukocyte Esterase Negative Urine Glucose Negative Laboratory Last Values WBC 7.4 10^3/uL (3.5-10.8) 07/11/19 06:00 RBC 2.88 10^6 /uL (3.70-4.87) L 07/11/19 06:00 Hgb 9.8 g/dL (12.0-16.0) L 07/11/19 06:00 Hct 29 % (35-47) L 07/11/19 06:00 MCV 102 fL (80-97) H 07/11/19 06:00 MCH 34 pg (27-31) H 07/11/19 06:00 MCHC 33 g/dL (31-36) 07/11/19 06:00 RDW 20 % (10-15) H 07/11/19 06:00 Plt Count 134 10^3/uL (150-450) L 07/11/19 06:00 MPV 7.7 fL (7.4-10.4) 07/11/19 06:00 Neut % (Auto) 92.8 % 07/11/19 06:00 Lymph % (Auto) 4.2 % 07/11/19 06:00 Hand % (Auto) 2.7 % 07/11/19 06:00 Eos % (Auto) 0.0 % 07/11/19 06:00 Baso % (Auto) 0.3 % 07/11/19 06:00 Absolute Neuts (auto) 6.9 10^3/ul (1.5-7.7) 07/11/19 06:00 Absolute Lymphs (auto) 0.3 10^3/ul (1.0-4.8) L 07/11/19 06:00 Absolute Monos (auto) 0.2 10^3/ul (0-0.8) 07/11/19 06:00 Absolute Eos (auto) 0.0 10^3/ul (0-0.6) 07/11/19 06:00 Absolute Basos (auto) 0.0 10^3/ul (0-0.2) 07/11/19 06:00 Absolute Nucleated RBC 0.0 10^3/ul 07/11/19 06:00 Nucleated RBC % 0.2 07/11/19 06:00 INR (Anticoag Therapy) 1.10 (0.82-1.09) H 07/10/19 09:25 APTT 39.0 seconds (26.0-38.0) H 07/10/19 09:25 Sodium 132 mmol/L (135-145) L 07/11/19 06:00 Potassium 3.8 mmol/L (3.5-5.0) 07/11/19 06:00 Chloride 96 mmol/L (101-111) L 07/11/19 06:00 Carbon Dioxide 24 mmol/L (22-32) 07/11/19 06:00 Anion Gap 12 mmol/L (2-11) H 07/11/19 06:00 BUN 14 mg/dL (6-24) 07/11/19 06:00 Creatinine 0.47 mg/dL (0.51-0.95) L 07/11/19 06:00 Est GFR ( Amer) 164.1 (>60) 07/11/19 06:00 Est GFR (Non-Af Amer) 135.6 (>60) 07/11/19 06:00 BUN/Creatinine Ratio 29.8 (8-20) H 07/11/19 06:00 Glucose 74 mg/dL (70-100) 07/11/19 06:00 Lactic Acid 0.5 mmol/L (0.5-2.0) 07/10/19 12:40 Calcium 7.8 mg/dL (8.6-10.3) L 07/11/19 06:00 Total Bilirubin 0.50 mg/dL (0.2-1.0) 07/11/19 06:00 AST 32 U/L (13-39) 07/11/19 06:00 ALT 18 U/L (7-52) 07/11/19 06:00 Alkaline Phosphatase 89 U/L (34-104) 07/11/19 06:00 Ammonia 44 mcmol/L (16-53) 07/10/19 12:40 Troponin I 0.02 ng/mL (<0.03) 07/10/19 09:25 Total Protein 5.2 g/dL (6.4-8.9) L 07/11/19 06:00 Albumin 2.9 g/dL (3.2-5.2) L 07/11/19 06:00 Globulin 2.3 g/dL (2-4) 07/11/19 06:00 Albumin/Globulin Ratio 1.3 (1-3) 07/11/19 06:00 Urine Color Yellow 07/11/19 11:28 Urine Appearance Clear 07/11/19 11:28 Urine pH 5.0 (5-9) 07/11/19 11:28 Ur Specific [place] 1.020 (1.010-1.030) 07/11/19 11:28 Urine Protein Negative (Negative) 07/11/19 11:28 Urine Ketones 2+ (Negative) A 07/11/19 11:28 Urine Blood Negative (Negative) 07/11/19 11:28 Urine Nitrate Negative (Negative) 07/11/19 11:28 Urine Bilirubin Negative (Negative) 07/11/19 11:28 Urine Urobilinogen Negative (Negative) 07/11/19 11:28 Ur Leukocyte Esterase Negative (Negative) 07/11/19 11:28 Urine Glucose Negative (Negative) 07/11/19 11:28 - Objective Active Medications: Dexamethasone Sodium Phosphate (Decadron Iv*) 6 mg IV SLOW PU Q6HR [facility] Last Admin: 07/11/19 12:03 Dose: 6 mg Docusate Sodium (Colace Cap*) 100 mg PO BID [facility] Last Admin: 07/11/19 09:53 Dose: 100 mg Emtricitabine/Rilpivirine/Tenofovir (Odefsey Tablet) 1 each PO DAILY [facility] Last Admin: 07/11/19 09:53 Dose: 1 each Enoxaparin Sodium (Lovenox(*)) 40 mg SUBCUT Q24H [facility] Last Admin: 07/10/19 15:30 Dose: 40 mg Potassium Chloride/Sodium Chloride (Ns 0.9% W/ 20 Meq Kcl 1000 Ml*) 1,000 mls @ 75 mls/hr IV PER RATE [facility] Last Admin: 07/11/19 09:54 Dose: 75 mls/hr Levetiracetam (Keppra Iv Premix*) 500 mg in 100 mls @ 400 mls/hr IV Q12H [facility] Last Admin: 07/11/19 05:21 Dose: 400 mls/hr Magnesium Oxide (Magox 400 Tab*) 800 mg PO BID [facility] Last Admin: 07/11/19 09:53 Dose: 800 mg Ondansetron HCl (Zofran Inj*) 4 mg IV Q4H PRN PRN Reason: NAUSEA/VOMITING Oxycodone HCl (Roxycodone Tab*) 5 mg PO Q6H PRN PRN Reason: PAIN - SEVERE Last Admin: 07/11/19 10:41 Dose: 5 mg Pantoprazole Sodium (Protonix Tab*) 40 mg PO DAILY [facility] Last Admin: 07/11/19 09:53 Dose: 40 mg Vital Signs: Vital Signs: Temp Pulse Resp BP Pulse Ox 98 F 104 16 114/71 99 07/11/19 11:15 07/11/19 11:15 07/11/19 12:29 07/11/19 11:15 07/11/19 11:15 Patient Weight: Weight 54.885 kg Intake and Output: Intake & Output 07/09/19 07/10/19 07/11/19 07/12/19 06:59 06:59 06:59 06:59 Intake Total 2114 0 Balance 2114 0 Weight 54.885 kg Intake: IV Fluids 2013 NS 30 NS c 20 KCl 984 IVPB 100 keppra 100 Oral 0 0 Other: Estimated Void Medium Medium # Bowel Movements 0 # Voids 1 ADLs: Meal Record Start: 07/10/19 13: 51 Freq: DAILY@0900,1400,1800 Status: Active Protocol: Created 07/10/19 13:51 System (Rec: 07/10/19 13:51 System [facility]-C06) Document 07/10/19 18:00 [id number] (Rec: 07/10/19 21:59 [id number] MED-C02) Document 07/11/19 09:00 [id number] (Rec: 07/11/19 09:25 [id number] MED-C09) Intake and Output Start: 07/10/19 09: 15 Freq: Status: Complete Protocol: Created 07/10/19 09:15 System (Rec: 07/10/19 09:15 System [id number]) Intake and Output Start: 07/10/19 13: 51 Freq: DAILY@0600,1400,2200 Status: Active Protocol: Created 07/10/19 13:51 System (Rec: 07/10/19 13:51 System [id number]) Document 07/10/19 22:00 [id number] (Rec: 07/10/19 22:03 [id number] MED-C02) Document 07/11/19 05:10 [id number] (Rec: 07/11/19 05:12 [id number] MED-C11) Head: Normal Eyes: No Scleral Icterus Ears/Nose/Mouth/Throat: NL Teeth, Lips, Gums Neck: NL Appearance and Movements; NL JVP Cardiovascular: NL Sounds; No Murmurs; No JVD Respiratory: Symmetrical Chest Expansion and Respiratory Effort Abdominal: NL Sounds; No Tenderness; No Distention - Assessment Assessment: 58yo female with endstage SCLC with PRODUCTION WEIGHER mets - Plan Consult Plan (MU): Hospice Plan: Long discussion with pt and pt's sister Lora Gamez who is HCP [phone] about goals of care. Pt quickly fell asleep but requested to be at home. Information/brochure about hospice given and they would like a referral sent. They need a commode but no bed at this time because she had a hospital bed in the past but mattress was very uncomfortable. Pt lives with boyfriend, one sister lives next door and other sister stops in daily. Spoke with case management and hospice referral will be sent along with commode request. We also discussed MOLST form. Pt had been a DNR/DNI but checked CPR so her daughter could see her later today. Spoke with sister and will update form to reflect pt's wishes that she not be resuscitated or put on machines and the focus of her care be on comfort instead of curative or other interventions. Sister elected DNR/DNI, no feeding tube and comfort care. Pt is eligible for hospice with diagnosis of stage 4 SCLC with PRODUCTION WEIGHER mets. KPS 30%, PPS 30% - Time On Unit Date of Evaluation: 07/11/19 Hospice Consult Time in: 12:30 Hospice Consult Time Out: 13:30 Hospice Consult Time Total: 60 > 50% of Time Spend In Counseling or Coordinating Care: Yes
[2019-07-11] MEDS: Enoxaparin(*) 40 MG/0.4 ML SYR SUBCUT SCH (14:59)
[2019-07-11] MEDS: Morphine INJ* 2 MG/ML 1 ML SYRINGE (TWO MG - NEW SYRINGE VERSION) IV PRN (15:14)
--- NOTE | 2019-07-11 21:22 | EEG ---
ELECTROENCEPHALOGRAM REPORT: DATE OF STUDY: 07/10/19 REFERRING PHYSICIAN: Dr. Ross. LOCATION: She is an inpatient in room 417. CLINICAL PROBLEM: History of metastatic carcinoma, mental status changes. The patient has had multi ple falls, at least with 1 fall she has hit her head. MEDICATIONS: Include: 1. Lovenox. 2. Keppra. 3. Decadron. REPORT: This 19-channel EEG is remarkable for background rhythms consisting of a right occipital slo wing in the theta and delta range. There is an alpha rhythm in the left occipital region in quieter portions of the tracing at about 8 cycles per second. There is mixed theta activity through the rest of the right hemisphere with mixed theta and beta rhythm seen in the left hemisphere. Movement nadiya fact and cough artifact occurs occasionally. Sleep stages are not recognized. There is an occasiona l sharp wave with phase reversals in the right [id number] temporal region and sometimes in the right occipital region. There are no clinical events. CLINICAL IMPRESSION: Abnormal EEG due to slowing and disorganization of background rhythms, most pro minently from the right hemisphere and most prominently from the right occipital distribution. There are occasional sharp forms in the right occipital area and posterior temporal area on the right. Th is tracing is compatible with diffuse cerebral dysfunction, but much more prominently in the right he misphere than the left. There are occasional sharp waves in the right posterior hemisphere consisten t with potential epileptic focus at that location. [id number]/[facility] #: [id number]
[2019-07-12] MEDS: Morphine INJ* 2 MG/ML 1 ML SYRINGE (TWO MG - NEW SYRINGE VERSION) IV PRN ×4 (00:16→15:06)
[2019-07-12] MEDS: Dexamethasone IV* 4 MG/ML 1 ML (4 MG) IV SLOW PU SCH ×5 (01:05→17:21)
[2019-07-12] MEDS: levETIRAcetam 500 MG IVPREMIX* 500 MG/100 ML BAG IV SCH ×2 (06:27→17:19)
--- NOTE | 2019-07-12 07:59 | PN ---
Progress Note - Progress Note Date of Service: 07/12/19 SOAP: Subjective: []She wants to go home, Bed uncomfortable. No nausea. Breathing is fine. Taking pos, eating. Dexamethasone Sodium Phosphate (Decadron Iv*) 6 mg IV SLOW PU Q6HR [facility] Last Admin: 07/12/19 06:27 Dose: 6 mg Docusate Sodium (Colace Cap*) 100 mg PO BID [facility] Last Admin: 07/11/19 21:51 Dose: 100 mg Emtricitabine/Rilpivirine/Tenofovir (Odefsey Tablet) 1 each PO DAILY [facility] Last Admin: 07/11/19 09:53 Dose: 1 each Enoxaparin Sodium (Lovenox(*)) 40 mg SUBCUT Q24H [facility] Last Admin: 07/11/19 14:59 Dose: 40 mg Potassium Chloride/Sodium Chloride (Ns 0.9% W/ 20 Meq Kcl 1000 Ml*) 1,000 mls @ 75 mls/hr IV PER RATE [facility] Last Admin: 07/11/19 09:54 Dose: 75 mls/hr Levetiracetam (Keppra Iv Premix*) 500 mg in 100 mls @ 400 mls/hr IV Q12H [facility] Last Admin: 07/12/19 06:27 Dose: 400 mls/hr Magnesium Oxide (Magox 400 Tab*) 800 mg PO BID [facility] Last Admin: 07/11/19 21:53 Dose: 800 mg Morphine Sulfate (Morphine Inj (Syringe))*) 2 mg IV Q4H PRN PRN Reason: PAIN - SEVERE Last Admin: 07/12/19 05:46 Dose: 2 mg Ondansetron HCl (Zofran Inj*) 4 mg IV Q4H PRN PRN Reason: NAUSEA/VOMITING Oxycodone HCl (Roxycodone Tab*) 5 mg PO Q6H PRN PRN Reason: PAIN - SEVERE Last Admin: 07/11/19 10:41 Dose: 5 mg Pantoprazole Sodium (Protonix Tab*) 40 mg PO DAILY [facility] Last Admin: 07/11/19 09:53 Dose: 40 mg Objective: [] Vital Signs Temp Pulse Resp BP Pulse Ox 97.4 F 107 18 119/69 98 07/11/19 23:38 07/11/19 23:38 07/12/19 05:46 07/11/19 23:38 07/11/19 23:38 HEENT: OM dry, no thrush CTA RRR S1S2 NT ND Ext taniya to +1 JENNIFER Neuro AAOx3 Assessment: []SSLC with DIETITIAN TEACHING and systemic progression, transfer home with hospice on Sunday. Pain is partly controlled. Plan: []1. Increase Morphine to q 2 hr 2. Change Dex and Keppra to po. 3. DNR/DNI
[2019-07-12 08:19] LABS: Calcium 7.9 mg/dL (8.6-10.3); Potassium 3.9 mmol/L (3.5-5.0)
[2019-07-12 08:25] LABS: BUN/Creatinine Ratio 21.2 (8-20); EGFR Non-African American 120.7 (>60)
[2019-07-12] MEDS: Pantoprazole TAB * 40 MG TAB PO SCH (09:12)
[2019-07-12] MEDS: Docusate CAP* 100 MG PO SCH ×2 (09:12→20:16)
[2019-07-12] MEDS: Magnesium Oxide TAB* 400 MG PO SCH ×2 (09:12→20:17)
[2019-07-12] MEDS: oxyCODONE TAB* 5 MG TAB PO PRN ×2 (09:17→15:06)
[2019-07-12] MEDS: PTO:Emtricitabine/Rilpivirine/Teno (Odefsey) 200/25/25 TABLET PO SCH ×2 (09:18→20:21)
[2019-07-12] MEDS: Enoxaparin(*) 40 MG/0.4 ML SYR SUBCUT SCH (11:19)
[2019-07-12] MEDS: NS 0.9% w/ 20 Meq KCL 1000 ML* 1,000 ML IV SCH (12:35)
[2019-07-13] MEDS: Dexamethasone IV* 4 MG/ML 1 ML (4 MG) IV SLOW PU SCH ×2 (00:36→05:49)
[2019-07-13] MEDS: Morphine INJ* 2 MG/ML 1 ML SYRINGE (TWO MG - NEW SYRINGE VERSION) IV PRN ×2 (00:38→05:49)
[2019-07-13] MEDS: NS 0.9% w/ 20 Meq KCL 1000 ML* 1,000 ML IV SCH (02:51)
[2019-07-13] MEDS: levETIRAcetam 500 MG IVPREMIX* 500 MG/100 ML BAG IV SCH (04:59)
[2019-07-13] MEDS: oxyCODONE TAB* 5 MG TAB PO PRN ×3 (04:59→21:50)
--- NOTE | 2019-07-13 08:48 | PN ---
Subjective Date of Service: 07/13/19 Interval History: Pt is feeling a significant amount of pain today, worse than yesterday. Changes outlined in Dr. Pang's note from yesterday were not enacted. Plan is for d/c home tomorrow with hospice therefore I discussed with the patient and her family trying oral morphine concentrate to make sure we find correct dose. She states her breathing is feeling slightly better now than it did on admission. Objective Active Medications: Dexamethasone (Decadron Tab*) 6 mg PO Q6H [facility] Docusate Sodium (Colace Cap*) 100 mg PO BID [facility] Last Admin: 07/12/19 20:16 Dose: 100 mg Emtricitabine/Rilpivirine/Tenofovir (Odefsey Tablet) 1 each PO DAILY@2100 [facility] Last Admin: 07/12/19 20:21 Dose: 1 each Enoxaparin Sodium (Lovenox(*)) 40 mg SUBCUT Q24H [facility] Last Admin: 07/12/19 11:19 Dose: 40 mg Levetiracetam (Keppra Tab*) 500 mg PO BID [facility] Magnesium Oxide (Magox 400 Tab*) 800 mg PO BID [facility] Last Admin: 07/12/19 20:17 Dose: 800 mg Morphine Sulfate (Morphine Oral Concentrate*) 5 mg PO Q2H PRN PRN Reason: Pain - Severe or air hunger Ondansetron HCl (Zofran Inj*) 4 mg IV Q4H PRN PRN Reason: NAUSEA/VOMITING Oxycodone HCl (Roxycodone Tab*) 5 mg PO Q6H PRN PRN Reason: PAIN - MODERATE Pantoprazole Sodium (Protonix Tab*) 40 mg PO DAILY [facility] Last Admin: 07/12/19 09:12 Dose: 40 mg Vital Signs - 8 hr 07/13/19 07/13/19 07/13/19 02:54 03:15 04:59 Temperature 96.8 F Pulse Rate 101 Respiratory 18 16 20 Rate Blood Pressure 128/73 (mmHg) O2 Sat by Pulse 98 Oximetry 07/13/19 07/13/19 07/13/19 05:49 07:15 07:54 Temperature 97.2 F Pulse Rate 103 Respiratory 20 20 18 Rate Blood Pressure 135/86 (mmHg) O2 Sat by Pulse 97 Oximetry Oxygen Devices in Use Now: Nasal Cannula Appearance: Middle aged chronically ill appearing female lying in bed, NAD Eyes: No Scleral Icterus Ears/Nose/Mouth/Throat: Mucous Membranes Moist Respiratory: Symmetrical Chest Expansion and Respiratory Effort, - - coarse breath sounds heard anteriorly Cardiovascular: NL Sounds; No Murmurs; No JVD, RRR, No Edema Abdominal: NL Sounds; No Tenderness; No Distention Extremities: No Clubbing, Cyanosis Skin: No Nodules or Sclerosis Neurological: Alert and Oriented x 3 - Nutrition: Malnutrition Diagnosis/Plan Malnutrition Assessment by Registered Dietitian: Malnutrition Assessment Clinical Characteristics Chronic,Severe Malnutrition Assessment: Inadequate Oral Intake - Pt's daughter reports Criteria reduced intake x2 yrs, though states it has been worse x1 mo, 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 Per Palliative report, HCP opting for comfort care; aggressive nutrition intervention not indicated at this time, though will continue supplementation per f /u discussion w/ HCP; will follow GI Related - Recommend continuing bowel regimen as indicated; will monitor GI s/sx for impact on intake Glycemic Control - Dietary restriction not indicated at this time; will continue to monitor BG/FS in the setting of steroid med use Malnutrition Assessment: Goals 1) Adequate po intake to support lean body mass and hydration status 2) Improve fluid/electrolyte balance w/ adequate po intake and repletion PRN 3) Maintain glycemic control w/ adequate po intake w/o need for dietary restriction in the setting of steroid med use 4) Maintain bowel regularity w/ adequate po intake and bowel regimen w/o development of diarrhea/constipatoin 5) Ultimately, nutrition intervention as indicated and appropriate Result Diagrams: 07/11/19 06:00 07/12/19 07:05 Microbiology and Other Data: Microbiology 07/10/19 10:40 Aerobic Blood Culture - Preliminary Blood Venous No Growth Day 2 Anaerobic Blood Culture - Preliminary No Growth Day 2 07/10/19 09:25 Aerobic Blood Culture - Preliminary Blood Venous No Growth Day 2 Anaerobic Blood Culture - Preliminary No Growth Day 2 Assess/Plan/Problems-Billing Ms Burnett is a 58 yo F who has a h/o stage IV SCLC, HIV and COPD who was admitted with frequent falls and inability to care for herself at home. - Patient Problems (1) SCLC (small cell lung carcinoma) Current Visit: Yes Status: Acute Code(s): C34.90 - MALIGNANT NEOPLASM OF UNSP PART OF UNSP BRONCHUS OR LUNG SNOMED Code(s): 161499671 Comment: Plan is for the patient to go home with hospice tomorrow. I have changed her to oral morphine concentrate for pain control, 5mg q2hr prn severe pain or air hunger. She will continue on keppra 500mg BID (changed to oral today ) and decadron 6mg q6hr (changed to oral today). (2) COPD (chronic obstructive pulmonary disease) Current Visit: Yes Status: Acute Code(s): J44.9 - CHRONIC OBSTRUCTIVE PULMONARY DISEASE, UNSPECIFIED SNOMED Code(s): 35075444 Comment: No signs of exacerbation at this time. (3) HIV (human immunodeficiency virus infection) Current Visit: Yes Status: Acute Code(s): B20 - HUMAN IMMUNODEFICIENCY VIRUS [HIV] DISEASE SNOMED Code(s): 18303460 Comment: Continue odefsey. (4) DVT prophylaxis Current Visit: Yes Status: Acute Code(s): JBD4547 - SNOMED Code(s): 143895723 Comment: Lovenox (5) DNR (do not resuscitate) Current Visit: Yes Status: Acute Comment: DNR/DNI
[2019-07-13] MEDS: Magnesium Oxide TAB* 400 MG PO SCH ×2 (09:01→21:28)
[2019-07-13] MEDS: Docusate CAP* 100 MG PO SCH ×2 (09:01→21:29)
[2019-07-13] MEDS: Morphine ORAL CONCENTRATE* 5 MG/0.25 ML ORAL.SYRIN PO PRN ×4 (09:02→17:38)
[2019-07-13] MEDS: Pantoprazole TAB * 40 MG TAB PO SCH (09:02)
[2019-07-13] MEDS: levETIRAcetam TAB* 500 MG PO SCH ×2 (09:02→21:29)
[2019-07-13] MEDS: Dexamethasone TAB* 6 MG PO SCH ×3 (09:17→21:25)
[2019-07-13] MEDS: Enoxaparin(*) 40 MG/0.4 ML SYR SUBCUT SCH (13:13)
[2019-07-13] MEDS: PTO:Emtricitabine/Rilpivirine/Teno (Odefsey) 200/25/25 TABLET PO SCH (21:28)
[2019-07-14] MEDS: Morphine ORAL CONCENTRATE* 5 MG/0.25 ML ORAL.SYRIN PO PRN ×3 (03:19→08:00)
[2019-07-14] MEDS: Dexamethasone TAB* 6 MG PO SCH ×2 (03:20→08:43)
[2019-07-14] MEDS: oxyCODONE TAB* 5 MG TAB PO PRN (05:24)
[2019-07-14] MEDS ORDERED: Albuterol 2.5 MG/3 ML NEB.SOL* (0.083%) INH PRN (07:47)
[2019-07-14] MEDS: Magnesium Oxide TAB* 400 MG PO SCH (08:43)
[2019-07-14] MEDS: Pantoprazole TAB * 40 MG TAB PO SCH (08:43)
[2019-07-14] MEDS: levETIRAcetam TAB* 500 MG PO SCH (08:43)
[2019-07-14] MEDS: Docusate CAP* 100 MG PO SCH (08:43)
--- NOTE | 2019-07-14 09:41 | DS ---
- Discharge Summary Admission Date: 07/10/19 Discharge Date: 07/14/19 Discharge Diagnosis: 1. End-stage Small Cell Lung Cancer: transition to home hospice today 2. Falls: related to primary diagnosis, weakness 3. HIV: stable on home meds Medications: Medication Instructions Recorded Confirmed Type Magnesium Oxide TAB* [MagOx 400 800 mg PO BID 09/10/18 07/10/19 History TAB*] Docusate CAP* [Colace Cap*] 100 mg PO BID 06/14/19 07/10/19 History Emtricitabine/Rilpivirine/Teno 1 tab PO DAILY 07/10/19 07/10/19 History [Odefsey Tablet] Albuterol 2.5MG/3ML (0.083%)* 2.5 mg INH Q3H PRN #40 neb.soln 07/14/19 Rx [Ventolin 2.5 MG/3 ML NEB.KEYSHAWN*] Dexamethasone TAB* [Decadron TAB*] 6 mg PO Q6H #20 tab 07/14/19 Rx Morphine ORAL CONCENTRATE* 5 - 10 mg PO Q2H PRN #30 ml MDD 07/14/19 Rx 120 mg Pantoprazole TAB * [Protonix TAB*] 40 mg PO DAILY #30 tab 07/14/19 Rx guaiFENesin ER TAB [Mucinex*] 1,200 mg PO BID PRN #0 07/14/19 07/10/19 Rx levETIRAcetam TAB* [Keppra TAB*] 500 mg PO BID #60 tab 07/14/19 Rx oxyCODONE TAB* [Roxycodone TAB 5 5 mg PO Q6H PRN #20 tab MDD 4 tabs 07/14/19 Rx mg*] Disposition: Home with hospice Condition: Stable Diet: As tolerated Activity: As tolerated, fall precautions Hospital Course: Please see admission note for full H&P, however, briefly, Miss. Burnett is well known to our service due to her unfortunate diagnosis of Extensive Stage Small Cell Lung Cancer originally diagnosed 07/2017. She has received several lines of therapy, most recently on palliative Gemcitabine. She presented to the ER on 07/10/19 after being found on the floor of her home by family. On presentation she was notably sedated felt to be a combination of medications and [employer] disease. Imaging in the ER revealed progressive [employer] disease as compared to Sharee scan. At the time of presentation her overall condition had declined and her prognosis was felt to be limited, her family however requested a full evaluation. EEG was obtained without obvious seizure activity. Palliative care was consulted and Dr. Cullen saw the patient on with patient and family requesting hospice at home. On admission she had requested CPR so that her daughter could get her, however her wishes were clarified and a DNR/DNI MOLST form was signed. Miss. Burnett had increased pain following adjustment of her pain meds on admission, but this has improved with addition of PRN morphine concentrate. She overall feels well and is stable for discharge home with hospice sign on. Her sister has been very supportive and is asking appropriate questions. She will be discharge home this afternoon with ambulance transportation. Plan same day hospice sign-on. 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 Per Palliative report, HCP opting for comfort care; aggressive nutrition intervention not indicated at this time, though will continue supplementation per f /u discussion w/ HCP; will follow GI Related - Recommend continuing bowel regimen as indicated; will monitor GI s/sx for impact on intake Glycemic Control - Dietary restriction not indicated at this time; will continue to monitor BG/FS in the setting of steroid med use Malnutrition Assessment: Goals 1) Adequate po intake to support lean body mass and hydration status 2) Improve fluid/electrolyte balance w/ adequate po intake and repletion PRN 3) Maintain glycemic control w/ adequate po intake w/o need for dietary restriction in the setting of steroid med use 4) Maintain bowel regularity w/ adequate po intake and bowel regimen w/o development of diarrhea/constipatoin 5) Ultimately, nutrition intervention as indicated and appropriate
[2019-07-14 11:33] VITALS: BP 117/78
[2019-07-14] MEDS: Enoxaparin(*) 40 MG/0.4 ML SYR SUBCUT SCH (13:26)
== END 2019-07-14 14:40 | disposition hospice, home (50) | DRG 180 ==
LOC: ED 09:00 → MED 12:49
PROVIDERS: ADMIT Internal Medicine Hematology & Oncology; ATTEND Internal Medicine Hematology & Oncology
DX: C34.90 Malignant neoplasm of unspecified part of unspecified bronchus or lung (principal); E43 Unspecified severe protein-calorie malnutrition; B20 Human immunodeficiency virus [HIV] disease; Z68.1 Body mass index [BMI] 19.9 or less, adult; E87.1 Hypo-osmolality and hyponatremia; C79.31 Secondary malignant neoplasm of brain; J96.10 Chronic respiratory failure, unspecified whether with hypoxia or hypercapnia; D64.89 Other specified anemias; Z66 Do not resuscitate; Z91.81 History of falling; Z88.2 Allergy status to sulfonamides; Z91.030 Bee allergy status; Z91.040 Latex allergy status; J44.9 Chronic obstructive pulmonary disease, unspecified; E86.0 Dehydration; Z87.891 Personal history of nicotine dependence
CPT/HCPCS: 36415; 70450; 71045; 72125; 80048; 80053; 81003; 82140; 83605; 84484; 85025; 85610; 85730; 87040; 93005; 95816; 96374; 96375; 99223; 99233; 99284; A9270-GY; J1100; J1650; J2270; J2405